=== PATIENT | female | born 1940 | race Caucasian/White ===

== ENCOUNTER 2024-06-09 03:04 | Outpatient (CLI) | payer MEDICARE, SELFPAY ==
[2024-06-09 14:36] LABS: Abs Immature Grans 0.02 10^3/uL (0.0-0.06); Absolute Basophil Count 0.04 10^3/uL (0.0-0.2); Absolute Eosinophil Count 0.06 10^3/uL (0.0-0.7); Absolute Lymphocyte Count 0.69 10^3/uL (1.2-3.4); Absolute Monocyte Count 0.49 10^3/uL (0.1-0.8); Absolute Neutrophil Count 5.21 10^3/uL (1.2-6.7); Basophils % 0.6 %; Eosinophils % 0.9 %; HCT 33.6 % (36.0-46.0); HGB 10.4 g/dL (11.2-15.7); Immature Grans % 0.3 %; Lymphocytes % 10.6 %; MCH 27.3 pg (27.0-33.0); MCV 88 fL (80-95); MPV 8.9 fL (8.0-11.0); Monocytes % 7.5 %; Neutrophils % 80.1 %; Platelet Count 343 10^3/uL (130-400); RBC 3.81 10^6/uL (3.93-5.22); RDW 13.2 % (11.7-14.6); RDW-SD 42.7 fL; WBC 6.51 10^3/uL (4.4-10.8)
[2024-06-09 15:01] LABS: ALT 17 U/L (14-59); AST 16 U/L (15-37); Albumin 3.2 g/dL (3.4-5.0); Alkaline Phosphatase 90 U/L (46-116); Anion Gap 5.5 mmol/L (3-11); BUN 13 mg/dL (7-18); Bilirubin, Total 0.21 mg/dL (0.2-1.0); CO2 36.5 mmol/L (21.0-32.0); CREATININE 0.7 mg/dL (0.55-1.02); Calcium 9.4 mg/dL (8.5-10.1); Chloride 100 mmol/L (98-107); Estimated GFR 85.76 (mL/min/1.73m2); Glucose 96 mg/dL (74-106); Magnesium 1.7 mg/dL (1.8-2.4); Sodium 142 mmol/L (136-145); Total Protein 7.6 g/dL (6.4-8.2)
== END 2024-06-09 03:05 | disposition home or self-care (01) ==
LOC: LBO 03:06
PROVIDERS: PCP Internal Medicine; Visit Provider Internal Medicine Medical Oncology
DX: C34.31 Malignant neoplasm of lower lobe, right bronchus or lung (principal)
CPT/HCPCS: 36415; 80053; 83735; 85025

== ENCOUNTER 2024-07-08 03:51 | Outpatient (CLI) | payer MEDICARE, SELFPAY ==
[2024-07-08 12:27] LABS: Abs Immature Grans 0.03 10^3/uL (0.0-0.06); Absolute Basophil Count 0.04 10^3/uL (0.0-0.2); Absolute Eosinophil Count 0.06 10^3/uL (0.0-0.7); Absolute Lymphocyte Count 0.69 10^3/uL (1.2-3.4); Absolute Monocyte Count 0.54 10^3/uL (0.1-0.8); Absolute Neutrophil Count 7.23 10^3/uL (1.2-6.7); Basophils % 0.5 %; Eosinophils % 0.7 %; HCT 32.9 % (36.0-46.0); HGB 9.9 g/dL (11.2-15.7); Immature Grans % 0.3 %; MCH 26.1 pg (27.0-33.0); MCHC 30.1 % (32.0-36.0); MCV 87 fL (80-95); MPV 8.8 fL (8.0-11.0); Monocytes % 6.3 %; Neutrophils % 84.2 %; Platelet Count 463 10^3/uL (130-400); RBC 3.79 10^6/uL (3.93-5.22); RDW-SD 41.4 fL; WBC 8.59 10^3/uL (4.4-10.8)
[2024-07-08 12:54] LABS: ALT 14 U/L (14-59); AST 13 U/L (15-37); Albumin 2.6 g/dL (3.4-5.0); Alkaline Phosphatase 86 U/L (46-116); Anion Gap 2.1 mmol/L (3-11); BUN 10 mg/dL (7-18); Bilirubin, Total 0.27 mg/dL (0.2-1.0); CO2 37.9 mmol/L (21.0-32.0); CREATININE 0.8 mg/dL (0.55-1.02); Calcium 9.8 mg/dL (8.5-10.1); Chloride 101 mmol/L (98-107); Estimated GFR 73.06 (mL/min/1.73m2); Glucose 125 mg/dL (74-106); Magnesium 1.8 mg/dL (1.8-2.4); Potassium 4.2 mmol/L (3.5-5.1); Sodium 141 mmol/L (136-145); TSH 1.72 uIU/mL (0.36-3.74); Total Protein 7.2 g/dL (6.4-8.2)
== END 2024-07-08 03:52 | disposition home or self-care (01) ==
LOC: LBO 03:51
PROVIDERS: PCP Internal Medicine; Visit Provider Internal Medicine Medical Oncology
DX: C34.31 Malignant neoplasm of lower lobe, right bronchus or lung (principal); Z79.899 Other long term (current) drug therapy; C76.2 Malignant neoplasm of abdomen
CPT/HCPCS: 36415; 80053; 83735; 84439; 84443; 85025

== ENCOUNTER 2024-07-28 01:20 | Outpatient (CLI) | payer MEDICARE, SELFPAY ==
--- OUTSIDE RECORDS SUMMARY | 2024-07-28 01:29 | XMS_ITS | Encounter Summary ---
Author Organization [facility] Address [facility] [place] [address] Care Team Providers Care Ceo And Founder Name Role Phone Maria Guadalupe Mendes MD Primary Care Provider [phone] Reason for Referral * Consultation (Routine) - Closed Specialty Diagnoses / Procedures Referred By Contac t Referred To Contact Hematology and Oncology Diagnoses Primary malignant neoplasm of right upper lobe of lung Alta Zamora PA [facility] [place] [address] Nick Mullen MD [address] [place] [address] DR [place] [address] Referral ID Status Reason Start Date Expiration Date V isits Requested Visits Authorized [id number] Closed Consult, Test & Treat 05/29/2024 05/29/2025 1 1 Encounter Details Date Type Department Care Team (Latest Contact Info) Description 05/29/2024 9:00 AM EST TH Visit (TeleHealth) Radiation Oncology at [address] [phone] Alta Zamora PA [facility] [place] [address] Primary malignant neoplasm of right upper lobe of lung (Primary Dx); Primary malignant neoplasm of right lower lobe of lung; S/P radiotherapy Social History Tobacco Use Types Packs/Day Years Used Date Smoking Tobacco: Former Cigarettes 1 50 0 06/25/1967 - 06/25/2017 Smokeless Tobacco: Never Alcohol Use Standard Drinks/Week Comments Yes 0 (1 standard drink = 0.6 oz pur e alcohol) glass of wine once in a while [facility] Inpatient Questions Answer Date Recorded Does Anyone Try to Keep You From Having Contact with Others or Doing Things Outside Your Home? no 09/11/2023 Feels Threatened by Someone no 08/23 Feels Unsafe at Home or Work/School no 09/11/2023 Physical Signs of Abuse Present no 09/11/2023 Sex and Gender Information Value Date Recorded Sex Assigned at Not on file Gender Identity Not on file Sexual Orientation Not on file documented as of this encounter Progress Notes * Alta Zamora PA - 05/29/2024 9:00 AM EST [facility] Radiation Oncology [place] [phone] TELEHEALTH FOLLOW-UP: Patient: Kiersten Barraza : 1940 PCP: Maria Guadalupe Mendes MD Furniture Reproducer: Kevan Cameron MD ([facility]) Radiation Oncologist: Edwin Bolanos MD (Consult Date: 09/27/23) Chief Complaint: Follow-up for right NSCLC ([place]3: cT1c, cN0, cM0) HPI: Initial Abnormal Imaging: Chest CT on 08/06/23 showed a 2.3 cm RLL nodule; PET/CT on 09/20/23 showed a FDG-avid RUL nodule as well (possibly inflammatory; observing) Date of Diagnosis (Biopsy): EBUS on 09/11/23 (adenocarcinoma) Surgery: not a good surgical candidate d/t PFTs (DLCO 35%, PEV1 26%), functional status, and severeCOPD Treatment Intent: Definitive (Curative) Radiation Therapy: Completion Date Treatment Site Modality Dose per Fraction (Gy) # Fractions Total Dose (Gy) 11/16/23 RLL SBRT 11 5 55 Concurrent Therapy: none Progression: Abnormal Imaging: follow-up Chest CT on 03/10/24 showed RUL nodule (FDG-avid on 09/20/23 PET) grew from 6 mm to 1.2 cm since 09/11/23, c/f malignancy Date of Diagnosis (Biopsy): 04/10/24 (adenocarcinoma) Interval Symptoms Since Last Visit on 04/22/24: General: Today's phone visit is to review recent PET results. Pain: 0/10 Fatigue/Activity Level: Lives alone in a senior apartment on the third floor. 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 Weight/Appetite/Diet: No recent changes in appetite. Denies unintentional weight loss/gain. Respiratory: No acute changes since last appointment. Has been using a wheelchair for distance since before RT. Continues to report ARZATE, feels out of breath quickly, which causes her to limit her physical activity. No SOB at rest. On 4L/min continuous supplemental oxygen. Inhalers/nebulizer managedby PCP. Denies f/c, cough, or hemoptysis. Cardiovascular: Denies chest pain, palpitations, calf pain/swelling, or other peripheral edema. GI: Takes Metamucil daily and Imodium PRN for diarrhea, which help. Denies N/V, constipation, or abdominal pain. Musculoskeletal: Denies decreased strength. Neurological: Denies headaches, dizziness, seizures, peripheral neuropathy. Mood: Denies mood swings or feeling depressed. Tobacco Use: Smoked 1 PPD x 50 years, quit in 2018. Alcohol Use: Rarely. Allergies: Allergies Allergen Reactions Cyclobenzaprine Depression Gabapentin Other (See Comments) depression Percocet [Oxycodone-Acetaminophen] Current Medications: Current Outpatient Medications on File Prior to Visit Medication Sig Dispense Refill dilTIAZem (Tiazac) 180 mg ER 24 hr capsule Take 180 mg by mouth daily. aspirin 81 mg chewable tablet Take 81 mg by mouth daily. Psyllium Seed-Sucrose (0) Powder Take by mouth. CoQ-10 100 mg Capsule PRN atorvastatin (Lipitor) 20 mg Tablet Take 20 mg by mouth nightly. ketoconazole (Nizoral) 2 % Cream APPLY TO AFFECTED AREA ONCE DAILY NEEDED albuteroL (PROVENTIL) 2.5 mg /3 mL (0.083 %) Solution for Nebulization 3 mLs every 5 hours. ipratropium-albuteroL (DUONEB) 0.5 mg-3 mg(2.5 mg base)/3 mL Solution for Nebulization ipratropium 0.5 mg-albuterol 3 mg (2.5 mg base)/3 mL nebulization soln Administer breathing tx x 1 Trelegy Ellipta 100-62.5-25 mcg Disk with Device inhale 1 puff by mouth and INTO THE LUNGS once daily EVERY MORNING albuteroL 90 mcg/actuation HFA Aerosol Inhaler Inhale 2 puffs into the lungs every 4 hours as needed for Wheezing. Use with spacer loperamide (IMODIUM) 2 mg Capsule Take 2 mg by mouth daily as needed for Diarrhea. 1 mg/7.5 ml liquid Indications: diarrhea busPIRone (BUSPAR) 5 mg Tablet Take 5 mg by mouth 3 times daily. lisinopril (PRINIVIL;ZESTRIL) 10 mg Tablet Take 10 mg by mouth daily. OXYGEN-AIR DELIVERY SYSTEMS MISC by Misc.(Non-Drug; Combo Route) route. acetaminophen (TYLENOL) 325 mg Tablet Take 650 mg by mouth every 4 hours as needed for Pain. cholecalciferol, Vitamin D3, 2,000 unit Capsule Take by mouth. lactobacillus rhamnosus, GG, (CULTURELLE) 10 billion cell Capsule Take 1 capsule by mouth daily. No current facility-administered medications on file prior to visit. Performance Status: KPS Score ECOG Grade Definition 90-100 0 Fully active, able to carry on all pre-disease performance without restriction 70-80 1 Restricted in physically strenuous activity but ambulatory and able to carry out work of a light or sedentary nature, e.g., light house work, office work 50-60 2 Ambulatory and capable of all selfcare but unable to carry out any work activities; up and about more than 50% of waking hours X 30-40 3 Capable of only limited selfcare; confined to bed or chair more than 50% of waking hours 10-20 4 Completely disabled; cannot carry on any selfcare; totally confined to bed or chair Physical Examination: (No vitals obtained as this is a telephone appointment.) Constitutional: conversant. Respiratory: non-labored respirations with speaking. Neurologic: alert and oriented x 3. Speech clear and coherent. Psychiatric: mood is euthymic. Insight and judgement are good. Imaging: PET/CT (05/21/24): IMPRESSION 1. FDG avid 1.2 cm spiculated right upper nodule, consistent with pulmonary malignancy. 2. Postradiation changes in the right lower lobe with small residual FDG avid nodular component, consistent with residual malignancy and/or postradiation change. 3. New, multiple FDG avid right pleural metastases. 4. Unchanged FDG avid small right upper paratracheal and right hilar sonja metastases. 5. New small to moderate right pleural effusion with right basilar compressive atelectasis. Assessment & Plan: #Lung cancer: - Chest CT from 03/10/24 showed treated RLL nodule had decreased in size with expected radiation changes present. RUL nodule (FDG-avid on 09/20/23 PET) continues to grow from 6 mm to 1.2 cm since 09/11/23, c/f malignancy. Results reviewed at [facility] Tumor Board on 03/25/24, with recommendation for CT-guided biopsy of growing RUL nodule. - CT-guided biopsy of growing, FDG-avid RUL nodule on 04/10/24 showed adenocarcinoma. - PET on 05/21/24 showed multiple new FDG-avid right pleural metastases, new right pleural effusion, and stable FDG-avid right upper paratracheal and hilar sonja metastases, in addition to the FDG-avid RUL biopsy-proven adenocarcinoma and radiation changes in the RLL. - PET results reviewed with Dr. Bolanos and Dr. Mullen. Per Dr. Mullen, biopsy confirmation of the pleural metastases is not necessary, and based on patient's PD-L1 status, she would be a candidate for single-agent immunotherapy. PET results and recommendations reviewed with patient. Will refer to Medical Oncology. - Patient canceled Brain MRI on 05/21/24. Will reschedule Brain MRI at [facility] to complete staging work-up. - ARZATE continues, no SOB at rest. On 4L/min continuous supplemental oxygen. Inhalers/nebulizer managed by PCP. Denies f/c, cough, or hemoptysis. Patient plans to contact PCP to discuss symptoms and potential need for Pulmonology referral to re-establish care. #Effects of EBRT: - Completed definitive SBRT to RLL (55 Gy in 5 fractions) on 11/16/23. - Reviewed concerning symptoms that should be brought to the attention of a medical provider: - Brand new or worsening pulmonary symptoms (especially hemoptysis); - Symptoms that persist for more than 2 weeks; - Anything you are worried about that may be related to your cancer coming back. #Survivorship: - Body weight/nutrition: recommend a well-balanced diet with adequate hydration. - Exercise: recommend at least 150 minutes of cardiovascular exercise per week, stretching twice per week, and 2 days of resistance/strength training per week as tolerated. - Sleep: recommend 7-8 hours per night. - Sunscreen: encourage SPF 30 or higher, and wearing protective clothing/hats while outside. - Follow with PCP on regular basis for: annual exam/health maintenance, immunizations, and cancer screenings. #Resources provided: none #Referrals placed: Medical Oncology Follow-Up: Imaging ([facility]): next available Brain MRI (ordered 04/22/24) Next visit with Radiation Oncology: SURYA Barraza had the opportunity to ask questions, which were answered to the best of my knowledge. Kiersten Barraza agreed to contact Radiation Oncology in between visits with any questions/concerns or new symptoms in regards to radiation therapy/lung cancer. Alta Zamora PA-C Radiation Oncology documented in this encounter Plan of Treatment Upcoming Encounters Date Type Department Care Team (Late st Contact Info) Description 07/28/2024 12:30 PM EST Office Visit Hematology/Oncology at [address] [phone] Nick Mullen MD [facility] [address] [place] [address] Chana Myrick APRN [address] [place] [address] DR HEMATOLOGY AND ONCOLOGY [place], [place] [id number] 07/28/2024 1:00 PM EST Scheduled View Only Hematology/Oncology at [address] [phone] Aleah Curran RN 07/28/2024 1:00 PM EST Infusion Hematology Oncology at [address] [phone] Scheduled Referrals Name Type Priority Associated Diagnoses Order Schedule Referral to Hematology and Oncology Outpatient Referral Routine Primary malignant neoplasm of right upper lobe of lung Ordered: 05/29/2024 documented as of this encounter Visit Diagnoses Diagnosis Primary malignant neoplasm of right upper lobe of lung- Primary Malignant neoplasm of upper lobe, bronchus or lung Primary malignant neoplasm of right lower lobe of lung Malignant neoplasm of lower lobe, bronchus, or lung S/P radiotherapy Convalescence following radiotherapy documented in this encounter Care Teams Ceo And Founder Relationship Specialty Start Date End Date Maria Guadalupe Mendes MD [address] [place] [phone] PCP - General General Internal Medicine 09/06/23 documented as of this encounter
--- OUTSIDE RECORDS SUMMARY | 2024-07-28 01:29 | XMS_ITS | Encounter Summary ---
Author Organization [facility] Address [facility] [place] [address] Care Team Providers Care Interior Design Consultant Name Role Phone Maria Guadalupe Mendes MD Primary Care Provider Encounter Details Date Type Department Care Team (Latest Contact Info) Description 06/26/2024 Travel Social History Tobacco Use Types Packs/Day Years Used Date Smoking Tobacco: Former Cigarettes 1 50 0 06/25/1967 - 06/25/2017 Smokeless Tobacco: Never Alcohol Use Standard Drinks/Week Comments Yes 0 (1 standard drink = 0.6 oz pur e alcohol) glass of wine once in a while B1300 Health Literacy Answer Date Recor ded How often do you need to hav e someone help you when you read instructions, pamphlets, or other written material from your doctor or pharmacy? Rarely 06/09/2024 [facility] Utilities Answer Date Recorded In the past 12 months has th e electric, gas, oil, or water company threatened to shut off services in your home? No 06/09/2024 Overall Financial Resource Strain (CARDIA) Answe r Date Recorded How hard is it for you to pa y for the very basics like food, housing, medical care, and heating? Patient declined 06/09/2024 Hunger Vital Sign Answer Date Recorded Within the past 12 months, y ou worried that your food would run out before you got the money to buy more. Patient declined Within the past 12 months, t he food you bought just didn't last and you didn't have money to get more. Patient declined PRAPARE - Transportation Answer Date Re corded In the past 12 months, has l ack of transportation kept you from medical appointments or from getting medications? Patient declined 06/09/2024 In the past 12 months, has l ack of transportation kept you from meetings, work, or from getting things needed for daily living? Patient declined 06/09/2024 Housing Stability Vital Sign Answer Quinn e Recorded In the last 12 months, was t here a time when you were not able to pay the mortgage or rent on time? Patient declined 06/09/20 24 In the past 12 months, how m any times have you moved where you were living? 0 06/09/2024 At any time in the past 12 m onths, were you homeless or living in a prison (including now)? Patient declined 06/09/2024 [facility] Inpatient Questions Answer Date Recorded Does Anyone [...] on file documented as of this encounter Plan of Treatment Upcoming Encounters Date Type Department Care Team (Late st Contact Info) Description 07/28/2024 12:30 PM EST Office Visit Hematology/Oncology at [address] [phone] Nick Mullen MD [facility] DR HEMATOLOGY [place] [address] Chana Myrick APRN [address] [place] [address] DR HEMATOLOGY AND ONCOLOGY [place], [place] [phone] 07/28/2024 1:00 PM EST Scheduled View Only Hematology/Oncology at [address] [phone] Aleah Curran RN 07/28/2024 1:00 PM EST Infusion Hematology Oncology at [address] [phone] documented as of this encounter Visit Diagnoses Not on filedocumented in this encounter Care Teams Interior Design Consultant Relationship Specialty Start Date End Date Maria Guadalupe Mendes MD [address] [place] [phone] PCP - General General Internal Medicine 09/06/23 documented as of this encounter
--- OUTSIDE RECORDS SUMMARY | 2024-07-28 01:29 | XMS_ITS | Encounter Summary ---
Author Organization [facility] Address [facility] [place] [address] Care Team Providers Care Director Surface Transportation Name Role Phone Maria Guadalupe Mendes MD Primary Care Provider [phone] Reason for Referral * Diagnostic Test (Routine) - Closed Specialty Diagnoses / Procedures Referred By Contac t Referred To Contact Radiology Diagnoses Primary malignant neoplasm of right upper lobe of lung Procedures NM PET CT Skull Base to Mid-thigh Alta Zamora PA [facility] [place] [address] [facility] [place] [address] Referral ID Status Reason Start Date Expiration Date V isits Requested Visits Authorized [id number] Closed Specialty Service Requested 04/22/2024 10/21/2025 2 2 * Diagnostic Test (Routine) - Pending Review Specialty Diagnoses / Procedures Referred By Contac t Referred To Contact Radiology Diagnoses Primary malignant neoplasm of right upper lobe of lung Procedures MRI Brain wwo Contrast (Generic) Alta Zamora PA [facility] [place] [address] [place] [address] Referral ID Status Reason Start Date Expiration Date Visits Requested Visits Authorized [id number] Pending Review Specialty Service Requested 4 10/21/2025 1 1 Encounter Details Date Type Department Care Team (Latest Contact Info) Description 04/22/2024 10:30 AM EDT TH Visit (TeleHealth) Radiation Oncology at [address] [phone] Alta Zamora PA [facility] [address] [place] [address] Primary malignant neoplasm of right upper lobe [...] glass of wine once in a while [facility] Inpatient Questions Answer Date Recorded Does Anyone [...] Progress Notes * Alta Zamora PA - 04/22/2024 10:30 AM EDT [facility] [place] [address] TELEHEALTH FOLLOW-UP: Patient: Kiersten Barraza : 1940 PCP: Maria Guadalupe Mendes MD Fruit Rancher: Kevan Cameron MD ([facility]) Radiation Oncologist: Edwin Bolanos MD (Consult Date: [...] SBRT 11 5 55 Concurrent Therapy: none Current treatment: Surveillance Interval Symptoms Since Last Visit on 03/25/24: General: 04/10/24 biopsy of growing, FDG-avid RUL nodule showed adenocarcinoma. This phone appointment is to review this result and plan. Pain: 0/10 Fatigue/Activity Level: Lives alone in a senior apartment on the third floor. 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 Weight/Appetite/Diet: No recent changes in appetite. Denies unintentional weight loss/gain. Respiratory: No acute changes since last appointment. Has been using a wheelchair for distance since before RT. Thinks ARZATE has continued to slightly worsen, feels out of breath more quickly, which causes her to limit her physical activity. No SOB at rest. On 4L/min continuous supplemental oxygen. In halers/nebulizer managed by PCP. Denies f/c, cough, or hemoptysis. Cardiovascular: [...] Alcohol Use: Rarely. Allergies: Allergies Allergen Reactions Gabapentin Other (See Comments) depression Percocet [Oxycodone-Acetaminophen] [...] Tablet Take 20 mg by mouth nightly. albuteroL (PROVENTIL) 2.5 mg /3 mL (0.083 [...] Tablet Take 10 mg by mouth daily. acetaminophen (TYLENOL) 325 mg Tablet Take 650 mg by mouth every 4 hours as needed for Pain. cholecalciferol, Vitamin D3, 2,000 unit Capsule Take by mouth. [DISCONTINUED] emollient combination no.111 (REMEDY PHYTOPLEX MOISTURIZER TOP) Apply topically. Phytoplex Remedy Moisturizer: Apply to area of radiation twice a day but no less than 2 hours before a treatment. ketoconazole (Nizoral) 2 % Cream APPLY TO AFFECTED AREA ONCE DAILY NEEDED OXYGEN-AIR DELIVERY SYSTEMS MISC by [facility].(Non-Drug; Combo Route) route. lactobacillus rhamnosus, GG, (CULTURELLE) 10 billion cell [...] euthymic. Insight and judgement are good. Imaging: Chest CT without contrast (03/10/24): IMPRESSION 1. Posttreatment changes in the right lower lobe with interval decrease in size of the treated lesion, as above. 2. Ongoing increase in size of a peripheral nodule along the lateral aspect of the right upper lobe, concerning for an additional focus of malignancy. 3. Unchanged indeterminate small peripheral nodules in the right upper and left midlung regions, attention on follow-up. Pathology Reviewed This Visit: Final Diagnosis A. Lung, Right, CT Guided Core Needle Biopsy: Adenocarcinoma, (see Discussion.) Assessment & Plan: #Lung cancer: - Chest [...] RUL nodule on 04/10/24 showed adenocarcinoma. - Will order updated PET and Brain MRI to determine extent of disease and establish a treatment plan. - ARZATE continues to slightly worsen. No SOB at rest. On 4L/min continuous [...] cancer screenings. #Resources provided: none #Referrals placed: none Follow-Up: (prefers PM appointments) Imaging ([facility]): next available PET and Brain MRI Next visit: with Dr. Bolanos to review imaging results Kiersten Barraza had the opportunity to ask questions, [...] 12:30 PM EST Office Visit Hematology/Oncology at [address] [phone] Nick Mullen MD [facility] [address] [place] [address] Chana Myrick APRN [address] [place] [address] DR HEMATOLOGY AND ONCOLOGY [place], [place] [id number] 07/28/2024 1:00 PM EST Scheduled View Only Hematology/Oncology at [address] [phone] Aleah Curran RN 07/28/2024 1:00 PM EST Infusion Hematology Oncology at [address] [phone] Scheduled Orders Name Type Priority Associated Diagnoses Orde r Schedule MRI Brain wwo Contrast (Generic) Imaging Routine Primary malignant neoplasm of right upper lobe of lung Expected: 04/22/2024 (Approximate), Expires: 10/22/2024 documented as of this encounter Results * NM PET CT Skull Base to Mid-thigh (05/21/2024 2:53 PM EST) Rolith WORKSTATION ID [id number] RAD Anatomical Region Laterality Modality Positron Emissio n Tomography (PET) Impressions 05/26/2024 11:14 AM EST 1. ??FDG avid 1.2 cm spiculated right upper nodule, consistent with pulmonary malignancy. 2. ??Postradiation changes in the right lower lobe with small residual FDG avid nodular component, consistent with residual malignancy and/or postradiation change. 3. ??New, multiple FDG avid right pleural metastases. 4. ??Unchanged FDG avid small right upper paratracheal and right hilar sonja metastases. 5. ??New small to moderate right pleural effusion with right basilar compressive atelectasis. Preliminary report signed by: Rudi Donovan at 05/26/2024 10:56 AM I have personally reviewed the image(s) and the resident's interpretation and agree with the findings, Krish Davila MD at 05/26/2024 11:14 AM Thank you for letting us participate in the care of this patient. ??If you are a health care provider and have any questions regarding this report, please contact the number below. ??For patients who have questions please contact the health child care coordinator that requested your imaging first. ? Electronically signed by: Krish Davila MD, [facility] ([phone]), at 05/26/2024 11:14 AM Narrative 05/26/2024 11:14 AM EST EXAMINATION: NM PET CT STANDARD SKULL BASE TO MID-THIGH CLINICAL HISTORY: Completed SBRT to RLL biopsy-proven adenocarcinoma on 11/16/23. 04/10/24 biopsy of growing FDG-avid RUL nodule showed adenocarcinoma. ??This scan ordered for staging. C34.11, Malignant neoplasm of upper lobe, right bronchus or lung Recent flu vaccination on the left arm on 04/29/2024 TECHNIQUE: Following IV injection of 75-pbpdan-2-deoxyglucose (FDG) a standard uptake of approximately 60 minutes, a noncontrast CT scan followed by a PET scan were acquired from the base of the skull to mid thighs. The noncontrast CT was used for anatomic localization and photon attenuation correction of the PET scan. Blood glucose level: 97 (mg/dL) FDG dose: 12.1 mCi COMPARISON: PET/CT 09/12/2023 CT chest 03/10/2024, 08/06/2023 FINDINGS: HEAD/NECK: Normal activity in all soft tissue regions of the neck and visualized lower head. No adenopathy. CHEST: FDG avid 1.2 cm spiculated peripheral right upper lobe nodule, unchanged in size compared to PET CT 09/12/2023. Significantly decreased size of previously seen right lower lobe mass (image 67), corresponding to biopsy-proven adenocarcinoma and site of prior radiation therapy, now with small residual FDG avid nodular component. New adjacent patchy consolidative/groundglass opacities, and right lower lobe peribronchial thickening. Multiple FDG avid right pleural nodules, new since prior PET scan (for example image 43). Unchanged FDG avid small right upper paratracheal lymph node (image 47). Unchanged mildly FDG avid right hilar lymph node (image 59). New washd-yp-dqmswiyt right pleural effusion with right basilar compressive atelectasis. Stable emphysematous changes. Unchanged small left lower lobe intrapulmonary lymph node (image 79). Unchanged non-FDG avid sub-6 mm peripheral left lower lobe nodule (image 80). Coronary, aortic valve, and aortic calcifications. Enlargement of the main pulmonary artery relative to the aorta, measuring up to 3.5 cm. ABDOMEN/PELVIS: Normal activity in all soft tissue regions. Resolution of previously seen focus of FDG uptake in the right adrenal gland region No adenopathy. SKELETON/EXTREMITIES: Normal activity in all regions of the axial and visualized appendicular skeleton. No suspicious osseous lesion. Procedure Note Krish Davila MD - 05/26/2024 EXAMINATION: NM PET CT STANDARD SKULL BASE TO MID-THIGH CLINICAL HISTORY: Completed SBRT to RLL biopsy-proven adenocarcinoma on11/16/23. 04/10/24 biopsy of growing FDG-avid RUL nodule showed adenocarcinoma.This scan ordered for staging. C34.11, Malignant neoplasm of upper lobe, right bronchus or lung Recent flu vaccination on the left arm on 04/29/2024 TECHNIQUE: Following IV injection of 52-pumosq-5-deoxyglucose (FDG) astandard uptake of approximately 60 minutes, a noncontrast CT scan followed by aPET scan were acquired from the base of the skull to mid thighs. The noncontrast CTwas used for anatomic localization and photon attenuation correction of thePET scan. Blood glucose level: 97 (mg/dL) FDG dose: 12.1 mCi COMPARISON: PET/CT 09/12/2023 CT chest 03/10/2024, 08/06/2023 FINDINGS: HEAD/NECK: Normal activity in all soft tissue regions of the neck and visualizedlower head. No adenopathy. CHEST: FDG avid 1.2 cm spiculated peripheral right upper lobe nodule, unchangedin size compared to PET CT 09/12/2023. Significantly decreased size of previously seen right lower lobe mass(image 67), corresponding to biopsy-proven adenocarcinoma and site of priorradiation therapy, now with small residual FDG avid nodular component. New adjacentpatchy consolidative/groundglass opacities, and right lower lobe peribronchial thickening. Multiple FDG avid right pleural nodules, new since prior PET scan (forexample image 43). Unchanged FDG avid small right upper paratracheal lymph node (image 47). Unchanged mildly FDG avid right hilar lymph node (image 59). New jlckd-kd-qpsnwqjg right pleural effusion with right basilarcompressive atelectasis. Stable emphysematous changes. Unchanged small left lowerlobe intrapulmonary lymph node (image 79). Unchanged non-FDG avid sub-6 mmperipheral left lower lobe nodule (image 80). Coronary, aortic valve, and aortic calcifications. Enlargement of themain pulmonary artery relative to the aorta, measuring up to 3.5 cm. ABDOMEN/PELVIS: Normal activity in all soft tissue regions. Resolution of previously seenfocus of FDG uptake in the right adrenal gland region No adenopathy. SKELETON/EXTREMITIES: Normal activity in all regions of the axial and visualized appendicular skeleton. No suspicious osseous lesion. IMPRESSION 1. FDG avid 1.2 cm spiculated right upper nodule, consistent withpulmonary malignancy. 2. Postradiation changes in the right lower lobe with small residual FDGavid nodular component, consistent with residual malignancy and/orpostradiation change. 3. New, multiple FDG avid right pleural metastases. 4. Unchanged FDG avid small right upper paratracheal and right hilarnodal metastases. 5. New small to moderate right pleural effusion with right basilarcompressive atelectasis. Preliminary report signed by: Rudi Donovan at 05/26/2024 10:56AM I have personally reviewed the image(s) and the resident's interpretationand agree with the findings, Krish Davila MD at 05/26/2024 11:14 AM Thank you for letting us participate in the care of this patient. If youare a health care provider and have any questions regarding this report,please contact the number below. For patients who have questions please contactthe health child care coordinator that requested your imaging first. Electronically signed by: Krish Davila MD, [facility]([phone]), at 05/26/2024 11:14 AM Edwin Bolanos MD IMG PET ORDERABLES documented in this encounter Visit Diagnoses Diagnosis Primary malignant neoplasm of right upper lobe of lung- Primary Malignant neoplasm of upper lobe, bronchus or lung Primary malignant neoplasm of right lower lobe of lung Malignant neoplasm of lower lobe, bronchus, or lung S/P radiotherapy Convalescence following radiotherapy Primary malignant neoplasm of right upper lobe of lung Malignant neoplasm of upper lobe, bronchus or lung documented in this encounter Care Teams Director Surface Transportation Relationship Specialty Start Date End Date Maria Guadalupe Mendes MD [address] [place] [address] PCP - General General Internal Medicine 09/06/23 documented as of this encounter
--- OUTSIDE RECORDS SUMMARY | 2024-07-28 01:29 | XMS_ITS | Encounter Summary ---
Author Organization [facility] Address [facility] [place] [address] Care Team Providers Care Motel Maid Name Role Phone Maria Guadalupe Mendes MD Primary Care Provider [phone] Encounter Details Date Type Department Care Team (Late st Contact Info) Description 06/04/2024 Orders Only Hematology/Oncology at [address] [phone] Nick Mullen MD [facility] DR HEMATOLOGY [place] [address] Primary malignant neoplasm of right lower lobe of lung Social History Tobacco Use Types Packs/Day Years Used Date Smoking Tobacco: Former Cigarettes 1 50 0 06/25/1967 - 06/25/2017 Smokeless Tobacco: Never Alcohol Use Standard Drinks/Week Comments Yes 0 (1 standard drink = 0.6 oz pur e alcohol) glass of wine once in a while DH IPV Inpatient Questions Answer Date Recorded [...] 12:30 PM EST Office Visit Hematology/Oncology at [address] [phone] Nick Mullen MD [facility] DR HEMATOLOGY [place] [address] Chana Myrick APRN [address] [place] [address] DR HEMATOLOGY AND ONCOLOGY [place], [place] [id number] 07/28/2024 1:00 PM EST Scheduled View Only Hematology/Oncology at [address] [phone] Aleah Curran RN 07/28/2024 1:00 PM EST Infusion Hematology Oncology at [address] [phone] Scheduled Orders Name Type Priority Associated Diagnoses Orde r Schedule CBC (with Diff) Lab STAT Primary malignant neoplasm of right lower lobe of lung Once a week for 52 Occurrences starting 06/04/2024 until 06/04/2025 Comprehensive metabolic panel Non-fasting Lab STAT Primary malignant neoplasm of right lower lobe of lung Once a week for 52 Occurrences starting 06/04/2024 until 06/04/2025 Magnesium Lab Routine Primary malignant neoplasm of right lower lobe of lung Once a week for 52 Occurrences starting 06/04/2024 until 06/04/2025 documented as of this encounter Visit Diagnoses Diagnosis Primary malignant neoplasm of right lower lobe of lung Malignant neoplasm of lower lobe, bronchus, or lung documented in this encounter Care Teams Motel Maid Relationship Specialty Start Date End Date Maria Guadalupe Mendes MD [address] [place] [address] PCP - General General Internal Medicine 09/06/23 documented as of this encounter
--- OUTSIDE RECORDS SUMMARY | 2024-07-28 01:29 | XMS_ITS | Encounter Summary ---
Author Organization [facility] Address [facility] [place] [address] Care Team Providers Care Hog Stomach Preparer Name Role Phone Maria Guadalupe Mendes MD Primary Care Provider Reason for Visit * Reason Comments Chemotherapy Cycle 1, Day 1; pemb ro * Treatment/Therapy Plan Authorization (Routine) - Authorized Specialty Diagnoses / Procedures Referred By Contilia t Referred To Contact Diagnoses Primary malignant neoplasm of right lower lobe of lung Secondary malignant tumor of pleura High risk medication use Procedures TC PEMBROLIZUMAB, 1 MG, INJ Nick Mullen MD [facility] DR HEMATOLOGY [place] [address] [facility] Hem Onc Office [address] [place] [phone] Referral ID Status Reason Start Date Expiration Date V isits Requested Visits Authorized [id number] Authorized 06/12/2024 06/12/2025 99 99 Encounter Details Date Type Department Care Team (Late st Contact Info) Description 07/08/2024 1:30 PM EST Infusion Hematology Oncology at [address] [phone] Primary malignant neoplasm of right lower lobe of lung; Secondary malignant tumor of pleura; High risk medication use Social History Tobacco Use Types Packs/Day Years [...] your doctor or pharmacy? Rarely 06/09/[address] [facility] Utilities Answer Date Recorded In the [...] any time in the past 12 m [facility], were you homeless or living in a correction (including now)? Patient declined 06/09/2024 DH IPV [...] as of this encounter Progress Notes * Angelina Chen RN - 07/08/2024 1:30 PM EST INFUSION THERAPY ADMINISTRATION NOTES DIAGNOSIS: Lung cancer CYCLE #: 2, Day 1; Pembro REASON FOR VISIT: Pembro SUBJECTIVE Kiersten Barraza offers no complaints. OBJECTIVE LAB DATA: WDL for today's infusion. Seen in clinic and cleared for treatment. IV ACCESS: PIV placed, Immuno study labs drawn. Pre administration: Chemotherapy orders independently verified for drug name, route, and dosage per patient's height, weight and BSA by Angelina Chen, RN & staff pharmacists. REACTIONS (DESCRIPTION, TIME, INTERVENTION AND EFFECTIVENESS) none ASSESSMENT Kiersten Barraza was awake, alert and tolerated treatment well. Pt. chemo teaching instructions included: During clinic hours (8am-5pm Sunday-Sunday): pt. can call [phone] with questions or concerns. After clinic hours (5pm-8am Sunday-Sunday and weekends) pt can call [phone] and ask for the pharmacist manager/oncologist consulting property manager. Kiersten Barraza verbalized understanding of potential chemotherapy side effects and home care including but not limited to- handwashing to prevent infection, signs and symptoms of low blood counts (fever, fatigue, bleeding), to call with a fever of 100.4 or greater, any significant constipation/diarrhea, importance of nutrition and fluid intake (drinking at least 32-64 ounces of non-caffeinated beverages/day), mouth care. Kiersten Barraza verbalized understanding of how to take prescription medications given for homeuse after chemotherapy. PLAN Return to clinic per routine. documented in this encounter Plan of Treatment Upcoming Encounters Date Type Department Care Team (Late st Contact Info) Description 07/28/2024 12:30 PM EST Office Visit Hematology/Oncology at [address] [phone] Nick Mullen MD [facility] DR HEMATOLOGY [place] [address] Chana Myrick APRN [address] [place] [address] [place] [address] 07/28/2024 1:00 PM EST Scheduled View Only Hematology/Oncology at [address] [phone] Aleah Curran RN 07/28/2024 1:00 PM EST Infusion Hematology Oncology at [address] [phone] documented as of this encounter Visit Diagnoses Diagnosis Primary malignant neoplasm of right lower lobe of lung Malignant neoplasm of lower lobe, bronchus, or lung 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 Is this drug being given as an outpatient? Yes New Bag 07/08/2024 2:37 PM EST 200 mg 216 mL/hr documented in this encounter Care Teams Hog Stomach Preparer Relationship Specialty Start Date End Date Maria Guadalupe Mendes MD [address] [place] [phone] PCP - General General Internal Medicine 09/06/23 documented as of this encounter
--- OUTSIDE RECORDS SUMMARY | 2024-07-28 01:29 | XMS_ITS | Encounter Summary ---
Author Organization [facility] Address [facility] [place] [address] Care Team Providers Care Private Equity Associate Name Role Phone Maria Guadalupe Mendes MD Primary Care Provider [phone] Encounter Details Date Type Department Care Team (Latest Contact Info) Description 05/08/2024 3:00 PM EST Procedure visit Dermatology at [facility] [address] [place] [address] Drake Chi MD [facility] DR CHE[place] [address] Basal cell carcinoma (BCC) of back Social History Tobacco Use Types Packs/Day Years [...] as of this encounter Progress Notes * Savage Brandon - 05/08/2024 3:00 PM EST Images from the original note were not included. DEPARTMENT OF DERMATOLOGY Medical Dermatology Clinic Provider: MD Jennifer Cotovia Preferred contact method for results [x]Phone []myD-H []Letter Detailed phone message OK? yes Are there any other people with whom we may discuss your care? Bony Barraza Past Medical History Date, location, treatment Melanoma no Dysplastic nevi no SCC no BCC Basal Cell Carcinoma, nodular, micronodular Location/Site: left nasal tip, s/p Mohs 03/16/2022 AKs UV Exposure & Protection Other relevant past medical history Eczema Hypertension Emphysema Family History Details Melanoma no NMSC no Other relevant family history Kidney cancer in father Social History Occupation: retired 2 children Pre-Procedure Screening Details Allergy to lidocaine, epinephrine, Dermabond, chlorhexidine, or adhesives Bleeding disorder or blood thinners Implanted devices (Pacemaker, defibrillator, deep brain stimulator, cochlear implant) History of Present Illness: Kiersten Barraza is a 84 y.o. Patient returns to clinic today for ED&C of biopsy proven BCC on the back . Last visit at Dermatology: 01/29/2024 Last visit with this provider: 01/29/2024 Medications: Reviewed in eD-H Allergies: Reviewed in eD-H Skin Examination: Focused skin examination of the BCC of the back was normal with the exception of the findings below. Assessment/Plan #. Biopsy-Proven BCC on the midline back - Reviewed pathology results and recommended treatment with ED&C. Patient agreed to proceed. - Patient denies allergies to lidocaine and epinephrine. - Patient denies having a pacemaker or defibrillator. Procedure: Destruction of lesion by electrodesiccation and curettage (ED&C) Location: As noted above. Indications and expectations, including risks and benefits, discussed. Verbal consent obtained. Skin prepped with alcohol. Local anesthesia administered with 1% xylocaine, 1:100,000 epinephrine. Entire lesion plus a small margin treated by curettage and electrodesiccation. Post-curettage defect size: 1.2 cm. There were no complications; patient tolerated procedure well. Wound dressed. Post-procedure expectations, wound care, and activity restrictions reviewed. Other: N/A RTC: Recall in for FSE for 2024 with Alon []Note routed to corporate legal secretary []Recall placed in scheduling system []Appointment scheduled at checkout Scribe attestation: Braulio Rincon RN has performed the documentation for this encounter in the presence of and acting as a scribe for Drake Chi MD. I performed the above scribed service and agree with the accuracy of the documentation in this encounter. Reviewed and signed by: Drake Chi MD Dermatology [facility] documented in this encounter Plan of Treatment Upcoming Encounters Date Type Department Care Team (Late st Contact Info) Description 07/28/2024 12:30 PM EST Office Visit Hematology/Oncology at [address] [phone] Nick Mullen MD [facility] DR [place] [address] Chana Myrick APRN [address] [place] [address] DR HEMATOLOGY AND ONCOLOGY [place], [place] [id number] 07/28/2024 1:00 PM EST Scheduled View Only Hematology/Oncology at [address] [phone] Aleah Curran RN 07/28/2024 1:00 PM EST Infusion Hematology Oncology at [address] [phone] documented as of this encounter Visit Diagnoses Diagnosis Basal cell carcinoma (BCC) of back documented in this encounter Care Teams Private Equity Associate Relationship Specialty Start Date End Date Maria Guadalupe Mendes MD [address] [place] [phone] PCP - General General Internal Medicine 09/06/23 documented as of this encounter
--- OUTSIDE RECORDS SUMMARY | 2024-07-28 01:29 | XMS_ITS | Encounter Summary ---
Author Organization [facility] Address [facility] [place] [address] Care Team Providers Care Finisher Plate Name Role Phone Maria Guadalupe Mendes MD Primary Care Provider Encounter Details Date Type Department Care Team (Late st Contact Info) Description 07/15/2024 Interpretation Only [facility] [address] [place] [phone] Josh Baca MD [address] [place] [address] Social History Tobacco Use Types Packs/Day Years [...] from your doctor or pharmacy? Rarely 06/09/2024 [facility] Utilities Answer Date Recorded In the past 12 months has e electric, gas, oil, or water company [...] any time in the past 12 m [place], were you homeless or living in a correction (including now)? Patient declined 06/09/2024 IPV Inpatient Questions Answer Date Recorded Does [...] 12:30 PM EST Office Visit Hematology/Oncology at [address] [phone] Nick Mullen MD [facility] [place] [address] Chana Myrick APRN [address] [place] [address] DR HEMATOLOGY [place] [address] 07/28/2024 1:00 PM EST Scheduled View Only Hematology/Oncology at [address] [phone] Aleah Curran RN 07/28/2024 1:00 PM EST Infusion Hematology Oncology at [address] [phone] documented as of this encounter Procedures Procedure Name Priority Date/Time Associated Diagnosis Comments XR CHEST ONE VIEW STAT 07/15/2024 12: 03 PM EST documented in this encounter Results * XR Chest One View (07/15/2024 12:03 PM EST) PT CLASS E RAD ADMITDTTM [id number] RAD PT RAD INFO [id number]^Haniss abbi^Josh RAD EXAM DESC XCXR1^XR Chest 1 View^RIS RAD WORKSTATION ID [id number] RAD Anatomical Region Laterality Modality Chest N/A Radiographic Trini ging 07/15/2024 12:0 3 PM EST Impressions 07/15/2024 1:22 PM EST Near complete resolution of the right-sided pleural effusion. Thank you for letting us participate in the care of this patient. ??If you are a health care provider and have any questions regarding this report, please contact the number below. ??For patients who have questions please contact the health resident care supervisor that requested your imaging first. ? Narrative 07/15/2024 1:22 PM EST EXAMINATION: XR Chest 1 View CLINICAL HISTORY: post thoracentesis TECHNIQUE: Frontal radiograph of the chest COMPARISON: July 15, 2024 FINDINGS: Significant interval decrease in size of the right pulmonary base opacity with minimal residual atelectasis along the medial base, and minimal blunting of the lateral costophrenic angle, consistent with small volume residual pleural fluid. The left lung remains clear. Procedure Note Mihai Guerrero MD - 07/15/2024 EXAMINATION: XR Chest 1 View CLINICAL HISTORY: post thoracentesis TECHNIQUE: Frontal radiograph of the chest COMPARISON: July 15, 2024 FINDINGS: Significant interval decrease in size of the right pulmonary base opacitywith minimal residual atelectasis along the medial base, and minimal bluntingof the lateral costophrenic angle, consistent with small volume residual pleuralfluid. The left lung remains clear. IMPRESSION Near complete resolution of the right-sided pleural effusion. Thank you for letting us participate in the care of this patient. If youare a health care provider and have any questions regarding this report,please contact the number below. For patients who have questions please contactthe health resident care supervisor that requested your imaging first. Josh Baca MD IMG DX ORDERABLES documented in this encounter Visit Diagnoses Not on filedocumented in this encounter Care Teams Finisher Plate Relationship Specialty Start Date End Date Maria Guadalupe Mendes MD [address] [place] [phone] PCP - General General Internal Medicine 09/06/23 documented as of this encounter
--- OUTSIDE RECORDS SUMMARY | 2024-07-28 01:29 | XMS_ITS | Encounter Summary ---
Author Organization [facility] [place] [address] Care Team Providers Care Stocking Inspector Name Role Phone Maria Guadalupe Mendes MD Primary Care Provider [phone] Encounter Details Date Type Department Care Team (Late st Contact Info) Description 06/25/2024 [place] [phone] Josh Baca MD [address] [place] [phone] Essential (primary) hypertension; Acute and chronic respiratory failure with hypoxia; Anxiety disorder, unspecified; Pleural effusion, not elsewhere classified; Chronic obstructive pulmonary disease, unspecified Social History Tobacco Use Types Packs/Day Years [...] from your doctor or pharmacy? Rarely 06/09/2024 [facility] Utilities Answer Date Recorded In the [...] any time in the past 12 m [facility], were you homeless or living in a retirement (including now)? Patient declined 06/09/2024 DH IPV [...] 12:30 PM EST Office Visit Hematology/Oncology at [address] [phone] Nick Mullen MD [facility] DR [place] [address] Chana Myrick APRN [address] [place] [address] DR HEMATOLOGY AND ONCOLOGY [place], [place] [id number] 07/28/2024 1:00 PM EST Scheduled View Only Hematology/Oncology at [address] [phone] Aleah Curran RN 07/28/2024 1:00 PM EST Infusion Hematology Oncology at [address] [phone] documented as of this encounter Procedures Procedure Name Priority Date/Time Associated Diagnosis Comments BODY FLUID CULTURE, AEROBIC Routine 06/26/2024 3:39 PM EST Essential (primary) hypertension Acute and chronic respiratory failure with hypoxia Anxiety disorder, unspecified Pleural effusion, not elsewhere classified Chronic obstructive pulmonary disease, unspecified BLOOD CULTURE Routine 06/25/2024 1:39 PM EST BLOOD CULTURE Routine 06/25/2024 1:24 PM EST documented in this encounter Results * Body Fluid Culture, Aerobic Only (06/26/2024 3:39 PM EST) Body Fluid Culture No growth 06/30/2024 10:00 AM EST [facility] Gram Stain Cytocentrifuge Gram Stain performed 06/30/2024 10:00 AM EST [facility] Gram Stain Neutrophils seen 06/30/19 10:00 AM EST [facility] Gram Stain No microorganisms seen 06/30/2024 10:00 AM EST [facility] Body Fluid RIGHT PLEURAL FLUID / Unknown 06/26/2024 3:39 PM EST 06/26/2024 10:47 PM EST Joseluis Logan DO MICROBIOLOGY - GENERAL ORDERABLES [facility] [place] [address] * Blood culture (06/25/2024 1:39 PM EST) Blood Culture No growth at 120 hours 07/01/2024 10:01 AM EST [facility] Blood VENOUS BLOOD SPECIMEN / Unknown 06/25/2024 1:39 PM EST 06/26/2024 9:22 AM EST Josh Baca MD MICROBIOLOGY - BL OOD ORDERABLES Performing Organization Address City/[facility]/[place] [address] * Blood culture (06/25/2024 1:24 PM EST) Blood Culture No growth at 120 hours 07/01/2024 10:01 AM EST [facility] Blood VENOUS BLOOD SPECIMEN / Unknown 06/25/2024 1:24 PM EST 06/26/2024 9:21 AM EST Josh Baca MD MICROBIOLOGY - BL OOD ORDERABLES Performing Organization Address City/[facility] [place] [address] documented in this encounter Visit Diagnoses Diagnosis Essential (primary) hypertension Unspecified essential hypertension Acute and chronic respiratory failure with hypoxia Acute and chronic respiratory failure Anxiety disorder, unspecified Pleural effusion, not elsewhere classified Chronic obstructive pulmonary disease, unspecified documented in this encounter Care Teams Stocking Inspector Relationship Specialty Start Date End Date Maria Guadalupe Mendes MD [address] [place] [phone] PCP - General General Internal Medicine 09/06/23 documented as of this encounter
--- OUTSIDE RECORDS SUMMARY | 2024-07-28 01:29 | XMS_ITS | Encounter Summary ---
Author Organization [facility] Address [facility] [place] [address] Care Team Providers Care Director Style Name Role Phone Maria Guadalupe Mendes MD Primary Care Provider Encounter Details Date Type Department Care Team (Latest Contact Info) Description 05/08/2024 Travel Social History Tobacco Use Types Packs/Day [...] 12:30 PM EST Office Visit Hematology/Oncology at [address] [phone] Nick Mullen MD [facility] DR HEMATOLOGY [place] [address] Chana Myrick APRN [address] [place] [address] DR HEMATOLOGY AND ONCOLOGY [place], [place] [address] 07/28/2024 1:00 PM EST Scheduled View Only Hematology/Oncology at [address] [phone] Aleah Curran RN 07/28/2024 1:00 PM EST Infusion Hematology Oncology at [address] [phone] documented as of this encounter Visit Diagnoses Not on filedocumented in this encounter Care Teams Director Style Relationship Specialty Start Date End Date Maria Guadalupe Mendes MD [address] [place] [phone] PCP - General General Internal Medicine 09/06/23 documented as of this encounter
--- OUTSIDE RECORDS SUMMARY | 2024-07-28 01:29 | XMS_ITS | Encounter Summary ---
Author Organization [facility] Address [facility] [place] [address] Care Team Providers Care Hardboard Coating Machine Operator Name Role Phone Maria Guadalupe Mendes MD Primary Care Provider Encounter Details Date Type Department Care Team (Latest Contact Info) Description 07/08/2024 Travel Social History Tobacco Use Types Packs/Day [...] from your doctor or pharmacy? Rarely 06/09/2024 [facility] Utilities Answer Date Recorded In the past [...] were you homeless or living in a residential (including now)? Patient declined 06/09/2024 DH IPV [...] 12:30 PM EST Office Visit Hematology/Oncology at [address] [phone] Nick Mullen MD [facility] DR [place] [address] Chana Myrick APRN [address] [place] [address] DR HEMATOLOGY AND ONCOLOGY [place], [place] [phone] 07/28/2024 1:00 PM EST Scheduled View Only Hematology/Oncology at [address] [phone] Aleah Curran RN 07/28/2024 1:00 PM EST Infusion Hematology Oncology at [address] [phone] documented as of this encounter Visit Diagnoses Not on filedocumented in this encounter Care Teams Hardboard Coating Machine Operator Relationship Specialty Start Date End Date Maria Guadalupe Mendes MD [address] [place] [phone] PCP - General General Internal Medicine 09/06/23 documented as of this encounter
--- OUTSIDE RECORDS SUMMARY | 2024-07-28 01:29 | XMS_ITS | Encounter Summary ---
Author Organization [facility] Address [facility] [place] [address] Care Team Providers Care Interpretative Dancer Name Role Phone Maria Guadalupe Mendes MD Primary Care Provider [phone] Encounter Details Date Type Department Care Team (Late st Contact Info) Description 07/08/2024 Orders Only Hematology/Oncology at [address] [phone] Chana Myrick [address] [place] [address] Primary malignant neoplasm of right lower lobe [...] from your doctor or pharmacy? Rarely 06/09/2024 [facility] Utilities Answer Date Recorded In the past [...] any time in the past 12 m [facility], were you homeless or living in a long-term (including now)? Patient declined 06/09/2024 DH IPV [...] 12:30 PM EST Office Visit Hematology/Oncology at [address] [phone] Nick Mullen MD [facility] DR HEMATOLOGY [place] [address] Chana Myrick APRN [address] [place] [address] DR HEMATOLOGY AND ONCOLOGY [place], [place] [address] 07/28/2024 1:00 PM EST Scheduled View Only Hematology/Oncology at [address] [phone] Aleah Curran RN 07/28/2024 1:00 PM EST Infusion Hematology Oncology at [address] [phone] Scheduled Orders Name Type Priority Associated Diagnoses Orde r Schedule Miscellaneous Lab request Lab Routine Primary malignant neoplasm of right lower lobe of lung Every 3 weeks for 17 Occurrences starting 07/09/2024 until 07/08/2025 documented as of this encounter Visit Diagnoses Diagnosis Primary malignant neoplasm of right lower lobe of lung Malignant neoplasm of lower lobe, bronchus, or lung documented in this encounter Care Teams Interpretative Dancer Relationship Specialty Start Date End Date Maria Guadalupe Mendes MD [address] [place] [phone] PCP - General General Internal Medicine 09/06/23 documented as of this encounter
--- OUTSIDE RECORDS SUMMARY | 2024-07-28 01:29 | XMS_ITS | Encounter Summary ---
Author Organization [facility] Address [facility] [place] [address] Care Team Providers Care Sales Contract Administrator Name Role Phone Maria Guadalupe Mendes MD Primary Care Provider Encounter Details Date Type Department Care Team (Latest Contact Info) Description 06/09/2024 Travel Social History Tobacco Use Types Packs/Day [...] from your doctor or pharmacy? Rarely 06/09/2024 [facility] Utilities Answer Date Recorded In the past [...] were you homeless or living in a long term (including now)? Patient declined 06/09/2024 DH IPV [...] 12:30 PM EST Office Visit Hematology/Oncology at [address] [phone] Nick Mullen MD [facility] DR [place] [address] Chana Myrick APRN [address] [place] [address] DR HEMATOLOGY AND ONCOLOGY [place], [place] [id number] 07/28/2024 1:00 PM EST Scheduled View Only Hematology/Oncology at [address] [phone] Aleah Curran RN 07/28/2024 1:00 PM EST Infusion Hematology Oncology at [address] [phone] documented as of this encounter Visit Diagnoses Not on filedocumented in this encounter Care Teams Sales Contract Administrator Relationship Specialty Start Date End Date Maria Guadalupe Mendes MD [address] [place] [phone] PCP - General General Internal Medicine 09/06/23 documented as of this encounter
--- OUTSIDE RECORDS SUMMARY | 2024-07-28 01:29 | XMS_ITS | Encounter Summary ---
Author Organization [facility] Address [facility] [place] [address] Care Team Providers Care Hopper Filler Name Role Phone Maria Guadalupe Mendes MD Primary Care Provider Encounter Details Date Type Department Care Team (Late st Contact Info) Description 06/25/2024 Interpretation Only [facility] [address] [place] [phone] Josh Baca MD [address] [place] [address] Social History Tobacco Use Types Packs/Day Years [...] from your doctor or pharmacy? Rarely 06/09/2024 [facility] Utilities Answer Date Recorded In [...] a prison (including now)? Patient declined 06/09/2024 IPV Inpatient [...] 12:30 PM EST Office Visit Hematology/Oncology at [address] [phone] Nick Mullen MD [facility] DR HEMATOLOGY [place] [address] Chana Myrick APRN [address] [place] [address] DR HEMATOLOGY [place] [address] 07/28/2024 1:00 PM EST Scheduled View Only Hematology/Oncology at [address] [phone] Aleah Curran RN 07/28/2024 1:00 PM EST Infusion Hematology Oncology at [address] [phone] documented as of this encounter Procedures Procedure Name Priority Date/Time Associated Diagnosis Comments XR CHEST ONE VIEW STAT 06/25/2024 1:1 2 PM EST documented in this encounter Results * XR Chest One View (06/25/2024 1:12 PM EST) PT CLASS E RAD ADMITDTTM [id number] RAD PT RAD INFO [id number]^Haniss abbi^Josh RAD EXAM DESC XCXR1^XR Chest 1 View^RIS RAD WORKSTATION ID [id number] RAD Anatomical Region Laterality Modality Chest N/A Radiographic Trini ging 06/25/2024 1:12 PM EST Impressions 06/25/2024 1:37 PM EST 1. ??Similar small right pleural effusion and increase in basilar post opacity which like reflects a combination of radiation change with or without atelectasis or a superimposed infectious/inflammatory process. 2. ??The right upper lobe malignancy is less conspicuous than on the prior. Thank you for letting us participate in the care of this patient. ??If you are a health care provider and have any questions regarding this report, please contact the number below. ??For patients who have questions please contact the health acute care nurse that requested your imaging first. ? Narrative 06/25/2024 1:37 PM EST EXAMINATION: XR Chest 1 View CLINICAL HISTORY: Chest Pain TECHNIQUE: AP view of the chest COMPARISON: Chest radiograph 04/10/2024 and PET scan 05/21/2024 FINDINGS: The known right upper lobe spiculated mass along the periphery is less well-demonstrated than on the comparison study. Persistent small right pleural effusion with increasing basilar opacity. The left lung is relatively clear. No pneumothorax limitation of the head obscuring the apices. Unchanged cardiomediastinal silhouette with note of aortic arch calcification. The right hilum is partially obscured. Left hilum is normal. Subjective diffuse osseous demineralization. Procedure Note Siria Huber MD - 06/25/2024 EXAMINATION: XR Chest 1 View CLINICAL HISTORY: Chest Pain TECHNIQUE: AP view of the chest COMPARISON: Chest radiograph 04/10/2024 and PET scan 05/21/2024 FINDINGS: The known right upper lobe spiculated mass along the periphery is less well-demonstrated than on the comparison study. Persistent small rightpleural effusion with increasing basilar opacity. The left lung is relativelyclear. No pneumothorax limitation of the head obscuring the apices. Unchanged cardiomediastinal silhouette with note of aortic arch calcification. Theright hilum is partially obscured. Left hilum is normal. Subjective diffuseosseous demineralization. IMPRESSION 1. Similar small right pleural effusion and increase in basilar postopacity which like reflects a combination of radiation change with or without atelectasis or a superimposed infectious/inflammatory process. 2. The right upper lobe malignancy is less conspicuous than on theprior. Thank you for letting us participate in the care of this patient. If youare a health care provider and have any questions regarding this report,please contact the number below. For patients who have questions please contactthe health acute care nurse that requested your imaging first. Josh Baca MD IMG DX ORDERABLES documented in this encounter Visit Diagnoses Not on filedocumented in this encounter Care Teams Hopper Filler Relationship Specialty Start Date End Date Maria Guadalupe Mendes MD [address] [place] [phone] PCP - General General Internal Medicine 09/06/23 documented as of this encounter
--- OUTSIDE RECORDS SUMMARY | 2024-07-28 01:29 | XMS_ITS | Encounter Summary ---
Author Organization [facility] Address [facility] [address] Care Team Providers Care Manufacturing Applications Engineer Name Role Phone Maria Guadalupe Mendes MD Primary Care Provider Encounter Details Date Type Department Care Team (Latest Contact Info) Description 05/21/2024 Travel Social History Tobacco Use Types Packs/Day [...] 12:30 PM EST Office Visit Hematology/Oncology at [address] [phone] Nick Mullen MD [facility] DR HEMATOLOGY [place] [address] Chana Myrick APRN [address] [place] [address] DR HEMATOLOGY AND ONCOLOGY [place], [place] [id number] 07/28/2024 1:00 PM EST Scheduled View Only Hematology/Oncology at [address] [phone] Aleah Curran RN 07/28/2024 1:00 PM EST Infusion Hematology Oncology at [address] [phone] documented as of this encounter Visit Diagnoses Not on filedocumented in this encounter Care Teams Manufacturing Applications Engineer Relationship Specialty Start Date End Date Maria Guadalupe Mendes MD [address] [place] [phone] PCP - General General Internal Medicine 09/06/23 documented as of this encounter
--- OUTSIDE RECORDS SUMMARY | 2024-07-28 01:29 | XMS_ITS | Encounter Summary ---
Author Organization [facility] Address [facility] [place] [address] Care Team Providers Care Oven Heater Helper Name Role Phone Maria Guadalupe Mendes MD Primary Care Provider Reason for Visit * Diagnostic Test (Routine) - Closed Specialty Diagnoses / Procedures Referred By Contac t Referred To Contact Radiology Diagnoses Primary malignant neoplasm of right upper lobe of lung Procedures NM PET CT Skull Base to Mid-thigh Alta Zamora PA [facility] DR HEMATOLOGY [place] [address] [place] [address] Referral ID Status Reason Start Date Expiration Date V isits Requested Visits Authorized [id number] Closed Specialty Service Requested 04/22/2024 10/21/2025 2 2 Encounter Details Date Type Department Care Team (Latest Contact Info) Description 05/21/2024 1:15 PM EST - 05/21/2024 11:59 PM EST Hospital Encounter [place] [address] Edwin Bolanos MD [address] [place] [address] [place] [address] Discharge Disposition: Home Social History Tobacco Use Types Packs/Day Years [...] on file documented as of this encounter Medications at Time of Discharge Medication Sig Dispensed Refills Start Date End Date dilTIAZem (Tiazac) 180 mg ER 24 hr capsule Take 180 mg by mouth daily. 10/09/2023 aspirin 81 mg chewable tablet Take 81 mg by mouth daily. Psyllium Seed-Sucrose (0) Powder Take by mouth. CoQ-10 100 mg Capsule PRN 11/24/2021 atorvastatin (Lipitor) 20 mg Tablet Take 20 mg by mouth nightly. 11/02/2021 albuteroL (PROVENTIL) 2.5 mg /3 mL (0.083 %) Solution for Nebulization 3 mLs every 5 hours. ipratropium-albuteroL (DUONEB) 0.5 mg-3 mg(2.5 mg base)/3 mL Solution for Nebulization ipratropium 0.5 mg-albuterol 3 mg (2.5 mg base)/3 mL nebulization soln Administer breathing tx x 1 Trelegy Ellipta 100-62.5-25 mcg Disk with Device inhale 1 puff by mouth and INTO THE LUNGS once daily EVERY MORNING 12/13/2019 albuteroL 90 mcg/actuation HFA Aerosol Inhaler Inhale 2 puffs into the lungs every 4 hours as needed for Wheezing. Use with spacer loperamide (IMODIUM) 2 mg CapsuleIndications:diar jacquelin Take 2 mg by mouth daily as needed for Diarrhea. 1 mg/7.5 ml liquid Indications: diarrhea busPIRone (BUSPAR) 5 mg Tablet Take 7.5 mg by mouth 3 times daily. lisinopril (PRINIVIL;ZESTRIL) 10 mg Tablet Take 10 mg by mouth daily. OXYGEN-AIR DELIVERY SYSTEMS MISC by Misc.(Non-Drug; Combo Route) route. lactobacillus rhamnosus, GG, (CULTURELLE) 10 billion cell Capsule Take 1 capsule by mouth daily. acetaminophen (TYLENOL) 325 mg Tablet Take 650 mg by mouth every 4 hours as needed for Pain. cholecalciferol, Vitamin D3, 2,000 unit Capsule Take by mouth. ketoconazole (Nizoral) 2 % Cream APPLY TO AFFECTED AREA ONCE DAILY NEEDED 11/04/2021 07/08/2024 documented as of this encounter Plan of Treatment Upcoming Encounters Date Type Department Care Team (Late st Contact Info) Description 07/28/2024 12:30 PM EST Office Visit Hematology/Oncology at [address] [phone] Nick Mullen MD [facility] DR HEMATOLOGY [place] [address] Chana Myrick APRN [address] [place] [address] DR HEMATOLOGY AND ONCOLOGY [place], [place] [id number] 07/28/2024 1:00 PM EST Scheduled View Only Hematology/Oncology at [address] [phone] Aleah Curran RN 07/28/2024 1:00 PM EST Infusion Hematology Oncology at [address] [phone] documented as of this encounter Procedures Procedure Name Priority Date/Time Associated Diagnosis Comments NM PET CT SKULL BASE TO MID-THIGH (LCSR) Routine 05/21/2024 2:53 PM EST Primary malignant neoplasm of right upper lobe of lung documented in this encounter Results * NM PET CT Skull Base to Mid-thigh (05/21/2024 2:53 PM EST) WORKSTATION ID [id number] DH RAD Anatomical Region Laterality Modality Positron Emissio [...] who have questions please contact the health healthcare manager that requested your imaging first. ? Electronically signed by: Krish Davila MD, [facility] ([phone]), at 05/26/2024 11:14 AM Narrative 05/26/2024 11:14 [...] on 04/29/2024 TECHNIQUE: Following IV injection of 07-ykxpxe-3-deoxyglucose (FDG) a standard uptake of approximately 60 [...] right hilar lymph node (image 59). New cdeus-xb-xjdivmpf right pleural effusion with right basilar compressive [...] on 04/29/2024 TECHNIQUE: Following IV injection of 87-ehifbj-0-deoxyglucose (FDG) astandard uptake of approximately 60 minutes, [...] right hilar lymph node (image 59). New vmrgw-pu-eautrqhs right pleural effusion with right basilarcompressive atelectasis. [...] patients who have questions please contactthe health healthcare manager that requested your imaging first. Electronically signed by: Krish Davila MD, [facility]([phone]), at 05/26/2024 11:14 AM Edwin Bolanos MD IMG PET ORDERABLES documented in this encounter Visit Diagnoses Not on filedocumented in this encounter Care Teams Oven Heater Helper Relationship Specialty Start Date End Date Maria Guadalupe Mendes MD [address] [place] [address] PCP - General General Internal Medicine 09/06/23 documented as of this encounter
--- OUTSIDE RECORDS SUMMARY | 2024-07-28 01:29 | XMS_ITS | Encounter Summary ---
Author Organization Former[facility] [place] [address] Care Team Providers Care Bombsight Specialist Name Role Phone Maria Guadalupe Mendes MD Primary Care Provider Encounter Details Date Type Department Care Team (Late st Contact Info) Description 06/26/2024 [place] [phone] Joseluis Logan, DO [address] [place] [phone] Chronic obstructive pulmonary disease, unspecified; Pleural effusion, not elsewhere classified; Anxiety disorder, unspecified; Acute and chronic respiratory failure with hypoxia; Essential (primary) hypertension Social History Tobacco Use Types Packs/Day Years [...] any time in the past 12 m [facility], were you homeless or living in a group home (including now)? Patient declined 06/09/2024 DH IPV [...] 12:30 PM EST Office Visit Hematology/Oncology at [address] [phone] Nick Mullen MD [facility] DR HEMATOLOGY [place] [address] Chana Myrick APRN [address] [place] [address] DR HEMATOLOGY AND ONCOLOGY [place], [place] [id number] 07/28/2024 1:00 PM EST Scheduled View Only Hematology/Oncology at [address] [phone] Aleah Curran RN 07/28/2024 1:00 PM EST Infusion Hematology Oncology at [address] [phone] documented as of this encounter Procedures Procedure Name Priority Date/Time Associated Diagnosis Comments PROTEIN LEVEL BODY FLUID Routine 06/26/2024 3:38 PM EST Chronic obstructive pulmonary disease, unspecified Pleural effusion, not elsewhere classified Anxiety disorder, unspecified Acute and chronic respiratory failure with hypoxia Essential (primary) hypertension LACTATE DEHYDROGENASE BODY FLUID Routine 06/26/2024 3:38 PM EST Chronic obstructive pulmonary disease, unspecified Pleural effusion, not elsewhere classified Anxiety disorder, unspecified Acute and chronic respiratory failure with hypoxia Essential (primary) hypertension GLUCOSE LEVEL BODY FLUID Routine 06/26/2024 3:38 PM EST Chronic obstructive pulmonary disease, unspecified Pleural effusion, not elsewhere classified Anxiety disorder, unspecified Acute and chronic respiratory failure with hypoxia Essential (primary) hypertension documented in this encounter Results * Glucose Level Body Fluid (06/26/2024 3:38 PM EST) Glucose, Fluid 135 mg/dL 06/26/2024 11:33 PM EST [facility] Body Fluid Source Pleural Fluid, Right 06/26/2024 11:33 PM EST [facility] Body Fluid RIGHT PLEURAL FLUID / Unknown 06/26/2024 3:38 PM EST 06/26/2024 10:55 PM EST [facility] - 06/26/2024 11:33 PM EST Reference intervals are unavailable for this test in body fluids. Comparison of this result with the concentration in blood, serum, or plasma is recommended. This test has not been cleared by the [place] FDA. Performance characteristics of this test for the analysis of body fluids were determined by [facility] in accordance with CLIA requirements. This laboratory is qualified under CLIA to perform high-complexity testing. Joseluis Lisandra Doreen DO BODY FLUIDS A ND STOOLS ORDERABLES Performing Organization Address [facility]/ZIP Co de Phone Number [facility] [place] [address] * Protein Level Body Fluid (06/26/2024 3:38 PM EST) Protein, Fluid 4.8 g/dL 06/26/2024 11:33 PM EST [facility] Comment:Reference intervals are unavailable for this test in body fluids. Comparison of this result with the concentration in blood serum or plasma is recommended. This test has not been cleared by the [place] FDA. Performance characteristics of this test for the analysis of body fluids were determined by [facility] in accordance with CLIA requirements. This laboratory is qualified under CLIA to perform high-complexity testing. Body Fluid Source Pleural Fluid, Right 06/26/2024 11:33 PM EST [facility] Body Fluid RIGHT PLEURAL FLUID / Unknown 06/26/2024 3:38 PM EST 06/26/2024 10:55 PM EST Joseluis Logan DO BODY FLUIDS A ND STOOLS ORDERABLES Performing Organization Address [facility] Co de Phone Number [facility] [place] [address] * Lactate Dehydrogenase Body Fluid (06/26/2024 3:38 PM EST) Lactate Dehydrogenase, Fluid 124 unit/L 06/26/2024 11:33 PM EST [facility] Comment:Reference intervals are unavailable for this test in body fluids. Comparison of this result with the concentration in blood serum or plasma is recommended. This test has not been cleared by the [place] FDA. Performance characteristics of this test for the analysis of body fluids were determined by [facility] in accordance with CLIA requirements. This laboratory is qualified under CLIA to perform high-complexity testing. Body Fluid Source Pleural Fluid, Right 06/26/2024 11:33 PM EST [facility] Body Fluid RIGHT PLEURAL FLUID / Unknown 06/26/2024 3:38 PM EST 06/26/2024 10:55 PM EST Joseluis Lisandra Doreen DO BODY FLUIDS A ND STOOLS ORDERABLES [facility] [place] [address] documented in this encounter Visit Diagnoses Diagnosis Chronic obstructive pulmonary disease, unspecified Pleural effusion, not elsewhere classified Anxiety disorder, unspecified Acute and chronic respiratory failure with hypoxia Acute and chronic respiratory failure Essential (primary) hypertension Unspecified essential hypertension documented in this encounter Care Teams Bombsight Specialist Relationship Specialty Start Date End Date Maria Guadalupe Mendes MD [address] [place] [address] PCP - General General Internal Medicine 09/06/23 documented as of this encounter
--- OUTSIDE RECORDS SUMMARY | 2024-07-28 01:29 | XMS_ITS | Encounter Summary ---
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 High risk medication use Procedures TC PEMBROLIZUMAB, 1 MG, INJ Nick Mullen MD [facility] HEMATOLOGY [place] [address] [facility] Hem Onc Office [address] [place] [phone] Referral ID Status Reason Start Date Expiration Date V isits Requested Visits Authorized [id number] Authorized 06/12/2024 06/12/2025 99 99 Encounter Details Date Type Department Care Team (Late st Contact Info) Description 07/28/2024 1:00 PM EST Infusion Hematology Oncology at [address] [phone] Social History Tobacco Use Types Packs/Day Years [...] from your doctor or pharmacy? Rarely 06/09/2024 [facility] Utilities Answer Date Recorded In [...] any time in the past 12 m [facility], were you homeless or living in a half-way (including now)? Patient declined 06/09/2024 IPV Inpatient [...] 12:30 PM EST Office Visit Hematology/Oncology at [address] [phone] Nick Mullen MD [facility] DR HEMATOLOGY [place] [address] Chana Myrick APRN [address] [place] [address] DR HEMATOLOGY AND ONCOLOGY [place], [place] [id number] 07/28/2024 1:00 PM EST Scheduled View Only Hematology/Oncology at [address] [phone] Aleah Curran RN documented as of this encounter Visit Diagnoses Not on filedocumented in this encounter Care Teams Restaurant Assistant Manager Relationship Specialty Start Date End Date Maria Guadalupe Mendes MD [address] [place] [phone] PCP - General General Internal Medicine 09/06/23 documented as of this encounter
--- OUTSIDE RECORDS SUMMARY | 2024-07-28 01:29 | XMS_ITS ---
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 HTN (hypertension) 06/05/2018 Former smoker 06/05/2018 Overview (06/05/2018): Quit 2017 after >50 pack-yr history. Overweight (BMI 25.0-29.9) 06/05/2018 Anxiety 06/05/2018 [facility] - PEMBROLIZUMAB* Plan Start Date: 07/07/2024 Plan Provider:Nick Mullen MD Linked Problems Primary malignant neoplasm o f right lower lobe of lungSecondary malignant tumor of pleuraHigh risk medication use Treatment Medications Current Day (Day 1 , Cycle 2 - Planned for 07/28/2024) Next Day (Day 1, Cycle 3 - Planned for 08/18/2024) pembrolizumab (Keytruda) in sodium chloride 0.9% 100 mL infusion pembrolizumab (Keytruda) 200 mg in sodium chloride 0.9% 108 mL infusion pembrolizumab (Keytruda) 200 mg in sodium chloride 0.9% 108 mL infusion Past Plans No past plan information found. Radiation Treatments * No radiation treatments are documented for this patient in [facility]. Treatments may have been administered in another system.
--- OUTSIDE RECORDS SUMMARY | 2024-07-28 01:29 | XMS_ITS | Encounter Summary ---
Author Organization [facility] [place] [address] Care Team Providers Care Coin Teller Name Role Phone Maria Guadalupe Mendes MD Primary Care Provider Reason for Referral * Diagnostic Test (Routine) - Closed Specialty Diagnoses / Procedures Referred By Contac t Referred To Contact Radiology Diagnoses Primary malignant neoplasm of right upper lobe of lung Procedures NM PET CT Skull Base to Mid-thigh Alta Zamora PA [facility] HEMATOLOGY [place] [address] [place] [address] Referral ID Status Reason Start Date Expiration Date V isits Requested Visits Authorized [id number] Closed Specialty Service Requested 04/22/2024 10/21/2025 2 2 Reason for Visit * Diagnostic Test (Routine) - Closed Specialty Diagnoses / Procedures Referred By Contac t Referred To Contact Radiology Diagnoses Primary malignant neoplasm of right upper lobe of lung Procedures NM PET CT Skull Base to Mid-thigh Alta Zamora PA [facility] HEMATOLOGY [place] [address] [facility] [place] [address] Referral ID Status Reason Start Date Expiration Date V isits Requested Visits Authorized [id number] Closed Specialty Service Requested 04/22/2024 10/21/2025 2 2 Encounter Details Date Type Department Care Team (Latest Contact Info) Description 05/21/2024 1:15 PM EST - 05/21/2024 11:59 PM EST Hospital Encounter [place] [address] Edwin Bolanos MD [address] [place] [address] [place] [address] Primary malignant neoplasm of right upper lobe of lung Discharge Disposition: Home Social History Tobacco Use Types Packs/Day Years Used Date Smoking Tobacco: Former Cigarettes 1 50 0 06/25/1967 - 06/25/2017 Smokeless Tobacco: Never Alcohol Use Standard Drinks/Week Comments Yes 0 (1 standard drink = 0.6 oz pur e alcohol) glass of wine once in a while IPV Inpatient Questions Answer Date Recorded Does [...] mouth daily. OXYGEN-AIR DELIVERY SYSTEMS MISC by Mis.(Non-Drug; Combo Route) route. lactobacillus rhamnosus, GG, (CULTURELLE) [...] 12:30 PM EST Office Visit Hematology/Oncology at [address] [phone] Nick Mullen MD [facility] DR HEMATOLOGY [place] [address] Chana Myrick APRN [address] [place] [address] DR HEMATOLOGY AND ONCOLOGY [place], [place] [id number] 07/28/2024 1:00 PM EST Scheduled View Only Hematology/Oncology at [address] [phone] Aleah Curran RN 07/28/2024 1:00 PM EST Infusion Hematology Oncology at [address] [phone] documented as of this encounter Procedures Procedure Name Priority Date/Time Associated Diagnosis Comments NM PET CT SKULL BASE TO MID-THIGH (LCSR) Routine 05/21/2024 2:53 PM EST Primary malignant neoplasm of right upper lobe of lung POC, GLUCOSE Routine 05/21/2024 1:32 PM EST documented in this encounter Results * NM PET CT Skull Base to Mid-thigh (05/21/2024 2:53 PM EST) WORKSTATION ID [id number] RAD Anatomical Region Laterality Modality Positron Emissio [...] who have questions please contact the health geriatric personal care aide that requested your imaging first. ? 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 04/10/24 biopsy of growing FDG-avid RUL nodule showed adenocarcinoma. ??This scan ordered for staging. C34.11, Malignant neoplasm of upper lobe, right bronchus or lung Recent flu vaccination on the left arm on 04/29/2024 TECHNIQUE: Following IV injection of 60-hzxkag-2-deoxyglucose (FDG) a standard uptake of approximately 60 [...] right hilar lymph node (image 59). New jkqcv-jv-voniwfnz right pleural effusion with right basilar compressive [...] on 04/29/2024 TECHNIQUE: Following IV injection of 21-zbskkw-5-deoxyglucose (FDG) astandard uptake of approximately 60 minutes, [...] right hilar lymph node (image 59). New nkyjd-lg-vscoxfic right pleural effusion with right basilarcompressive atelectasis. [...] patients who have questions please contactthe health geriatric personal care aide that requested your imaging first. Edwin Bolanos MD IMG PET ORDERABLES * POC, GLUCOSE (05/21/2024 1:32 PM EST) [facility] Glucometer, POC 97 65 - 199 mg/dL 05/21/2024 1:32 PM EST [facility] Comment:Supplemental ranges: <140 mg/dL before meals <180 mg/dL all other times of the day. Blood CAPILLARY BLOOD / Unknown 05/21/2024 1:32 PM EST 05/21/2024 1:34 PM EST Edwin Bolanos MD POINT OF CARE TEST O RDERABLES [facility] [place] [address] documented in this encounter Visit Diagnoses Diagnosis Primary malignant neoplasm of right upper lobe of lung Malignant neoplasm of upper lobe, bronchus or lung documented in this encounter Administered Medications Inactive Administered Medications - up to 3 most recent administrations Medication Order MAR Action Action Date Dose Rate Site fludeoxyglucose (F-18) FDG injection 0-20 mCi 0-20 mCi, Intravenous, ONCE PRN, 1 dose, Starting on Sun05/21/24 at 1345, Until Sun05/21/24 at 1339, Per Protocol, Radiology Contrast, Routine Given 05/21/2024 1:39 PM EST 10.7 mCi documented in this encounter Care Teams Coin Teller Relationship Specialty Start Date End Date Maria Guadalupe Mendes MD [address] [place] [phone] PCP - General General Internal Medicine 09/06/23 documented as of this encounter
--- OUTSIDE RECORDS SUMMARY | 2024-07-28 01:29 | XMS_ITS | Encounter Summary ---
Author Organization [place] [address] Care Team Providers Care Electrical Maintenance Man Name Role Phone Maria Guadalupe Mendes MD Primary Care Provider Encounter Details Date Type Department Care Team (Late st Contact Info) Description 06/05/2024 Telephone Hematology/Oncology at [address] [phone] Olga Mcmahan Social History Tobacco Use Types Packs/Day Years [...] on file documented as of this encounter Miscellaneous Notes * Telephone Encounter - Olga Mcmahan - 06/05/2024 12:40 PM EST Called Kiersten (who will be a new Patient of Dr. Mullen on 06/09/2024), she will need to get labs prior to her appointment at [facility]. Explained to her when and where to go at [facility] 1 hour prior. She was in agreement to and understood where to go Labs and demo was sent up to [facility] on 06/05/2024 documented in this encounter Plan of Treatment Upcoming Encounters Date Type Department Care Team (Late st Contact Info) Description 07/28/2024 12:30 PM EST Office Visit Hematology/Oncology at [address] [phone] Nick Mullen MD [facility] DR [place] [address] Chana Myrick [address] HEMATOLOGY AND ONCOLOGY [place], [place] [id number] 07/28/2024 1:00 PM EST Scheduled View Only Hematology/Oncology at [address] [phone] Aleah Curran RN 07/28/2024 1:00 PM EST Infusion Hematology Oncology at [address] [phone] documented as of this encounter Visit Diagnoses Not on filedocumented in this encounter Care Teams Electrical Maintenance Man Relationship Specialty Start Date End Date Maria Guadalupe Mendes MD [address] [place] [phone] PCP - General General Internal Medicine 09/06/23 documented as of this encounter
--- OUTSIDE RECORDS SUMMARY | 2024-07-28 01:29 | XMS_ITS | Encounter Summary ---
Author Organization Formerly [facility] Address [facility] [place] [address] Care Team Prov[address] Care Court Assistant Name Role Phone Maria Guadalupe Mendes MD Primary Care Provider Encounter Details Date Type Department Care Team (Late st Contact Info) Description 07/21/2024 Telephone Hematology/Oncology at [address] [phone] Aysha Feliciano, RN Social History Tobacco Use Types Packs/Day Years [...] from your doctor or pharmacy? Rarely 06/09/2024 [facility] Utilities Answer Date Recorded In the past 12 months has [employer], gas, oil, or water [employer] threatened to shut off services in your [...] any time in the past 12 m [facility], were you homeless or living in [...] encounter Miscellaneous Notes * Telephone Encounter - Aysha Feliciano RN - 07/21/2024 3:27 PM EST Called Kiersten to let her know below msg. She wanted her appts an hour later than scheduled because she has a hard time getting out of the house in the morning, ----- Message from Chana Myrick sent at 07/21/2024 3:06 PM EST ----- Regarding: RE: SALUD- patient was admitted, pleural drain You can let her know we will still see her on Sunday - and likely can do a drain ----- Message ----- From: Angelina Chen RN Sent: 07/21/2024 12:00 AM EST To: Nick Mullen MD; Aysha L Feliciano, RN; # Subject: RE: FYI- patient was admitted, pleural drain I didn't get a chance to call her today. Figured you all could discuss and call on Sunday. Thank you ----- Message ----- From: Dodie Perera Sent: 07/18/2024 3:25 PM EST To: [facility] Hem Onc Nurse Subject: FYI- patient was admitted, pleural drain Kiersten called in to let us know that she was in the hospital on Sunday, she had fluid extracted from her lung at [facility]. She wasn't sure if her hospitalist was able to touch base with Dr. Mullen about it but she said he questioned whether Dr. Mullen would want her to have a permanent drain placed to drain fluid. She said this is the second time she's had it drained in the past three weeks. Kiersten is back in clinic on 07/28, but wanted to check in in case the fluid indicates a need to change her schedule. She is aware Dr. Mullen will be back in clinic on Sunday and says this is the best number to reach her: [phone] documented in this encounter Plan of Treatment Upcoming Encounters Date Type Department Care Team (Late st Contact Info) Description 07/28/2024 12:30 PM EST Office Visit Hematology/Oncology at [address] [phone] Nick Mullen MD [facility] DR [place] [address] Chana Myrick [address] HEMATOLOGY AND ONCOLOGY [place], [place] [id number] 07/28/2024 1:00 PM EST Scheduled View Only Hematology/Oncology at [address] [phone] Aleah Curran RN 07/28/2024 1:00 PM EST Infusion Hematology Oncology at [address] [phone] documented as of this encounter Visit Diagnoses Not on filedocumented in this encounter Care Teams Court Assistant Relationship Specialty Start Date End Date Maria Guadalupe Mendes MD [address] [place] [phone] PCP - General General Internal Medicine 09/06/23 documented as of this encounter
--- OUTSIDE RECORDS SUMMARY | 2024-07-28 01:29 | XMS_ITS | Encounter Summary ---
Author Organization [facility] Address [facility] [place] [address] Care Team Providers Care Vp Scientific Affairs Name Role Phone Maria Guadalupe Mendes MD Primary Care Provider Encounter Details Date Type Department Care Team (Late st Contact Info) Description 07/15/2024 Telephone Hematology [place] [phone] Cami Arthur MD [facility] HEMATOLOGY/[place] [address] Social History Tobacco Use Types Packs/Day Years [...] from your doctor or pharmacy? Rarely 06/09/2024 [facility] Utilities Answer Date Recorded In [...] any time in the past 12 m [facility], were you homeless or living in a snf (including now)? 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 Subsequent staging with a PET scan on 05/21/2024 identified new FDG avid right pleural metastases, and new right pleural effusion and FDG avid upper paratracheal and right sided hilar lymph nodes. She was started on single agent immunotherapy with pembrolizumab (Cycle 1, Day 1 on 07/08/24). She followswith Dr. Sebas MD and Chana Myrick APRN in the outpatient setting. Oncology was consulted by the OSH provider as the patient returned with ARZATE and found to have rightsided pleural effusion requiring thoracentesis. This would be second time in three weeks. On 06/26/24she had 800cc drained and again today 07/15/24 had 1200cc drained. Question of Pleurex catheter placement. ASSESSMENT: Patient's recurrent pleural effusions possibly due to her known lung malignancy. She is only Cycle 1, Day 1 of single agent Pembrolizumab on 07/08/24. Her first pleural effusion was prior to treatmentand her second shortly after first treatment. It is still too soon to assess response. Response is usually assessed after 2-4 cycles of treatment. Possible that her pleural effusion would not reoccuras quickly. RECOMMENDATIONS: -agree with discharge to follow-up with Dr. Sebas MD -will reach out to Dr. Mullen in regards to recent ED encounters -can continue to hold off on Pleurex catheter for now, may consider in the next week or two Thank you for involving me in the care of the patient. Please call with any questions or concerns. Cami Arthur MD [facility] Hematology/Oncology Fellow [facility] [place] Pager#[phone] documented in this encounter Plan of Treatment Upcoming Encounters Date Type Department Care Team (Late st Contact Info) Description 07/28/2024 12:30 PM EST Office Visit Hematology/Oncology at [address] [phone] Nick Mullen MD [facility] [place] [address] Chana Myrick APRN [address] [place] [address] HEMATOLOGY [place] [address] 07/28/2024 1:00 PM EST Scheduled View Only Hematology/Oncology at [address] [phone] Aleah Curran RN 07/28/2024 1:00 PM EST Infusion Hematology Oncology at [address] [phone] documented as of this encounter Visit Diagnoses Not on filedocumented in this encounter Care Teams Vp Scientific Affairs Relationship Specialty Start Date End Date Maria Guadalupe Mendes MD [address] [place] [phone] PCP - General General Internal Medicine 09/06/23 documented as of this encounter
--- OUTSIDE RECORDS SUMMARY | 2024-07-28 01:29 | XMS_ITS | Encounter Summary ---
Author Organization [facility] Address [facility] [place] [address] Care Team Providers Care Manager Lvn Name Role Phone Maria Guadalupe Mendes MD Primary Care Provider Encounter Details Date Type Department Care Team (Latest Contact Info) Description 07/08/2024 Unscheduled Encounter Hematology/Oncology at [address] [phone] Aleah Curran, RN Primary malignant neoplasm of right lower lobe [...] from your doctor or pharmacy? Rarely 06/09/2024 [facility] Utilities Answer Date Recorded In the [...] were you homeless or living in a detention (including now)? Patient declined 06/09/2024 DH IPV [...] as of this encounter Progress Notes * Aleah Curran RN - 07/08/2024 3:45 PM EST Clinical Research Nurse Note [place], [place] Date: 07/08/24 Documentation of Informed Consent to Participate in Clinical Trial Permission to approach patient for this study was obtained by Ricci Myrick Study Number:[id number] Description:Immune profiling for cancer Immunotherapy response The study investigates how the profiles of the immune cells before and after treatment with immunotherapeutic medications used for cancer treatment might impact the response to the treatment. Patient was seen in private exam room and was offered the opportunity to participate in the study [id number] The protocol was reviewed with patient including description of study purpose, potential risks, side effects and uncertain benefits, voluntary nature of participation, and requirements of participation including the amount of blood that will be drawn, the potential future use of this sample and howprivate health information will be protected. Financial considerations were discussed per protocol.Specifically, there is no financial compensation provided for participation. Discussed confidentiality of patient's private health information as specified in consent form. Patient was informed that he/she may discontinue study involvement at any time; informed that declining to participate or discontinuing study treatment will not compromise his/her access to treatmentoptions or care at this institution. Patient was instructed to call the clinic triage nurse with any symptom management with his care. She/He was given the written consent form to read and review. Patient states he/she was given adequate time to review all information, and to ask questions and review concerns, all of which were answered to his/her satisfaction. Consent protocol form effective date: 07/24/2023 and expiration date 07/23/2024, was signed and datedby patient and this author. A copy of the signed consent form was given to patient. Original signed IC form was sent to Jose C TOSCANO via scalder and also Emailed to him. consent was obtained prior to any study procedures being conducted Patient was instructed to call clinic or provider with any questions or concerns regarding this research study. Any questions or concerns with treatment and side effects should be directed to clinic triage nurseper standard of care. A lab kit will be drawn on day 1 of each cycle. Patient verbalized understanding of these instructions and this plan. Miscellaneous lab kit draw for study Study Number:[id number] Description:Immune profiling for cancer Immunotherapy response [facility] lab kit draw after obtaining consent and prior to infusion today. Date: 07/08/24 Time: 1514 [ x ] [facility] [place] blood drawn from venipuncture performed by rapid transit operator [ ] medi port by rapid transit operator. [ ] medi port was accessed by [facility] for SOC labs earlier today. [facility] lab kit blood drawn from accessed port and flushed with 20 mls of saline per institutional policy. Specimens sent by this author to : [x ] [facility] 4th floor pathology lab in cooler via scalder documented in this encounter Plan of Treatment Upcoming Encounters Date Type Department Care Team (Late st Contact Info) Description 07/28/2024 12:30 PM EST Office Visit Hematology/Oncology at [address] [phone] Nick Mullen MD [facility] DR HEMATOLOGY [place] [address] Chana Myrick APRN [address] [place] [address] DR HEMATOLOGY AND ONCOLOGY [place], [place] [phone] 07/28/2024 1:00 PM EST Scheduled View Only Hematology/Oncology at [address] [phone] Aleah Curran RN 07/28/2024 1:00 PM EST Infusion Hematology Oncology at [address] [phone] documented as of this encounter Visit Diagnoses Diagnosis Primary malignant neoplasm of right lower lobe of lung Malignant neoplasm of lower lobe, bronchus, or lung documented in this encounter Care Teams Manager Lvn Relationship Specialty Start Date End Date Maria Guadalupe Mendes MD [address] [place] [phone] PCP - General General Internal Medicine 09/06/23 documented as of this encounter
--- OUTSIDE RECORDS SUMMARY | 2024-07-28 01:29 | XMS_ITS | Encounter Summary ---
Author Organization [facility] [place] [address] Care Team Providers Care Paper Gluing Operator Name Role Phone Maria Guadalupe Mendes MD Primary Care Provider [phone] Reason for Visit * Reason Onset Date Comments Follow-up 07/14/2024 S/p infusion Encounter Details Date Type Department Care Team (Late st Contact Info) Description 07/14/2024 Telephone Hematology/Oncology at [address] [phone] Roderick Georges RN Follow-up (S/p infusion ) Social History Tobacco Use Types Packs/Day Years [...] or pharmacy? Rarely 06/09/[address] [facility] Utilities Answer Date Recorded In [...] any time in the past 12 m [facility], were you homeless or living in a mcc (including now)? Patient declined 06/09/2024 DH IPV [...] encounter Miscellaneous Notes * Telephone Encounter - Roderick Georges RN - 07/14/2024 1:20 PM EST Called and spoke with Kiersten Barraza regarding how she is doing since her first infusion of pembrolizumab 07/08/24. She reports she has hard time telling if her breathing is worse or if it is anxiety. She feels like her breathing is progressively getting worse. She remain on 4L at all times, uses pulse ox and says when she is moving its 93% and goes up to 97% at rest. She does endorse feelingmore fatigue since infusion. She feels her depression is getting worse and said her PCP recently increased her buspar. She is using lorazepam nightly and it does help her with sleep. She denies any rash or changes in bowels. She believes having home health come in would help with her anxiety. Called PCP and spoke with nurse to touch base regarding pt's anxiety and depression symptoms. Also mentioned pt was hoping for home health referral. They will reach out to pt this afternoon to discuss. documented in this encounter Plan of Treatment Upcoming Encounters Date Type Department Care Team (Late st Contact Info) Description 07/28/2024 12:30 PM EST Office Visit Hematology/Oncology at [address] [phone] Nick Mullen MD [facility] DR HEMATOLOGY [place] [address] Chana Myrick APRN [address] [place] [address] DR HEMATOLOGY AND ONCOLOGY [place], [place] [phone] 07/28/2024 1:00 PM EST Scheduled View Only Hematology/Oncology at [address] [phone] Aleah Curran RN 07/28/2024 1:00 PM EST Infusion Hematology Oncology at [address] [phone] documented as of this encounter Visit Diagnoses Not on filedocumented in this encounter Care Teams Paper Gluing Operator Relationship Specialty Start Date End Date Maria Guadalupe Mendes MD [address] [place] [phone] PCP - General General Internal Medicine 09/06/23 documented as of this encounter
--- OUTSIDE RECORDS SUMMARY | 2024-07-28 01:29 | XMS_ITS | Encounter Summary ---
Author Organization [facility] [place] [address] Care Team Providers Care Card Decorator Name Role Phone Maria Guadalupe Mendes MD Primary Care Provider Encounter Details Date Type Department Care Team (Late st Contact Info) Description 07/15/2024 [place] [phone] Josh Baca MD [address] [place] [phone] Social History Tobacco Use Types Packs/Day Years [...] from your doctor or pharmacy? Rarely 06/09/2024 [facility] Utilities Answer Date Recorded In the past [...] 12:30 PM EST Office Visit Hematology/Oncology at [address] [phone] Nick Mullen MD [facility] DR [place] [address] Chana Myrick APRN [address] [place] [address] DR HEMATOLOGY [place] [address] 07/28/2024 1:00 PM EST Scheduled View Only Hematology/Oncology at [address] [phone] Aleah Curran RN 07/28/2024 1:00 PM EST Infusion Hematology Oncology at [address] [phone] documented as of this encounter Procedures Procedure Name Priority Date/Time Associated Diagnosis Comments BODY FLUID CULTURE, AEROBIC Routine 07/15/2024 1:27 PM EST documented in this encounter Results * Body Fluid Culture, Aerobic Only (07/15/2024 1:27 PM EST) Body Fluid Culture No growth 07/19/2024 8:37 AM EST [facility] Gram Stain Cytocentrifuge Gram Stain performed 07/19/2024 8:37 AM EST [facility] Gram Stain Neutrophils seen 07/19/19 8:37 AM EST [facility] Gram Stain No microorganisms seen 07/19/2024 8:37 AM EST [facility] Body Fluid RIGHT PLEURAL FLUID / Unknown 07/15/2024 1:27 PM EST 07/15/2024 4:19 PM EST Josh Baca MD MICROBIOLOGY - [facility] ORDERABLES Performing Organization Address City/State/[facility] [[email or web address]] Co de Phone Number [facility] [place] [address] documented in this encounter Visit Diagnoses Not on filedocumented in this encounter Care Teams Card Decorator Relationship Specialty Start Date End Date Maria Guadalupe Mendes MD [address] [place] [phone] PCP - General General Internal Medicine 09/06/23 documented as of this encounter
--- OUTSIDE RECORDS SUMMARY | 2024-07-28 01:29 | XMS_ITS | Clinical Summary ---
Author Organization [facility] Address [facility] [place] [address] Care Team Providers Care [employer] Structure Assembler Name Role Phone Maria Guadalupe Mendes MD Primary Care Provider Allergies Active Allergy Reactions Criticality Noted Date Comments Cyclobenzaprine 05/29/2024 Depression Gabapentin Other (See Comments) 08/15/2018 depression Oxycodone-Acetaminophen 05/09/2018 Medications Medication Sig Dispensed Refills Start Date End Date Status busPIRone (BUSPAR) 5 mg Tablet Take 7.5 mg by mouth 3 times daily. Active lisinopril (PRINIVIL;ZESTRIL) 10 mg Tablet Take 10 mg by mouth daily. Active OXYGEN-AIR DELIVERY SYSTEMS MISC by Misc.(Non-Drug; Combo Route) route. Active lactobacillus rhamnosus, GG, (CULTURELLE) 10 billion cell Capsule Take 1 capsule by mouth daily. Active acetaminophen (TYLENOL) 325 mg Tablet Take 650 mg by mouth every 4 hours as needed for Pain. Active cholecalciferol, Vitamin D3, 2,000 unit Capsule Take by mouth. Active loperamide (IMODIUM) 2 mg CapsuleIndications:d iarrhea Take 2 mg by mouth daily as needed for Diarrhea. 1 mg/7.5 ml liquid Indications: diarrhea Active albuteroL (PROVENTIL) 2.5 mg /3 mL (0.083 %) Solution for Nebulization 3 mLs every 5 hours. Ac tive ipratropium-albutero L (DUONEB) 0.5 mg-3 mg(2.5 mg base)/3 mL Solution for Nebulization ipratropium 0.5 mg-albuterol 3 mg (2.5 mg base)/3 mL nebulization soln Administer breathing tx x 1 Active Trelegy Ellipta 100-62.5-25 mcg Disk with Device inhale 1 puff by mouth and INTO THE LUNGS once daily EVERY MORNING 12/13/2019 Active albuteroL 90 mcg/actuation HFA Aerosol Inhaler Inhale 2 puffs into the lungs every 4 hours as needed for Wheezing. Use with spacer Active atorvastatin (Lipitor) 20 mg Tablet Take 20 mg by mouth nightly. 11/02/2021 Active CoQ-10 100 mg Capsule PRN 11/24/2021 Active dilTIAZem (Tiazac) 180 mg ER 24 hr capsule Take 180 mg by mouth daily. 10/09/2023 Active aspirin 81 mg chewable tablet Take 81 mg by mouth daily. Active Psyllium Seed-Sucrose (0) Powder Take by mouth. Active LORazepam (Ativan) 0.5 mg tablet Take 1 tablet by mouth every 12 hours as needed for Anxiety. 07/01/2024 Active ketoconazole (Nizoral) 2 % CreamIndications:Jimbo h of face Apply topically 2 times daily as needed. 30 g 3 07/08/2024 Active Active Problems Problem Noted Date Diagnosed Date [...] history. Overweight (BMI 25.0-29.9) 06/05/2018 Anxiety 06/05/2018 Encounters Date Type Department Care Team Description 07/28/2024 1:00 PM EST Infusion Hematology Oncology at [address] [phone] 07/21/2024 Telephone Hematology/Oncolo gy at [address] [phone] Aysha Feliciano RN 07/15/2024 [place] [phone] Josh Baca MD 07/15/2024 Telephone Hematology [place] [phone] Cami Arthur MD 07/15/2024 Interpretation Only [address] [phone] Josh Baca MD 07/15/2024 Interpretation Only [address] [phone] Josh Baca MD 07/14/2024 Telephone Hematology/Oncolo gy at [address] [phone] Roderick Georges RN Follow-up (S/p infusion ) 07/09/2024 Telephone Hematology/Oncolo gy at [address] [phone] Jen Castillo, KENO ATTENDANT Other (Initial outreach) 07/08/2024 1:30 PM EST Infusion Hematology Oncology at [address] [phone] Primary malignant neoplasm of right lower lobe of lung; Secondary malignant tumor of pleura; High risk medication use 07/08/2024 1:00 PM EST Office Visit Hematology/Oncolo gy at [address] [phone] Chana Myrick APRN Primary malignant neoplasm of right lower lobe of lung; Secondary malignant tumor of pleura; Rash of face 07/08/2024 Orders Only Hematology/Oncolo gy at [address] [phone] Chana Myrick APRN Primary malignant neoplasm of right lower lobe of lung 07/08/2024 Unscheduled Encounter Hematology/Oncolo gy at [address] [phone] Aleah Curran RN Primary malignant neoplasm of right lower lobe of lung 07/08/2024 Travel 06/26/2024 6:40 PM EST [place] [phone] 06/26/2024 [place] [phone] Joseluis Logan DO Chronic obstructive pulmonary disease, unspecified; Pleural effusion, not elsewhere classified; Anxiety disorder, unspecified; Acute and chronic respiratory failure with hypoxia; Essential (primary) hypertension 06/26/2024 Travel 06/26/2024 Interpretation Only [address] [phone] Joseluis Logan DO 06/25/2024 Telephone Hematology/Oncolo gy Unit Level [address] [place] [phone] Trixie Rodgers MD 06/25/2024 [place] [phone] Josh Baca MD Essential (primary) hypertension; Acute and chronic respiratory failure with hypoxia; Anxiety disorder, unspecified; Pleural effusion, not elsewhere classified; Chronic obstructive pulmonary disease, unspecified 06/25/2024 Interpretation Only [address] [phone] Josh Baca MD 06/25/2024 Interpretation Only [address] [phone] Josh Baca MD 06/09/2024 3:00 PM EST Office Visit Hematology/Oncolo gy at [address] [phone] Nick Mullen MD Primary malignant neoplasm of right lower lobe of lung; Secondary malignant tumor of pleura; High risk medication use 06/09/2024 Travel 06/05/2024 Telephone Hematology/Oncolo gy at [address] [phone] MikaylaOlga ballard Elissa 06/04/2024 Orders Only Hematology/Oncolo gy at [address] [phone] Nick Mullen MD Primary malignant neoplasm of right lower lobe of lung 05/29/2024 9:00 AM EST TH Visit (TeleHealth) Radiation Oncology at [address] [phone] Alta Zamora PA Primary malignant neoplasm of right upper lobe of lung (Primary Dx); Primary malignant neoplasm of right lower lobe of lung; S/P radiotherapy 05/21/2024 1:15 PM EST - 05/21/2024 11:59 PM EST Hospital Encounter [place] [phone] Edwin Bolanos MD Discharge Disposition: Home 05/21/2024 1:15 PM EST - 05/21/2024 11:59 PM EST Hospital Encounter [place] [phone] Edwin Bolanos MD Primary malignant neoplasm of right upper lobe of lung Discharge Disposition: Home 05/21/2024 Travel 05/08/2024 3:00 PM EST Procedure visit Dermatology at [address] [place] [phone] Drake Chi MD Basal cell carcinoma (BCC) of back 05/08/2024 Travel from Last 3 Months Immunizations Name Administration Dates Next Due Influenza (Fluzone HD) Quadr ivalent High Dose, Preservative Free 04/07/2021 Family History Medical History Relation Comments Cancer Brother Glaucoma Brother Cancer Father Glaucoma Mother Lung Cancer Sister Amblyopia Neg Hx Macular Degeneration Neg Hx Strabismus Neg Hx Relation Status Comments Brother Father Mother Sister Social History Tobacco Use Types Packs/Day Years Used Date Smoking Tobacco: Former Cigarettes 1 50 0 06/25/1967 - 06/25/2017 Smokeless Tobacco: Never Tobacco Cessation:Counseling Given: Not Answered Alcohol Use Standard Drinks/Week Comments Yes 0 (1 standard drink = 0.6 oz pur e alcohol) glass of wine once in a while B1300 Health Literacy Answer Date Recor ded How often do you need to hav e someone help you when you read instructions, pamphlets, or other written material from your doctor or pharmacy? Rarely 06/09/2024 [facility] Utilities Answer Date Recorded In the [...] any time in the past 12 m [facility], were you homeless or living in a intermediate (including now)? Patient declined 06/09/2024 IPV Inpatient [...] on file Sexual Orientation Not on file Last Filed Vital Signs Vital Sign Reading Time Taken Comments Blood Pressure 148/68 07/08/2024 1:00 PM EST Pulse 102 07/08/2024 1:00 PM EST Temperature 36.4 ??C (97.5 ??F) 07/08/2024 1:00 PM ES T Respiratory Rate 22 07/08/2024 1:00 PM EST Oxygen Saturation 99% 07/08/2024 1:00 PM EST 4L NC Inhaled Oxygen Concentration - - Weight 67.6 kg (149 lb) 07/08/2024 1:00 PM EST Height 155 cm (5' 1.02) 07/08/2024 1:00 PM EST Body Mass Index 28.13 07/08/2024 1:00 PM EST Plan of Treatment Upcoming Encounters Date Type Department Care Team (Late st Contact Info) Description 07/28/2024 12:30 PM EST Office Visit Hematology/Oncology at [address] [phone] Nick Mullen MD [facility] [address] [place] [address] Chana Myrick APRN [address] [place] [address] DR HEMATOLOGY AND ONCOLOGY [place], [place] [id number] 07/28/2024 1:00 PM EST Scheduled View Only Hematology/Oncology at [address] [phone] Aleah Curran RN 07/28/2024 1:00 PM EST Infusion Hematology Oncology at [address] [phone] Health Maintenance Due Date Last Done Comments Pneumoccocal Vaccine: 50+ (1 of 2 - PCV) 02/07/1960 Tetanus/Diphtheria/Pertussis Vaccines (1 - Tdap) 02/06 Zoster vaccine (1 of 2) 1991 RSV Vaccine (1 - 1-dose 75+ series) 02/07/2016 Covid-19 Vaccine (1 - 2023- season) 2024 Influenza (Flu) vaccine (1 o f 1 - Influenza standard series) 02/24/2024 04/07/2021 Bone Density Scan 07/12/2036 07/12/2021 Medical Devices Implanted Type Area Cattle Rancher Device Identifier Shelf Expiration Date Model / Serial / Lot Iol,[id number],21.5 ([id number]) (Autoreq) - [id number] Implanted:Qty: 1 on 08/15/2018 by Evie Joyce MD at [facility] IMPLANTS Left: Eye NOVARTIS - NOVARTIS 02/22/2023 [id number] .[id number] / [id number] / Iol,Sn60wf,21.0 ([id number]) (Autoreq) - [id number] Implanted:Qty: 1 on 09/04/2018 by Evie Joyce MD at [facility] IMPLANTS Right: Eye NOVARTIS - NOVARTIS 04/24/2023 [id number] .[id number] / [id number] / Procedures Procedure Name Priority Date/Time Associated Diagnosis Comments BODY FLUID CULTURE, AEROBIC Routine 07/15/2024 1:27 PM EST XR CHEST ONE VIEW STAT 07/15/2024 12: 03 PM EST XR CHEST ONE VIEW STAT 07/15/2024 9:5 2 AM EST LAB SCAN 07/08/2024 12:00 AM EST XR CHEST ONE VIEW STAT 06/26/2024 3:4 8 PM EST BODY FLUID CULTURE, AEROBIC Routine 06/26/2024 3:39 PM EST Essential (primary) hypertension Acute and chronic respiratory failure with hypoxia Anxiety disorder, unspecified Pleural effusion, not elsewhere classified Chronic obstructive pulmonary disease, unspecified GLUCOSE LEVEL BODY FLUID Routine 06/26/2024 3:38 PM EST Chronic obstructive pulmonary disease, unspecified Pleural effusion, not elsewhere classified Anxiety disorder, unspecified Acute and chronic respiratory failure with hypoxia Essential (primary) hypertension PROTEIN LEVEL BODY FLUID Routine 06/26/2024 3:38 [...] respiratory failure with hypoxia Essential (primary) hypertension CT CHEST PULMONARY EMBOLISM W CONTRAST STAT 06/25/2024 2:43 PM EST BLOOD CULTURE Routine 06/25/2024 1:39 PM EST BLOOD CULTURE Routine 06/25/2024 1:24 PM EST XR CHEST ONE VIEW STAT 06/25/2024 1:1 2 PM EST LAB SCAN 06/09/2024 12:00 AM EST NM PET CT SKULL BASE TO MID-THIGH ([facility]) Routine 05/21/2024 2:53 PM EST Primary malignant neoplasm of right upper lobe of lung POC, GLUCOSE Routine 05/21/2024 1:32 PM EST DXA CENTRAL SPINE, HIP, AND/OR WHOLE BODY (GENERIC) Routine 07/12/2021 2:46 PM EST from Last 3 Months or Most Recently Relevant to Health Maintenance Results * Body Fluid Culture, Aerobic Only (07/15/2024 1:27 PM EST) Only the most recent of2 resultswithin the time period is included. Body Fluid Culture No growth 07/19/2024 8:37 AM EST [facility] Gram Stain Cytocentrifuge Gram Stain performed 07/19/2024 8:[address] [facility] Gram Stain Neutrophils seen 07/19/19 8:[address] [facility] Gram Stain No microorganisms seen 07/19/2024 8:[address] [facility] Body Fluid RIGHT PLEURAL FLUID / Unknown 07/15/2024 1:27 PM EST 07/15/2024 4:19 PM EST Josh Baca MD MICROBIOLOGY - [facility] ORDERABLES [facility] [place] [address] * XR Chest One View (07/15/2024 12:03 PM EST) Only the most recent of4 resultswithin the time period is included. PT CLASS E RAD ADMITDTTM [id number] RAD PT RAD INFO [id number]^Jayna abbi^Josh RAD EXAM DESC XCXR1^XR Chest 1 View^RIS RAD WORKSTATION ID [id number] RAD Anatomical Region Laterality Modality Chest N/A [...] questions please contact the health acute care occupational therapist that requested your imaging first. ? Electronically signed by: [facility] ([phone]), at 07/15/2024 1:22 PM Narrative 07/15/2024 1:22 PM EST EXAMINATION: XR [...] have questions please contactthe health acute care occupational therapist that requested your imaging first. Electronically signed by: Mihai Guerrero MD[facility]([phone]), at 07/15/2024 1:22 PM Josh Baca MD IMG DX ORDERABLES * Scan Doc: Lab (07/08/2024 12:00 AM EST) Only the most recent of2 resultswithin the time period is included. Narrative 07/08/2024 12:00 AM EST Ordered by an unspecified provider. Scanning Provider MEDIA MGR SCAN EXT O RDR/RSLT * Protein Level Body Fluid (06/26/2024 3:38 PM EST) Protein, Fluid 4.8 g/dL 06/26/2024 11:[address] [facility] Comment:Reference intervals are unavailable for this test in body fluids. Comparison of this result with the concentration in blood serum or plasma is recommended. This test has not been cleared by the [place] FDA. Performance characteristics of this test for the analysis of body fluids were determined by [facility] in accordance with CLIA requirements. This laboratory is qualified under CLIA to perform high-complexity testing. Body Fluid Source Pleural Fluid, Right 06/26/2024 11:[address] [facility] Body Fluid RIGHT PLEURAL FLUID / Unknown 06/26/2024 3:38 PM EST 06/26/2024 10:55 PM EST Joseluis Logan DO BODY FLUIDS A ND STOOLS ORDERABLES Performing Organization Address [facility] Co de Phone Number [facility] [place] [address] * Lactate Dehydrogenase Body Fluid (06/26/2024 3:38 PM EST) Lactate Dehydrogenase, Fluid 124 unit/L 06/26/2024 11:33 PM [facility] Comment:Reference intervals are unavailable for this test in body fluids. Comparison of this result with the concentration in blood serum or plasma is recommended. This test has not been cleared by the [place] FDA. Performance characteristics of this test for the analysis of body fluids were determined by [facility] in accordance with CLIA requirements. This laboratory is qualified under CLIA to perform high-complexity testing. Body Fluid Source Pleural Fluid, Right 06/26/2024 11:33 PM [facility] Body Fluid RIGHT PLEURAL FLUID / Unknown 06/26/2024 3:38 PM EST 06/26/2024 10:55 PM EST Joseluis Logan DO BODY FLUIDS A ND STOOLS ORDERABLES Performing Organization Address [facility] Co de Phone Number [facility] [place] [address] * Glucose Level Body Fluid (06/26/2024 3:38 PM EST) Glucose, Fluid 135 mg/dL 06/26/2024 11:[address] [facility] Body Fluid Source Pleural Fluid, Right 06/26/2024 11:[address] [facility] Body Fluid RIGHT PLEURAL FLUID / Unknown 06/26/2024 3:38 PM EST 06/26/2024 10:[address] [facility] - 06/26/2024 11:33 PM EST Reference intervals are unavailable for this test in body fluids. Comparison of this result with the concentration in blood, serum, or plasma is recommended. This test has not been cleared by the [place] FDA. Performance characteristics of this test for the analysis of body fluids were determined by [facility] in accordance with CLIA requirements. This laboratory is qualified under CLIA to perform high-complexity testing. Joseluis Logan DO BODY FLUIDS A ND STOOLS ORDERABLES [facility] [place] [address] * CT Angiogram Chest for Pulmonary Embolus w Contrast (06/25/2024 2:43 PM EST) PT CLASS E RAD ADMITDTTM [id number] RAD PT [facility] INFO [id number]^Haniss abbi^Josh RAD EXAM DESC CTCHPE^CT Angio Chest PE Protocol^RIS [facility] WORKSTATION ID [id number] RAD Anatomical Region Laterality Modality Chest Computed Tomogra phy 06/25/2024 2:43 PM EST Impressions 06/25/2024 3:02 PM EST 1. No pulmonary embolism. 2. Worsening right sided pleural effusion, likely malignant in the setting of worsening pleural and parenchymal metastatic disease. 3. Compressive atelectasis of the right lower lobe. No definite lobar consolidation, though infection is difficult to completely exclude. Thank you for letting us participate in the care of this patient. ??If you are a health care provider and have any questions regarding this report, please contact the number below. ??For patients who have questions please contact the health acute care occupational therapist that requested your imaging first. ? Electronically signed by: Guillermo Brown MD, [facility] ([phone]), at 06/25/2024 3:02 PM Narrative 06/25/2024 3:02 PM EST EXAMINATION: CT Angio Chest PE Protocol CLINICAL HISTORY: lung ca, effusion, increased diff breath TECHNIQUE: Helical CT angiogram of the chest was performed after the intravenous administration of 80 cc of Omnipaque 350. Thin-section reconstructions as well as coronal and sagittal MIP reformatted images were generated to aid in evaluation. COMPARISON: CT of the chest 03/10/2024 FINDINGS: Pulmonary arteries: No pulmonary arterial filling defects. Other cardiovascular structures: Normal heart size. No aneurysm or stenosis. Lungs and airways: Multifocal subpleural metastatic lesions within the right upper lobe have increased in size from prior imaging. For example, right paraspinal, series 5 image 22 now 18 mm versus [address] of 03/10/2024. Right paratracheal, 9 mm versus 7 mm, right lateral pleura, 17 mm versus 12 mm. More confluent right lower lobe nodular opacity seen on previous imaging are not visible on today's examination as there is extensive atelectasis. Air bronchograms are present. Given overall volume loss, atelectasis is favored over lobar consolidation. Airways are patent. No local mass effect on trachea, lobar or segmental bronchi. Pleura and pericardium: Moderate right-sided pleural effusion has increased from prior. 1.5 cm region of probable enhancing pleural-based metastases within the effusion at the right medial costophrenic angle, series 8 image 83. Mediastinum and hilar structures: Small lymph nodes within the right hilum and mediastinum similar to prior. No bulky lymphadenopathy. Limited views of the upper abdomen: No significant findings. Skeletal structures: Multifocal degenerative change. No acute or aggressive lesion. Procedure Note Guillermo Brown MD - 06/25/2024 EXAMINATION: CT Angio Chest PE Protocol CLINICAL HISTORY: lung ca, effusion, increased diff breath TECHNIQUE: Helical CT angiogram of the chest was performed after theintravenous administration of 80 cc of Omnipaque 350. Thin-section reconstructions aswell as coronal and sagittal MIP reformatted images were generated to aid in evaluation. COMPARISON: CT of the chest 03/10/2024 FINDINGS: Pulmonary arteries: No pulmonary arterial filling defects. Other cardiovascular structures: Normal heart size. No aneurysm orstenosis. Lungs and airways: Multifocal subpleural metastatic lesions within theright upper lobe have increased in size from prior imaging. For example, right paraspinal, series 5 image 22 now 18 mm versus [address] of 03/10/2024.Right paratracheal, 9 mm versus 7 mm, right lateral pleura, 17 mm versus 12mm. More confluent right lower lobe nodular opacity seen on previous imagingare not visible on today's examination as there is extensive atelectasis. Air bronchograms are present. Given overall volume loss, atelectasis isfavored over lobar consolidation. Airways are patent. No local mass effect on trachea, lobar or segmentalbronchi. Pleura and pericardium: Moderate right-sided pleural effusion hasincreased from prior. 1.5 cm region of probable enhancing pleural-based metastases withinthe effusion at the right medial costophrenic angle, series 8 image 83. Mediastinum and hilar structures: Small lymph nodes within the right hilumand mediastinum similar to prior. No bulky lymphadenopathy. Limited views of the upper abdomen: No significant findings. Skeletal structures: Multifocal degenerative change. No acute oraggressive lesion. IMPRESSION 1. No pulmonary embolism. 2. Worsening right sided pleural effusion, likely malignant in the settingof worsening pleural and parenchymal metastatic disease. 3. Compressive atelectasis of the right lower lobe. No definite lobar consolidation, though infection is difficult to completely exclude. Thank you for letting us participate in the care of this patient. If youare a health care provider and have any questions regarding this report,please contact the number below. For patients who have questions please contactthe health acute care occupational therapist that requested your imaging first. Josh Baca MD IMG CT ORDERABLES * Blood culture (06/25/2024 1:39 PM EST) Only the most recent of2 resultswithin the time period is included. Blood Culture No growth at 120 hours 07/01/2024 10:[address] [facility] Blood VENOUS BLOOD SPECIMEN / Unknown 06/25/2024 1:39 PM EST 06/26/2024 9:22 AM EST Josh Baca MD MICROBIOLOGY - BL OOD ORDERABLES [facility] [place] [address] * NM PET CT Skull Base to Mid-thigh (05/21/2024 2:53 PM EST) WORKSTATION ID [id number] RAD Anatomical Region Laterality Modality Positron Emissio [...] questions please contact the health acute care occupational therapist that requested your imaging first. ? Electronically signed by: Krish Davila MD, [facility] ([phone]), at 05/26/2024 11:14 AM Narrative 05/26/2024 11:14 [...] on 04/29/2024 TECHNIQUE: Following IV injection of 49-dygvpr-3-deoxyglucose (FDG) a standard uptake of approximately 60 [...] right hilar lymph node (image 59). New joedm-gh-eubtingu right pleural effusion with right basilar compressive [...] on 04/29/2024 TECHNIQUE: Following IV injection of 80-jlthey-1-deoxyglucose (FDG) astandard uptake of approximately 60 minutes, [...] right hilar lymph node (image 59). New zxfxg-tm-wbijoxjd right pleural effusion with right basilarcompressive atelectasis. [...] have questions please contactthe health acute care occupational therapist that requested your imaging first. Edwin Bolanos MD IMG PET ORDERABLES * POC, GLUCOSE (05/21/2024 1:32 PM EST) Pathologist [facility] Glucometer, POC 97 65 - 199 mg/dL 05/21/2024 1:[address] [facility] Comment:Supplemental ranges: <140 mg/dL before meals <180 mg/dL all other times of the day. Blood CAPILLARY BLOOD / Unknown 05/21/2024 1:32 PM EST 05/21/2024 1:34 PM EST Edwin Bolanos MD POINT OF CARE TEST O RDERABLES [facility] [place] [address] * DXA Central Spine, Hip, and/or Whole Body (Generic) (07/12/2021 2:46 PM EST) Pathologist [facility] PT CLASS O RAD ADMITDTTM RAD PT RAD INFO [id number]^W AGNER^ROBIN^ LUKE RAD EXAM DESC XDXAC^DEXA SCAN AXIAL^RIS RAD Anatomical Region Laterality Modality C-spine, Hip N/A Radiographic Trini ging Impressions 07/12/2021 3:14 PM EST Osteoporosis. FRAX ten-year fracture risk: Major osteoporotic fracture: 17%. Hip fracture: 7%. Thank you for letting us participate in the care of this patient. ??If you are a health care provider and have any questions regarding this report, please contact the number below. ??For patients who have questions please contact the health acute care occupational therapist that requested your imaging first. ? Electronically signed by: Mihai Guerrero MD, [facility] ([phone]), at 07/12/2021 3:14 PM Narrative 07/12/2021 3:14 PM EST EXAMINATION: DEXA SCAN AXIAL CLINICAL HISTORY: Asymptomatic menopausal state, SCREENING FOR OSTEOPOROSIS , MENOPAUSE TECHNIQUE: Scans were acquired at the lumbar spine, left hip. COMPARISON: None. FINDINGS: Lowest T score at a diagnostic region of interest: T score: -2.9, GERALD:Total spine, WHO diagnosis: Osteoporosis Procedure Note Mihai Guerrero MD - 07/12/2021 EXAMINATION: DEXA SCAN AXIAL CLINICAL HISTORY: Asymptomatic menopausal state, SCREENING FOROSTEOPOROSIS , MENOPAUSE TECHNIQUE: Scans were acquired at the lumbar spine, left hip. COMPARISON: None. FINDINGS: Lowest T score at a diagnostic region of interest: T score: -2.9, GERALD:Total spine, WHO diagnosis: Osteoporosis IMPRESSION Osteoporosis. FRAX ten-year fracture risk: Major osteoporotic fracture: 17%. Hip fracture: 7%. Thank you for letting us participate in the care of this patient. If youare a health care provider and have any questions regarding this report,please contact the number below. For patients who have questions please contactthe health acute care occupational therapist that requested your imaging first. Electronically signed by: Mihai Guerrero MD, [facility]([phone]), at 07/12/2021 3:14 PM Robin Santos APRN IMG DEXA ORDERABLES from Last 3 Months or Most Recently Relevant to Health Maintenance Advance Directives Documents on File Type Date Recorded Patient Media/Instructional Designer Binh middleton Advance Directives and Timothy bassett Will 08/16/2018 8:23 AM 08/30/16 * Attempt Cardiopulmonary Resuscitation - Inpatient (Latest Code Status on File) Date Activated Date Inactivated Comments 04/10/2024 10:44 AM 04/11/2024 4:36 AM Question Answer Comments Code Status decision made by: Patient Content of discussion: full code Healthcare Agents on File Name Relationship Healthcare Agent [facility] Communication [facility] Health Care Agent Care Teams Precision Aircraft Structure Assembler Relationship Specialty Start Date End Date Maria Guadalupe Mendes MD [address] [place] [address] PCP - General General Internal Medicine 09/06/23
--- OUTSIDE RECORDS SUMMARY | 2024-07-28 01:29 | XMS_ITS | Encounter Summary ---
Author Organization [facility] Address [facility] [place] [address] Care Team Providers Care Train Operator Name Role Phone Maria Guadalupe Mendes MD Primary Care Provider Encounter Details Date Type Department Care Team (Late st Contact Info) Description 06/26/2024 Interpretation Only [facility] [address] [place] [address] Joseluis Logan, DO [address] [place] [address] Social History Tobacco Use Types Packs/Day Years [...] from your doctor or pharmacy? Rarely 06/09/2024 [facility] Utilities Answer Date Recorded In [...] a residential (including now)? Patient declined 06/09/2024 IPV Inpatient [...] 12:30 PM EST Office Visit Hematology/Oncology at [address] [phone] Nick Mullen MD [facility] DR HEMATOLOGY [place] [address] Chana Myrick APRN [address] [place] [address] DR [place] [address] 07/28/2024 1:00 PM EST Scheduled View Only Hematology/Oncology at [address] [phone] Aleah Curran RN 07/28/2024 1:00 PM EST Infusion Hematology Oncology at [address] [phone] documented as of this encounter Procedures Procedure Name Priority Date/Time Associated Diagnosis Comments XR CHEST ONE VIEW STAT 06/26/2024 3:4 8 PM EST documented in this encounter Results * XR Chest One View (06/26/2024 3:48 PM EST) PT CLASS I RAD ADMITDTTM [id number] RAD PT RAD INFO [id number]^Armen son^Christopher^S RAD EXAM DESC XCXR1^XR Chest 1 View^RIS RAD WORKSTATION ID [id number] RAD Anatomical Region Laterality Modality Chest N/A Radiographic Trini ging 06/26/2024 3:48 PM EST Impressions 06/26/2024 3:54 PM EST Interval near complete resolution of right-sided pulmonary base opacity, compatible with a small residual pleural effusion. No pneumothorax is seen. The left lung remains clear. Thank you for letting us participate in the care of this patient. ??If you are a health care provider and have any questions regarding this report, please contact the number below. ??For patients who have questions please contact the health medicare insurance specialist that requested your imaging first. ? Narrative 06/26/2024 3:54 PM EST EXAMINATION: XR Chest 1 View CLINICAL HISTORY: post right thoracentesis TECHNIQUE: Frontal radiograph of the chest COMPARISON: June 25, 2024 FINDINGS: See impression. Procedure Note Mihai Guerrero MD - 06/26/2024 EXAMINATION: XR Chest 1 View CLINICAL HISTORY: post right thoracentesis TECHNIQUE: Frontal radiograph of the chest COMPARISON: June 25, 2024 FINDINGS: See impression. IMPRESSION Interval near complete resolution of right-sided pulmonary base opacity, compatible with a small residual pleural effusion. No pneumothorax isseen. The left lung remains clear. Thank you for letting us participate in the care of this patient. If youare a health care provider and have any questions regarding this report,please contact the number below. For patients who have questions please contactthe health medicare insurance specialist that requested your imaging first. Joseluis Logan DO IMG DX ORDERA BLES documented in this encounter Visit Diagnoses Not on filedocumented in this encounter Care Teams Train Operator Relationship Specialty Start Date End Date Maria Guadalupe Mendes MD [address] [place] [phone] PCP - General General Internal Medicine 09/06/23 documented as of this encounter
--- OUTSIDE RECORDS SUMMARY | 2024-07-28 01:29 | XMS_ITS | Encounter Summary ---
Author Organization [facility] Address [facility] [place] [address] Care Team Providers Care Crown Attacher Name Role Phone Maria Guadalupe Mendes MD Primary Care Provider Encounter Details Date Type Department Care Team (Late st Contact Info) Description 06/25/2024 Telephone Hematology/Oncology Unit Level 1 [place] [phone] Trixie Rodgers MD [facility] DR HEMATOLOGY/[place] [address] Social History Tobacco Use Types Packs/Day Years [...] from your doctor or pharmacy? Rarely 06/09/2024 [facility] Utilities Answer Date Recorded In the past 12 months has e [place], gas, oil, or water company threatened to [...] any time in the past 12 m [facility], were you homeless or living [...] encounter Miscellaneous Notes * Telephone Encounter - Trixie Rodgers MD - 06/25/2024 4:17 PM EST Reason for call: Recommend on management of acute on chronic Dyspnea Caller: Boo Barraza is a 84 y.o. with diagnosis of adenocarcinoma of the lungs, severe COPD, on 4 Loxygen at home, wheelchair dependent, who has shortness of breath, which has progressively worsenedover the last 1 week. Patient currently according hospital, where CT chest done showed some minimalincrease in the previously noted pleural effusion. ED provider at [facility] is wishing patient be transferred to our center for further evaluation and management. Assessment/Recommendations: Patient with severe COPD disease on oxygen dependent at 4 L basal. Adenocarcinoma of the lungs about to start immunotherapy. Presenting with worsening dyspnea and pleural effusion which has minimallyincreased CT chest. Patient with significant lung disease seem to have very low pulmonary reserve of which even minimal effusion can dip into acute on chronic dyspnea. We recommend symptomatic management at this time which include, IR chest drainage, with pleural fluid analysis to rule out infection, also assess patient for COPD exacerbation see if systemic steroidwould be indicated. Rule out infection rule out mycoplasma , legionella pneumonia and other atypicals Unfortunately we are unable to accept patient to our service, as hospital is capacity FULL. Recommended consulting palliative team to assist in his symptom management, as well as pulmonology team All questions/concerns were addressed. Caller verbalized understanding and will call for any more questions. This note will be routed to primary oncology team. Trixie Rodgers MD Hematology/Oncology Fellow PGY4 Pager # [phone] 06/25/24, 4:17 PM Hematology/Oncology Clinic [facility] [place] [address] documented in this encounter Plan of Treatment Upcoming Encounters Date Type Department Care Team (Late st Contact Info) Description 07/28/2024 12:30 PM EST Office Visit Hematology/Oncology at [address] [phone] Nick Mullen MD [facility] DR [place]AT[place] [address] Chana Myrick APRN [address] [place] [address] DR HEMATOLOGY AND ONCOLOGY [place], [place] [id number] 07/28/2024 1:00 PM EST Scheduled View Only Hematology/Oncology at [address] [phone] Aleah Curran RN 07/28/2024 1:00 PM EST Infusion Hematology Oncology at [address] [phone] documented as of this encounter Visit Diagnoses Not on filedocumented in this encounter Care Teams Crown Attacher Relationship Specialty Start Date End Date Maria Guadalupe Mendes MD [address] [place] [address] PCP - General General Internal Medicine 09/06/23 documented as of this encounter
--- OUTSIDE RECORDS SUMMARY | 2024-07-28 01:29 | XMS_ITS | Encounter Summary ---
Author Organization [facility] Address [facility] [place] [address] Care Team Providers Care Power Systems Engineer Name Role Phone Maria Guadalupe Mendes MD Primary Care Provider [phone] Encounter Details Date Type Department Care Team (Late st Contact Info) Description 07/15/2024 Interpretation Only [facility] [address] [place] [phone] Josh Baca MD [address] [place] [address] Social History Tobacco Use Types Packs/Day Years [...] from your doctor or pharmacy? Rarely 06/09/2024 [facility] Utilities Answer Date Recorded In the past [...] were you homeless or living in a fdc (including now)? Patient declined 06/09/2024 IPV Inpatient [...] 12:30 PM EST Office Visit Hematology/Oncology at [address] [phone] Nick Mullen MD [facility] DR [place] [address] Chana Myrick APRN [address] [place] [address] [place] [address] 07/28/2024 1:00 PM EST Scheduled View Only Hematology/Oncology at [address] [phone] Aleah Curran RN 07/28/2024 1:00 PM EST Infusion Hematology Oncology at [address] [phone] documented as of this encounter Procedures Procedure Name Priority Date/Time Associated Diagnosis Comments XR CHEST ONE VIEW STAT 07/15/2024 9:5 2 AM EST documented in this encounter Results * XR Chest One View (07/15/2024 9:52 AM EST) PT CLASS E RAD ADMITDTTM [id number] RAD PT RAD INFO [id number]^Haniss abbi^Josh RAD EXAM DESC XCXR1^XR Chest 1 View^RIS RAD WORKSTATION ID [id number] RAD Anatomical Region Laterality Modality Chest N/A Radiographic Trini ging 07/15/2024 9:52 AM EST Impressions 07/15/2024 10:10 AM EST Increased moderate to large right-sided pleural effusion. Thank you for letting us participate in the care of this patient. ??If you are a health care provider and have any questions regarding this report, please contact the number below. ??For patients who have questions please contact the health caretaker grounds that requested your imaging first. ? Narrative 07/15/2024 10:10 AM EST EXAMINATION: XR Chest 1 View CLINICAL HISTORY: known lung ca, recurring efusions R g.t. L TECHNIQUE: AP chest. COMPARISON: 06/26/2024. FINDINGS: Increased moderate to large right-sided pleural effusion which extends approximately through the dependent half of the right hemithorax. Adjacent compression atelectasis. Otherwise lungs are clear. Cardiac mediastinal silhouette is grossly unchanged. Atherosclerotic disease at the aortic arch. Procedure Note Loren Oakes MD - 07/15/2024 EXAMINATION: XR Chest 1 View CLINICAL HISTORY: known lung ca, recurring efusions R g.t. L TECHNIQUE: AP chest. COMPARISON: 06/26/2024. FINDINGS: Increased moderate to large right-sided pleural effusion which extends approximately through the dependent half of the right hemithorax. Adjacent compression atelectasis. Otherwise lungs are clear. Cardiacmediastinal silhouette is grossly unchanged. Atherosclerotic disease at the aorticarch. IMPRESSION Increased moderate to large right-sided pleural effusion. Thank you for letting us participate in the care of this patient. If youare a health care provider and have any questions regarding this report,please contact the number below. For patients who have questions please contactthe health caretaker grounds that requested your imaging first. Josh Baca MD IMG DX ORDERABLES documented in this encounter Visit Diagnoses Not on filedocumented in this encounter Care Teams Power Systems Engineer Relationship Specialty Start Date End Date Maria Guadalupe Mendes MD [address] [place] [phone] PCP - General General Internal Medicine 09/06/23 documented as of this encounter
--- OUTSIDE RECORDS SUMMARY | 2024-07-28 01:29 | XMS_ITS | Encounter Summary ---
Author Organization [facility] [place] [address] Care Team Providers Care Manager Of Supply Chain Name Role Phone Maria Guadalupe Mendes MD Primary Care Provider [phone] Reason for Visit * Reason Onset Date Comments Prior Authorization 04/25/2024 Molecular ca ncer testing authorization - Approval for CPT 18604 Encounter Details Date Type Department Care Team (Late st Contact Info) Description 04/25/2024 Telephone [place] [phone] Tatum Woodard Prior Authorization (Molecular cancer testing authorization - Approval for CPT 95190 ) Social History Tobacco Use Types Packs/Day [...] encounter Miscellaneous Notes * Telephone Encounter - Tatum Woodard - 04/25/2024 2:30 PM EDTSummary: Molecular cancer testing authorization - Returned [employer]'s call Molecular cancer testing authorization - Returned [employer]'s call: [facility] [place] [facility]54 asking me to give them a call at [phone] regarding case [id number] I did. Per call back to [facility] [place], I was told that the case was approved and also the details of the authorization. Auth: [id number]. Valid: 04/10/24 to 06/29/24. We confirmed the fax number to ensure we receive a hardcopy of the approval. Ref: [email or web address] * Telephone Encounter - Tatum Woodard - 04/25/2024 12:08 PM EDTSummary: Molecular cancer testing authorization - Approval for CPT 47637 NO PATIENT ACTION NEEDED_VOICEMAIL OR AUTHORIZATION_INFORMATIONAL ONLY Molecular cancer testing authorization: Approval of CPT 52751 E-mail from Shaila in [employer] ([id number]) requesting coverage & prior authorization review Insurance Verified: PRIMARY TRADITIONAL MEDICARE A&B [id number] AND SECONDARY NON-MEDICARE PRODUCT WELL SENSE [id number]. Insurance Effective To/From Dates: 01/23/06 AND 05/09/18, RESPECTIVELY. Third Republican Vendor: [employer] Authorization number: [id number] Validity Dates: 04/10/24 TO 07/09/24. CGAT list date: 04/22/24 Tissue Obtained On: 04/10/24 Ordered On: 04/16/24 Lab: [facility] CPT/Description: 76653/CANCERSEQ ICD-10/Description: C34.11/PRIMARY RIGHT NON-SMALL CELL LUNG CANCER Ordering Provider: NOBLE SANDY MD/NPI Accession: [facility]-[id number] Call Reference Number: N/A - SEE WEBSITE CONFIRMATION SCANNED IN PATIENT'S MEDIA FOLDER. Spoke With: N/A - USED WEB Financially Cleared: YES [employer]SC Insurance Contact Information PSC Insurance Name: WELL SENSE Insurance Insurance Additional Clinical Required Y/N?: NO Notes - Approved via answering questions. No notes were uploaded. E-mail to Shaila with info. documented in this encounter Plan of Treatment Upcoming Encounters Date Type Department Care Team (Late st Contact Info) Description 07/28/2024 12:30 PM EST Office Visit Hematology/Oncology at [address] [phone] Nick Mullen MD [facility] DR [place] [address] Chana Myrick [address] HEMATOLOGY AND ONCOLOGY [place], [place] [phone] 07/28/2024 1:00 PM EST Scheduled View Only Hematology/Oncology at [address] [phone] Aleah Curran RN 07/28/2024 1:00 PM EST Infusion Hematology Oncology at [address] [phone] documented as of this encounter Visit Diagnoses Not on filedocumented in this encounter Care Teams Manager Of Supply Chain Relationship Specialty Start Date End Date Maria Guadalupe Mendes MD [address] [place] [phone] PCP - General General Internal Medicine 09/06/23 documented as of this encounter
--- OUTSIDE RECORDS SUMMARY | 2024-07-28 01:29 | XMS_ITS | Encounter Summary ---
Author Organization [facility] Address [facility] [place] [address] Care Team Providers Care Geospatial Engineer Name Role Phone Maria Guadalupe Mendes MD Primary Care Provider Encounter Details Date Type Department Care Team (Late st Contact Info) Description 06/25/2024 Interpretation Only [facility] [address] [place] [phone] Josh Baca MD [address] [place] [address] Social History Tobacco Use Types Packs/Day Years [...] from your doctor or pharmacy? Rarely 06/09/2024 [facility] Utilities Answer Date Recorded In the past [...] a detention (including now)? Patient declined 06/09/2024 IPV Inpatient [...] 12:30 PM EST Office Visit Hematology/Oncology at [address] [phone] Nick Mullen MD [facility] DR HEMATOLOGY [place] [address] Chana Myrick APRN [address] [place] [address] [place] [address] 07/28/2024 1:00 PM EST Scheduled View Only Hematology/Oncology at [address] [phone] Aleah Curran RN 07/28/2024 1:00 PM EST Infusion Hematology Oncology at [address] [phone] documented as of this encounter Procedures Procedure Name Priority Date/Time Associated Diagnosis Comments CT CHEST PULMONARY EMBOLISM W CONTRAST STAT 06/25/2024 2:43 PM EST documented in this encounter Results * CT Angiogram Chest for Pulmonary Embolus w Contrast (06/25/2024 2:43 PM EST) PT CLASS E RAD ADMITDTTM [id number] RAD PT [facility] INFO [id number]^Haniss abbi^Josh RAD EXAM DESC CTCHPE^CT Angio Chest PE Protocol^RIS RAD WORKSTATION ID [id number] [facility] Anatomical Region Laterality Modality Chest Computed Tomogra [...] who have questions please contact the health respiratory care program director that requested your imaging first. ? Electronically signed by: Guillermo Brown MD, [facility] ([phone]), at 06/25/2024 3:02 PM Narrative 06/25/2024 3:02 [...] patients who have questions please contactthe health respiratory care program director that requested your imaging first. Electronically signed by: Guillermo Brown MD, [facility]([phone]), at 06/25/2024 3:02 PM Josh Baca MD IMG CT ORDERABLES documented in this encounter Visit Diagnoses Not on filedocumented in this encounter Care Teams Geospatial Engineer Relationship Specialty Start Date End Date Maria Guadalupe Mendes MD [address] [place] [phone] PCP - General General Internal Medicine 3/14/24 documented as of this encounter
--- OUTSIDE RECORDS SUMMARY | 2024-07-28 01:29 | XMS_ITS | Encounter Summary ---
Author Organization [facility] Address [facility] [place] [address] Care Team Providers Care Head Loader Name Role Phone Maria Guadalupe Mendes MD Primary Care Provider Encounter Details Date Type Department Care Team (Late st Contact Info) Description 07/08/2024 1:00 PM EST Office Visit Hematology/Oncology at [address] [phone] [address]ana Myrick [address] HEMATOLOGY [place] [address] Primary malignant neoplasm of right lower lobe of lung; Secondary malignant tumor of pleura; Rash of face Social History Tobacco Use Types Packs/Day Years [...] or pharmacy? Rarely 06/09/2024 [facility] Utilities Answer Date Recorded In the past [...] any time in the past 12 m [facility], were you homeless or living in a skilled nursing (including now)? Patient declined 06/09/2024 DH IPV [...] on file documented as of this encounter Last Filed Vital Signs Vital Sign Reading [...] Mass Index 28.13 07/08/2024 1:00 PM EST documented in this encounter Progress Notes * Chana Myrick, TAPE DECK INSTALLER - 07/08/2024 1:00 PM EST Images from the original note were not included. Hematology & Medical Oncology [address] [phone] Kiersten Barraza is being seen for the evaluation of lung cancer. Assessment & Plan: Kiersten Barraza is a 84 y.o. 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 Given her severe COPD and her performance status (ECOG 2) as well her stated preference to not receive chemotherapy recommended single agent immunotherapy with pembrolizumab. (Most recent biopsy had a TPS score of 50% though her original biopsy was lower at 20%-nonetheless would suggest that she may respond well to checkpoint inhibitors.) We decided to hold off on the MRI staging of her brain given clinical context and lack of symptoms. Plan: Schedule and potential adverse effects of pembrolizumab reviewed at length with patient and her son today. Printed educational materials provided as well. - Labs and toxicities assessed and acceptable for ongoing treatment. - Begin therapy with single agent pembrolizumab today, 1.14.25 - RTC in 3 weeks for consideration of C2. - Note that her stated preference is for [facility] to be done [facility] - May benefit from early engagement of palliative care. Chana Myrick, TAPE DECK INSTALLER 07/08/2024 Medical Oncology & Hematology [facility] CC: Alta Mendes MD Answers submitted by the patient for this visit: (Submitted on 07/08/2024) Distress: 8 (Submitted on 07/08/2024) Distress - Practical Problems: Treatment Decisions, Taking care of myself Distress - Emotional Problems: Worry or anxiety, Fear Distress - Physical Problems: Sleep, Loss or change in phyical abilities HPI/Interval History/Subjective: Last seen 06/09/2024 She is accompanied by her son to today's visit. She was at [facility] 06/25/24-06/27/24, they removed about 1L of fluid per her report (we do nothave these records) No current diarrhea, does note that he gets it from time to time related to diet choices. Breathing is at baseline, she is on 4L home O2. Does have a chronic cough. No recent fevers or other signs of illness. She does feel some tenderness in her chest from time to time. This has been her baseline for a while. No other pains. She tells me her appetite is good, weight however is a bit lower, she thinks this is because she was eating less during her admission about 1 week ago. No current nausea or vomiting. Does have a bit of redness/dry skin to her nose and around her mouth. She tells me this is a recurrent fungal rash that she uses ketoconazole cream for Uses a WC for distances. Social History/Support Network: Home situation: Lives alone in a apartment in [place]. . Her of lung cancer 10 years ago in [place]. She shares many colorful stories about his life. Her son lives nearby Employment: Tobacco use: Quit in 2018. 10-hkou-kwdr smoking history Alcohol use: Drug use: Financial Distress: Social Determinants of Health Financial Resource Strain: Patient Declined (06/09/2024) Overall Financial Resource Strain (CARDIA) Difficulty of Paying Living Expenses: Patient declined Food Insecurity: Patient Declined (06/09/2024) Hunger Vital Sign Worried About Running Out of Food in the Last Year: Patient declined Ran Out of Food in the Last Year: Patient declined Transportation Needs: Patient Declined (06/09/2024) PRAPARE - Transportation Lack of Transportation (Medical): Patient declined Lack of Transportation (Non-Medical): Patient declined Physical Activity: Not on file Housing Stability: Patient Declined (06/09/2024) Housing Stability Vital Sign Unable to Pay for Housing in the Last Year: Patient declined Number of Times Moved in the Last Year: 0 Homeless in the Last Year: Patient declined Intimate Partner Violence: Not At Risk (09/11/2023) IPV Inpatient Questions Prevent Contact with Others: no Feels Threatened by Someone: no Feels Unsafe at Home: no Physical Signs of Abuse Present: no Utilities: Not At Risk (06/09/2024) [facility] Utilities Threatened with loss of utilities: No Health Literacy: Adequate Health Literacy (06/09/2024) B1300 Health Literacy Frequency of need for help with medical instructions: Rarely Family History: Noncontributory Oncology Overview: 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 female patient with a past medical history significant for GOLD IV COPD emphysema subtype with severe hyperinflation and air trapping on 4 L nasal cannula at all times, prior 37-doag-cxhr smoking history having quit in 2018, hypertension was originally diagnosed with a stage Ia 3 right lower lobe adenocarcinoma (TPS 20%; KRAS pQ61L mutation) in August2023 treated with SBRT in October 2023 (55 Gómez in 5 fractions) though on subsequent imaging was noted to have a enlarging right upper lobe nodule which was biopsied on 04/10/2024 and showed adenocarcinoma (TPS 50%; KRAS pQ61L mutation). Subsequent staging with a PET scan on 05/21/2024 identified new FDG avid right pleural metastases, and new right pleural effusion and FDG avid upper paratracheal andright sided hilar lymph nodes. Initial Abnormal Imaging: Chest CT on 08/06/23 [...] (Gy) 11/16/23 RLL SBRT 11 5 55 Staging/PreTx Eval: 05.21.24 PET scan 1. FDG avid 1.2 cm spiculated right [...] pleural effusion with right basilar compressive atelectasis. Pathology: 04/10/24 A. Lung, Right, CT Guided Core Needle Biopsy: Adenocarcinoma, (see Discussion.) Discussion The tumor shows acinar growth and a biphasic appearence with some tumor cells showing more plump, oncocytic cytoplasm. These cells weakly co-express P40 and TTF1. A focal adenosquamous component can not be excluded. PDL1 and NGS have been ordered. Addendum Tumor Proportion Score (TPS): % Expression: 50 Interpretation Table: PD-L1 assay (22C3 pharmDX) for Keytruda Tumor Proportion Score (TPS): <1% PD-L1 Negative >=1% PD-L1 Expression Immunohistochemical assay was performed on paraffin-embedded tissue sections fixed in 10% neutral buffered formalin for 6-72 hours using the polymer system technique with appropriate controls. The assay was performed according to the communications tower technician's instructions using Anti-PD-L1 (22C3, pharmDX) antibody. Additional Studies Task ID IHC/Special Stains Result A1-2 TTF1 Positive A1-3 p63 Focal weak positive A1-7 Synaptophysin Negative Molecular Data: 04/10/24 Treatment Course: 1..25 C1 Pembrolizumab 07/08/2024 2:37 PM ONCBCN ONCOLOGY (AMB) Day, Cycle Day 1, Cycle 1 pembrolizumab 25 mg/mL (Keytruda) IV 200 mg I reviewed the problem list, allergies, medications, past medical history, social history and family history within the EPIC encounter. Pertinent details are noted above. Pertinent positives and negative from the Review of Systems are as summarized above in the HPI. Physical Exam: Wt Readings from Last 3 Encounters: 07/08/24 67.6 kg (149 lb) 06/09/24 69 kg (152 lb 1.9 oz) 11/09/23 71.6 kg (157 lb 12.8 oz) Temp Readings from Last 3 Encounters: 07/08/24 36.4 ??C (97.5 ??F) (Temporal) 06/09/24 36.3 ??C (97.3 ??F) (Temporal) 04/10/24 36.6 ??C (97.8 ??F) (Temporal) BP Readings from Last 3 Encounters: 07/08/24 148/68 06/09/24 150/61 04/10/24 136/42 Pulse Readings from Last 3 Encounters: 07/08/24 (!) 102 06/09/24 91 04/10/24 72 Body surface area is 1.71 meters squared. Wt Readings from Last 3 Encounters: 07/08/24 67.6 kg (149 lb) 06/09/24 69 kg (152 lb 1.9 oz) 11/09/23 71.6 kg (157 lb 12.8 oz) KPS Score ECOG Grade Definition 90-100 0 Fully active, able to carry on all pre-disease performance without restriction 70-80 1 Restricted in physically strenuous activity but ambulatory and able to carry out work of a light or sedentary nature, e.g., light house work, office work X 50-60 2 Ambulatory and capable of all selfcare but unable to carry out any work activities; up and about more than 50% of waking hours 30-40 3 Capable of only limited selfcare; confined to bed or chair more than 50% of waking hours 10-20 4 Completely disabled; cannot carry on any selfcare; totally confined to bed or chair Physical Exam Constitutional: General: Not in acute distress. Appearance: Normal appearance. Normal weight. Not ill-appearing, toxic-appearing or diaphoretic. HENT: Head: Atraumatic. Eyes: General: No conjunctival icterus. Right eye: No discharge. Left eye: No discharge. Conjunctiva/sclera: Conjunctivae normal. Pulmonary: Effort: Pulmonary effort is normal. Neurological: General: No focal deficit present. Mental Status: Alert and oriented to person, place, and time. Mental status is at baseline. Psychiatric: Mood and Affect: Mood normal. Behavior: Behavior normal. Thought Content: Thought content normal. Judgment: Judgment normal. Review of Laboratory Data: 07.08.24 WBC 8.59, H?H 9.9/32.9, plt 463,000, ANC 7230, Na 141, K 4.2, Cl 101, CO2 37.9, BUN 10, Creat 0.8, glucose 125, Ca 9.8, Mag 1.8, t bili 0.27, AST 13, ALT 14, alk phos 86, t protein 7.2, albumin 2.6, TSH 1.72, free T4 1.00 Review of Imaging Data: As above, no new data Review of Pathology Data: As above, no new data documented in this encounter Plan of Treatment Upcoming Encounters Date Type Department Care Team (Late st Contact Info) Description 07/28/2024 12:30 PM EST Office Visit Hematology/Oncology at [address] [phone] Nick Mullen MD [facility] DR [place] [address] Chana Myrick APRN [address] [place] [address] DR HEMATOLOGY AND ONCOLOGY [place], [place] [id number] 07/28/2024 1:00 PM EST Scheduled View Only Hematology/Oncology at [address] [phone] Aleah Curran RN 07/28/2024 1:00 PM EST Infusion Hematology Oncology at [address] [phone] documented as of this encounter Visit Diagnoses Diagnosis Primary malignant neoplasm of right lower lobe of lung Malignant neoplasm of lower lobe, bronchus, or lung 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
--- OUTSIDE RECORDS SUMMARY | 2024-07-28 01:29 | XMS_ITS | Encounter Summary ---
Author Organization [facility] Address [facility] [place] [address] Care Team Providers Care Meter Shop Supervisor Name Role Phone Maria Guadalupe Mendes MD Primary Care Provider Reason for Visit * Consultation (Routine) - Closed Specialty Diagnoses / Procedures Referred By Contac t Referred To Contact Hematology and Oncology Diagnoses Primary malignant neoplasm of right upper lobe of lung Alta Zamora PA [facility] DR HEMATOLOGY [place] [address] Nick Mullen MD [address] [place] [address] DR HEMATOLOGY [place] [address] Referral ID Status Reason Start Date Expiration Date V isits Requested Visits Authorized [id number] Closed Consult, Test & Treat 05/29/2024 05/29/2025 1 1 Encounter Details Date Type Department Care Team (Late st Contact Info) Description 06/09/2024 3:00 PM EST Office Visit Hematology/Oncology at [address] [phone] Nick Mullen MD [facility] DR HEMATOLOGY [place] [address] Primary malignant neoplasm of right lower lobe [...] from your doctor or pharmacy? Rarely 06/09/2024 [facility] Utilities Answer Date Recorded In [...] any time in the past 12 m [facility], were you homeless or living in a [facility] (including now)? Patient declined 06/09/2024 IPV Inpatient [...] Sign Reading Time Taken Comments Blood Pressure 150/61 06/09/2024 2:52 PM EST Pulse 91 06/09/2024 2:52 PM EST Temperature 36.3 ??C (97.3 ??F) 06/09/2024 2:52 PM ES T Respiratory Rate 24 06/09/2024 2:52 PM EST Oxygen Saturation 95% 06/09/2024 2:52 PM EST 3L NC Inhaled Oxygen Concentration - - Weight 69 kg (152 lb 1.9 oz) 06/09/2024 2:52 PM EST Height 155 cm (5' 1.02) 06/09/2024 2:52 PM EST Body Mass Index 28.72 06/09/2024 2:52 PM EST documented in this encounter Progress Notes * Nick Mullen MD - 06/09/2024 3:00 PM EST Images from the original note were not included. Hematology [place] [address] Kiersten Barraza is being seen for the evaluation of lung cancer. Assessment & Plan: Kiersten Barraza is a 84 y.o. 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 I counseled the patient and her son about the diagnosis, pathology results, imaging findings, tumorstaging and the implications of this information on the prognosis and the available treatment options. I explained this is an incurable malignancy where systemic treatment is the mainstay. I discussed the need to consider treatment within the context of potential risks and side effects of treatment aswell as individual goals and preferences regarding quality of life. In terms of prognosis, while overall survival may vary significantly for an individual patient withStage IV lung cancer and it is hard to predict at the outset in any given individual, the typical survival with current treatment options is in the range of 1-3 years, though less commonly some patients may live for well beyond that time frame. Given her severe COPD and her performance status (ECOG 2) as well her stated preference to not receive chemotherapy recommended single agent immunotherapy with pembrolizumab. (Most recent biopsy had a TPS score of 50% though her original biopsy was lower at 20%-nonetheless would suggest that she may respond well to checkpoint inhibitors.) Plan: - Can hold off on the MRI for staging her brain given the clinical context and lack of sx - Will schedule her for immunotherapy though she is going to discuss further with her family and notes she may opt not to pursue systemic therapy - Note that her stated preference is for scans to be done at [facility] [place] - May benefit from early engagement of palliative care. Nick Mullen MD, MS 06/09/2024 Medical Oncology & Hematology [facility] CC: Alta Mendes MD HPI/Interval History/Subjective: Kiersten Barraza is a 84 y.o. 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 She is accompanied by her son to today's visit. She is in a wheelchair. She notes that she requiresthis for any kind of distance as she gets quite dyspneic with even modest exertion. Her breathing seems to have worsened since the radiation though not more acutely in the past 1 to 2 months. She is not having any pain. She has no unintentional weight loss. No headaches. No hemoptysis. No fevers or recent infections. No h/o of immune disorders Uses a WC for distances. Social History/Support Network: Home situation: Lives alone in a apartment in [place]. . Her of lung cancer 10 years ago in [place]. She shares many colorful stories about his life. Her son lives nearby Employment: Tobacco use: Quit in 2018. 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 female patient with a past medical history significant for GOLD IV COPD emphysema subtype with severe hyperinflation and air trapping on 4 L nasal cannula at all times, prior 17-reum-buyk smoking history having quit in 2018, hypertension [...] The assay was performed according to the woodwork salvage inspector's instructions using Anti-PD-L1 (22C3, pharmDX) antibody. Additional Studies Task ID IHC/Special Stains Result A1-2 TTF1 Positive A1-3 p63 Focal weak positive A1-7 Synaptophysin Negative Molecular Data: 04/10/24 Treatment Course: No data to display I reviewed the problem list, allergies, medications, past medical history, social history and family history within the EPIC encounter. Pertinent details are noted above. Pertinent positives and negative from the Review of Systems are as summarized above in the HPI. Physical Exam: Wt Readings from Last 3 Encounters: 11/09/23 71.6 kg (157 lb 12.8 oz) 10/18/23 71.2 kg (157 lb) 09/11/23 70.5 kg (155 lb 8 oz) Temp Readings from Last 3 Encounters: 04/10/24 36.6 ??C (97.8 ??F) (Temporal) 11/16/23 37 ??C (98.6 ??F) (Temporal) 11/14/23 37 ??C (98.6 ??F) (Temporal) BP Readings from Last 3 Encounters: 04/10/24 136/42 11/16/23 132/61 11/14/23 127/54 Pulse Readings from Last 3 Encounters: 04/10/24 72 11/16/23 96 11/14/23 (!) 101 There is no height or weight on file to calculate BSA. Wt Readings from Last 3 Encounters: 11/09/23 71.6 kg (157 lb 12.8 oz) 10/18/23 71.2 kg (157 lb) 09/11/23 70.5 kg (155 lb 8 oz) KPS Score ECOG Grade Definition 90-100 [...] selfcare; totally confined to bed or chair Constitutional: Oriented to person, place, and time. In a wheelchair. NAD Physical Exam Constitutional: General: Not in acute [...] Content: Thought content normal. Judgment: Judgment normal. No results found for this or any previous visit (from the past 72 hour(s)). Review of Imaging Data: I personally reviewed the reports and images in the studies as detailed in the oncology overview above. Review of Pathology Data: I personally reviewed the reports of the pathology as detailed in the oncology overview above. * yAsha Feliciano RN - 06/09/2024 3:00 PM EST . New Patient Medical Oncology Note SOCIAL ASSESSMENT: See [facility] social assessment information entered. 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 [X ] yes [ ] no Local Pharmacy: [place], [place] FUNCTIONAL SCREENING: Balance difficulty: [ X ]no [ ]yes At risk for fall: [ X ] no [ ] yes If yes, actions implemented to prevent fall. Patient/family instructed to avoid independent ambulation. Use wheelchair and ask for assistance of staff while in the clinic. ADL [ ] no limits [ ] needs dressing assistance [ ] needs meal assistance Assistive device:[ ]none [ ]cane [ ]walker [X ]wheelchair [ X]other: wheelchair outside of her apartment because she can't walk long distances-breathing issue PAIN ASSESSMENT: [ 0 ] out of 10 LEARNING STYLE: Learning Needs Assessment up to date (yearly) [ X ] TEACHING: not sure if she is getting chemo yet. __ [facility] ???Chemotherapy and You?? and folder given __ Specific chemotherapy literature provided and reviewed with patient VASCULAR ACCESS ASSESSMENT: getting chemo? [ ]yes [ ]no Need port? [ ] yes [ ] no documented in this encounter Plan of Treatment Upcoming Encounters Date Type Department Care Team (Late st Contact Info) Description 07/28/2024 12:30 PM EST Office Visit Hematology/Oncology at [address] [phone] Nick Mullen MD [facility] DR HEMATOLOGY [place] [address] Chana Myrick APRN [address] [place] [address] DR HEMATOLOGY AND ONCOLOGY [place], [place] [phone] 07/28/2024 1:00 PM EST Scheduled View Only Hematology/Oncology at [address] [phone] Aleah Curran RN 07/28/2024 1:00 PM EST Infusion Hematology Oncology at [address] [phone] Scheduled Orders Name Type Priority Associated Diagnoses Orde r Schedule CBC (with Diff) Lab Routine Primary malignant neoplasm of right lower lobe of lung Secondary malignant tumor of pleura Once a week for 52 Occurrences starting 06/12/2024 until 06/12/2025 Comprehensive metabolic panel Non-fasting Lab Routine Primary malignant neoplasm of right lower lobe of lung Secondary malignant tumor of pleura Once a week for 52 Occurrences starting 06/12/2024 until 06/12/2025 Magnesium Lab Routine Primary malignant neoplasm of right lower lobe of lung Secondary malignant tumor of pleura Once a week for 52 Occurrences starting 06/12/2024 until 06/12/2025 TSH Lab Routine Primary malignant neoplasm of right lower lobe of lung Secondary malignant tumor of pleura High risk medication use Every 3 weeks for 20 Occurrences starting 06/12/2024 until 06/12/2025 T4, free Lab Routine Primary malignant neoplasm of right lower lobe of lung Secondary malignant tumor of pleura High risk medication use Every 3 weeks for 20 Occurrences starting 06/12/2024 until 06/12/2025 documented as of this encounter Visit Diagnoses Diagnosis Primary malignant neoplasm of right lower lobe of lung Malignant neoplasm of lower lobe, bronchus, or lung 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
--- OUTSIDE RECORDS SUMMARY | 2024-07-28 01:29 | XMS_ITS | Encounter Summary ---
Author Organization [facility] [place] [address] Care Team Providers Care Nurse Advocate Name Role Phone Maria Guadalupe Mendes MD Primary Care Provider [phone] Encounter Details Date Type Department Care Team (Late st Contact Info) Description 06/26/2024 6:40 PM EST [place] [address] Social History Tobacco Use Types Packs/Day Years [...] from your doctor or pharmacy? Rarely 06/09/2024 [facility] Utilities Answer Date Recorded In the past 12 months has e [facility], gas, oil, or water [employer] threatened to shut off services in your [...] time in the past 12 m [facility], were you homeless or living in a [...] 12:30 PM EST Office Visit Hematology/Oncology at [address] [phone] Nick Mullen MD [facility] DR [place] [address] Chana Myrick APRN [address] [place] [address] DR HEMATOLOGY AND ONCOLOGY [place], [place] [id number] 07/28/2024 1:00 PM EST Scheduled View Only Hematology/Oncology at [address] [phone] Aleah Curran RN 07/28/2024 1:00 PM EST Infusion Hematology Oncology at [address] [phone] documented as of this encounter Visit Diagnoses Not on filedocumented in this encounter Care Teams Nurse Advocate Relationship Specialty Start Date End Date Maria Guadalupe Mendes MD [address] [place] [address] PCP - General General Internal Medicine 09/06/23 documented as of this encounter
--- OUTSIDE RECORDS SUMMARY | 2024-07-28 01:29 | XMS_ITS | Encounter Summary ---
Author Organization [facility] [place] [address] Care Team Providers Care Supply Chain Associate Name Role Phone Maria Guadalupe Mendes MD Primary Care Provider Reason for Visit * Reason Onset Date Comments Other 07/09/2024 Initial outreach Encounter Details Date Type Department Care Team (Late st Contact Info) Description 07/09/2024 Telephone Hematology/Oncology at [address] [phone] Jen Castillo, PARTS CASTING MACHINE OPERATOR OFFICE OF CARE MANAGEMENT Other (Initial outreach) Social History Tobacco Use Types Packs/Day Years [...] doctor or pharmacy? Rarely 06/09/2024 [facility] Utilities Answer Date Recorded In the past [...] time in the past 12 m [facility], were you homeless or living [...] encounter Miscellaneous Notes * Telephone Encounter - Jen Castillo, DONA - 07/09/2024 9:04 AM EST Reason for Referral: Brief assessment of social and emotional needs. TC with Kiersten today after herfirst infusion yesterday to introduce myself and role of delinquency prevention social worker to assess/address barriers to getting to and through treatments; address support needs and connect with community services and resources as needed. SDOH Screening: declined to answer Cancer Distress Screenin07/08/24 scored 8 Family/Social Supports: Kiersten identified her 2 sons and daughter as her primary support. Her sons live near her and her daughter is in [facility]. She has 7 grandchildren. She feels well supported by her family. Living Situation/Daily Activities/Transportation: Kiersten lives alone in her own apartment. She manages as best she can. She does have services through [employer] - a PATROL INSPECTOR 3 times a week/ few hours each visit to help with house chores, shopping and showering. She also has a employment evaluator/case manager who oversees her services. She reports being on this program for several years. Her sons will be transporting her to her appointments. Work/Finances/Insurance: Kiersten has Medicare and [employer] for insurance. She didnot indicate any concerns re finances or insurance. Advance Directives: Kiersten has completed her advance directive and a copy is in her chart. She indicated she just completed a DNR and has a copy on her fridge and in her purse. Utilization of Community Resources: [employer] services. Adjustment to Illness/Mental Health Concerns: Kiersten indicated she manages as best she can. She feels well supported by her extended family. Offered support. Identified Needs: Kiersten did not identify any specific needs at this time. Referrals: None at this time. Social Work Interventions: Brief assessment Supportive Counseling Advance care planning Community Resource Plan: Informed Kiersten of PARTS CASTING MACHINE OPERATOR availability and contact information. Will follow to assess/address psychosocial needs. DONA Ceron, DENTAL EQUIPMENT INSTALLER AND SERVICER, OSW-C CCM-Support Specialist [facility] documented in this encounter Plan of Treatment Upcoming Encounters Date Type Department Care Team (Late st Contact Info) Description 07/28/2024 12:30 PM EST Office Visit Hematology/Oncology at [address] [phone] Nick Mullen MD [facility] DR HEMATOLOGY AND ONCOLOGY [place], [place] [phone] Chana Myrick APRN [address] [place] [address] DR HEMATOLOGY [place] [address] 07/28/2024 1:00 PM EST Scheduled View Only Hematology/Oncology at [address] [phone] Aleah Curran RN 07/28/2024 1:00 PM EST Infusion Hematology Oncology at [address] [phone] documented as of this encounter Visit Diagnoses Not on filedocumented in this encounter Care Teams Supply Chain Associate Relationship Specialty Start Date End Date Maria Guadalupe Mendes MD [address] [place] [address] PCP - General General Internal Medicine 09/06/23 documented as of this encounter
--- OUTSIDE RECORDS SUMMARY | 2024-07-28 01:30 | XMS_ITS | Encounter Summary ---
Author Organization [facility] Address [facility] [place] [address] Care Team Providers Care Irs Agent Name Role Phone Maria Guadalupe Mendes MD Primary Care Provider [phone] Reason for Visit * Consultation (Routine) - Closed Specialty Diagnoses / Procedures Referred By Contac t Referred To Contact Radiation Oncology Diagnoses Primary malignant neoplasm of right lower lobe of lung Procedures Simulation for Radiation Therapy Planning Edwin Bolanos MD [address] [place] [address] [place] [address] [facility] [place] [address] Referral ID Status Reason Start Date Expiration Date V isits Requested Visits Authorized [id number] Closed Consult, Test & Treat 10/31/2023 01/31/2024 6 6 Encounter Details Date Type Department Care Team (Late st Contact Info) Description 11/09/2023 2:00 PM EDT Procedure visit Radiation Oncology at [address] [phone] Edwin Bolanos MD [address] [place] [address] [place] [address] Primary malignant neoplasm of right [...] Sign Reading Time Taken Comments Blood Pressure 124/51 11/09/2023 1:48 PM EDT Pulse 98 11/09/2023 1:48 PM EDT Temperature 36.9 ??C (98.4 ??F) 11/09/2023 1 :48 PM EDT Respiratory Rate 18 11/09/2023 1:48 PM EDT Oxygen Saturation 94% 11/09/2023 1:4 8 PM EDT on 3L of oxygen Inhaled Oxygen Concentration - - Weight 71.6 kg (157 lb 12.8 oz) 11/09/2023 1:48 PM EDT Height - - Body Mass Index 28.86 09/11/2023 1:09 PM EDT documented in this encounter Progress Notes * Edwin Bolanos MD - 11/09/2023 2:00 PM EDT Images from the original note were not included. [facility] Medicine Radiation Oncology Radiation Oncology SBRT On-treatment Visit Note Patient ID Patient name: Kiersten Barraza Date of : 1940 Referring: Dr Cameron PCP: Maria Guadalupe Mendes MD Chief complaint: Kiersten is a 83 y.o. 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 She is receiving definitive SBRT to this lesion. Treatment Details Intent: Definitive (Curative) Modality: SBRT Initial Treatment Site RLL Prescribed Dose 55 Gy in 5 fractions Current Dose: 22 Gy in 2 fractions Order Packer Or Packager Kraft from Current Plan (minimum 55 Gy isodose volume shown): Interval Clinical Course General: Slightly more tired. Resp: No new cough or SOB. Pain: Pain score today is 3/10 in her bilateral ribs. Performance Status KPS Score ECOG Grade Definition 90-100 0 [...] about more than 50% of waking hours XX 30-40 3 Capable of only limited selfcare; confined to bed or chair more than 50% of waking hours 10-20 4 Completely disabled; cannot carry on any selfcare; totally confined to bed or chair Medications Medications 11/09/23 1356 Medication Sig Taking? dilTIAZem (Tiazac) 180 mg ER 24 hr capsule Take 180 mg by mouth daily. Yes aspirin 81 mg chewable tablet Take 81 mg by mouth daily. Yes Psyllium Seed-Sucrose (0) Powder Take by mouth. Yes CoQ-10 100 mg Capsule PRN Yes atorvastatin (Lipitor) 20 mg Tablet Take 20 mg by mouth nightly. Yes ketoconazole (Nizoral) 2 % Cream APPLY TO AFFECTED AREA ONCE DAILY NEEDED Yes albuteroL (PROVENTIL) 2.5 mg /3 mL (0.083 %) Solution for Nebulization 3 mLs every 5 hours. Yes ipratropium-albuteroL (DUONEB) 0.5 mg-3 mg(2.5 mg base)/3 mL Solution for Nebulization ipratropium 0.5 mg-albuterol 3 mg (2.5 mg base)/3 mL nebulization soln Administer breathing tx x 1 Yes Trelegy Ellipta 100-62.5-25 mcg Disk with Device inhale 1 puff by mouth and INTO THE LUNGS once daily EVERY MORNING Yes albuteroL 90 mcg/actuation HFA Aerosol Inhaler Inhale 2 puffs into the lungs every 4 hours as needed for Wheezing. Use with spacer Yes loperamide (IMODIUM) 2 mg Capsule Take 2 mg by mouth daily as needed for Diarrhea. 1 mg/7.5 ml liquid Indications: diarrhea Yes amLODIPine (NORVASC) 5 mg Tablet Take 5 mg by mouth daily. Yes busPIRone (BUSPAR) 5 mg Tablet Take 5 mg by mouth 3 times daily. Yes lisinopril (PRINIVIL;ZESTRIL) 10 mg Tablet Take 10 mg by mouth daily. Yes OXYGEN-AIR DELIVERY SYSTEMS MISC by [facility]Non-Drug; Combo Route) route. Yes acetaminophen (TYLENOL) 325 mg Tablet Take 650 mg by mouth every 4 hours as needed for Pain. Yes cholecalciferol, Vitamin D3, 2,000 unit Capsule Take by mouth. Yes lactobacillus rhamnosus, GG, (CULTURELLE) 10 billion cell Capsule Take 1 capsule by mouth daily. Exam Vitals: BP 124/51 (Patient Position: Sitting) Pulse 98 Temp 36.9 ??C (98.4 ??F) (Temporal) Resp 18 Wt 71.6 kg (157 lb 12.8 oz) SpO2 94% Comment: on 3L of oxygen BMI 28.86 kg/m?? General: Appears well, in no distress Imaging/Labs Interval setup imaging has been checked and approved. See [employer] for details. Impression/Plan Tolerance to radiotherapy: Tolerating as anticipated. Continue as planned. Followup: RTC for on-treatment assessment next week. Post Treatment Note I directly observed and supervised today's treatment from the radiation therapy console, which consisted of pretreatment imaging for setup, cone-beam CT for verification and intrafraction monitoring using the VisionRT surface guided treatment system. Kiersten tolerated treatment with no concerns and will return for her third fraction on Sunday11/12/23. No orders of the defined types were placed in this encounter. [facility] [place] (NCI) [facility] [employer] Commission on Cancer (ACS [place]) Accredited Cancer Program [employer] (ACR) Accredited Radiation Oncology Program documented in this encounter Plan of Treatment Upcoming Encounters Date Type Department Care Team (Late st Contact Info) Description 07/28/2024 12:30 PM EST Office Visit Hematology/Oncology at [address] [phone] Nick Mullen MD [facility] [place] [address] Chana Myrick APRN [address] [place] [address] DR HEMATOLOGY AND ONCOLOGY [place], [place] [phone] 07/28/2024 1:00 PM EST Scheduled View Only Hematology/Oncology at [address] [phone] Aleah Curran RN 07/28/2024 1:00 PM EST Infusion Hematology Oncology at [address] [phone] documented as of this encounter Visit Diagnoses Diagnosis Primary malignant neoplasm of right lower lobe of lung Malignant neoplasm of lower lobe, bronchus, or lung documented in this encounter Care Teams Irs Agent Relationship Specialty Start Date End Date Maria Guadalupe Mendes MD [address] [place] [address] PCP - General General Internal Medicine 09/06/23 documented as of this encounter
--- OUTSIDE RECORDS SUMMARY | 2024-07-28 01:30 | XMS_ITS | Encounter Summary ---
Author Organization [facility] Address [facility] [place] [address] Care Team Providers Care Washroom Attendant Name Role Phone Maria Guadalupe Mendes MD Primary Care Provider Encounter Details Date Type Department Care Team (Latest Contact Info) Description 10/18/2023 Travel Social History Tobacco Use Types Packs/Day [...] 12:30 PM EST Office Visit Hematology/Oncology at [address] [phone] Nick Mullen MD [facility] DR HEMATOLOGY [place] [address] Chana Myrick APRN [address] [place] [address] DR HEMATOLOGY AND ONCOLOGY [place], [place] [address] 07/28/2024 1:00 PM EST Scheduled View Only Hematology/Oncology at [address] [phone] Aleah Curran RN 07/28/2024 1:00 PM EST Infusion Hematology Oncology at [address] [phone] documented as of this encounter Visit Diagnoses Not on filedocumented in this encounter Care Teams Washroom Attendant Relationship Specialty Start Date End Date Maria Guadalupe Mendes MD [address] [place] [phone] PCP - General General Internal Medicine 09/06/23 documented as of this encounter
--- OUTSIDE RECORDS SUMMARY | 2024-07-28 01:30 | XMS_ITS | Encounter Summary ---
Author [facility] [place] [address] Care Team Providers Care Car Scrubber Name Role Phone Maria Guadalupe Mendes MD Primary Care Provider Reason for Referral * Diagnostic Test (Routine) - Pending Review Specialty Diagnoses / Procedures Referred By Alea morales Referred To Contact Radiology Diagnoses Primary malignant neoplasm of right lower lobe of lung Procedures CT Chest wo Contrast (Generic) Edwin Bolanos MD [address] [place] [address] [place] [address] Referral ID Status Reason Start Date Expiration Date Visits Requested Visits Authorized [id number] Pending Review Specialty Service Requested 12/14/2023 06/14/2025 1 1 Encounter Details Date Type Department Care Team (Late st Contact Info) Description 12/14/2023 2:30 PM EDT TH Visit (TeleHealth) Radiation Oncology at [address] [phone] Edwin Bolanos MD [address] [place] [address] [place] [address] Primary malignant neoplasm of right [...] as of this encounter Progress Notes * Edwin Bolanos MD - 12/14/2023 2:30 PM EDT Images from the original note were not included. [facility] Medicine Radiation Oncology Radiation Oncology SBRT [...] Prescribed Dose 55 Gy in 5 fractions Completion Date 11/16/23 Bilingual Instructor Kraft from Current Plan (minimum 55 Gy isodose volume shown): Interval Clinical Course General: Overall she is somewhat fatigued - this started about 2 weeks after treatment. She has had some nose-bleeds of late. Resp: She feels more ARZATE than usual. Home oxygen is at 4L/min, at baseline she was at 3 - 3.5L/min Pain: None. Performance Status KPS Score ECOG Grade Definition [...] confined to bed or chair Medications Medications 11/16/23 1256 Medication Sig Taking? emollient combination no.111 (REMEDY PHYTOPLEX MOISTURIZER TOP) Apply topically. Phytoplex Remedy Moisturizer: Apply to area of radiation twice a day but no less than 2 hours before a treatment. dilTIAZem (Tiazac) 180 mg ER 24 hr [...] mouth daily. OXYGEN-AIR DELIVERY SYSTEMS MISC by [employer] [facility].(Non-Drug; Combo Route) route. lactobacillus rhamnosus, GG, (CULTURELLE) 10 billion cell Capsule Take 1 capsule by mouth daily. acetaminophen (TYLENOL) 325 mg Tablet Take 650 mg by mouth every 4 hours as needed for Pain. cholecalciferol, Vitamin D3, 2,000 unit Capsule Take by mouth. Exam deferred (phone visit) Imaging/Labs No interval imaging for review Impression/Plan Tolerance to radiotherapy: Tolerated as anticipated. Followup: RTC / TOV in 3 months or sooner as needed. CT chest prior. documented in this encounter Plan of Treatment Upcoming Encounters Date Type Department Care Team (Late st Contact Info) Description 07/28/2024 12:30 PM EST Office Visit Hematology/Oncology at [address] [phone] Nick Mullen MD [facility] DR [place] [address] Chana Myrick LEAF STICKER [address] [place] [address] DR HEMATOLOGY AND ONCOLOGY [place], [place] [address] 07/28/2024 1:00 PM EST Scheduled View Only Hematology/Oncology at [address] [phone] Aleah Curran RN 07/28/2024 1:00 PM EST Infusion Hematology Oncology at [address] [phone] Scheduled Orders Name Type Priority Associated Diagnoses Orde r Schedule CT Chest wo Contrast (Generic) Imaging Routine Primary malignant neoplasm of right lower lobe of lung Expected: 03/15/2024, Expires: 09/14/2024 documented as of this encounter Visit Diagnoses Diagnosis Primary malignant neoplasm of right lower lobe of lung Malignant neoplasm of lower lobe, bronchus, or lung documented in this encounter Care Teams Car Scrubber Relationship Specialty Start Date End Date Maria Guadalupe Mendes MD [address] [place] [phone] PCP - General General Internal Medicine 09/06/23 documented as of this encounter
--- OUTSIDE RECORDS SUMMARY | 2024-07-28 01:30 | XMS_ITS | Encounter Summary ---
Author Organization [facility] Address [facility] [place] [address] Care Team Providers Care Ornamental Ironworking Supervisor Name Role Phone Maria Guadalupe Mendes MD Primary Care Provider Encounter Details Date Type Department Care Team (Latest Contact Info) Description 10/02/2023 Multidisciplinary Ca re Committee [place] [phone] Noemi Lorenzo, HOUSE PIPING INSPECTOR [facility] [place] [address] Social History Tobacco Use Types Packs/Day Years Used Date Smoking Tobacco: Former Cigarettes 1 50 0 06/25/1967 - 06/25/2017 Smokeless Tobacco: Never Alcohol Use Standard Drinks/Week Comments Yes 0 (1 standard drink = 0.6 oz pur e alcohol) glass of wine once in a while [facility] Inpatient Questions Answer Date Recorded Does [...] as of this encounter Progress Notes * Noemi Lorenzo, JEY - 10/02/2023 2:23 PM EDT Thoracic - Tumor Board Note Date Presented: 10/02/2023 Presenting Physician: Noemi Lorenzo APRN Diagnosis/Tumor Site: Right lower lobe NSCLC, RUL nodule Is this Metastatic Disease: Yes Synopsis of History/HPI: Ms. Barraza is an 83 yr old woman with a history of GOLD IV COPD. She has Heidi 9 mm nodule, RLL 2.2 pleural based nodule, and right hilar adenopathy. She is s/p a robotic bronchoscopy and EBUS TBNA with + NSCLC to the RLL nodule and negative EBUS. PET scan 09/20/2023 demonstrates moderate FDG uptake to the RUL nodule as well as the RLL bx proven NSCLC nodule. Imaging: CT chest, PET CT scan. Pathology/Histology: RLL nodule: NSCLC, adenocarcinoma Stage: [id number] Clinical Data (Exams, Labs, etc.): See medical records Molecular Pathology Results: See medical records Clinical Trial Availability: not discussed Options Discussed: The right upper lobe nodule, which has not been biopsied is unchanged on imagingfrom the PET scan 09/20/[address] chest from 08/06/2023. It does have a similar appearance as the RLL nodule and there is additional tree in bud nodules in the inferior right upper lobe. In discussion, the RUL nodule could be considered for SBRT treatment now or it could be followed up with surveillance and if needed then treated if it appears more suspicious on surveillance imaging. Recommendations: See discussion DISCLAIMER: The patient was discussed and the tumor board made recommendations but it is ultimatelyup to the treatment provider(s) and the patient to determine the patient???s care. documented in this encounter Plan of Treatment Upcoming Encounters Date Type Department Care Team (Late st Contact Info) Description 07/28/2024 12:30 PM EST Office Visit Hematology/Oncology at [address] [phone] Nick Mullen MD [facility] DR HEMATOLOGY [place] [address] Chana Myrick APRN [address] [place] [address] DR HEMATOLOGY AND ONCOLOGY [place], [place] [phone] 07/28/2024 1:00 PM EST Scheduled View Only Hematology/Oncology at [address] [phone] Aleah Curran RN 07/28/2024 1:00 PM EST Infusion Hematology Oncology at [address] [phone] documented as of this encounter Visit Diagnoses Not on filedocumented in this encounter Care Teams Ornamental Ironworking Supervisor Relationship Specialty Start Date End Date Maria Guadalupe Mendes MD [address] [place] [phone] PCP - General General Internal Medicine 09/06/23 documented as of this encounter
--- OUTSIDE RECORDS SUMMARY | 2024-07-28 01:30 | XMS_ITS | Encounter Summary ---
Author Organization [facility] [place] [address] Care Team Providers Care Energy Infrastructure Engineer Name Role Phone Maria Guadalupe Mendes MD Primary Care Provider Reason for Visit * Reason Onset Date Comments Prior Authorization 10/10/2023 Molecular ca ncer testing CPT 83914 is a covered benefit. Encounter Details Date Type Department Care Team (Late st Contact Info) Description 10/10/2023 Telephone [place] [phone] Ophelia Madera Prior Authorization (Molecular cancer testing CPT 70147 is a covered benefit. ) Social History Tobacco Use Types Packs/Day [...] encounter Miscellaneous Notes * Telephone Encounter - Ophelia Madera - 10/10/2023 12:21 PM EDTSummary: AUTH NOT REQUIRED NO PATIENT ACTION NEEED_VOICEMAIL OR AUTHORIZATION_INFORMATIONAL ONLY Molecular cancer testing: CPT 85211 is a covered benefit: E-mail from Shaila in [employer] ([employer] 09/18/2023) requesting coveragereview for CPT /1455 being done on the patient???s right lower lobe lung cancer tissue obtained on 09/11/2023, Ordering provider is Mikel Noel MD. Upon review, the patient's traditional Medicare A&B policy [id number] and secondary [employer] MM policy [id number] are active. Per Medicare's website, CPT 69608 is a covered benefit with no authorization needed. Will update Shaila to let her know of approved coverage. documented in this encounter Plan of Treatment Upcoming Encounters Date Type Department Care Team (Late st Contact Info) Description 07/28/2024 12:30 PM EST Office Visit Hematology/Oncology at [address] [phone] Nick Mullen MD [facility] DR HEMATOLOGY [place] [address] Chana Myrick [address] HEMATOLOGY AND ONCOLOGY [place], [place] [phone] 07/28/2024 1:00 PM EST Scheduled View Only Hematology/Oncology at [address] [phone] Aleah Curran RN 07/28/2024 1:00 PM EST Infusion Hematology Oncology at [address] [phone] documented as of this encounter Visit Diagnoses Not on filedocumented in this encounter Care Teams Energy Infrastructure Engineer Relationship Specialty Start Date End Date Maria Guadalupe Mendes MD [address] [place] [phone] PCP - General General Internal Medicine 09/06/23 documented as of this encounter
--- OUTSIDE RECORDS SUMMARY | 2024-07-28 01:30 | XMS_ITS | Encounter Summary ---
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 Kevan Cameron MD [facility] [place] [address] St Rad Onc Office [address] [place] [phone] Referral ID Status Reason Start Date Expiration Date V isits Requested Visits Authorized [id number] Closed Consult, Test & Treat 09/17/2023 09/16/2024 1 1 Encounter Details Date Type Department Care Team (Late st Contact Info) Description 09/27/2023 2:00 PM EDT TH Visit (TeleHealth) Radiation Oncology at [address] [phone] Edwin Bolanos MD [address] [place] [address] [place] [address] Stage 4 very severe COPD by GOLD classification; Primary malignant neoplasm of right lower lobe [...] on file documented as of this encounter Patient Instructions * Patient Instructions* Edwin Bolanos MD - 09/27/2023 2:00 PM EDT Images from the original note were not included. Dear Ms. Barraza, Dr. Cameron asked for me to see you to discuss how radiation therapy can be used to treat your lung cancer and this note is to recap our discussion regarding use of radiation treatments. As your radiation oncologist, I work closely with your other healthcare providers and most importantly, with you to make sure that the treatments we discuss and offer keep your personal preferences and goals in mind. We discussed the following next steps as part of your cancer evaluation and/or treatment: Radiation treatments for Stage 1 lung cancer: The standard treatment for stage I lung cancers is for surgical removal of one half of the lung. In some cases patients cannot undergo this surgery, either due to their own preferences or because the surgeon does not think it would be safe for the patient. In this situation, the standard treatment is for short course, high-dose radiation treatment to the lung known as SBRT which stands for stereotactic body radiation therapy. This is sometimes referred to as pinpoint radiation where we deliver very high doses of radiation to small areas over just a few radiation treatments, typically 3, 4 or 5. The total number will be figured out once we have completed radiation planning. Other treatment options include: Standard radiation involving 30 radiation daily treatments over the course of 6 weeks, or possibly chemotherapy. Mapping scan to plan your radiation treatments: Your radiation therapy will involve using high energy radiation which kills cancer but also normal healthy tissues. In order to make sure the radiation goes to the cancerous tissues and to also avoid radiating the normal tissues, we design radiationbeams beams into special shapes which come from various different directions. Because no two peopleand no two cancers are completely identical, the radiation plan we create for you will be unique toyou and your body. In order to figure out how many beams to use, how much radiation to give, which angles they should come from, and how they should be shaped, we have asked you to undergo a mapping scan here in our department known as a CT simulation, or CT sim, for short. This is essentially a CAT-scan similar to scans which you may have received before, but slightly different in a few ways: First, it allows us to place you in the exact same position which you should expect to be placed during each of your radiation treatment sessions. Second, it lets us better understand where the radiation targets are, and how they move while you breathe and where they sit relative to the normal tissues such as your heart or spinal cord.. Following this scan, we then perform additional calculations and measurements to create the absolute best plan possible for you. Depending on the complexity of the plan, these processes can take from just few hours to several days, and for that we ask for your patience. If you have any questions about the planning process or your custom radiation plan, I would be more than happy to review the plan with you during your first week of treatment. I anticipate you will receive 5 treatments total, every other day Sunday-Sunday for 1.5 weeks. Your start date andtime will be provided once the simulation scan is completed. During your radiation treatments, you can expect to see me once per week so that I can examine you to make sure you are tolerating radiation treatments and so that we can monitor your response to treatment. If you need to see me any otherday, one of my colleagues or I would be happy to see you - just ask one of the radiation therapistsor radiation nurses for assistance. Side effects of treatment: We briefly discussed short term (temporary) side effects of treatment aswell as possible termite technician (late, permanent) side effects of radiation treatment. If they occur, short term side effects may include fatigue, cough, or shortness of breath. dedicated intermodal truck driver side effects mayinclude permanent damage to the lung that results in permanent cough or shortness of breath. Please do not hesitate to call me at [phone] with any other questions or concerns you have. IfI am not here, one of our radiation oncology nurses can assist you or help you get in touch with me. A Radiation Oncology doctor is also boilermaker assembly and erection after our normal hours and on weekends for urgent questions or concerns related to radiation treatments that can not wait until normal business hours. To reach the on-call doctor after-hours, just call and have the basket operator page the Radiation Oncologist boilermaker assembly and erection. And, as always, if you experience any life-threatening emergencies which any include the following,you need to seek emergency care immediately by calling 911: 1. Sudden and unexpected breathing difficulty without any exertion 2. Sudden onset of chest pain 3. Sudden onset of severe pain or uncontrolled pain 4. Sudden onset of severe weakness and/or unable to walk 5. Sudden new onset of a seizure 6. Fall resulting in injury 7. Uncontrollable bleeding Sincerely, Edwin Bolanos MD, MS Radiation Oncology documented in this encounter Progress Notes * Edwin Bolanos MD - 09/27/2023 2:00 PM EDT Images from the original note were not included. Radiation Oncology Phone Consult Note Edwin Bolanos MD, MS [facility] [phone] PATIENT IDENTIFICATION: PATIENT NAME: Kiersten Barraza DATE OF : 1940 REFERRING PROVIDER: Dr Cameron PRIMARY CARE PROVIDER: Maria Guadalupe Mendes MD REASON FOR CONSULTATION: Cancer Staging Primary malignant neoplasm of right lower lobe of lung Staging form: Lung, AJCC 8th Edition - Clinical: Stage IA3 (cT1c, cN0, cM0) - Signed by Edwin Bolanos MD on 09/26/2023 DATE OF SERVICE: 09/27/2023 HISTORY OF PRESENT ILLNESS: Kiersten is a former smoker diagnosed with a NSCLC in the setting of CXR obtained for dyspnea. A 2.3 cm nodule in the RLL was first detected on CT 08/06/23. Biopsy via EBUS on 09/11/23 showed an adenocarcinoma carinoma without evidence of regional sonja disease. Since that time staging PET/CT 09/20/23, showed a possible 2nd RUL nodule. There was no dar regional or distant metastatic disease. Dr Cameron of pulmonary medicine surgery noted that PFTs (DLCO 35%, PEV1 26%), functional status, and severe COPD precluded safe resection and so referred her to me for for consideration of definitive SBRT. REVIEW OF SYSTEMS: On further questioning, she reports limited function and is not sure how much longer she can continue living independently. She is tires very quickly and has constant SOB. No pain though. . 09/27/2023 2:00 PM REVIEW OF SYSTEMS Constitutional Weakness Fatigue, lack of energy Drowsiness Ear / nose / throat / mouth Hearing difficulty Eyes None of the above Respiratory Cough Thick mucous or spit (Sputum or Phlegm) Shortness of breath Cardiovascular Swelling of legs Gastrointestinal Diarrhea Feeling bloated Stool incontinence Skin, hair Dry skin Loss of hair Musculoskeletal Reduced range of motion Unable to walk/difficulty walking Neurological Numbness, tingling Hematologic / Lymphatic None of the above Genitourinary Vaginal dryness A comprehensive 14 point review of systems was conducted with this patient and is otherwise negative except as documented above. PAST MEDICAL AND SURGICAL HISTORY: Past Medical History: Diagnosis Date Allergic state Anxiety Arthritis Cataract COPD (chronic obstructive pulmonary disease) COPD & Emphysema High blood pressure controlled with meds HTN (hypertension) 06/05/2018 Hypertension Mental health problem anxiety Oxygen dependent has been on O2 for about 3 1/2 years. Uses it most of the time Primary malignant neoplasm of right lower lobe of lung 09/26/2023 Syncope if turns fast may get light headed very occassionally-fainted 55 years ago @ childbirth Past Surgical History: Procedure Laterality Date CATARACT EXTRACTION, EXTRACAPSULAR, W/ LENS INSERTION Left 08/15/2018 CATARACT EXTRACTION, EXTRACAPSULAR, W/ LENS INSERTION Right 09/04/2018 CE/IOL PRO [facility] EBUS GUIDED SAMPL 3/> NODE STATION/STRUX N/A 09/11/2023 BRONCH, W ENDOBRONCHIAL ULTRASOUND (EBUS) GUIDED SAMPLING, 3+ NODES (WRVU 4.96) performed by Mikel Noel MD at [facility] DX[facility]TX INTERVENTION PERPH LES N/A 09/11/2023 BRONCH, W EBUS DURING INTERVENTION FOR PERIPH LESION (WRVU 1.4) performed by Mikel Noel MD at [facility] MAIN OR PRO BRONCHOSCOPY RIGID FLEX W COMPUTER ASSIST IMG NAVIGATION N/A 09/11/2023 BRONCHOSCOPY,RIGID OR FLEX,WITH IMAGE GUIDANCE ( ROBOT / ION ) (WRVU 2) performed by Mikel Noel MD at [facility] MAIN OR PRO BRONCHOSCOPY, BIOPSY N/A 09/11/2023 BRONCHOSCOPY, WITH BIOPSY (WRVU 3.11) performed by Mikel Noel MD at [facility] MAIN OR PRO BRONCHOSCOPY, DIAGNOSTIC W BRUSH N/A 09/11/2023 BRONCH,RIGID OR FLEX. DX. WBRUSHING OR PROTECTED BRUSHINGS (WRVU 2.63) performed by Mikel Noel MD at [facility] MAIN OR PRO BRONCHOSCOPY, DIAGNOSTIC W LAVAGE N/A 09/11/2023 BRONCHOSCOPY, RIGID OR FLEXIBLE, WITH BRONCHIAL ALVEOLAR LAVAGE (WRVU 2.63) performed by Mikel Noel MD at [facility] MAIN OR PRO BRONCHOSCOPY, TRANSBRON ASPIR BX N/A 09/11/2023 BRONCHOSCOPY W/TRANSBRONCHIAL NEEDLE ASPIRATION BX,FLEXIBLE (WRVU 3.75) performed by Mikel Noel MD at [facility] MAIN OR PRO BRONCHOSCOPY, TRANSBRONCH BIOPSY N/A 09/11/2023 BRONCHOSCOPY (FLEXIBLE OR RIGID) W\TRANSBRONC BX (WRVU 3.55) performed by Mikel Noel MD at [facility] MAIN OR CONTRAINDICATIONS TO RADIATION THERAPY: None Prior Radiation to this Site: No Active Connective Tissue Disease (Lupus or Scleroderma) No MEDICATIONS: Medications 09/27/23 1340 Medication Sig Taking? CoQ-10 100 mg Capsule PRN Yes atorvastatin (Lipitor) 20 mg Tablet Take 40 mg by mouth nightly. Yes ketoconazole (Nizoral) 2 % Cream APPLY TO AFFECTED AREA ONCE DAILY NEEDED Yes ipratropium-albuteroL (DUONEB) 0.5 mg-3 mg(2.5 mg [...] daily. Yes OXYGEN-AIR DELIVERY SYSTEMS MISC by [facility].(Non-Drug; Combo Route) route. Yes acetaminophen (TYLENOL) 325 mg Tablet Take 650 mg by mouth every 4 hours as needed for Pain. Yes cholecalciferol, Vitamin D3, 2,000 unit Capsule Take by mouth. Yes mupirocin (Bactroban) 2 % Ointment Apply topically daily. Patient not taking: Reported on 04/20/2022 furosemide (Lasix) 20 mg Tablet PRN albuteroL (PROVENTIL) 2.5 mg /3 mL (0.083 %) Solution for Nebulization 3 mLs every 5 hours. hydrOXYzine (Atarax) 10 mg/5 mL Solution hydroxyzine HCl 10 mg/5 mL oral solution Take 2.5 ml by mouth daily as needed for anxiety lactobacillus rhamnosus, GG, (CULTURELLE) 10 billion cell Capsule Take 1 capsule by mouth daily. 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 2nd site of malignancy in RUL vs inflamm Borderline 11mm right hilar LN Pta Images: RUL nodule RLL nodule PATHOLOGY REVIEW: Source: EBUS Provider / Location: Dr Catherine Henry Date: 09/11/23 Histology / Grade Adenocarcinoma Other TPS 20% Negative at: 4R 4L 11L 7 ASSESSMENT / PLAN: Kiersten is a 83-year-old former smoker with a stage I NSCLC (biopsy proven adenocarcinoma) of the right lower lobe. She has a 2nd site of disease in the RUL which is FDG avid and apparently growing. Regarding the RLL nodule, I discussed that standard therapy would involve lobectomy with mediastinal lymph node dissection and that in situations where the surgeon does not feel the patient is medically fit for surgery, or patients prefer a non-invasive definitive approach, she understands that SBRT can be delivered as an alternative. I reviewed the logistics, toxicities and complications that may arise as a result of definitive thoracic SBRT and she understands the risks of radiation associated fatigue, cough, shortness of breathand in the medium / termite technician the risk of radiation associated pneumonitis and/or fibrosis. Given the location of the tumor against the chest wall, I anticipate a 5 fraction SBRT course will be prescribed to a total dose of 55 Gy. This may be revised during the time of planning if a more convenientcourse can be safely delivered. I recommended that she take some time to think about whether she wishes to proceed with treatment, as she remains ambivalent about pursuing treatment at all. We discussed the natural history of untreated St I NSCLC, and that within 1 year this cancer could progress to requiring additional therapiesfor definitive management, and that within 3-5 years it could become incurable. With this in mind, she and Don plan to call me back in the next 1-2 weeks with a decision on whether she wants to pursue treatment. Regarding the RUL nodule, it has the appearance of an inflammatory changes especially given the rapid onset and growth since July. I will review with the rest of the CTOP to confirm whether a biopsy or simply further observation is warranted. All of Kiersten's questions were answered to her satisfaction, and we have provided her with our contact information should any further questions or concerns arise. Phone Visit Attestation: I provided care to Ms. Barraza, who verbally consented to this phone visit and understands that thisvisit may be billed, similar to a clinic office visit. Time Attestation: I certify spending at least 60 minutes in providing care to this patient today, 09/27/23 as reflected by the following activities: - review of her medical record in the chart, including interpretation of imaging, laboratory and pathologic studies referenced above - discussion of the above with the patient as part of shared medical decision making - documenting the outcome of today's visit as above SUMMARY OF PLAN / RECOMMENDATION: Intent of therapy: Curative Clinical Trial Availability: No Await pt decision EDWIN BOLANOS MD, MS * Ginna Yee RN - 09/27/2023 2:00 PM EDT RADIATION ONCOLOGY NURSING INITIAL NURSING ASSESSMENT Chief complaint: lung CA NPW ADVANCE DIRECTIVES: did not discuss today PRESENTING SYSTEMS and PATHOLOGY: Uses 3.5-4L of O2 continuously REVIEW OF SYSTEMS: see questionnaire Medical history: Past Medical History: Diagnosis Date Allergic state Anxiety Arthritis Cataract COPD (chronic obstructive pulmonary disease) COPD & Emphysema High blood pressure controlled with meds HTN (hypertension) 06/05/2018 Hypertension Mental health problem anxiety Oxygen dependent has been on O2 for about 3 1/2 years. Uses it most of the time Primary malignant neoplasm of right lower lobe of lung 09/26/2023 Syncope if turns fast may get light headed very occassionally-fainted 55 years ago @ childbirth Surgical history: Past Surgical History: Procedure Laterality Date CATARACT EXTRACTION, EXTRACAPSULAR, W/ LENS INSERTION Left 08/15/2018 CATARACT EXTRACTION, EXTRACAPSULAR, W/ LENS INSERTION Right 09/04/2018 CE/IOL PRO [facility] EBUS GUIDED SAMPL 3/> NODE STATION/STRUX N/A 09/11/2023 BRONCH, W ENDOBRONCHIAL ULTRASOUND (EBUS) GUIDED SAMPLING, 3+ NODES (WRVU 4.96) performed by Mikel Noel MD at [facility] MAIN OR PRO [facility] EBUS DX/TX INTERVENTION PERPH LES N/A 09/11/2023 BRONCH, W EBUS DURING INTERVENTION FOR PERIPH LESION (WRVU 1.4) performed by Mikel Noel MD at [facility] MAIN OR PRO BRONCHOSCOPY RIGID FLEX W COMPUTER ASSIST IMG NAVIGATION N/A 09/11/2023 BRONCHOSCOPY,RIGID OR FLEX,WITH IMAGE GUIDANCE ( ROBOT / ION ) (WRVU 2) performed by Mikel Noel MD at [facility] MAIN OR PRO BRONCHOSCOPY, BIOPSY N/A 09/11/2023 BRONCHOSCOPY, WITH BIOPSY (WRVU 3.11) performed by Mikel Noel MD at [facility] MAIN OR PRO BRONCHOSCOPY, DIAGNOSTIC W BRUSH N/A 09/11/2023 BRONCH,RIGID OR FLEX. DX. WBRUSHING OR PROTECTED BRUSHINGS (WRVU 2.63) performed by Mikel Noel MD at [facility] MAIN OR PRO BRONCHOSCOPY, DIAGNOSTIC W LAVAGE N/A 09/11/2023 BRONCHOSCOPY, RIGID OR FLEXIBLE, WITH BRONCHIAL ALVEOLAR LAVAGE (WRVU 2.63) performed by Mikel Noel MD at [facility] MAIN OR PRO BRONCHOSCOPY, TRANSBRON ASPIR BX N/A 09/11/2023 BRONCHOSCOPY W/TRANSBRONCHIAL NEEDLE ASPIRATION BX,FLEXIBLE (WRVU 3.75) performed by Mikel Noel MD at [facility] MAIN OR PRO BRONCHOSCOPY, TRANSBRONCH BIOPSY N/A 09/11/2023 BRONCHOSCOPY (FLEXIBLE OR RIGID) W\TRANSBRONC BX (WRVU 3.55) performed by Mikel Noel MD at [facility] MAIN OR Social History: Driving from [facility] Lives with - Alone in senior housing 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 Quit smoking 2017. No drugs Family History of cancer: Family History Problem Relation Age of Onset Glaucoma Mother Cancer Father Lung Cancer Sister Glaucoma Brother Cancer Brother Macular Degeneration Neg Hx Amblyopia Neg Hx Strabismus Neg Hx Prior Radiotherapy: No Site: Date: Facility: Prior Chemotherapy: No Drug: Oncologist- LastTreatment: Prior hormone treatment/medications: No Drug: LastTreatment: RADIATION SPECIFIC REVIEW: NO: YES: Claustrophobia or requires sedation for MRIs X Allergy to CT or MRI contrast agent or iodine or shellfish X Diabetic and on metformin X Metal in body, implanted device, worked with metal, body piercings,braces Titanium in left ankle hearing device X Dentures Partial upper and lower Pacemaker X Difficulty breathing while lying flat Yes H/O Sclera derma X Currently X Active lupus X Kidney problems/creatinine X Balance difficulty: No At risk for fall: No If yes, actions implemented to prevent fall: Patient/family instructed to avoid independent ambulation. Use wheelchair and ask for assistance of staff while in the clinic. ADL [ ] no limits [ ] needs dressing assistance [ ] needs meal assistance Not currently requiring help with ADLs but thinks she will be needing help soon. Assistive device:[ ]none [ ]cane [ X ]walker [ ]wheelchair [ ]other: explain PAIN ASSESSMENT: [ 0 ] out of 10 Location: Description: [ ] Dull [ ] Sharp [ ] Burning [ ] Throbbing [ ] Radiating [ ] Continuous [ ]Intermittent Aggravating Factors: [ ] Movement [ ] Position [ ]Immobility [ ]Other Alleviating Factors: [ ]Medication [ ] Positioning [ ] Other Current Pain Management Plan: [ ]Satisfied [ ] Not satisfied SOCIAL ASSESSMENT: See [facility] social assessment information entered. Support Systems: [place] transportation plan: [ ]private vehicle [ ] RCT needs Social Work referral [X ] Unknown at this time needs Social Work referral Barriers to treatment: Potentially rides Referrals/Interventions: Will see MARKETING STRATEGY MANAGER per routine during SIM appointment. TEACHING: Learning Assessment Does the primary learner have any barriers to learning?: No Barriers How does the primary learner prefer to learn new concepts?: Reading, Pictures/Video Education material provided: Will be provided during SIM appointment per routine documented in this encounter Plan of Treatment Upcoming Encounters Date Type Department Care Team (Late st Contact Info) Description 07/28/2024 12:30 PM EST Office Visit Hematology/Oncology at [address] [phone] Nick Mullen MD [facility] DR HEMATOLOGY [place] [address] Chana Myrick APRN [address] [place] [address] HEMATOLOGY AND ONCOLOGY [place], [place] [address] 07/28/2024 1:00 PM EST Scheduled View Only Hematology/Oncology at [address] [phone] Aleah Curran RN 07/28/2024 1:00 PM EST Infusion Hematology Oncology at [address] [phone] Scheduled Referrals Name Type Priority Associated Diagnoses Orde r Schedule Referral to Radiation Oncology Outpatient Referral Urgent Primary lung adenocarcinoma, 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
--- OUTSIDE RECORDS SUMMARY | 2024-07-28 01:30 | XMS_ITS | Encounter Summary ---
Author Organization [facility] Address [facility] [address] Care Team Providers Care Host/Hostess Restaurant Name Role Phone Maria Guadalupe Mendes MD Primary Care Provider Encounter Details Date Type Department Care Team (Latest Contact Info) Description 03/18/2024 2:30 PM EDT TH Visit (TeleHealth) Radiation Oncology at [address] [phone] Alta Zamora PA [facility] [place] [address] Primary malignant neoplasm of right lower lobe of lung (Primary Dx); S/P radiotherapy Social History Tobacco Use Types [...] Progress Notes * Alta Zamora PA - 03/18/2024 2:30 PM EDT [facility] [place] [address] TELEHEALTH FOLLOW-UP: Patient: Kiersten Barraza : 1940 PCP: Maria Guadalupe Mendes MD Manager Control: Kevan Cameron MD ([facility]) Radiation Oncologist: Edwin Bolanos MD (Consult Date: [...] Surveillance Interval Symptoms Since Last Visit on 12/14/23: General: Previously reported nosebleeds have resolved. Pain: 0/10 Fatigue/Activity Level: Lives alone in a senior apartment on the third floor. 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 Weight/Appetite/Diet: No recent changes in appetite. Denies unintentional weight loss/gain. Respiratory: Has been using a wheelchair for distance since before RT. Thinks ARZATE has continued to worsen, feels out of breath more quickly, which causes her to limit her physical activity. No SOB atrest. On 3.5-4L/min continuous supplemental oxygen. Inhalers/nebulizer managed by PCP. [...] 50 years, quit in 2018. Alcohol Use: Wine occasionally. Allergies: Allergies Allergen Reactions Gabapentin Other (See Comments) depression Percocet [Oxycodone-Acetaminophen] Current Medications: Current Outpatient Medications on File Prior to Visit Medication Sig Dispense Refill dilTIAZem (Tiazac) 180 mg ER 24 hr capsule Take 180 mg by mouth daily. Psyllium Seed-Sucrose (0) Powder Take by mouth. CoQ-10 100 mg Capsule PRN atorvastatin (Lipitor) 20 mg Tablet Take 20 mg by mouth nightly. ketoconazole (Nizoral) 2 % Cream APPLY TO AFFECTED AREA ONCE DAILY NEEDED ipratropium-albuteroL (DUONEB) 0.5 mg-3 mg(2.5 mg base)/3 [...] mouth daily. OXYGEN-AIR DELIVERY SYSTEMS MISC by [facility].(Non-Drug; Combo Route) route. lactobacillus rhamnosus, GG, (CULTURELLE) 10 billion cell Capsule Take 1 capsule by mouth daily. acetaminophen (TYLENOL) 325 mg Tablet Take 650 mg by mouth every 4 hours as needed for Pain. cholecalciferol, Vitamin D3, 2,000 unit Capsule Take by mouth. emollient combination no.111 (REMEDY PHYTOPLEX MOISTURIZER TOP) Apply topically. Phytoplex Remedy Moisturizer: Apply to area of radiation twice a day but no less than 2 hours before a treatment. aspirin 81 mg chewable tablet Take 81 mg by mouth daily. albuteroL (PROVENTIL) 2.5 mg /3 mL (0.083 %) Solution for Nebulization 3 mLs every 5 hours. No current facility-administered medications on file prior [...] is euthymic. Insight and judgement are good. Imaging Reviewed This Visit: Chest CT without contrast (03/10/24): IMPRESSION 1. [...] and left midlung regions, attention on follow-up. Assessment & Plan: #Lung cancer: - Reviewed Chest CT results from 03/10/24, which showed treated RLL nodule has decreased in size with expected radiation changes present. RUL nodule (FDG-avid on 09/20/23 PET) continues to grow from 6 mm to 1.2 cm since 09/11/23, c/f malignancy. Other indeterminate, small peripheral nodules in RUL andleft mid- lung appear stable, will continue to monitor. No new LAD. - Reports ARZATE has continued to worsen, feels out of breath more quickly, which causes her to limit her physical activity. No SOB at rest. On 3.5-4L/min continuous supplemental oxygen. Inhalers/nebulizer managed by PCP. Denies f/c, cough, or hemoptysis. Patient plans to contact PCP to discuss symptoms and potential need for Pulmonology referral. - CT results reviewed with Dr. Bolanos, will discuss case at next week's CTOP Tumor Board to determine next steps. #Effects of EBRT: - Completed definitive SBRT [...] #Resources provided: none #Referrals placed: none Follow-Up: Next visit (phone): 03/25/24 @ 10:30AM (patient aware) Kiersten Carrilloman had the opportunity to ask questions, which [...] 12:30 PM EST Office Visit Hematology/Oncology at [address] [phone] Nick Mullen MD [facility] HEMATOLOGY [place] [address] Chana Myrick APRN [address] [place] [address] HEMATOLOGY AND ONCOLOGY [place], [place] [address] 07/28/2024 1:00 PM EST Scheduled View Only Hematology/Oncology at [address] [phone] Aleah Curran RN 07/28/2024 1:00 PM EST Infusion Hematology Oncology at [address] [phone] documented as of this encounter Visit Diagnoses Diagnosis Primary malignant neoplasm of right lower lobe of lung- Primary Malignant neoplasm of lower lobe, bronchus, or lung S/P radiotherapy Convalescence following radiotherapy documented in this encounter Care Teams Host/Hostess Restaurant Relationship Specialty Start Date End Date Maria Guadalupe Mendes MD [address] [place] [phone] PCP - General General Internal Medicine 09/06/23 documented as of this encounter
--- OUTSIDE RECORDS SUMMARY | 2024-07-28 01:30 | XMS_ITS | Encounter Summary ---
[place] [address] Care Team Providers Care Hearse Driver Name Role Phone Maria Guadalupe Mendes MD Primary Care Provider Reason for Referral * Diagnostic Test (Routine) - Pending Review Specialty Diagnoses / Procedures Referred By Alea morales Referred To Contact Radiology Diagnoses Primary malignant neoplasm of right lower lobe of lung Procedures CT Chest wo Contrast (Generic) Edwin Bolanos MD [address] [place] [address] [place] [address] Referral ID Status Reason Start Date Expiration Date Visits Requested Visits Authorized [id number] Pending Review Specialty Service Requested 11/16/2023 05/18/2025 1 1 Reason for Visit * Consultation (Routine) - Closed Specialty Diagnoses / Procedures Referred By Alea morales Referred To Contact Radiation Oncology Diagnoses Primary malignant neoplasm of right lower lobe of lung Procedures Simulation for Radiation Therapy Planning Edwin Bolanos MD [address] [place] [address] [place] [address] [facility] [place] [address] Referral ID Status Reason Start Date Expiration Date V isits Requested Visits Authorized [id number] Closed Consult, Test & Treat 10/31/2023 01/31/2024 6 6 Encounter Details Date Type Department Care Team (Late st Contact Info) Description 11/16/2023 1:30 PM EDT Procedure visit Radiation Oncology at [address] [place] [phone] Edwin Bolanos MD [address] [place] [address] DR RADIATION ONCOLOGY [place], [place] [id number] Primary malignant neoplasm of right lower lobe [...] Sign Reading Time Taken Comments Blood Pressure 132/61 11/16/2023 12:56 PM EDT Pulse 96 11/16/2023 12:56 PM EDT Temperature 37 ??C (98.6 ??F) 11/16/2023 12:56 PM EDT Respiratory Rate 16 11/16/2023 12:56 PM EDT Oxygen Saturation 97% 11/16/2023 12:56 PM EDT Inhaled Oxygen Concentration - - Weight - - Height - - Body Mass Index - - documented in this encounter Progress Notes * Edwin Bolanos MD - 11/16/2023 1:30 PM EDT Images from the original note were not included. [facility] Medicine Radiation Oncology Radiation Oncology SBRT On-treatment [...] 55 Gy in 5 fractions Current Dose: 55 Gy in 5 fractions (seen after to today's SBRT) Medical Records Director Kraft from Current Plan (minimum 55 Gy isodose volume shown): Interval Clinical Course General: Overall feels well and in her USOH. Resp: No new cough or SOB. Pain: None. Performance Status KPS Score ECOG [...] less than 2 hours before a treatment. Yes dilTIAZem (Tiazac) 180 mg ER 24 hr [...] 1 mg/7.5 ml liquid Indications: diarrhea Yes busPIRone (BUSPAR) 5 mg Tablet Take 5 mg by mouth 3 times daily. Yes lisinopril (PRINIVIL;ZESTRIL) 10 mg Tablet Take 10 mg by mouth daily. Yes OXYGEN-AIR DELIVERY SYSTEMS MISC by [facility].(Non-Drug; Combo Route) route. Yes lactobacillus rhamnosus, GG, (CULTURELLE) 10 billion cell Capsule Take 1 capsule by mouth daily. Yes acetaminophen (TYLENOL) 325 mg Tablet Take 650 mg by mouth every 4 hours as needed for Pain. Yes cholecalciferol, Vitamin D3, 2,000 unit Capsule Take by mouth. Yes Exam Vitals: BP 132/61 (Patient Position: Sitting) Pulse 96 Temp 37 ??C (98.6 ??F) (Temporal) Resp 16 SpO2 97% General: Appears well, in no distress. Skin of R chest/back w/o erythema. Imaging/Labs Interval setup imaging has been checked and approved. See Aria for details. Impression/Plan Tolerance to radiotherapy: Tolerating as anticipated. Completes today. Followup: RTC / TOV in 4-6 weeks or sooner as needed for routine clinical check. Post Treatment Note I directly observed and supervised today's treatment from the radiation therapy console, which consisted of pretreatment imaging for setup, cone-beam CT for verification and intrafraction monitoring using the VisionRT surface guided treatment system. Kiersten tolerated treatment with no concerns and will return for her 5th fraction No orders of the defined types were placed in this encounter. National [facility] [place] ([facility]CI) [facility] [employer] Commission on Cancer (ACS [place]yla) Accredited Cancer Program [employer] (ACR) Accredited Radiation Oncology Program documented in this encounter Plan of Treatment Upcoming Encounters Date Type Department Care Team (Late st Contact Info) Description 07/28/2024 12:30 PM EST Office Visit Hematology/Oncology at [address] [phone] Nick Mullen MD [facility] [place] [address] Chana Myrick APRN [address] [place] [address] DR HEMATOLOGY AND ONCOLOGY [place], [place] [id number] 07/28/2024 1:00 PM EST Scheduled View Only Hematology/Oncology at [address] [phone] Aleah Curran RN 07/28/2024 1:00 PM EST Infusion Hematology Oncology at [address] [phone] Scheduled Orders Name Type Priority Associated Diagnoses Orde r Schedule CT Chest wo Contrast (Generic) Imaging Routine Primary malignant neoplasm of right lower lobe of lung Expected: 03/15/2024, Expires: 09/14/2024 documented as of this encounter Visit Diagnoses Diagnosis Primary malignant neoplasm of right lower lobe of lung Malignant neoplasm of lower lobe, bronchus, or lung documented in this encounter Care Teams Hearse Driver Relationship Specialty Start Date End Date Maria Guadalupe Mendes MD [address] [place] [phone] PCP - General General Internal Medicine 09/06/23 documented as of this encounter
--- OUTSIDE RECORDS SUMMARY | 2024-07-28 01:30 | XMS_ITS | Encounter Summary ---
Author Organization [facility] Address [facility] [place] [address] Care Team Providers Care Director Toxicology Name Role Phone Maria Guadalupe Mendes MD Primary Care Provider Encounter Details Date Type Department Care Team (Late st Contact Info) Description 01/29/2024 4:00 PM EDT Office Visit Dermatology at [facility] [address] [place] [address] Drake Chi MD [facility] DR [facility] [place] [address] Neoplasm of unspecified behavior of bone, soft tissue, and skin; Multiple melanocytic nevi; Seborrheic keratoses; Lentigines; Milia; History of basal cell carcinoma Social History Tobacco Use Types Packs/Day Years [...] as of this encounter Progress Notes * Lorie Mccarthy RN - 01/29/2024 4:00 PM EDT Images from the original note were not included. DEPARTMENT OF DERMATOLOGY Medical Dermatology Clinic Provider: Drake Chi MD Patient's preferred name Kiersten Preferred contact method for results [x]Phone []myD-H [...] of Present Illness: Kiersten Barraza is a 83 y.o. Patient returns to clinic today for a full skin exam and she reports that se is seeing white spots. - Left gnosticist, present for awhile, asymptomatic Last visit at Dermatology: 03/27/2022 Last visit with this provider: Visit date not found Medications: Reviewed in eD-H Allergies: Reviewed in eD-H Skin Examination: Full skin examination: Patient asked to undress to their comfort level. Verbalized that the provider???s preference is that the patient remove all clothing and that the provider will not examine areas patient elects to keep covered. Patient elects to keep underwear on and have the following examined: scalp, hair, face, ears, neck, chest, axillae, abdomen, back, and upper and lower extremities. Genitalia and buttocks were not examined. Assessment/Plan #. DDx. 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 - Recommended a skin biopsy to confirm/clarify the nature of the skin lesion. After discussion of potential risks (scarring, bleeding, infection) and recurrence, patient agreed to proceed. - Patient denies known allergies to lidocaine and epinephrine. Procedure: Skin shave biopsy Location: Midline back Time of procedure: 3:57 PM Discussed indications for procedure and expectations including risks and benefits. Verbal consent obtained. Time out performed. Skin prepped with alcohol. Local anesthesia with 1% xylocaine, 1/100,000 epinephrine. A sample of the lesion was removed by shave technique to the level of the dermis and s ubmitted to Pathology. Hemostasis obtained (AlCl). There were no complications; patient tolerated the procedure well. Wound dressed. Post-procedure expectations, wound care and activity restrictions reviewed. - Follow-up based on pathology results. #. Melanocytic Nevi - Scattered brown macules and papules on the trunk and extremities with reassuring pigment pattern on dermoscopy. - Discussed benign appearing nevi based on today's exam. - Recommended follow-up with dermatology if any changes in any pigmented lesions are noted or any concerns regarding new lesions arise. #. Seborrheic Keratoses - Stuck on, waxy papules on the head, trunk and extremities. - Discussed benign nature of lesions and provided reassurance. No treatment necessary at this time. #. Lentigines - Scattered light-brown, evenly pigmented, well-demarcated macules on sun-exposed areas of the trunk and extremities. - No worrisome pigmented lesions. Discussed benign nature of lesions and provided reassurance. Willcontinue to monitor. #. Milia - 0.1 cm firm, round, white subcutaneous papules on the bilateral lower eyelids. - Discussed benign nature of lesions and provided reassurance. No treatment necessary. #. History of BCC - Well-healed scar on the left nasal tip per skin history. - No evidence of recurrence; will continue to monitor. Figure 1 Photo(s) taken and charted with patient's verbal consent. RTC: Pending pathology; 1 year for FSE []Note routed to clinical secretary [x]Recall placed in scheduling system []Appointment scheduled at checkout Scribe attestation: Lorie Mccarthy RN and Felice Gardner have performed the documentation for this encounter in the presence of and acting as a scribe for Drake Chi MD. I performed the above scribed service and agree with the accuracy of the documentation in this encounter. Reviewed and signed by: Drake Chi MD Dermatology [facility] * Drake Chi MD - 01/29/2024 4:00 PM EDT Biopsy results consistent with BCC. A skin cancer that requires further treatment. Given size and location I recommend treatment with ED&C. Seen and reviewed by: Drake Chi MD [facility] Epidemiology Investigator Department of Dermatology documented in this encounter Plan of Treatment Upcoming Encounters Date Type Department Care Team (Late st Contact Info) Description 07/28/2024 12:30 PM EST Office Visit Hematology/Oncology at [address] [phone] Nick Mullen MD [facility] DR [place] [address] Chana Myrick [address] [place] [address] 07/28/2024 1:00 PM EST Scheduled View Only Hematology/Oncology at [address] [phone] Aleah Curran RN 07/28/2024 1:00 PM EST Infusion Hematology Oncology at [address] [phone] documented as of this encounter Procedures Procedure Name Priority Date/Time Associated Diagnosis Comments SURGICAL PATHOLOGY, DERMATOLOGY Routine 01/29/2024 3:55 PM EDT Neoplasm of unspecified behavior of bone, soft tissue, and skin documented in this encounter Results * (ABNORMAL) Surgical Pathology, Dermatology (01/29/2024 3:55 PM EDT) Case Report Surgical Pathology Report ? Case: [id number] ? Authorizing Provider: ??Drake Chi MD ? Collected: ? 01/29/2024 1555 ? Ordering Location: ? Dermatology at [facility] Received: ?01/29/2024 1820 ? Pathologist: ? Alexandra Chapa MD ? Specimen: ?Back, Midline ? 01/31/2024 2:47 PM EDT [facility] Final Diagnosis A. Back, Midline, Shave biopsy: Basal cell carcinoma, superficial and nodular types, focally pigmented, present at the specimen edges 01/31/2024 2:47 PM EDT [facility] Clinical Information A. DDx. 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 Back, Midline. Labeled/Fixati ve: Back, midline, formalin. Quantity/Size: Single, 1.1 x 0.7 cm. Tissue Description: Moses-negron skin shave with a 0.9 x 0.7 cm moses-brown area of discoloration. Sections/Proce ssing: Inked, serially sectioned and entirely submitted in 2 cassettes as follows: A1: Tips A2: Body 01/31/2024 2:47 PM EDT [facility] Result Note THIS RESULT REQUIRES PHYSICIAN/JANESSA FOLLOW UP(A) 01/31/2024 2:47 PM EDT [facility] Skin SKIN STRUCTURE OF BACK / Unknown Non Blood Collection / Unknown 01/29/2024 3:55 PM EDT 01/29/2024 6:20 PM EDT Drake Chi MD PATHOLOGY/CYTOLOGY O RDERABLES [facility] [place] [address] documented in this encounter Visit Diagnoses Diagnosis Neoplasm of unspecified behavior of bone, soft tissue, and skin Multiple melanocytic nevi Seborrheic keratoses Lentigines Other dyschromia Milia Sebaceous cyst History of basal cell carcinoma Personal history of other malignant neoplasm of skin documented in this encounter Care Teams Director Toxicology Relationship Specialty Start Date End Date Maria Guadalupe Mendes MD [address] [place] [phone] PCP - General General Internal Medicine 09/06/23 documented as of this encounter
--- OUTSIDE RECORDS SUMMARY | 2024-07-28 01:30 | XMS_ITS | Encounter Summary ---
Author Organization [facility] Address [facility] [place] [address] Care Team Providers Care Bell Attendant Name Role Phone Maria Guadalupe Mendes MD Primary Care Provider Encounter Details Date Type Department Care Team (Latest Contact Info) Description 11/16/2023 Travel Social History Tobacco Use Types Packs/Day [...] 12:30 PM EST Office Visit Hematology/Oncology at [address] [phone] Nick Mullen MD [facility] DR HEMATOLOGY [place] [address] Chana Myrick APRN [address] [place] [address] DR HEMATOLOGY AND ONCOLOGY [place], [place] [address] 07/28/2024 1:00 PM EST Scheduled View Only Hematology/Oncology at [address] [phone] Aleah Curran RN 07/28/2024 1:00 PM EST Infusion Hematology Oncology at [address] [phone] documented as of this encounter Visit Diagnoses Not on filedocumented in this encounter Care Teams Bell Attendant Relationship Specialty Start Date End Date Maria Guadalupe Mendes MD [address] [place] [phone] PCP - General General Internal Medicine 09/06/23 documented as of this encounter
--- OUTSIDE RECORDS SUMMARY | 2024-07-28 01:30 | XMS_ITS | Encounter Summary ---
Author Organization [facility] [place] [address] Care Team Providers Care Parole Officer Name Role Phone Maria Guadalupe Mendes MD Primary Care Provider Encounter Details Date Type Department Care Team (Late st Contact Info) Description 10/18/2023 3:30 PM EDT Office Visit Radiation Oncology at [address] [phone] Edwin Bolanos MD [address] [place] [address] [place] [address] Primary malignant neoplasm of right lower lobe of lung; Stage 4 very severe COPD by GOLD classification Social History Tobacco Use Types Packs/Day Years [...] Sign Reading Time Taken Comments Blood Pressure 143/61 10/18/2023 3:28 PM EDT Pulse 89 10/18/2023 3:28 PM EDT Temperature 37.1 ??C (98.8 ??F) 10/18/2023 3:28 PM ED T Respiratory Rate 18 10/18/2023 3:28 PM EDT Oxygen Saturation 98% 10/18/2023 3:28 PM EDT Inhaled Oxygen Concentration - - Weight 71.2 kg (157 lb) 10/18/2023 3:28 PM EDT Height - - Body Mass Index 28.72 09/11/2023 1:09 PM EDT documented in this encounter Progress Notes * Edwin Bolanos MD - 10/18/2023 3:30 PM EDT Images from the original note were not included. Radiation Oncology Followup Note Edwin Bolanos MD, [place] [facility] PATIENT NAME: Kiersten Barraza DATE OF : 1940 PRIMARY CARE PROVIDER: Maria Guadalupe Mendes MD DATE OF SERVICE: 10/18/2023 PATIENT SUMMARY: Kiersten Barraza is a 83 y.o. previously called for consultation for diagnosis of Stage I NSCLC. INTERVAL SUBJECTIVE HISTORY: Since last seen, Kiersten reports no overall changes to her health status. She has stable, severe ongoing SOB needing 4LNC ATC. INTERVAL OBJECTIVE HISTORY: No interval images to review. PHYSICAL EXAM: BP 143/61 (Patient Position: Sitting) Pulse 89 Temp 37.1 ??C (98.8 ??F) (Temporal) Resp 18 Wt 71.2 kg (157 lb) SpO2 98% BMI 28.72 kg/m?? General - she appears well-developed and well-nourished. No distress. Here w son, Bony. Lungs - course BS bilaterally, minimal air movement ASSESSMENT / PLAN: Kiersten is a 83 y.o. 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 She has an opacityin the RUL which I suggest we continue to observe. She is in agreement with this plan. Today we reviewed the rationale, logistics, early toxicities and late complications associated withcurative-intent radiotherapy to the lung. Toxicities discussed include fatigue, cough, dyspnea. termination clerk complications such as chest wall pain / rib fracture were also reviewed. Informed consent was obtained prior to planned simulation next week. Anticipate radiotherapy to begin within 2 weeks, for a total of 5 planned fractions. TIME ATTESTATION: I certify spending at least 40 minutes in providing care to this patient today, 10/18/23 as reflected by the following activities: - discussion of the above with the patient as part of shared medical decision making - documenting the outcome of today's visit as above EDWIN BOLANOS MD, MS documented in this encounter Plan of Treatment Upcoming Encounters Date Type Department Care Team (Late st Contact Info) Description 07/28/2024 12:30 PM EST Office Visit Hematology/Oncology at [address] [phone] Nick Mullen MD [facility] DR HEMATOLOGY [place] [address] Chana Myrick, [address] HEMATOLOGY AND ONCOLOGY [place], [place] [id number] 07/28/2024 1:00 PM EST Scheduled View Only Hematology/Oncology at [address] [phone] Aleah Curran RN 07/28/2024 1:00 PM EST Infusion Hematology Oncology at [address] [phone] documented as of this encounter Visit Diagnoses Diagnosis Primary malignant neoplasm of right lower lobe of lung Malignant neoplasm of lower lobe, bronchus, or lung Stage 4 very severe COPD by GOLD classification documented in this encounter Care Teams Parole Officer Relationship Specialty Start Date End Date Maria Guadalupe Mendes MD [address] [place] [phone] PCP - General General Internal Medicine 09/06/23 documented as of this encounter
--- OUTSIDE RECORDS SUMMARY | 2024-07-28 01:30 | XMS_ITS | Encounter Summary ---
Author Organization [facility] Address [facility] [place] [address] Care Team Providers Care Associate Manager Affiliate Marketing Name Role Phone Maria Guadalupe Mendes MD Primary Care Provider Encounter Details Date Type Department Care Team (Latest Contact Info) Description 04/10/2024 12:20 PM EDT - 04/10/2024 2:09 PM EDT Hospital Encounter XRay at [address] [address] Edwin Bolanos MD [address] [place] [address] [place] [address] Discharge Disposition: Home Social History Tobacco Use Types Packs/Day Years Used Date Smoking Tobacco: Former Cigarettes 1 50 0 06/25/1967 - 06/25/2017 Smokeless Tobacco: Never Alcohol Use Standard Drinks/Week Comments Yes 0 (1 standard drink = 0.6 oz pur e alcohol) glass of wine once in a while [facility] Inpatient Questions Answer Date Recorded Does Anyone [...] mouth daily. OXYGEN-AIR DELIVERY SYSTEMS MISC by [facility].(Non-Drug; Combo Route) route. lactobacillus rhamnosus, GG, (CULTURELLE) [...] less than 2 hours before a treatment. 04/22/2024 ketoconazole (Nizoral) 2 % Cream APPLY TO AFFECTED AREA ONCE DAILY NEEDED 11/04/2021 07/08/2024 documented as of this encounter Plan of Treatment Upcoming Encounters Date Type Department Care Team (Late st Contact Info) Description 07/28/2024 12:30 PM EST Office Visit Hematology/Oncology at [address] [phone] Nick Mullen MD [facility] DR HEMATOLOGY [place] [address] Chana Myrick APRN [address] [place] [address] HEMATOLOGY AND ONCOLOGY [place], [place] [id number] 07/28/2024 1:00 PM EST Scheduled View Only Hematology/Oncology at [address] [phone] Aleah Curran RN 07/28/2024 1:00 PM EST Infusion Hematology Oncology at [address] [phone] documented as of this encounter Procedures Procedure Name Priority Date/Time Associated Diagnosis Comments XR CHEST ONE VIEW STAT 04/10/2024 12: 28 PM EDT documented in this encounter Results * XR Chest One View (04/10/2024 12:28 PM EDT) [employer] WORKSTATION ID [id number] RAD Anatomical Region Laterality Modality Chest N/A Digital Radiogra phy Impressions 04/10/2024 12:54 PM EDT 1. ??No pneumothorax. 2. ??Small right pleural effusion. This effusion is similar in size to prior CT but new compared to prior radiograph. 3. ??Redemonstration of right upper lobe and right lower lobe opacities concerning for malignancy. Thank you for letting us participate in the care of this patient. ??If you are a health care provider and have any questions regarding this report, please contact the number below. ??For patients who have questions please contact the health patient care provider that requested your imaging first. ? Electronically signed by: Jonathan Vargas MD, [facility] ([phone]), at 04/10/2024 12:54 PM Narrative 04/10/2024 12:54 PM EDT EXAMINATION: XR CHEST ONE VIEW CLINICAL HISTORY: Post right lung biopsy TECHNIQUE: 1 view of the chest , single image COMPARISON: Chest radiograph 09/11/2023. 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 Unchanged 12 mm right upper lobe subpleural opacity concordant with prior CT findings. Similar appearance of right lower lobe patchy opacities measuring 3.2 and 1.9 cm respectively, concordant with recent CT findings. Streaky opacities in the right lung base likely a component of compressive atelectasis. No pneumothorax. There is a small right-sided pleural effusion, which is similar in size to prior CT allowing for redistribution and layering. No left-sided effusion. Unchanged cardiomegaly. Hilar are normal in size. Limited assessment of osseous structures demonstrates no acute abnormality. Procedure Note Jonathan Vargas MD - 04/10/2024 EXAMINATION: XR CHEST ONE VIEW CLINICAL HISTORY: Post right lung biopsy TECHNIQUE: 1 view of the chest , single image COMPARISON: Chest radiograph 09/11/2023. 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 Unchanged 12 mm right upper lobe subpleural opacityconcordant with prior CT findings. Similar appearance of right lower lobe patchyopacities measuring 3.2 and 1.9 cm respectively, concordant with recent CTfindings. Streaky opacities in the right lung base likely a component ofcompressive atelectasis. No pneumothorax. There is a small right-sided pleuraleffusion, which is similar in size to prior CT allowing for redistribution andlayering. No left-sided effusion. Unchanged cardiomegaly. Hilar are normal insize. Limited assessment of osseous structures demonstrates no acuteabnormality. IMPRESSION 1. No pneumothorax. 2. Small right pleural effusion. This effusion is similar in size toprior CT but new compared to prior radiograph. 3. Redemonstration of right upper lobe and right lower lobe opacities concerning for malignancy. Thank you for letting us participate in the care of this patient. If youare a health care provider and have any questions regarding this report,please contact the number below. For patients who have questions please contactthe health patient care provider that requested your imaging first. Electronically signed by: Jonathan Vargas MD, [facility]([phone]), at 04/10/2024 12:54 PM Edwin Bolanos MD IMG DX ORDERABLES documented in this encounter Visit Diagnoses Not on filedocumented in this encounter Care Teams Associate Manager Affiliate Marketing Relationship Specialty Start Date End Date Maria Guadalupe Mendes MD [address] [place] [phone] PCP - General General Internal Medicine 09/06/23 documented as of this encounter
--- OUTSIDE RECORDS SUMMARY | 2024-07-28 01:30 | XMS_ITS | Encounter Summary ---
Author Organization [facility] [place] [address] Care Team Providers Care Instructor Ground Services Name Role Phone Maria Guadalupe Mendes MD Primary Care Provider [phone] Encounter Details Date Type Department Care Team (Late st Contact Info) Description 11/16/2023 Notes Only Radiation Oncology at [address] [phone] Edwin Bolanos MD [address] [place] [address] [place] [address] Social History Tobacco Use Types Packs/Day Years [...] Notes * Edwin Bolanos MD - 11/16/2023 2:08 PM EDT Images from the original note were not included. [facility] Medicine Radiation Oncology Radiation Therapy Completion Note Patient ID Patient name: Kiersten Barraza [...] Prescribed Dose 55 Gy in 5 fractions Start Date End Date Elapsed Days 11/07/23 11/16/23 9d Roofing Layer Kraft from Current Plan (minimum 55 Gy isodose volume shown): Clinical Course Treatment tolerance: With regard to side effects noted during radiotherapy, the patient tolerated treatment extremely well with no significant acute (Grade 3 or above) toxicity or unplanned breaks. Treatment response: The patient's response to treatment was undetermined, given the short course of treatment. Future assessment will be determined via serial CT chest. Follow up plan: Follow-up visit with Radiation Oncology in [facility] will be scheduled in 4- 6 weeks for routinepost-procedural symptom check; she has received instructions to call this office or seek the help of the local emergency room if any further problems should arise prior to followup. EDWIN BOLANOS MD 11/16/2023 National [employer] (NCI) Comprehensive Cancer [facility] [employer] Commission on Cancer (ACS Sheyla) Accredited Cancer Program [employer] (ACR) Accredited Radiation Oncology Program documented in this encounter Plan of Treatment Upcoming Encounters Date Type Department Care Team (Late st Contact Info) Description 07/28/2024 12:30 PM EST Office Visit Hematology/Oncology at [address] [phone] Nick Mullen MD [facility] DR [place] [address] Chana Myrick APRN [address] [place] [address] DR HEMATOLOGY [place] [address] 07/28/2024 1:00 PM EST Scheduled View Only Hematology/Oncology at [address] [phone] Aleah Curran RN 07/28/2024 1:00 PM EST Infusion Hematology Oncology at [address] [phone] documented as of this encounter Visit Diagnoses Not on filedocumented in this encounter Care Teams Instructor Ground Services Relationship Specialty Start Date End Date Maria Guadalupe Mendes MD [address] [place] [phone] PCP - General General Internal Medicine 09/06/23 documented as of this encounter
--- OUTSIDE RECORDS SUMMARY | 2024-07-28 01:30 | XMS_ITS | Encounter Summary ---
Author Organization [facility] Address [facility] [place] [address] Care Team Providers Care Retail Service Representative Name Role Phone Maria Guadalupe Mendes MD Primary Care Provider Encounter Details Date Type Department Care Team (Latest Contact Info) Description 04/10/2024 9:45 AM EDT Laboratory Appointment Lab [address] [place] [phone] Primary malignant neoplasm of right lower lobe of lung; Preop testing Social History Tobacco Use Types Packs/Day Years [...] 12:30 PM EST Office Visit Hematology/Oncology at [address] [phone] Nick Mullen MD [facility] DR [place] [address] Chana Myrick APRN [address] [place] [address] DR HEMATOLOGY AND ONCOLOGY [place], [place] [id number] 07/28/2024 1:00 PM EST Scheduled View Only Hematology/Oncology at [address] [phone] Aleah Curran RN 07/28/2024 1:00 PM EST Infusion Hematology Oncology at [address] [phone] documented as of this encounter Procedures Procedure Name Priority Date/Time Associated Diagnosis Comments PLATELET COUNT PERFORMABLE STAT 04/10/2024 9:35 AM EDT Primary malignant neoplasm of right lower lobe of lung Preop testing PLATELET COUNT STAT 04/10/2024 9:35 AM EDT Primary malignant neoplasm of right lower lobe of lung Preop testing documented in this encounter Results * (ABNORMAL) Platelet count (04/10/2024 9:35 AM EDT) Platelet 388(H) 145 - 357 x10(3)/mcL 04/10/2024 9:56 AM EDT [facility] Blood VENOUS BLOOD SPECIMEN / Unknown Venipuncture / Unknown 04/10/2024 9:35 AM EDT 04/10/2024 9:36 AM EDT Edwin Bolanos MD HEMATOLOGY ORDERABLE S [facility] [place] [address] documented in this encounter Visit Diagnoses Diagnosis Primary malignant neoplasm of right lower lobe of lung Malignant neoplasm of lower lobe, bronchus, or lung Preop testing Preoperative examination, unspecified documented in this encounter Care Teams Retail Service Representative Relationship Specialty Start Date End Date Maria Guadalupe Mendes MD [address] [place] [phone] PCP - General General Internal Medicine 09/06/23 documented as of this encounter
--- OUTSIDE RECORDS SUMMARY | 2024-07-28 01:30 | XMS_ITS | Encounter Summary ---
Author Organization [facility] [place] [address] Care Team Providers Care Resident Care Spec Name Role Phone Maria Guadalupe Mendes MD Primary Care Provider Reason for Visit * Reason Comments Simulation * Consultation (Routine) - Closed Specialty Diagnoses / Procedures Referred By Alea morales Referred To Contact Radiation Oncology Diagnoses Primary malignant neoplasm of right lower lobe of lung Procedures Simulation for Radiation Therapy Planning Edwin Bolanos MD [address] [place] [address] [place] [address] [facility] [place] [address] Referral ID Status Reason Start Date Expiration Date V isits Requested Visits Authorized [id number] Closed Consult, Test & Treat 10/31/2023 01/31/2024 6 6 Encounter Details Date Type Department Care Team (Latest Contact Info) Description 10/29/2023 2:00 PM EDT Ancillary Appointment [place] [phone] Edwin Bolanos MD [address] [place] [address] [place] [address] Primary malignant neoplasm of right [...] Sign Reading Time Taken Comments Blood Pressure 164/62 10/29/2023 1:40 PM EDT Pulse 94 10/29/2023 1:40 PM EDT Temperature 36.2 ??C (97.1 ??F) 10/29/2023 1:40 PM ED T Respiratory Rate 15 10/29/2023 1:40 PM EDT Oxygen Saturation 97% 10/29/2023 1:40 PM EDT 3L of O2 Inhaled Oxygen Concentration - - Weight - - Height - - Body Mass Index - - documented in this encounter Patient Instructions * Patient Instructions* Naomi Monahan RN - 10/29/2023 2:00 PM EDT General instructions for Radiation therapy Radiation Oncology Team Radiation Oncologist -The doctor who will direct all aspects of your radiation treatments Nurse Practitioner - They assist your doctor in treating your side effects and with follow up appointments. Registered Nurse - They assist you in learning about your radiation treatments and things you can do to help manage the side effects. Wheel Cutter - They take the doctors radiation prescription and customize it into doses (or days of treatments) specific for you. Physicist - They make sure all the machines are operating correctly and double check calculations for your treatment. Radiation Technologists - They operate the machines which deliver your radiation. You see them daily and they schedule your treatments. Simulation CT/ Planning Session- Your first step after deciding to start radiation treatments is done on a special CT scanner in radiation oncology. The images obtained are used to plan your treatments. This may be scheduled in a separate visit. This usually takes between 30 minutes to one hour. During this visit we may norma your skin with a tiny ???tattoos?? , take pictures or make special molds or masks to help us place you inthe exact treatment position every day. After this session it takes up to two weeks for your plan to be developed and checked by your doctor, the dosimetrists and the physicist. Patient Education: You are scheduled for radiation treatment using SBRT (steriotactic body radiation therapy). Please arrive 30 minutes prior to your scheduled treatment time and check in with the Concrete Wall Grinder Operator You will have your vital signs checked, your allergies and medications will be reviewed and your doctor will see you briefly before the treatment to make sure you are well and it is safe to deliver the treatment. Possible side effects of radiation include the following: cough chest wall pain (unlikely) skin changes (redness, itching) fatigue (during treatment and after treatment for 1-2 months). Walking 20-30 minutes daily can helprelieve treatment Wash the treatment area with a mild soap (no fragrance) and pat dry daily. Apply skin care products as instructed by the nurse and/or doctor Skin Care - Your nurse/physician will provide you with the necessary creams and supplies as you need them during your treatments. Please make sure to keep the treatment area clean and dry. Be sure to notice if your clothing rubs or digs into the treatment area and try to wear clothes which are less abrasive, like cotton or loose fitting. Do not use harsh soaps, ointments, deodorants or tapes in the treatment area unless directed by your nurse or doctor. Keep the treatment area out of the sun during treatments. General precautions- DO NOT USE heating pads, hot water bottles, hot poultices, heat lamps, heat in any form, or ice packs to the area of your body being treated. It is common to start feeling fatigue after a few weeks of being treated. You can help minimize this by getting regular exercise or walking and getting plenty of rest. In general a well balanced diet is recommended. The manager pe and nurse will inform you of any special diet requirements. Avoid shaving the treatment area with a razor. If you must shave use an electric razor. Your Radiation Oncologist: Edwin Bolanos MD Our Contact numbers Section of Radiation Oncology Our normal business hours are: Sunday - Sunday: 8:00 AM to 5:00 PM [facility]: [facility]: If you have questions about your radiation appointments please ask to speak to one of our secretarystaff. If you have questions for a nurse/doctor about radiation treatments, radiation side effects or you are not feeling well it is best to call early in the day. This allows a nurse to return your call by5 PM the same day. If you call after 4 PM, a nurse will return your call by 5 PM the following day unless it is emergent. If you experience any of the following you need to seek emergency care immediately by calling 911 1. Sudden and unexpected breathing difficulty without any exertion 2. Sudden onset of chest pain 3. Sudden onset of severe pain or uncontrolled pain 4. Sudden onset of severe weakness and/or unable to ambulate 5. Sudden new onset of a seizure 6. Fall resulting in injury A Radiation Oncology doctor is nurse liaison after our normal hours and on weekends. To call for urgent medical issues from radiation treatments that can not wait until normal businesshours: Call for either location and have the drying frame operator page the Radiation Oncologist nurse liaison. documented in this encounter Plan of Treatment Upcoming Encounters Date Type Department Care Team (Late st Contact Info) Description 07/28/2024 12:30 PM EST Office Visit Hematology/Oncology at [address] [phone] Nick Mullen MD [facility] DR [place] [address] Chana Myrick APRN [address] [place] [address] DR HEMATOLOGY AND ONCOLOGY [place], [place] [phone] 07/28/2024 1:00 PM EST Scheduled View Only Hematology/Oncology at [address] [phone] Aleah Curran RN 07/28/2024 1:00 PM EST Infusion Hematology Oncology at [address] [phone] documented as of this encounter Visit Diagnoses Diagnosis Primary malignant neoplasm of right lower lobe of lung Malignant neoplasm of lower lobe, bronchus, or lung documented in this encounter Care Teams Resident Care Spec Relationship Specialty Start Date End Date Maria Guadalupe Mendes MD [address] [place] [phone] PCP - General General Internal Medicine 09/06/23 documented as of this encounter
--- OUTSIDE RECORDS SUMMARY | 2024-07-28 01:30 | XMS_ITS | Encounter Summary ---
Author Organization [facility] [place] [address] Care Team Providers Care Etiquette Teacher Name Role Phone Maria Guadalupe Mendes MD Primary Care Provider Encounter Details Date Type Department Care Team (Late st Contact Info) Description 10/09/2023 Telephone Radiation Oncology at [address] [phone] Linnea Merino Social History Tobacco Use Types Packs/Day Years [...] encounter Miscellaneous Notes * Telephone Encounter - Linnea Merino - 10/09/2023 2:21 PM EDT I called and confirmed Kiersten's appointment with Dr. Bolanos on 10/18/23 @ 3:30pm documented in this encounter Plan of Treatment Upcoming Encounters Date Type Department Care Team (Late st Contact Info) Description 07/28/2024 12:30 PM EST Office Visit Hematology/Oncology at [address] [phone] Nick Mullen MD [facility] DR HEMATOLOGY [place] [address] Chana Myrick, REVIEW COORDINATOR [address] [place] [address] DR HEMATOLOGY AND ONCOLOGY [place], [place] [phone] 07/28/2024 1:00 PM EST Scheduled View Only Hematology/Oncology at [address] [phone] Aleah Curran RN 07/28/2024 1:00 PM EST Infusion Hematology Oncology at [address] [phone] documented as of this encounter Visit Diagnoses Not on filedocumented in this encounter Care Teams Etiquette Teacher Relationship Specialty Start Date End Date Maria Guadalupe Mendes MD [address] [place] [phone] PCP - General General Internal Medicine 09/06/23 documented as of this encounter
--- OUTSIDE RECORDS SUMMARY | 2024-07-28 01:30 | XMS_ITS | Encounter Summary ---
Author Organization [facility] Address [facility] [place] [address] Care Team Providers Care Head Of Cytogenetics Name Role Phone Maria Guadalupe Mendes MD Primary Care Provider Encounter Details Date Type Department Care Team (Latest Contact Info) Description 01/29/2024 Travel Social History Tobacco Use Types Packs/Day [...] 12:30 PM EST Office Visit Hematology/Oncology at [address] [phone] Nick Mullen MD [facility] DR HEMATOLOGY [place] [address] Chana Myrick APRN [address] [place] [address] DR HEMATOLOGY AND ONCOLOGY [place], [place] [address] 07/28/2024 1:00 PM EST Scheduled View Only Hematology/Oncology at [address] [phone] Aleah Curran RN 07/28/2024 1:00 PM EST Infusion Hematology Oncology at [address] [phone] documented as of this encounter Visit Diagnoses Not on filedocumented in this encounter Care Teams Head Of Cytogenetics Relationship Specialty Start Date End Date Maria Guadalupe Mendes MD [address] [place] [phone] PCP - General General Internal Medicine 09/06/23 documented as of this encounter
--- OUTSIDE RECORDS SUMMARY | 2024-07-28 01:30 | XMS_ITS | Encounter Summary ---
Author Organization [facility] [place] [address] Care Team Providers Care Stereo Equipment Salesperson Name Role Phone Maria Guadalupe Mendes MD Primary Care Provider [phone] Encounter Details Date Type Department Care Team (Late st Contact Info) Description 11/07/2023 3:00 PM EDT Procedure visit Radiation Oncology at [address] [phone] Edwin Bolanos MD [address] [place] [address] [place] [address] Primary malignant neoplasm of right [...] Sign Reading Time Taken Comments Blood Pressure 152/72 11/07/2023 3:04 PM EDT Pulse 94 11/07/2023 3:04 PM EDT Temperature 37 ??C (98.6 ??F) 11/07/2023 3:04 PM EDT Respiratory Rate 20 11/07/2023 3:04 PM EDT Oxygen Saturation 95% 11/07/2023 3:04 PM EDT Inhaled Oxygen Concentration - - Weight - - Height - - Body Mass Index - - documented in this encounter Progress Notes * Edwin Bolanos MD - 11/07/2023 3:00 PM EDT Images from the original note were not included. [facility] [place] Medicine Radiation Oncology Radiation Oncology SBRT On-treatment [...] 55 Gy in 5 fractions Current Dose: 11 Gy in 1 fraction Catering Director [employer] from Current Plan (minimum 55 Gy isodose volume shown): Interval Clinical Course General: No changes since last seen. Started today. Resp: No new cough or SOB. Pain: Pain score today is 0/10. Performance Status KPS Score ECOG Grade Definition [...] confined to bed or chair Medications Medications 11/07/23 1504 Medication Sig Taking? dilTIAZem (Tiazac) 180 mg [...] daily. Yes OXYGEN-AIR DELIVERY SYSTEMS MISC by [facility].(Non-Drug; Combo Route) route. Yes lactobacillus rhamnosus, GG, (CULTURELLE) 10 billion cell Capsule Take 1 capsule by mouth daily. Yes acetaminophen (TYLENOL) 325 mg Tablet Take 650 mg by mouth every 4 hours as needed for Pain. Yes cholecalciferol, Vitamin D3, 2,000 unit Capsule Take by mouth. Yes Exam Vitals: BP 152/72 (Patient Position: Sitting) Pulse 94 Temp 37 ??C (98.6 ??F) (Temporal) Resp 20 SpO2 95% General: Appears well, in no distress Imaging/Labs [...] no concerns and will return for her second fraction on Sunday11/09/23. No orders of the defined types were placed in this encounter. [employer] (NCI) [facility] [employer] Commission on Cancer (ACS [place]) Accredited Cancer Program [employer] (A[employer]) Accredited Radiation Oncology Program documented in this encounter Plan of Treatment Upcoming Encounters Date Type Department Care Team (Late st Contact Info) Description 07/28/2024 12:30 PM EST Office Visit Hematology/Oncology at [address] [phone] Nick Mullen MD [facility] [address] [place] [address] Chana Myrick [address] HEMATOLOGY AND ONCOLOGY [place], [place] [phone] 07/28/2024 1:00 PM EST Scheduled View Only Hematology/Oncology at [address] [phone] Aleah Curran RN 07/28/2024 1:00 PM EST Infusion Hematology Oncology at [address] [phone] documented as of this encounter Visit Diagnoses Diagnosis Primary malignant neoplasm of right lower lobe of lung Malignant neoplasm of lower lobe, bronchus, or lung documented in this encounter Care Teams Stereo Equipment Salesperson Relationship Specialty Start Date End Date Maria Guadalupe Mendes MD [address] [place] [phone] PCP - General General Internal Medicine 09/06/23 documented as of this encounter
--- OUTSIDE RECORDS SUMMARY | 2024-07-28 01:30 | XMS_ITS | Encounter Summary ---
Author Organization [facility] Address [facility] [place] [address] Care Team Providers Care Manager Of Administration Name Role Phone Maria Guadalupe Mendes MD Primary Care Provider Encounter Details Date Type Department Care Team (Latest Contact Info) Description 04/10/2024 2:10 PM EDT - 04/10/2024 11:59 PM EDT Hospital Encounter XRay at [address] [place] [phone] Meir Vasquez MD [facility] [place] [address] Discharge Disposition: Home Social History Tobacco Use Types Packs/Day Years Used Date Smoking Tobacco: Former Cigarettes 1 50 0 06/25/1967 - 06/25/2017 Smokeless Tobacco: Never Alcohol Use Standard Drinks/Week Comments Yes 0 (1 standard drink = 0.6 oz pur e alcohol) glass of wine once in a while [facility] Inpatient Questions Answer Date Recorded Does Anyone [...] mouth daily. OXYGEN-AIR DELIVERY SYSTEMS MISC by [facility].(Non-Drug; Combo Route) route. lactobacillus rhamnosus, GG, (CULTURELLE) [...] PM EST Office Visit Hematology/Oncology at [address] [phone] Nick Mullen MD [facility] DR HEMATOLOGY [place] [address] Chana Myrick APRN [address] [place] [address] HEMATOLOGY AND ONCOLOGY [place], [place] [phone] 07/28/2024 1:00 PM EST Scheduled View Only Hematology/Oncology at [address] [phone] Aleah Curran RN 07/28/2024 1:00 PM EST Infusion Hematology Oncology at [address] [phone] documented as of this encounter Procedures Procedure Name Priority Date/Time Associated Diagnosis Comments XR CHEST ONE VIEW Routine 04/10/2024 2:1 4 PM EDT documented in this encounter Results * XR Chest One View (04/10/2024 2:14 PM EDT) [employer] WORKSTATION ID [id number] RAD Anatomical Region Laterality Modality Chest N/A Digital Radiogra phy Impressions 04/10/2024 5:11 PM EDT No pneumothorax. Thank you for letting us participate in the care of this patient. ??If you are a health care provider and have any questions regarding this report, please contact the number below. ??For patients who have questions please contact the health director of primary care that requested your imaging first. ? Narrative 04/10/2024 5:11 PM EDT EXAMINATION: XR CHEST ONE VIEW CLINICAL HISTORY: 2 hr post biopy cxr TECHNIQUE: 1 view of the chest COMPARISON: CT guided right lung biopsy and chest x-ray, earlier today FINDINGS: No pneumothorax is identified. A small right pleural effusion is unchanged. The right upper lobe lung nodule and right midlung are stable. Minimal left lung base scarring is unchanged. The cardiac silhouette is slightly enlarged. Procedure Note Blu Yuen MD - 04/10/2024 EXAMINATION: XR CHEST ONE VIEW CLINICAL HISTORY: 2 hr post biopy cxr TECHNIQUE: 1 view of the chest COMPARISON: CT guided right lung biopsy and chest x-ray, earlier today FINDINGS: No pneumothorax is identified. A small right pleural effusion is unchanged. The right upper lobe lung nodule and right midlung are stable. Minimalleft lung base scarring is unchanged. The cardiac silhouette is slightly enlarged. IMPRESSION No pneumothorax. Thank you for letting us participate in the care of this patient. If youare a health care provider and have any questions regarding this report,please contact the number below. For patients who have questions please contactthe health director of primary care that requested your imaging first. Electronically signed by: [facility]EN [facility]([phone]), at 04/10/2024 5:11 PM Meir Vasquez MD IMG DX ORDERABLES documented in this encounter Visit Diagnoses Not on filedocumented in this encounter Care Teams Manager Of Administration Relationship Specialty Start Date End Date Maria Guadalupe Mendes MD [address] [place] [phone] PCP - General General Internal Medicine 09/06/23 documented as of this encounter
--- OUTSIDE RECORDS SUMMARY | 2024-07-28 01:30 | XMS_ITS | Encounter Summary ---
Author Organization [facility] Address [facility] [place] [address] Care Team Providers Care Senior Qa Analyst Name Role Phone Maria Guadalupe Mendes MD Primary Care Provider Encounter Details Date Type Department Care Team (Latest Contact Info) Description 11/07/2023 Travel Social History Tobacco Use Types Packs/Day [...] 12:30 PM EST Office Visit Hematology/Oncology at [address] [phone] Nick Mullen MD [facility] DR HEMATOLOGY [place] [address] Chana Myrick APRN [address] [place] [address] DR HEMATOLOGY AND ONCOLOGY [place], [place] [address] 07/28/2024 1:00 PM EST Scheduled View Only Hematology/Oncology at [address] [phone] Aleah Curran RN 07/28/2024 1:00 PM EST Infusion Hematology Oncology at [address] [phone] documented as of this encounter Visit Diagnoses Not on filedocumented in this encounter Care Teams Senior Qa Analyst Relationship Specialty Start Date End Date Maria Guadalupe Mendes MD [address] [place] [phone] PCP - General General Internal Medicine 09/06/23 documented as of this encounter
--- OUTSIDE RECORDS SUMMARY | 2024-07-28 01:30 | XMS_ITS | Encounter Summary ---
Author Organization [facility] Address [facility] [place] [address] Care Team Providers Care Intelligence Research Specialist Name Role Phone Maria Guadalupe Mendes MD Primary Care Provider Reason for Referral * Diagnostic Test (Routine) - Closed Specialty Diagnoses / Procedures Referred By Contac t Referred To Contact Radiology Diagnoses Primary malignant neoplasm of right upper lobe of lung Procedures CT Guided Biopsy Lung Alta Zamora PA [facility] DR HEMAT[place]Y [place] [address] [facility] [place] [address] Referral ID Status Reason Start Date Expiration Date V isits Requested Visits Authorized [id number] Closed Specialty Service Requested 03/25/2024 09/23/2025 1 1 Reason for Visit * Diagnostic Test (Routine) - Closed Specialty Diagnoses / Procedures Referred By Contac t Referred To Contact Radiology Diagnoses Primary malignant neoplasm of right upper lobe of lung Procedures CT Guided Biopsy Lung Alta Zamora PA [facility] DR HEMATOLOGY [place] [address] [facility] [place] [address] Referral ID Status Reason Start Date Expiration Date V isits Requested Visits Authorized [id number] Closed Specialty Service Requested 03/25/2024 09/23/2025 1 1 Encounter Details Date Type Department Care Team (Latest Contact Info) Description 04/10/2024 9:45 AM EDT - 04/10/2024 12:19 PM EDT Hospital [place] [address] Edwin Bolanos MD [address] [place] [address] [place] [address] Primary malignant neoplasm of right lower lobe of lung; Preop testing; Primary malignant neoplasm of right upper lobe of lung Discharge Disposition: Home Social History Tobacco Use Types Packs/Day Years Used Date Smoking Tobacco: Former Cigarettes 1 50 0 06/25/1967 - 06/25/2017 Smokeless Tobacco: Never Alcohol Use Standard Drinks/Week Comments Yes 0 (1 standard drink = 0.6 oz pur e alcohol) glass of wine once in a while [facility] Inpatient Questions Answer Date Recorded Does [...] Sign Reading Time Taken Comments Blood Pressure 142/51 04/10/2024 12:10 PM EDT Pulse 72 04/10/2024 12:10 PM EDT Temperature 36.9 ??C (98.4 ??F) 04/10/2024 10:23 AM E DT Respiratory Rate 17 04/10/2024 12:10 PM EDT Oxygen Saturation 99% 04/10/2024 12:10 PM EDT Inhaled Oxygen Concentration - - Weight - - Height - - Body Mass Index - - documented in this encounter Discharge Instructions * Discharge Instructions* Mookie Chavira RN - 04/10/2024 11:54 AM EDT [facility] Vascular and Interventional Radiology Lung Biopsy Discharge Instructions Coughing up a little blood is common during the next 24 hours. If large blood clots come up, or if the bleeding gets worse, you should contact us or your doctor immediately. The most common complication is collapse of the lung. The symptoms of lung collapse are increasing pain on breathing, often extending into the shoulder on the side of the biopsy, and increasing difficulty breathing. If these symptoms occur after you leave the hospital, have someone drive you to the nearest Emergency Department as it must be treated promptly or call 911. Activity And Diet: Go home and rest quietly for the remainder of the day. You may resume your normal activities tomorrow. Resume your usual diet after the procedure. Do not drive, sign any important/legal documents, or make any important decisions for 24 hours following sedation medications. When to call your healthcare provider: If you see any redness, swelling or drainage at the biopsy site. If you develop chills. If you have a fever greater than or equal to 101 degrees Fahrenheit. If you develop pain around the biopsy site. Bandage: Check the dressing/bandaid throughout the day for an increase in drainage. Keep the biopsy site dryfor 24 hours. Replace the bandaid as needed. You may shower 24 hours after the biopsy. Medication: DO NOT take aspirin-containing products, ibuprofen, or blood-thinning medication for the next 24 hours unless your clinician says you may do so. Generally you may use acetaminophen as needed for discomfort unless you have liver disease and are instructed not to take acetaminophen. Biopsy Results The results of your biopsy should be available within 5 business days and will be reported to you by your primary special needs caregiver or the clinician who ordered the biopsy. Please do not call us for results as we will not have them. If you have not been contacted by your clinician within 5 business days you should call that officefor further information. When to call the Interventional Radiology Department: Please call with any questions or concerns. If it is during regular office hours, please call [phone]. If it is after regular office hours, or on weekends or holidays, please call [phone] and ask to speak to the Cathode Washer sponsorship manager for Interventional Radiology. You have received medication during your procedure to help lessen anxiety and keep you comfortable.These medications affect judgement and reaction time. We recommend that you do not drive, operate equipment, sign any important documents, or smoke unattended for 24 hours following your procedure. Because of the sedation, be careful on stairs, as you may be unsteady on your feet. You may resume your regular diet as tolerated. IV site -- slight redness, or tenderness is normal, you can use a warm compress. If tenderness and redness increases or foul drainage occurs, please contact your M. D. Revised 08/30/20 documented in this encounter Medications at Time of Discharge [...] mouth daily. OXYGEN-AIR DELIVERY SYSTEMS MISC by [employer] [...] 11/04/2021 07/08/2024 documented as of this encounter Progress Notes * Gio Kelly RN - 04/10/2024 12:19 PM EDT Follow up call completed for CT Right Lung Biopsy on 04/10/24. Patient states that they have no concerns or questions at this time and was encouraged to call IR Department should any question or concerns arise. or concerns. * Smooth Verdin RN - 04/10/2024 12:01 PM EDT [facility] NURSING DATABASE Name: Kiersten Barraza Date of : 1940 AGE: 84 y.o. [address]: [address] [place] [phone] (home) Mobile: No relevant phone numbers on file. Referring Provider: Alta Zamora REASON FOR VISIT: Order Questions Answers Where will study be performed? [facility] Radiology [120] To be scheduled Next available after expected date Laterality Right Is the patient on anticoagulant / antiplatelet therapy ? Aspirin Is this biopsy due to suspicion for disease progression Yes Does the patient have any pertinent outside imaging? 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 Onto table prone. All monitors, O2, safety strap in place. Meds per protocol. Laboratory Results: documented in this encounter H&P Notes * Vero Enriquez PA - 04/10/2024 10:44 AM EDT INTERVENTIONAL RADIOLOGY FOCUSED H&P: Procedure: RIGHT lung biopsy The patient's history and physical exam have been reviewed and completed. There has been no interval change from that of the pre-operative history and physical exam done within the last 30 days. Physical Exam: Cardiovascular: Regular, Normal Pulmonary: Breath sounds clear to auscultation The planned procedure (and sedation plan if appropriate) , its benefits and risks, and alternativeswere discussed with the patient. The patient and healthcare power of defense attorney consented to the procedure. PRE-SEDATION ASSESSMENT: Sedation Plan: moderate (conscious sedation) ASA: 3: Patient with severe systemic disease Mallampati: III: only the base of the uvula can be seen Confirm NPO status: Yes History of anesthetic complications: No Current medications reviewed: Yes Allergies reviewed: Yes Source Note - Meir Vasquez MD - 03/25/2024 2:30 PM EDT Images from the original note were not included. IR PRE-PROCEDURE NOTE Name: Kiersten Barraza Date of : 1940 Age: 84 y.o. Referring Physician (if different): EMPERATRIZ Gonzalez Indication: Lung nodule Planned Procedure: CT guided right lung biopsy. Chief Complaint/Diagnosis: Per EMPERATRIZ Gonzalez, 84 y.o. female with a PMHx of COPD on 4L/min continuous supplemental oxygen who recently completedSBRT on 11/16/23 to a biopsy-proven RLL adenocarcinoma. Staging PET from 09/20/23 had also showed an FDG-avid RUL nodule, thought to be inflammatory, so was being observed. However, this RUL nodule hasnow grown, c/f malignancy. 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 OXYGEN-AIR DELIVERY SYSTEMS MISC by [facility].(Non-Drug; Combo Route) route. lactobacillus rhamnosus, GG, (CULTURELLE) 10 billion cell Capsule Take 1 capsule by mouth daily. acetaminophen (TYLENOL) 325 mg Tablet Take 650 mg by mouth every 4 hours as needed for Pain. cholecalciferol, Vitamin D3, 2,000 unit Capsule Take by mouth. No current facility-administered medications on file prior to visit. Labs: Will need platelet count Imaging: in [facility]. Physical Exam: pending ASA: pending Mallampati Class: pending Assessment / Plan: 84-year-old status post radiation treatment of right lower lobe lung cancer withfollow-up imaging showing an enlarging PET avid right upper lobe lesion. Planning CT-guided biopsy. Prophylactic antibiotic: No. Planned access site: Prone, TBD Needs plt count documented in this encounter Plan of Treatment Upcoming Encounters Date Type Department Care Team (Late st Contact Info) Description 07/28/2024 12:30 PM EST Office Visit Hematology/Oncology at [address] [phone] Nick Mullen MD [facility] DR [place]ATOLOGY [place] [address] Chana Myrick APRN [address] [place] [address] DR HEMATOLOGY [place] [address] 07/28/2024 1:00 PM EST Scheduled View Only Hematology/Oncology at [address] [phone] Aleah Curran RN 07/28/2024 1:00 PM EST Infusion Hematology Oncology at [address] [phone] documented as of this encounter Procedures Procedure Name Priority Date/Time Associated Diagnosis Comments XR CHEST ONE VIEW Routine 04/10/2024 2:1 4 PM EDT XR CHEST ONE VIEW STAT 04/10/2024 12: [address] GUIDED BIOPSY LUNG Routine 04/10/2024 12:10 PM EDT Primary malignant neoplasm of right upper lobe of lung CANCERSEQ (RNA) Routine 04/10/2024 11 :29 AM EDT Primary malignant neoplasm of right upper lobe of lung CANCERSEQ Routine 04/10/2024 11:29 AM EDT Primary malignant neoplasm of right upper lobe of lung SURGICAL PATHOLOGY Routine 04/10/2024 11 :29 AM EDT Primary malignant neoplasm of right upper lobe of lung documented in this encounter Results * XR Chest One View (04/10/2024 2:14 PM EDT) WORKSTATION ID [id number] RAD Anatomical Region Laterality Modality Chest N/A Digital Radiogra phy Impressions 04/10/2024 5:11 PM EDT No pneumothorax. Thank you for letting us participate in the care of this patient. ??If you are a health care provider and have any questions regarding this report, please contact the number below. ??For patients who have questions please contact the health personal care aide that requested your imaging [...] patients who have questions please contactthe health personal care aide that requested your imaging first. Meir Vasquez MD IMG DX ORDERABLES * XR Chest One View (04/10/2024 12:28 PM EDT) WORKSTATION ID [id number] RAD Anatomical Region Laterality Modality Chest N/A [...] who have questions please contact the health personal care aide that requested your imaging first. ? Electronically signed by: Jonathan Vargas MD, [facility] ([phone]), at 04/10/2024 12:54 PM Narrative 04/10/2024 12:54 [...] patients who have questions please contactthe health personal care aide that requested your imaging first. Electronically signed by: Jonathan Vargas MD, [facility]([phone]), at 04/10/2024 12:54 PM Edwin Bolanos MD IMG DX ORDERABLES * CT Guided Biopsy Lung (04/10/2024 12:10 PM EDT) Anatomical Region Laterality Modality Lung Computed Tomogra phy Narrative 04/10/2024 1:37 PM EDT Images from the original result were not included. IR PROCEDURE NOTE Procedure: Right Lung Biopsy Indication for Procedure: Per EMPERATRIZ Gonzalez, 84 y.o. 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 Staging PET from 09/20/23 had also showed an FDG-avid RUL nodule, thought to be inflammatory, so was being observed. However, this RUL nodule has now grown, c/f malignancy Procedure events and findings: After obtaining informed consent, patient was positioned prone on the CT table ??Initial non-contrast CT showed a peripheral right upper lobe nodule as on prior CT. ??A site for bx was chosen and identified on the skin with the assistance of the CT laser lights. ??Due to the painful nature of the procedure, patient received split doses of intravenous fentanyl and versed from the IR nurse while pulse, pressure, and oxygen saturation were continuously monitored. The skin was marked and prepped, maximum sterile barrier technique was used throughout. ??Local anesthesia provided with 1% lidocaine, a 19ga coaxial needle was directed to the lung lesion with CT guidance. Three 20ga 2cm core biopsies were obtained. ??Post biopsy CT scan performed showing local intraparenchymal hemorrhage adjacent to the biopsy site and no evidence of pneumothorax. ??Coaxial needle was removed with placement of a Biosentry plug. ??Access site dressed. Medications: Fentanyl 100 mcg IV, Versed 2 mg IV, 1% Lidocaine <10ccs subcutaneous. Fluoro: 1512 mGraycm Est Blood Loss: <5cc. Complications: ??No immediate Impression: Right upper lobe lung nodule as on prior CT 03/10/2024. CT Guided biopsy with three 20-gauge cores obtained. Post-biopsy CT showed focal hemorrhage adjacent to the biopsy site and no pneumothorax. Chest x-ray now and again in 2 hours. Resident/Fellow: Marvin Vicente DO Attending: Meir Vasquez MD. ??I, Dr. Vasquez was present throughout this procedure. ??I was present during the intraservice time as documented by the IR Nurse. ?? Edwin Bolanos MD [facility] CT ORDERABLES * CancerSeq (RNA) (04/10/2024 11:29 AM EDT) NGS Report Status Resulted 05/01/2024 10:41 AM EST [facility] Tissue RIGHT LUNG STRUCTURE / Unknown 04/10/2024 11:29 AM EDT 04/16/2024 10:13 AM EDT Edwin Bolanos MD MOLECULAR ORDERABLES [facility] [place] [address] * (ABNORMAL) [facility] (04/10/2024 11:29 AM EDT) NGS Report Status Abnormal(A ) 05/01/2024 10:41 AM EST [facility] Tissue RIGHT LUNG STRUCTURE / Unknown 04/10/2024 11:29 AM EDT 04/16/2024 10:13 AM EDT Edwin Bolanos MD MOLECULAR ORDERABLES [facility] [place] [address] * (ABNORMAL) Surgical Pathology (04/10/2024 11:29 AM EDT) Case Report Surgical Pathology Report ? Case: [id number] ? Authorizing Provider: ??Edwin Bolanos MD ? Collected: ? 04/10/2024 1129 ? Ordering Location: ? CT Scan at [facility] ?Received: ?04/10/2024 1232 ? Pathologist: ? Tracey Paiz, DO ? Specimen: ?Lung, Right, CT Guided Right Lung Biopsy ? 04/16/2024 4:02 PM [facility] Final Diagnosis A. Lung, Right, CT Guided Core Needle Biopsy: Adenocarcinoma, (see Discussion.) 04/16/2024 4:02 PM [facility] Discussion The tumor shows acinar growth and a biphasic appearence with some tumor cells showing more plump, oncocytic cytoplasm. These cells weakly co-express P40 and TTF1. A focal adenosquamous component can not be excluded. PDL1 and NGS have been ordered. 04/16/2024 4:02 PM [facility] Addendum Tumor Proportion Score (TPS): % Expression: 50 Interpretation Table: PD-L1 assay (22C3 pharmDX) for Keytruda Tumor Proportion Score (TPS): <1% PD-L1 Negative >=1% PD-L1 Expression Immunohistochemical assay was performed on paraffin-embedded tissue sections fixed in 10% neutral buffered formalin for 6-72 hours using the polymer system technique with appropriate controls. The assay was performed according to the physician vice president's instructions using Anti-PD-L1 (22C3, pharmDX) antibody. 04/16/2024 4:02 PM [facility] Addendum electronically signed by Debora Ernst MD on 04/16/2024 at 4:02 PM Additional Studies Task ID IHC/Special Stains Result A1-2 TTF1 Positive A1-3 p63 Focal weak positive A1-7 Synaptophysin Negative 04/16/2024 4:02 PM [facility] Disclaimer(s) Formalin-fixed, paraffin-embedded tissue sections are studied using the polymer technique with appropriate positive and negative controls. These IHC studies provide the pathologist with adjunctive diagnostic information. Antibody specificity has been verified by testing antibodies on a series of in-house tissues with known immunohistochemical performance characteristics. The clinical interpretation of any antibody positive staining or its absence is evaluated within the context of clinical presentation, morphology, histopathological criteria and other diagnostic tests. 04/16/2024 4:02 PM [facility] Clinical Information A. Lung, Right, CT Guided Right Lung Biopsy *Other - as specified in Clinical Information Right Lung Mass + PET ? Path 04/16/2024 4:[address] [facility] Gross Description A. Lung, Right, CT Guided Right Lung Biopsy. A - Labeled/Fixative: CT-guided right lung biopsy, formalin. Quantity/Size: Four, ranging from 0.4 x 0.1 cm to 1.8 x 0.1 cm Tissue Description: Estrada needle core biopsies. Sections/Processing: Entirely submitted in 1 cassette labeled A1. 04/16/2024 4:[address] [facility] Result Note THIS RESULT REQUIRES PHYSICIAN/JANESSA FOLLOW UP(A) 04/16/2024 4:[address] [facility] Tissue RIGHT LUNG STRUCTURE / Unknown 04/10/2024 11:29 AM EDT 04/10/2024 12:32 PM EDT Comment:Right Lung Mass + PE T ? Path Edwin Bolanos MD PATHOLOGY/CYTOLOGY O RDERABLES [facility] [place] [address] documented in this encounter Visit Diagnoses Diagnosis Primary malignant neoplasm of right lower lobe of lung Malignant neoplasm of lower lobe, bronchus, or lung Preop testing Preoperative examination, unspecified Primary malignant neoplasm of right upper lobe of lung Malignant neoplasm of upper lobe, bronchus or lung documented in this encounter Administered Medications Inactive Administered Medications - up to 3 most recent administrations Medication Order MAR Action Action Date Dose Rate Site fentaNYL (pf) (50 mcg/mL) multi-dose injection 25-50 mcg 25-50 mcg, Intravenous, EVERY 3 MIN PRN, Starting on Emilia 04/10/24 at 1012, Until 04/11/24 at 0436, Pain, per unit protocol, For use in Interventional Radiology (IR) only for procedural sedation with direct provider supervision and verbal order. - Start dose: 50 mcg (reduce dose to 25 mcg if history of sedation sensitivity). - Titration dose: 25-50 mcg IV, (based on patient response) every 3 minutes PRN to maintain procedural pain less than 2 per Pain Scale. Maximum dose: 50 mcg/dose, 250 mcg/hour, Angio/IR (Intra-Procedure), Routine Given 04/10/2024 12:06 PM EDT 25 mcg Given 04/10/2024 11:58 AM EDT 25 mcg Given 04/10/2024 11:45 AM EDT 50 mcg lidocaine (Xylocaine) 1% (10 mg/mL) injection 10 mg 10 mg, Subcutaneous, ONCE, 1 dose, On Emilia 04/10/24 at 1030, For use in Interventional Radiology (IR) only for procedure with direct provider supervision and verbal order., Angio/IR (Intra-Procedure), Routine Given 04/10/2024 12:00 PM EDT 10 mg midazolam (pf) (Versed) (1 mg/mL) multi-dose injection 0.5-1 mg 0.5-1 mg, Intravenous, EVERY 3 MIN PRN, Starting on Emilia 04/10/24 at 1012, Until Sun04/11/24 at 0436, Sedation, For use in Interventional Radiology (IR) only for procedural sedation with direct provider supervision and verbal order. - Start dose: 1 mg (Reduce dose to 0.5 mg if history of sedation sensitivity). - Titration dose: 0.5 mg - 1 mg (based on patient response) every 3 minutes PRN to obtain RASS score of -3. Maximum dose: 1 mg/dose, 5 mg/hour., Angio/IR (Intra-Procedure), Routine Given 04/10/2024 12:06 PM EDT 0.5 mg Given 04/10/2024 11:58 AM EDT 0.5 mg Given 04/10/2024 11:46 AM EDT 1 mg sodium chloride 0.9 % (flush) (BD PosiFlush Normal Saline 0.9) flush 5 mL 5 mL, Intravenous, 2 TIMES DAILY, First dose on Emilia 04/10/24 at 1030, Until Discontinued, Angio/IR (Day of Procedure), Routine Given 04/10/2024 10:30 AM EDT 5 mLs sodium chloride 0.9% infusion 1,000 mL, at 100 mL/hr, Intravenous, CONTINUOUS, Starting on Emilia 04/10/24 at 1030, Until Sun04/11/24 at 0436, Angio/IR (Day of Procedure) New Bag 04/10/2024 10:30 AM EDT 1,000 mLs 100 mL/hr documented in this encounter Care Teams Intelligence Research Specialist Relationship Specialty Start Date End Date Maria Guadalupe Mendes MD [address] [place] [phone] PCP - General General Internal Medicine 09/06/23 documented as of this encounter
--- OUTSIDE RECORDS SUMMARY | 2024-07-28 01:30 | XMS_ITS | Encounter Summary ---
[place] [address] Care Team Providers Care Ribbon Hanking Machine Operator Name Role Phone Maria Guadalupe Mendes MD Primary Care Provider [phone] Encounter Details Date Type Department Care Team (Late st Contact Info) Description 01/16/2024 Telephone Hematology [place] [phone] Sayda Garcia Social History Tobacco Use Types Packs/Day Years Used Date Smoking Tobacco: Former Cigarettes 1 50 0 06/25/1967 - 06/25/2017 Smokeless Tobacco: Never Alcohol Use Standard Drinks/Week Comments Yes 0 (1 standard drink = 0.6 oz pur e alcohol) glass of wine once in a while [facility] Inpatient Questions Answer Date Recorded Does Anyone [...] encounter Miscellaneous Notes * Telephone Encounter - Sayda Garcia - 01/16/2024 3:56 PM EDT Procedure Prior Authorization Procedure/Cpt: 0[address]75 Ct Chest Rationale: C34.31 Health Plan: [employer] Authorizing Vendor: [employer] Order/ Authorization #: [id number] Effective Date: 01/16/24-03/16/24 Status: Approved Rendering Facility: [facility] documented in this encounter Plan of Treatment Upcoming Encounters Date Type Department Care Team (Late st Contact Info) Description 07/28/2024 12:30 PM EST Office Visit Hematology/Oncology at [address] [phone] Nick Mullen MD [facility] DR HEMATOLOGY [place] [address] Chana Myrick VERIFICATION CLERK [address] [place] [address] DR HEMATOLOGY AND ONCOLOGY [place], [place] [id number] 07/28/2024 1:00 PM EST Scheduled View Only Hematology/Oncology at [address] [phone] Aleah Curran RN 07/28/2024 1:00 PM EST Infusion Hematology Oncology at [address] [phone] documented as of this encounter Visit Diagnoses Not on filedocumented in this encounter Care Teams Ribbon Hanking Machine Operator Relationship Specialty Start Date End Date Maria Guadalupe Mendes MD [address] [place] [address] PCP - General General Internal Medicine 09/06/23 documented as of this encounter
--- OUTSIDE RECORDS SUMMARY | 2024-07-28 01:30 | XMS_ITS | Encounter Summary ---
Author Organization [facility] Address [facility] [place] [address] Care Team Providers Care Architectural Associate Name Role Phone Maria Guadalupe Mendes MD Primary Care Provider Encounter Details Date Type Department Care Team (Late st Contact Info) Description 03/25/2024 Orders [place] [phone] [facility] DR [place] [address] Primary malignant neoplasm of right lower lobe of lung Social History Tobacco Use Types Packs/Day Years Used Date Smoking Tobacco: Former Cigarettes 1 50 0 06/25/1967 - 06/25/2017 Smokeless Tobacco: Never Alcohol Use Standard Drinks/Week Comments Yes 0 (1 standard drink = 0.6 oz pur e alcohol) glass of wine once in a while [facility] Inpatient Questions Answer Date Recorded [...] as of this encounter Progress Notes * Meir Vasquez MD - 03/25/2024 2:30 PM [...] mouth daily. OXYGEN-AIR DELIVERY SYSTEMS MISC by [facility].(Non-Drug; Combo Route) route. lactobacillus rhamnosus, GG, (CULTURELLE) [...] 12:30 PM EST Office Visit Hematology/Oncology at [address] [phone] [facility] DR HEMATOLOGY [place] [address] Chana Myrick APRN [address] [place] [address] DR HEMATOLOGY AND ONCOLOGY [place], [place] [id number] 07/28/2024 1:00 PM EST Scheduled View Only Hematology/Oncology at [address] [phone] Aleah Curran RN 07/28/2024 1:00 PM EST Infusion Hematology Oncology at [address] [phone] documented as of this encounter Visit Diagnoses Diagnosis Primary malignant neoplasm of right lower lobe of lung Malignant neoplasm of lower lobe, bronchus, or lung documented in this encounter Care Teams Architectural Associate Relationship Specialty Start Date End Date Maria Guadalupe Mendes MD [address] [place] [phone] PCP - General General Internal Medicine 09/06/23 documented as of this encounter
--- OUTSIDE RECORDS SUMMARY | 2024-07-28 01:30 | XMS_ITS | Encounter Summary ---
Author Organization [facility] Address [facility] [place] [address] Care Team Providers Care Senior Net Software Developer Name Role Phone Maria Guadalupe Mendes MD Primary Care Provider Encounter Details Date Type Department Care Team (Late st Contact Info) Description 03/26/2024 Telephone Radiation Oncology at [address] [phone] Kathia Torres Social History Tobacco Use Types Packs/Day Years [...] encounter Miscellaneous Notes * Telephone Encounter - Kathia Torres - 03/26/2024 9:01 AM EDT I called and spoke with Kiersten several times about her upcoming appt. We kept getting disconnected I am mailing out a appt letter with directions on the letter documented in this encounter Plan of Treatment Upcoming Encounters Date Type Department Care Team (Late st Contact Info) Description 07/28/2024 12:30 PM EST Office Visit Hematology/Oncology at [address] [phone] Nick Mullen MD [facility] DR [place] [address] Chana Myrick [address] HEMATOLOGY AND ONCOLOGY [place], [place] [id number] 07/28/2024 1:00 PM EST Scheduled View Only Hematology/Oncology at [address] [phone] Aleah Curran RN 07/28/2024 1:00 PM EST Infusion Hematology Oncology at [address] [phone] documented as of this encounter Visit Diagnoses Not on filedocumented in this encounter Care Teams Senior Net Software Developer Relationship Specialty Start Date End Date Maria Guadalupe Mendes MD [address] [place] [phone] PCP - General General Internal Medicine 09/06/23 documented as of this encounter
--- OUTSIDE RECORDS SUMMARY | 2024-07-28 01:30 | XMS_ITS | Encounter Summary ---
Author Organization [facility] Address [facility] [place] [address] Care Team Providers Care Legal Instructor Name Role Phone Maria Guadalupe Mendes MD Primary Care Provider [phone] Encounter Details Date Type Department Care Team (Latest Contact Info) Description 11/14/2023 Travel Social History Tobacco Use Types Packs/Day [...] PM EST Office Visit Hematology/Oncology at [address] [phone] Nick Mullen MD [facility] DR HEMATOLOGY [place] [address] Chana Myrick APRN [address] [place] [address] DR HEMATOLOGY AND ONCOLOGY [place], [place] [address] 07/28/2024 1:00 PM EST Scheduled View Only Hematology/Oncology at [address] [phone] Aleah Curran RN 07/28/2024 1:00 PM EST Infusion Hematology Oncology at [address] [phone] documented as of this encounter Visit Diagnoses Not on filedocumented in this encounter Care Teams Legal Instructor Relationship Specialty Start Date End Date Maria Guadalupe Mendes MD [address] [place] [phone] PCP - General General Internal Medicine 09/06/23 documented as of this encounter
--- OUTSIDE RECORDS SUMMARY | 2024-07-28 01:30 | XMS_ITS | Encounter Summary ---
Author [facility] [place] [address] Care Team Providers Care Snowboarding Instructor Name Role Phone Maria Guadalupe Mendes MD Primary Care Provider Encounter Details Date Type Department Care Team (Late st Contact Info) Description 04/16/2024 Telephone Radiation Oncology at [address] [phone] Kathia Torres Social History Tobacco [...] * Telephone Encounter - Kathia Torres - 04/16/2024 9:13 AM EDT Kiersten is aware of her tov with Alta Zamora on 04/22 at 10:30am documented in this encounter Plan of Treatment Upcoming Encounters Date Type Department Care Team (Late st Contact Info) Description 07/28/2024 12:30 PM EST Office Visit Hematology/Oncology at [address] [phone] [facility] DR [place] [address] Chana Myrick APRN [address] [place] [address] DR HEMATOLOGY AND ONCOLOGY [place], [place] [id number] 07/28/2024 1:00 PM EST Scheduled View Only Hematology/Oncology at [address] [phone] Aleah Curran RN 07/28/2024 1:00 PM EST Infusion Hematology Oncology at [address] [phone] documented as of this encounter Visit Diagnoses Not on filedocumented in this encounter Care Teams Snowboarding Instructor Relationship Specialty Start Date End Date Maria Guadalupe Mendes MD [address] [place] [phone] PCP - General General Internal Medicine 09/06/23 documented as of this encounter
--- OUTSIDE RECORDS SUMMARY | 2024-07-28 01:30 | XMS_ITS | Encounter Summary ---
Author Organization [facility] Address [facility] [place] [address] Care Team Providers Care Fire Behavior Analyst Name Role Phone Maria Guadalupe Mendes MD Primary Care Provider Reason for Referral * Diagnostic Test (Routine) - Closed Specialty Diagnoses / Procedures Referred By Contac t Referred To Contact Radiology Diagnoses Primary malignant neoplasm of right upper lobe of lung Procedures CT Guided Biopsy Lung Alta Zamora PA [facility] HEMATOLOGY [place] [address] [facility] [place] [address] Referral ID Status Reason Start Date Expiration Date V isits Requested Visits Authorized [id number] Closed Specialty Service Requested 03/25/2024 09/23/2025 1 1 Encounter Details Date Type Department Care Team (Latest Contact Info) Description 03/25/2024 10:30 AM EDT TH Visit (TeleHealth) Radiation Oncology at [address] [phone] Alta Zamora PA [facility] HEMATOLOGY [place] [address] Primary malignant neoplasm of right lower lobe of lung (Primary Dx); S/P radiotherapy; Primary malignant neoplasm of right upper lobe of lung Social History Tobacco Use Types Packs/Day Years Used Date Smoking Tobacco: Former Cigarettes 1 50 0 06/25/1967 - 06/25/2017 Smokeless Tobacco: Never Alcohol Use Standard Drinks/Week Comments Yes 0 (1 standard drink = 0.6 oz pur e alcohol) glass of wine once in a while [facility] Inpatient Questions Answer Date Recorded Does Anyone [...] Progress Notes * Alta Zamora PA - 03/25/2024 10:30 AM EDT [facility] [place] [address] TELEHEALTH FOLLOW-UP: Patient: Kiersten Barraza : 1940 PCP: Maria Guadalupe Mnedes MD Plasterer Maintenance: Kevan Cameron MD ([facility]) Radiation Oncologist: Edwin Bolanos MD (Consult Date: [...] Surveillance Interval Symptoms Since Last Visit on 03/18/24: General: 03/10/[address] presented at today's CTOP Tumor Board. This phone appointment is to review those recommendations. Pain: 0/10 Fatigue/Activity Level: Lives alone in a senior apartment on the third floor. 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 Weight/Appetite/Diet: No recent changes in appetite. Denies unintentional weight loss/gain. Respiratory: No acute changes since last appointment 1 week ago. Has been using a wheelchair for distance [...] follow-up. Assessment & Plan: #Lung cancer: - Chest CT from 03/10/24 showed treated RLL nodule has decreased in size with expected radiation changes present. RUL nodule (FDG-avid on 09/20/23 PET) continues to grow from 6 mm to 1.2 cm since 09/11/23, c/f malignancy. Other indeterminate, small peripheral nodules in RUL and left mid-lung appear stable, will continue to monitor. No new LAD. - Reports ARZATE has continued to worsen (but no acute changes since appointment last week), feels outof breath more quickly, which causes her to limit her physical activity. No SOB at rest. On 3.5-4L/min continuous supplemental oxygen. Inhalers/nebulizer managed by PCP. Denies f/c, cough, or hemoptysis. Patient plans to contact PCP to discuss symptoms and potential need for Pulmonology referral tore-establish care. - CT results reviewed at today's CTOP Tumor Board with recommendation to proceed with CT-guided biopsy of growing RUL nodule. Patient is agreeable. #Effects of EBRT: - Completed definitive SBRT [...] provided: none #Referrals placed: none Follow-Up: Next visit: TBD pending RUL biopsy results Kiersten Barraza had the opportunity to [...] 12:30 PM EST Office Visit Hematology/Oncology at [address] [phone] Nick Mullen MD [facility] DR HEMATOLOGY [place] [address] Chana Myrick BUSINESS SYSTEM MANAGER [address] [place] [address] DR HEMATOLOGY AND ONCOLOGY [place], [place] [phone] 07/28/2024 1:00 PM EST Scheduled View Only Hematology/Oncology at [address] [phone] Aleah Curran, ELIZABETH 07/28/2024 1:00 PM EST Infusion Hematology Oncology at [address] [phone] documented as of this encounter Results * CT Guided Biopsy Lung (04/10/2024 12:10 [...] the IR Nurse. ?? Edwin Bolanos MD IMG CT ORDERABLES documented in this [...] lung documented in this encounter Care Teams Fire Behavior Analyst Relationship Specialty Start Date End Date Maria Guadalupe Mendes MD [address] [place] [phone] PCP - General General Internal Medicine 09/06/23 documented as of this encounter
--- OUTSIDE RECORDS SUMMARY | 2024-07-28 01:30 | XMS_ITS | Encounter Summary ---
Author Organization [facility] Address [facility] [place] [address] Care Team Providers Care Pss Delivery Professional Name Role Phone Maria Guadalupe Mendes MD Primary Care Provider Encounter Details Date Type Department Care Team (Latest Contact Info) Description 10/04/2023 6:34 AM EDT - 10/04/2023 11:59 PM EDT Hospital [place] [phone] Discharge Disposition: Home Social History Tobacco Use [...] Sig Dispensed Refills Start Date End Date CoQ-10 100 mg Capsule PRN 11/24/2021 atorvastatin [...] D3, 2,000 unit Capsule Take by mouth. mupirocin (Bactroban) 2 % Ointment Apply topically daily. 22 g 04/05/2022 10/29/2023 ketoconazole (Nizoral) 2 % Cream APPLY TO AFFECTED AREA ONCE DAILY NEEDED 11/04/2021 07/08/2024 furosemide (Lasix) 20 mg Tablet PRN 10/29/2023 hydrOXYzine (Atarax) 10 mg/5 mL Solution hydroxyzine HCl 10 mg/5 mL oral solution Take 2.5 ml by mouth daily as needed for anxiety 10/29/2023 amLODIPine (NORVASC) 5 mg Tablet Take 5 mg by mouth daily. 11/12/2023 documented as of this encounter Plan of Treatment Upcoming Encounters Date Type Department Care Team (Late st Contact Info) Description 07/28/2024 12:30 PM EST Office Visit Hematology/Oncology at [address] [phone] Nick Mullen MD [facility] DR [place] [address] Chana Myrick APRN [address] [place] [address] DR HEMATOLOGY AND ONCOLOGY [place], [place] [id number] 07/28/2024 1:00 PM EST Scheduled View Only Hematology/Oncology at [address] [phone] Aleah Curran RN 07/28/2024 1:00 PM EST Infusion Hematology Oncology at [address] [phone] documented as of this encounter Visit Diagnoses Not on filedocumented in this encounter Care Teams Pss Delivery Professional Relationship Specialty Start Date End Date Maria Guadalupe Mendes MD [address] [place] [phone] PCP - General General Internal Medicine 09/06/23 documented as of this encounter
--- OUTSIDE RECORDS SUMMARY | 2024-07-28 01:30 | XMS_ITS | Encounter Summary ---
Author Organization [facility] [place] [address] Care Team Providers Care Flight Hostess Name Role Phone Maria Guadalupe Mendes MD Primary Care Provider Encounter Details Date Type Department Care Team (Late Contact Info) Description 03/10/2024 Interpretation Only [address] [phone] Edwin Bolanos MD [address] [place] [address] [place] [address] Social History Tobacco Use Types [...] Encounters Date Type Department Care Team (Late Contact Info) Description 07/28/2024 12:30 PM EST Office Visit Hematology/Oncology at [address] [phone] Nick Mullen MD [facility] DR HEMATOLOGY [place] [address] Chana Myrick APRN [address] [place] [address] DR [place]EM[place]Y [place] [address] 07/28/2024 1:00 PM EST Scheduled View Only Hematology/Oncology at [address] [phone] Aleah Curran RN 07/28/2024 1:00 PM EST Infusion Hematology Oncology at [address] [phone] documented as of this encounter Procedures Procedure Name Priority Date/Time Associated Diagnosis Comments CT CHEST WO CONTRAST (GENERIC) Routine 03/10/2024 1:20 PM EDT documented in this encounter Results * CT Chest wo Contrast (Generic) (03/10/2024 1:20 PM EDT) PT CLASS O RAD ADMITDTTM [id number] RAD PT RAD INFO [id number]^[place] a^[place] RAD EXAM DESC CTCHST^CT Chest w/o Contrast^[facility] WORKSTATION ID [id number] RAD Anatomical Region Laterality Modality Chest Computed Tomogra phy 03/10/2024 1:07 PM EDT Impressions 03/10/2024 2:17 PM EDT 1. ??Posttreatment changes in the right lower lobe with interval decrease in size of the treated lesion, as above. 2. ??Ongoing increase in size of a peripheral nodule along the lateral aspect of the right upper lobe, concerning for an additional focus of malignancy. 3. ??Unchanged indeterminate small peripheral nodules in the right upper and left midlung regions, attention on follow-up. Thank you for letting us participate in the care of this patient. ??If you are a health care provider and have any questions regarding this report, please contact the number below. ??For patients who have questions please contact the health transitional care manager that requested your imaging first. ? Electronically signed by: Mihai Guerrero MD, [facility] ([phone]), at 03/10/2024 2:17 PM Narrative 03/10/2024 2:17 PM EDT EXAMINATION: CT Chest w/o Contrast CLINICAL HISTORY: s/p SBRT ro RLL for stage i NSCLC, completed 11/16/23 please eval for interval response TECHNIQUE: Helical CT of the chest without intravenous contrast administration. Thin-section reconstructions as well as coronal and sagittal reformatted images were generated. COMPARISON: October 29, 2023, September 11, 2023 FINDINGS: Pulmonary parenchyma: Centrilobular apical predominant centrilobular emphysema is again seen. Interval decrease in size of now approximately 1.5 cm mass in the periphery of the right lower lobe, compared to 2 cm previously. Surrounding patchy areas of airspace consolidation, and interval development of a small right-sided pleural effusion consistent with posttreatment change. Ongoing increase in size of a now 1.2 cm opacity in the right upper lobe, up from 6 mm previously, concerning for an additional developing focus of pulmonary malignancy (series 3 image 19). Unchanged small peripheral nodular opacities in the right upper lobe anteriorly and medially, and in the left midlung region. Airways: No central endobronchial abnormality. Pleura: Small right-sided pleural effusion. Lymph nodes: No lymphadenopathy. Heart and vasculature: Normal size of the heart. A trace pericardial effusion, unchanged. Normal caliber of the thoracic aorta. Other mediastinal structures: No significant findings. Upper abdomen: No significant findings. Skeletal structures: No significant findings. Procedure Note Mihai Guerrero MD - 03/10/2024 EXAMINATION: CT Chest w/o Contrast CLINICAL HISTORY: s/p SBRT ro RLL for stage i NSCLC, completed 11/16/23please eval for interval response TECHNIQUE: Helical CT of the chest without intravenous contrastadministration. Thin-section reconstructions as well as coronal and sagittal reformattedimages were generated. COMPARISON: October 29, 2023, September 11, 2023 FINDINGS: Pulmonary parenchyma: Centrilobular apical predominant centrilobular emphysema is again seen. Interval decrease in size of now approximately 1.5 cm mass in theperiphery of the right lower lobe, compared to 2 cm previously. Surrounding patchyareas of airspace consolidation, and interval development of a small right-sidedpleural effusion consistent with posttreatment change. Ongoing increase in size of a now 1.2 cm opacity in the right upper lobe,up from 6 mm previously, concerning for an additional developing focus ofpulmonary malignancy (series 3 image 19). Unchanged small peripheral nodular opacities in the right upper lobeanteriorly and medially, and in the left midlung region. Airways: No central endobronchial abnormality. Pleura: Small right-sided pleural effusion. Lymph nodes: No lymphadenopathy. Heart and vasculature: Normal size of the heart. A trace pericardialeffusion, unchanged. Normal caliber of the thoracic aorta. Other mediastinal structures: No significant findings. Upper abdomen: No significant findings. Skeletal structures: No significant findings. IMPRESSION 1. Posttreatment changes in the right lower lobe with interval decreasein size of the treated lesion, as above. 2. Ongoing increase in size of a peripheral nodule along the lateralaspect of the right upper lobe, concerning for an additional focus of malignancy. 3. Unchanged indeterminate small peripheral nodules in the right upperand left midlung regions, attention on follow-up. Thank you for letting us participate in the care of this patient. If youare a health care provider and have any questions regarding this report,please contact the number below. For patients who have questions please contactthe health transitional care manager that requested your imaging first. Electronically signed by: Mihai Guerrero MD, [facility]([phone]), at 03/10/2024 2:17 PM Edwin Bolanos MD IMG CT ORDERABLES documented in this encounter Visit Diagnoses Not on filedocumented in this encounter Care Teams Flight Hostess Relationship Specialty Start Date End Date Maria Guadalupe Mendes MD [address] [place] [phone] PCP - General General Internal Medicine 09/06/23 documented as of this encounter
--- OUTSIDE RECORDS SUMMARY | 2024-07-28 01:30 | XMS_ITS | Encounter Summary ---
Author Organization [facility] Address [facility] [place] [address] Care Team Providers Care Airframe And Power Plant Mechanic Name Role Phone Maria Guadalupe Mendes MD Primary Care Provider Reason for Visit * Consultation (Routine) - Closed Specialty Diagnoses / Procedures Referred By Contac t Referred To Contact Radiation Oncology Diagnoses Primary malignant neoplasm of right lower lobe of lung Procedures Simulation for Radiation Therapy Planning Edwin Bolanos MD [address] [place] [address] [place] [address] [facility] [place] [address] Referral ID Status Reason Start Date Expiration Date V isits Requested Visits Authorized [id number] Closed Consult, Test & Treat 10/31/2023 01/31/2024 6 6 Encounter Details Date Type Department Care Team (Latest Contact Info) Description 11/14/2023 2:00 PM EDT Procedure visit Radiation Oncology at [address] [phone] Balbir Morton MD [facility] [place] [address] Primary malignant neoplasm of right [...] Sign Reading Time Taken Comments Blood Pressure 127/54 11/14/2023 2:11 PM EDT Pulse 101 11/14/2023 2:11 PM EDT Temperature 37 ??C (98.6 ??F) 11/14/2023 2:11 PM EDT Respiratory Rate 16 11/14/2023 2:11 PM EDT Oxygen Saturation 97% 11/14/2023 2:11 PM EDT Inhaled Oxygen Concentration - - Weight - - Height - - Body Mass Index - - documented in this encounter Progress Notes * Balbir Morton MD - 11/14/2023 2:00 PM EDT Images from the original note were not included. [facility] Medicine Radiation Oncology Radiation Oncology SBRT [...] 5 fractions Current Dose: 11 Gy in 3 fractions (seen prior to today's SBRT) Paintings Restorer Kraft from Current Plan (minimum 55 Gy isodose volume shown): Interval Clinical Course General: Increased tiredness. Resp: No new cough or SOB. Pain: [...] confined to bed or chair Medications Medications 11/15/23 1334 Medication Sig Taking? emollient combination no.111 (REMEDY [...] mouth daily. OXYGEN-AIR DELIVERY SYSTEMS MISC by [facility].(Non-Drug; Combo Route) route. lactobacillus rhamnosus, GG, (CULTURELLE) 10 billion cell Capsule Take 1 capsule by mouth daily. acetaminophen (TYLENOL) 325 mg Tablet Take 650 mg by mouth every 4 hours as needed for Pain. cholecalciferol, Vitamin D3, 2,000 unit Capsule Take by mouth. Exam Vitals: BP 127/54 (Patient Position: Sitting) Pulse (!) 101 Temp 37 ??C (98.6 ??F) (Temporal) Resp 16 SpO2 97% General: Appears well, in no distress. Skin of R chest/back w/o erythema. Imaging/Labs Interval setup imaging has been checked and approved. See Aria for details. Impression/Plan Tolerance to radiotherapy: Tolerating as anticipated. Continue as planned. Followup: RTC for on-treatment assessment W., 11/14/23. Post Treatment Note I directly observed and supervised today's treatment from the radiation therapy console, which consisted of pretreatment imaging for setup, cone-beam CT for verification and intrafraction monitoring using the VisionRT surface guided treatment system. Kiersten tolerated treatment with no concerns and will return for her 5th fraction No orders of the defined types were placed in this encounter. National [facility] [place] (NCI) [facility] [employer] Commission on Cancer (ACS Sheyla) Accredited Cancer Program [employer] (ACR) Accredited Radiation Oncology Program documented in this encounter Plan of Treatment Upcoming Encounters Date Type Department Care Team (Late st Contact Info) Description 07/28/2024 12:30 PM EST Office Visit Hematology/Oncology at [address] [phone] Nick Mullen MD [facility] [place] [address] Chana Myrick APRN [address] [place] [address] DR HEMATOLOGY AND ONCOLOGY [place], [place] [id number] 07/28/2024 1:00 PM EST Scheduled View Only Hematology/Oncology at [address] [phone] Aleah Curran RN 07/28/2024 1:00 PM EST Infusion Hematology Oncology at [address] [phone] documented as of this encounter Visit Diagnoses Diagnosis Primary malignant neoplasm of right lower lobe of lung Malignant neoplasm of lower lobe, bronchus, or lung documented in this encounter Care Teams Airframe And Power Plant Mechanic Relationship Specialty Start Date End Date Maria Guadalupe Mendes MD [address] [place] [phone] PCP - General General Internal Medicine 09/06/23 documented as of this encounter
--- OUTSIDE RECORDS SUMMARY | 2024-07-28 01:30 | XMS_ITS | Encounter Summary ---
Author Organization [facility] Address [facility] [place] [address] Care Team Providers Care Tug Boat Captain Name Role Phone Maria Guadalupe Mendes MD Primary Care Provider Encounter Details Date Type Department Care Team (Latest Contact Info) Description 04/10/2024 Travel Social History Tobacco Use Types Packs/Day [...] PM EST Office Visit Hematology/Oncology at [address] [phone] Nick Mullen MD [facility] DR HEMATOLOGY [place] [address] Chana Myrick APRN [address] [place] [address] DR HEMATOLOGY AND ONCOLOGY [place], [place] [address] 07/28/2024 1:00 PM EST Scheduled View Only Hematology/Oncology at [address] [phone] Aleah Curran RN 07/28/2024 1:00 PM EST Infusion Hematology Oncology at [address] [phone] documented as of this encounter Visit Diagnoses Not on filedocumented in this encounter Care Teams Tug Boat Captain Relationship Specialty Start Date End Date Maria Guadalupe Mendes MD [address] [place] [phone] PCP - General General Internal Medicine 09/06/23 documented as of this encounter
--- OUTSIDE RECORDS SUMMARY | 2024-07-28 01:30 | XMS_ITS | Encounter Summary ---
Author Organization [facility] [place] [address] Care Team Providers Care Diagnostics Sales Developer Name Role Phone Maria Guadalupe Mendes MD Primary Care Provider Encounter Details Date Type Department Care Team (Late st Contact Info) Description 10/02/2023 Telephone Radiation Oncology at [address] [phone] Pina Randolph, RN Social History Tobacco Use Types Packs/Day [...] encounter Miscellaneous Notes * Telephone Encounter - Pina Randolph RN - 10/02/2023 5:01 PM EDT Telephone call returned to patient. She confirmed that she does indeed wish to move forward with xrt. She is aware that she will need CT sim and that Dr. Bolanos is away this week. I let her know that I will update Dr. Bolanos regarding her decision and that she will be contact for next step. She is in agreement with this plan. * Telephone Encounter - Pina Randolph RN - 10/02/2023 5:01 PM EDT ----- Message from Pina Randolph RN sent at 10/01/2023 5:45 PM EDT ----- ----- Message ----- From: Dodie Christian Sent: 10/01/2023 10:03 AM EDT To: Linnea Merino; [facility] Rad Onc Nurse DomingoRonit Kiersten has decided she wants to pursue treatment. Did Dr. Bolanos leave any notes behind about getting her scheduled out? Kiersten is away the rest of the day but said she can discuss scheduling starting tomorrow. I gave her a heads up that NK is out this week documented in this encounter Plan of Treatment Upcoming Encounters Date Type Department Care Team (Late st Contact Info) Description 07/28/2024 12:30 PM EST Office Visit Hematology/Oncology at [address] [phone] Nick Mullen MD [facility] DR [place] [address] Chana Myrick APRN [address] [place] [address] DR HEMATOLOGY AND ONCOLOGY [place], [place] [address] 07/28/2024 1:00 PM EST Scheduled View Only Hematology/Oncology at [address] [phone] Aleah Curran RN 07/28/2024 1:00 PM EST Infusion Hematology Oncology at [address] [phone] documented as of this encounter Visit Diagnoses Not on filedocumented in this encounter Care Teams Diagnostics Sales Developer Relationship Specialty Start Date End Date Maria Guadalupe Mendes MD [address] [place] [phone] PCP - General General Internal Medicine 09/06/23 documented as of this encounter
--- OUTSIDE RECORDS SUMMARY | 2024-07-28 01:30 | XMS_ITS | Encounter Summary ---
Author Organization [facility] Address [facility] [place] [address] Care Team Providers Care Cylinder Press Feeder Name Role Phone Maria Guadalupe Mendes MD Primary Care Provider Encounter Details Date Type Department Care Team (Late st Contact Info) Description 04/07/2024 Telephone Dermatology at [facility] [address] [place] [address] Drake Chi MD [facility] DR [place] [address] Social History Tobacco Use Types Packs/Day Years [...] encounter Miscellaneous Notes * Telephone Encounter - Angy Madera LPN - 04/07/2024 10:18 AM EDT Spoke with patient and she is going in for a lung biopsy for lung cancer and would like to be called in 2 weeks to discuss the ED&C appointment and wants to know how long this can wait Advised I will let [place] know to call in 2 weeks and will review how long it can wait with Dr Chi * Telephone Encounter - Carmen Yates - 04/07/2024 9:11 AM EDT I reached out to pt to schedule her ED&C visit with Dr. Chi. Pt does not recall what this visit would be for & requested a call to re-discuss the bx results. Thank you, DANNY documented in this encounter Plan of Treatment Upcoming Encounters Date Type Department Care Team (Late st Contact Info) Description 07/28/2024 12:30 PM EST Office Visit Hematology/Oncology at [address] [phone] Nick Mullen MD [facility] DR [place] [address] Chana Myrick HATCHERY HELPER [address] [place] [address] DR HEMATOLOGY AND ONCOLOGY [place], [place] [id number] 07/28/2024 1:00 PM EST Scheduled View Only Hematology/Oncology at [address] [phone] Aleah Curran RN 07/28/2024 1:00 PM EST Infusion Hematology Oncology at [address] [phone] documented as of this encounter Visit Diagnoses Not on filedocumented in this encounter Care Teams Cylinder Press Feeder Relationship Specialty Start Date End Date Maria Guadalupe Mendes MD [address] [place] [phone] PCP - General General Internal Medicine 09/06/23 documented as of this encounter
--- OUTSIDE RECORDS SUMMARY | 2024-07-28 01:30 | XMS_ITS | Encounter Summary ---
Author Organization [facility] [place] [address] Care Team Providers Care Cooker Operator Name Role Phone Maria Guadalupe Mendes MD Primary Care Provider Reason for Referral * Consultation (Routine) - Closed Specialty Diagnoses / Procedures Referred By Contac t Referred To Contact Radiation Oncology Diagnoses Primary malignant neoplasm of right lower lobe of lung Procedures Simulation for Radiation Therapy Planning Edwin Bolanos MD [address] [place] [address] [place] [address] [facility] [address] Referral ID Status Reason Start Date Expiration Date V isits Requested Visits Authorized [id number] Closed Consult, Test & Treat 10/31/2023 01/31/2024 6 6 Encounter Details Date Type Department Care Team (Late st Contact Info) Description 10/08/2023 Orders Only Radiation Oncology at [address] [phone] Edwin Bolanos MD [address] [place] [address] [place] [address] Primary malignant neoplasm of right [...] 12:30 PM EST Office Visit Hematology/Oncology at [address] [phone] Nick Mullen MD [facility] [place] [address] Chana Myrick [address] HEMATOLOGY AND ONCOLOGY [place], [place] [id number] 07/28/2024 1:00 PM EST Scheduled View Only Hematology/Oncology at [address] [phone] Aleah Curran RN 07/28/2024 1:00 PM EST Infusion Hematology Oncology at [address] [phone] Scheduled Orders Name Type Priority Associated Diagnoses Orde r Schedule Simulation for Radiation Therapy Planning Radiation Oncology Routine Primary malignant neoplasm of right lower lobe of lung Expected: 10/08/2023, Expires: 04/08/2024 documented as of this encounter Visit Diagnoses Diagnosis Primary malignant neoplasm of right lower lobe of lung Malignant neoplasm of lower lobe, bronchus, or lung documented in this encounter Care Teams Cooker Operator Relationship Specialty Start Date End Date Maria Guadalupe Mendes MD [address] [place] [phone] PCP - General General Internal Medicine 09/06/23 documented as of this encounter
--- OUTSIDE RECORDS SUMMARY | 2024-07-28 01:30 | XMS_ITS | Encounter Summary ---
Author Organization [facility] Address [facility] [place] [address] Care Team Providers Care Pharmacy Care Coordinator Name Role Phone Maria Guadalupe Meneds MD Primary Care Provider [phone] Encounter Details Date Type Department Care Team (Latest Contact Info) Description 09/20/2023 Travel Social History Tobacco Use Types Packs/Day Years Used Date Smoking Tobacco: Former Cigarettes 1 50 0 06/25/1967 - 06/25/2017 e-Cigarettes Smokeless Tobacco: Never Alcohol Use Standard Drinks/Week Comments Not Currently 0 (1 standard drink = 0.6 oz pur e alcohol) DH IPV Inpatient Questions Answer Date Recorded [...] PM EST Office Visit Hematology/Oncology at [address] [phone] Nick Mullen MD [facility] DR HEMATOLOGY [place] [address] Chana Myrick APRN [address] [place] [address] DR HEMATOLOGY AND ONCOLOGY [place], [place] [id number] 07/28/2024 1:00 PM EST Scheduled View Only Hematology/Oncology at [address] [phone] Aleah Curran RN 07/28/2024 1:00 PM EST Infusion Hematology Oncology at [address] [phone] documented as of this encounter Visit Diagnoses Not on filedocumented in this encounter Care Teams Pharmacy Care Coordinator Relationship Specialty Start Date End Date Maria Guadalupe Mendes MD [address] [place] [phone] PCP - General General Internal Medicine 09/06/23 documented as of this encounter
--- OUTSIDE RECORDS SUMMARY | 2024-07-28 01:30 | XMS_ITS | Encounter Summary ---
Author Organization [facility] Address [facility] [place] [address] Care Team Providers Care Oak Tanner Name Role Phone Maria Guadalupe Mendes MD Primary Care Provider Encounter Details Date Type Department Care Team (Latest Contact Info) Description 10/29/2023 Travel Social History Tobacco Use Types Packs/Day [...] 12:30 PM EST Office Visit Hematology/Oncology at [address] [phone] Nick Mullen MD [facility] DR HEMATOLOGY [place] [address] Chana Myrick APRN [address] [place] [address] DR HEMATOLOGY AND ONCOLOGY [place], [place] [address] 07/28/2024 1:00 PM EST Scheduled View Only Hematology/Oncology at [address] [phone] Aleah Curran RN 07/28/2024 1:00 PM EST Infusion Hematology Oncology at [address] [phone] documented as of this encounter Visit Diagnoses Not on filedocumented in this encounter Care Teams Oak Tanner Relationship Specialty Start Date End Date Maria Guadalupe Mendes MD [address] [place] [phone] PCP - General General Internal Medicine 09/06/23 documented as of this encounter
--- OUTSIDE RECORDS SUMMARY | 2024-07-28 01:30 | XMS_ITS | Encounter Summary ---
Author Organization [facility] Address [facility] [place] [address] Care Team Providers Care Custodial Laborer Name Role Phone Maria Guadalupe Mendes MD Primary Care Provider [phone] Encounter Details Date Type Department Care Team (Latest Contact Info) Description 03/25/2024 Multidisciplinary Ca re Committee Radiation Oncology at [address] [phone] Alta Zamora PA [facility] HEMATOLOGY [place] [address] Primary malignant neoplasm of right upper lobe [...] Notes * Alta Zamora PA - 03/25/2024 9:50 AM EDT Thoracic - Tumor Board Note Date Presented: 03/25/2024 Presenting Physician: Alta Zamora PA-C Diagnosis/Tumor Site: RUL Is this Metastatic Disease: unknown Synopsis of History/HPI: 84 y.o. 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 Staging PET from 09/20/23 had also showed an FDG-avid RUL nodule, thought to be inflammatory, so was being observed. However, this RUL nodule has now grown, c/f malignancy. Imaging: Chest CT 03/10/24, PET 09/20/23, Chest CT 09/11/23 Recommendations: CT-guided biopsy of growing RUL nodule if patient is able to tolerate. DISCLAIMER: The patient was discussed and the tumor board made recommendations but it is ultimatelyup to the treatment provider(s) and the patient to determine the patient???s care. documented in this encounter Plan of Treatment Upcoming Encounters Date Type Department Care Team (Late st Contact Info) Description 07/28/2024 12:30 PM EST Office Visit Hematology/Oncology at [address] [phone] Nick Mullen MD [facility] DR HEMATOLOGY [place] [address] Chana Myrick APRN [address] [place] [address] DR HEMATOLOGY AND ONCOLOGY [place], [place] [id number] 07/28/2024 1:00 PM EST Scheduled View Only Hematology/Oncology at [address] [phone] Aleah Curran RN 07/28/2024 1:00 PM EST Infusion Hematology Oncology at [address] [phone] documented as of this encounter Visit Diagnoses Diagnosis Primary malignant neoplasm of right upper lobe of lung- Primary Malignant neoplasm of upper lobe, bronchus or lung Primary malignant neoplasm of right lower lobe of lung Malignant neoplasm of lower lobe, bronchus, or lung documented in this encounter Care Teams Custodial Laborer Relationship Specialty Start Date End Date Maria Guadalupe Mendes MD [address] [place] [phone] PCP - General General Internal Medicine 09/06/23 documented as of this encounter
--- OUTSIDE RECORDS SUMMARY | 2024-07-28 01:30 | XMS_ITS | Encounter Summary ---
Author Organization [facility] [place] [address] Care Team Providers Care Rn Call Center Name Role Phone Maria Guadalupe Mendes MD Primary Care Provider Reason for Visit * Reason Comments Procedure * Consultation (Routine) - Closed Specialty Diagnoses / Procedures Referred By Alea morales Referred To Contact Radiation Oncology Diagnoses Primary malignant neoplasm of right lower lobe of lung Procedures Simulation for Radiation Therapy Planning Edwin Bolanos MD [address] [place] [address] [place] [address] [facility] [place] [address] Referral ID Status Reason Start Date Expiration Date V isits Requested Visits Authorized [id number] Closed Consult, Test & Treat 10/31/2023 01/31/2024 6 6 Encounter Details Date Type Department Care Team (Latest Contact Info) Description 11/12/2023 2:45 PM EDT Procedure visit Radiation Oncology at [address] [phone] Lexi Almodovar MD [facility] [place] [address] Primary malignant neoplasm of right [...] Sign Reading Time Taken Comments Blood Pressure 135/61 11/12/2023 2:52 PM EDT Pulse 79 11/12/2023 2:52 PM EDT Temperature 37.1 ??C (98.7 ??F) 11/12/2023 2 :52 PM EDT Respiratory Rate 20 11/12/2023 2:52 PM EDT Oxygen Saturation 97% 11/12/2023 2:5 2 PM EDT 3liters oxygen Inhaled Oxygen Concentration - - Weight - - Height - - Body Mass Index - - documented in this encounter Progress Notes * Lexi Almodovar MD - 11/12/2023 2:45 PM EDT Images from the original note were not included. [facility] Medicine Radiation Oncology Radiation Oncology SBRT On-treatment [...] Current Dose: 22 Gy in 2 fractions (seen prior to today's SBRT) Automobile Glass Technician Kraft from Current Plan (minimum 55 Gy [...] confined to bed or chair Medications Medications 11/12/23 1500 Medication Sig Taking? dilTIAZem (Tiazac) 180 mg [...] daily. Yes OXYGEN-AIR DELIVERY SYSTEMS MISC by Misc.(Non-Drug; Combo Route) route. Yes lactobacillus rhamnosus, GG, (CULTURELLE) 10 billion cell Capsule Take 1 capsule by mouth daily. Yes acetaminophen (TYLENOL) 325 mg Tablet Take 650 mg by mouth every 4 hours as needed for Pain. Yes cholecalciferol, Vitamin D3, 2,000 unit Capsule Take by mouth. Yes Exam Vitals: BP 135/61 (Patient Position: Sitting) Pulse 79 Temp 37.1 ??C (98.7 ??F) (Temporal) Resp 20 SpO2 97% Comment: 3liters oxygen General: Appears well, in no distress. Skin [...] no concerns and will return for her 4th fraction 11/14/23. No orders of the defined types were placed in this encounter. National Cancer [place] (NCI) Comprehensive Cancer [facility] [employer] Commission on Cancer (ACS Sheyla) Accredited Cancer Program [employer] (ACR) Accredited Radiation Oncology Program documented in this encounter Plan of Treatment Upcoming Encounters Date Type Department Care Team (Late st Contact Info) Description 07/28/2024 12:30 PM EST Office Visit Hematology/Oncology at [address] [phone] Nick Mullen MD [facility] DR [place] [address] Chana Myrick APRN [address] [place] [address] DR HEMATOLOGY AND [place]COLOGY [place], [place] [address] 07/28/2024 1:00 PM EST Scheduled View Only Hematology/Oncology at [address] [phone] Aleah Curran RN 07/28/2024 1:00 PM EST Infusion Hematology Oncology at [address] [phone] documented as of this encounter Visit Diagnoses Diagnosis Primary malignant neoplasm of right lower lobe of lung Malignant neoplasm of lower lobe, bronchus, or lung documented in this encounter Care Teams Rn Call Center Relationship Specialty Start Date End Date Maria Guadalupe Mendes MD [address] [place] [phone] PCP - General General Internal Medicine 09/06/23 documented as of this encounter
--- OUTSIDE RECORDS SUMMARY | 2024-07-28 01:30 | XMS_ITS | Encounter Summary ---
Author Organization [facility] Address [facility] [place] [address] Care Team Providers Care Law Firm Administrator Name Role Phone Maria Guadalupe Mendes MD Primary Care Provider [phone] Encounter Details Date Type Department Care Team (Latest Contact Info) Description 11/12/2023 Travel Social History Tobacco Use Types Packs/Day [...] 12:30 PM EST Office Visit Hematology/Oncology at [address] [phone] Nick Mullen MD [facility] DR HEMATOLOGY [place] [address] Chana Myrick APRN [address] [place] [address] DR HEMATOLOGY AND ONCOLOGY [place], [place] [id number] 07/28/2024 1:00 PM EST Scheduled View Only Hematology/Oncology at [address] [phone] Aleah Curran RN 07/28/2024 1:00 PM EST Infusion Hematology Oncology at [address] [phone] documented as of this encounter Visit Diagnoses Not on filedocumented in this encounter Care Teams Law Firm Administrator Relationship Specialty Start Date End Date Maria Guadalupe Mendes MD [address] [place] [phone] PCP - General General Internal Medicine 09/06/23 documented as of this encounter
--- OUTSIDE RECORDS SUMMARY | 2024-07-28 01:30 | XMS_ITS | Encounter Summary ---
Author Organization [facility] Address [facility] [place] [address] Care Team Providers Care Welfare Officer Name Role Phone Maria Guadalupe Mendes MD Primary Care Provider Encounter Details Date Type Department Care Team (Latest Contact Info) Description 11/09/2023 Travel Social History Tobacco Use Types Packs/Day [...] PM EST Office Visit Hematology/Oncology at [address] [phone] Nick Mullen MD [facility] DR HEMATOLOGY [place] [address] Chana Myrick APRN [address] [place] [address] DR HEMATOLOGY AND ONCOLOGY [place], [place] [id number] 07/28/2024 1:00 PM EST Scheduled View Only Hematology/Oncology at [address] [phone] Aleah Curran RN 07/28/2024 1:00 PM EST Infusion Hematology Oncology at [address] [phone] documented as of this encounter Visit Diagnoses Not on filedocumented in this encounter Care Teams Welfare Officer Relationship Specialty Start Date End Date Maria Guadalupe Mendes MD [address] [place] [phone] PCP - General General Internal Medicine 09/06/23 documented as of this encounter
--- OUTSIDE RECORDS SUMMARY | 2024-07-28 01:31 | XMS_ITS | Encounter Summary ---
Author Organization [facility] [place] [address] Care Team Providers Care Resp Ther Name Role Phone Tatum Clayton APRN Primary Care Provider [phone] Encounter Details Date Type Department Care Team (Late st Contact Info) Description 08/28/2023 Telephone [place] [phone] Carmen Fam RN Social History Tobacco Use Types Packs/Day Years Used Date Smoking Tobacco: Former Cigarettes 1 50 0 06/25/1967 - 06/25/2017 e-Cigarettes Smokeless Tobacco: Never Alcohol Use Standard Drinks/Week Comments Yes 0 (1 standard drink = 0.6 oz pur e alcohol) Rare use Sex and Gender Information Value Date Recorded Sex Assigned at Not on file Gender Identity Not on file Sexual Orientation Not on file documented as of this encounter Miscellaneous Notes * Telephone Encounter - Carmen Fam RN - 08/28/2023 3:58 PM EST Copied from [facility] #[id number]. Topic: Specialty Dept CRMs - Orders >> Aug 28, 2023 9:52 AM Jessie Rubio wrote: Orders Request Specialist: Nisha Relationship (if other than patient-full name): Kiersten Barraza Type of Request: [x] Input orders Type/Name of Order: Other: Bronchoscopy Patient Requesting to Have Orders Sent to Facility Outside of [facility]: No Patient states she is back to her normal and when scheduling she cannot do mornings. documented in this encounter Plan of Treatment Upcoming Encounters Date Type Department Care Team (Late st Contact Info) Description 07/28/2024 12:30 PM EST Office Visit Hematology/Oncology at [address] [phone] Nick Mullen MD [facility] DR HEMATOLOGY [place] [address] Chana Myrick APRN [address] [place] [address] DR HEMATOLOGY AND ONCOLOGY [place], [place] [id number] 07/28/2024 1:00 PM EST Scheduled View Only Hematology/Oncology at [address] [phone] Aleah Curran RN 07/28/2024 1:00 PM EST Infusion Hematology Oncology at [address] [phone] documented as of this encounter Visit Diagnoses Not on filedocumented in this encounter Care Teams Resp Ther Relationship Specialty Start Date End Date Tatum Clayton APRN [address] [place] [address] PCP - General Internal Medicine 09/20/18 09/05/23 documented as of this encounter
--- OUTSIDE RECORDS SUMMARY | 2024-07-28 01:31 | XMS_ITS | Encounter Summary ---
Author Organization [facility] [place] [address] Care Team Providers Care Organ Builder Name Role Phone Tatum Clayton APRN Primary Care Provider Reason for Visit * Reason Onset Date Comments Oxygen Dependence 04/25/2022 Encounter Details Date Type Department Care Team (Late st Contact Info) Description 04/25/2022 [place] [phone] Rylee Patel RN Oxygen Dependence Social History Tobacco Use Types Packs/Day Years [...] encounter Miscellaneous Notes * Telephone Encounter - Rylee Patel RN - 04/25/2022 3:02 PM EDT Faxed completed Oxygen Prescription/Letter of Medical Necessity form, signed by Dr. Medina, to Jude. Attached to this was the following items: Home Oxygen Evaluation dated 04/21/2022, Patient Demographics, Oxygen Orders, Office Visit Notes dated 04/21/2022 Fax submission confirmation time stamped for 04/25/2022 @ 6780. 01 pages with cover sheet. Copy of Oxygen Prescription/Letter of Medical Necessity form sent to scanning for inclusion to patient records. documented in this encounter Plan of Treatment Upcoming Encounters Date Type Department Care Team (Late st Contact Info) Description 07/28/2024 12:30 PM EST Office Visit Hematology/Oncology at [address] [phone] Nick Mullen MD [facility] DR HEMATOLOGY [place] [address] Chana Myrick APRN [address] [place] [address] DR HEMATOLOGY AND ONCOLOGY [place], [place] [id number] 07/28/2024 1:00 PM EST Scheduled View Only Hematology/Oncology at [address] [phone] Aleah Curran RN 07/28/2024 1:00 PM EST Infusion Hematology Oncology at [address] [phone] documented as of this encounter Visit Diagnoses Not on filedocumented in this encounter Care Teams Organ Builder Relationship Specialty Start Date End Date Tatmu Clayton APRN [address] [place] [address] PCP - General Internal Medicine 09/20/18 09/05/23 documented as of this encounter
--- OUTSIDE RECORDS SUMMARY | 2024-07-28 01:31 | XMS_ITS | Encounter Summary ---
Author Organization [facility] Address [facility] [place] [address] Care Team Providers Care Power Chisel Operator Name Role Phone Maria Guadalupe Mendes MD Primary Care Provider Reason for Referral * Diagnostic Test (Routine) - Closed Specialty Diagnoses / Procedures Referred By Contac t Referred To Contact Radiology Diagnoses Primary malignant neoplasm of right lower lobe of lung Procedures NM PET CT Skull Base to Mid-thigh Nick Mullen MD [facility] DR HEMATOLOGY [place] [address] [place] [address] Referral ID Status Reason Start Date Expiration Date V isits Requested Visits Authorized [id number] Closed Specialty Service Requested 09/17/2023 03/19/2025 1 1 Encounter Details Date Type Department Care Team (Late st Contact Info) Description 09/17/2023 Orders Only Hematology/Oncology at [address] [phone] [facility] DR HEMATOLOGY [place] [address] Primary malignant neoplasm of right [...] PM EST Office Visit Hematology/Oncology at [address] [phone] [facility] DR HEMATOLOGY [place] [address] Chana Myrick [address] HEMATOLOGY AND ONCOLOGY [place], [place] [id number] 07/28/2024 1:00 PM EST Scheduled View Only Hematology/Oncology at [address] [phone] Aleah Curran RN 07/28/2024 1:00 PM EST Infusion Hematology Oncology at [address] [phone] documented as of this encounter Results * NM PET CT Skull Base to Mid-thigh (09/20/2023 2:33 PM EDT) Anatomical Region Laterality Modality Positron Emissio n Tomography (PET) Impressions 09/27/2023 9:03 AM EDT 1. ??The biopsy-proven, non-small cell lung carcinoma of the right lower lobe shows moderate to marked FDG uptake with SUV max of 14.8 and measures 2.5 cm maximally. 2. ??Irregular, part solid peripheral lesion in the right upper lobe shows mild to moderate FDG uptake and has increased in size since July 2023, worrisome for an additional site of malignancy. 3. ??Borderline right hilar lymph node, measuring 11 mm in short axis and with mild FDG uptake with SUV max of 3.9. No other FDG avid thoracic adenopathy. 4. ??Tiny focus of uptake within the right adrenal gland without CT correlate is nonspecific and could represent a tiny adenoma, metastatic disease less likely. Thank you for letting us participate in the care of this patient. ??If you are a health care provider and have any questions regarding this report, please contact the number below. ??For patients who have questions please contact the health healthcare marketer that requested your imaging first. ? Electronically signed by: Mavis Aj MD, [facility] ??([phone]), at 09/27/2023 9:03 AM Narrative 09/27/2023 9:03 AM EDT EXAMINATION: NM PET CT STANDARD SKULL BASE TO MID-THIGH CLINICAL HISTORY: Non-small cell lung cancer, staging 83 yo with new dx of NSCLC of the RLL. ??Initial staging scan C34.31, Malignant neoplasm of lower lobe, right bronchus or lung TECHNIQUE: Following IV injection of 90-sgdskd-7-deoxyglucose (FDG) a standard uptake of approximately 60 minutes, a noncontrast CT scan followed by a PET scan were acquired from the base of the skull to mid thighs. The noncontrast CT was used for anatomic localization and photon attenuation correction of the PET scan. Blood glucose level: 101 (mg/dL) FDG dose: 10.5 mCi Blood pool: 2.2 Liver mean: 2.3 COMPARISON: CT chest 08/06/2023 and 09/11/2023 FINDINGS: HEAD/NECK: Peripherally calcified lesion in the left middle cranial fossa is likely a small meningioma, measuring 11 mm and abutting the left petrous temporal bone, with minimal FDG uptake. Otherwise normal activity in all soft tissue regions of the neck and visualized lower head. CHEST: There is mild-moderate FDG uptake associated with the irregular part solid peripheral right upper lobe lesion, measuring 1.4 x 1.1 cm, image 59, with SUV max 4.3. There is marked FDG uptake associated with the irregular right lower lobe pulmonary mass, measuring 2.5 x 2.1 cm, image 85, with SUV max of 14.8. Clustered nodules in the inferior aspect of the right lower lobe, images 81 through 85 show no significant FDG uptake. Of note, only a diminutive right middle lobe is present. Emphysematous changes are better characterized on prior diagnostic chest CT. There are additional bilateral nodules which appear to wax and wane and have been described as inflammatory. No other FDG avid nodules are present. There are mildly prominent prevascular, paratracheal and right hilar lymph nodes. The right hilar lymph node, image 78, measures 11 mm short axis with SUV max of 3.9, minimally avid. No other FDG avid lymph nodes. There is a small, non-FDG avid pericardial effusion. There are coronary artery and aortic vascular calcifications. ABDOMEN/PELVIS: There is a focus of slightly increased FDG uptake within the right adrenal gland with no obvious lesion on CT, see image 119. Otherwise, no additional abnormal uptake within the abdomen or pelvis. SKELETON/EXTREMITIES: Normal activity in all regions of the axial and visualized appendicular skeleton. Exaggerated thoracic kyphosis is present. No acute osseous abnormalities are found. Procedure Note Mavis Aj MD - 09/27/2023 EXAMINATION: NM PET CT STANDARD SKULL BASE TO MID-THIGH CLINICAL HISTORY: Non-small cell lung cancer, staging 83 yo with new dx of NSCLC of the RLL. Initial staging scan C34.31, Malignant neoplasm of lower lobe, right bronchus or lung TECHNIQUE: Following IV injection of 98-ieipxg-0-deoxyglucose (FDG) astandard uptake of approximately 60 minutes, a noncontrast CT scan followed by aPET scan were acquired from the base of the skull to mid thighs. The noncontrast CTwas used for anatomic localization and photon attenuation correction of thePET scan. Blood glucose level: 101 (mg/dL) FDG dose: 10.5 mCi Blood pool: 2.2 Liver mean: 2.3 COMPARISON: CT chest 08/06/2023 and 09/11/2023 FINDINGS: HEAD/NECK: Peripherally calcified lesion in the left middle cranial fossa is likely asmall meningioma, measuring 11 mm and abutting the left petrous temporal bone,with minimal FDG uptake. Otherwise normal activity in all soft tissue regions of the neck andvisualized lower head. CHEST: There is mild-moderate FDG uptake associated with the irregular partsolid peripheral right upper lobe lesion, measuring 1.4 x 1.1 cm, image 59, withSUV max 4.3. There is marked FDG uptake associated with the irregular right lowerlobe pulmonary mass, measuring 2.5 x 2.1 cm, image 85, with SUV max of 14.8. Clustered nodules in the inferior aspect of the right lower lobe, lozgfe15 through 85 show no significant FDG uptake. Of note, only a diminutive right middle lobe is present. Emphysematous changes are better characterized on prior diagnostic chestCT. There are additional bilateral nodules which appear to wax and wane andhave been described as inflammatory. No other FDG avid nodules are present. There are mildly prominent prevascular, paratracheal and right hilarlymph nodes. The right hilar lymph node, image 78, measures 11 mm short axiswith SUV max of 3.9, minimally avid. No other FDG avid lymph nodes. There is a small, non-FDG avid pericardial effusion. There are coronaryartery and aortic vascular calcifications. ABDOMEN/PELVIS: There is a focus of slightly increased FDG uptake within the right adrenalgland with no obvious lesion on CT, see image 119. Otherwise, no additionalabnormal uptake within the abdomen or pelvis. SKELETON/EXTREMITIES: Normal activity in all regions of the axial and visualized appendicular skeleton. Exaggerated thoracic kyphosis is present. No acute osseous abnormalities are found. IMPRESSION 1. The biopsy-proven, non-small cell lung carcinoma of the right lowerlobe shows moderate to marked FDG uptake with SUV max of 14.8 and measures 2.5cm maximally. 2. Irregular, part solid peripheral lesion in the right upper lobe showsmild to moderate FDG uptake and has increased in size since July 2023,worrisome for an additional site of malignancy. 3. Borderline right hilar lymph node, measuring 11 mm in short axis andwith mild FDG uptake with SUV max of 3.9. No other FDG avid thoracicadenopathy. 4. Tiny focus of uptake within the right adrenal gland without CTcorrelate is nonspecific and could represent a tiny adenoma, metastatic disease lesslikely. Thank you for letting us participate in the care of this patient. If youare a health care provider and have any questions regarding this report,please contact the number below. For patients who have questions please contactthe health healthcare marketer that requested your imaging first. Nick Mullen MD [facility] PET ORDERABLES documented in this encounter Visit Diagnoses Diagnosis Primary malignant neoplasm of right lower lobe of lung Malignant neoplasm of lower lobe, bronchus, or lung Primary malignant neoplasm of right lower lobe of lung Malignant neoplasm of lower lobe, bronchus, or lung documented in this encounter Care Teams Power Chisel Operator Relationship Specialty Start Date End Date Maria Guadalupe Mendes MD [address] [place] [address] PCP - General General Internal Medicine 09/06/23 documented as of this encounter
--- OUTSIDE RECORDS SUMMARY | 2024-07-28 01:31 | XMS_ITS | Encounter Summary ---
Author Organization [facility] Address [facility] [place] [address] Care Team Providers Care Production Material Coordinator Name Role Phone MatildeTatum Jozef KHANNA Primary Care Provider Encounter Details Date Type Department Care Team (Late st Contact Info) Description 04/04/2022 2:00 PM EDT Office Visit Dermatology at [facility] [address] [place] [phone] Rolan Segura MD [facility] DR [place] [address] Encounter for removal of sutures Social History Tobacco Use Types Packs/Day Years [...] as of this encounter Progress Notes * Rolan Segura MD - 04/04/2022 2:00 PM EDT Images from the original note were not included. Patient: Kiersten Barraza Date of . 1940 Today's Date: 04/04/2022 Kiersten Barraza is a 82 y.o. female here for suture removal. Exam: healing graft, partial superficial loss on the central portion, no evidence of infection Photograph: Plan: 1. Sutures removed today. Discussed continued application of Mupirocin to the site to prevent superficial bacterial colonization. 2. Follow up with referring provider or ux visual designer for skin exams. 3. Follow up with Dr. Segura: 2 weeks Note initiated by CALLI Rust CMA has performed the documentation for this encounter in the presence of and acting as a scribe for Dr. Segura I performed the above scribed service and agree with the accuracy of the documentation in this encounter. Reviewed and signed by: Rolan Segura Dermatology [facility] documented in this encounter Miscellaneous Notes * Addendum Note - Rolan Segura MD - 04/04/2022 2:00 PM EDTAddended by: ROLAN SEGURA on: 04/05/2022 12:41 PM Modules accepted: Orders documented in this encounter Plan of Treatment Upcoming Encounters Date Type Department Care Team (Late st Contact Info) Description 07/28/2024 12:30 PM EST Office Visit Hematology/Oncology at [address] [phone] Nick Mullen MD [facility] DR [place] [address] Chana Myrick APRN [address] [place] [address] DR HEMATOLOGY [place] [address] 07/28/2024 1:00 PM EST Scheduled View Only Hematology/Oncology at [address] [phone] Aleah Curran RN 07/28/2024 1:00 PM EST Infusion Hematology Oncology at [address] [phone] documented as of this encounter Visit Diagnoses Diagnosis Encounter for removal of sutures documented in this encounter Care Teams Production Material Coordinator Relationship Specialty Start Date End Date Tatum Clayton APRN [address] [place] [address] PCP - General Internal Medicine 09/20/18 09/05/23 documented as of this encounter
--- OUTSIDE RECORDS SUMMARY | 2024-07-28 01:31 | XMS_ITS | Encounter Summary ---
Author Organization [facility] Address [facility] [place] [address] Care Team Providers Care Silk Screen Operator Name Role Phone Maria Guadalupe Mendes MD Primary Care Provider Reason for Referral * Diagnostic Test (Routine) - Closed Specialty Diagnoses / Procedures Referred By Contac t Referred To Contact Radiology Diagnoses Primary malignant neoplasm of right lower lobe of lung Procedures NM PET CT Skull Base to Mid-thigh Nick Mullen MD [facility] DR HEMATOLOGY [place] [address] [place] [address] Referral ID Status Reason Start Date Expiration Date V isits Requested Visits Authorized [id number] Closed Specialty Service Requested 09/17/2023 03/19/2025 1 1 Reason for Visit * Diagnostic Test (Routine) - Closed Specialty Diagnoses / Procedures Referred By Contac t Referred To Contact Radiology Diagnoses Primary malignant neoplasm of right lower lobe of lung Procedures NM PET CT Skull Base to Mid-thigh Nick Mullen MD [facility] DR HEMATOLOGY [place] [address] [place] [address] Referral ID Status Reason Start Date Expiration Date V isits Requested Visits Authorized [id number] Closed Specialty Service Requested 09/17/2023 03/19/2025 1 1 Encounter Details Date Type Department Care Team (Late st Contact Info) Description 09/20/2023 12:39 PM EDT - 09/20/2023 11:59 PM EDT Hospital Encounter [place] [phone] Nick Mullen MD [facility] DR HEMATOLOGY [place] [address] Primary malignant neoplasm of right lower lobe of lung Discharge Disposition: Home Social [...] mouth daily. OXYGEN-AIR DELIVERY SYSTEMS MISC by [facility]Non-Drug; Combo Route) route. lactobacillus rhamnosus, GG, (CULTURELLE) [...] PM EST Office Visit Hematology/Oncology at [address] [phone] Nick Mullen MD [facility] DR HEMATOLOGY [place] [address] Chana Myrick APRN [address] [place] [address] DR [place] [address] 07/28/2024 1:00 PM EST Scheduled View Only Hematology/Oncology at [address] [phone] Aleah Currna RN 07/28/2024 1:00 PM EST Infusion Hematology Oncology at [address] [place] [phone] documented as of this encounter Procedures Procedure Name Priority Date/Time Associated Diagnosis Comments NM PET CT SKULL BASE TO MID-THIGH ([facility]) Routine 09/20/2023 2:33 PM EDT Primary malignant neoplasm of right lower lobe of lung documented in this encounter [...] who have questions please contact the health health care consultant that requested your imaging first. ? Electronically signed by: Mavis Aj MD, [facility] ??([phone]), at 09/27/2023 9:03 AM Narrative 09/27/2023 9:03 AM EDT EXAMINATION: NM PET CT STANDARD SKULL BASE TO MID-THIGH CLINICAL HISTORY: Non-small cell lung cancer, staging 83 yo with new dx of NSCLC of the RLL. ??Initial staging scan C34.31, Malignant neoplasm of lower lobe, right bronchus or lung TECHNIQUE: Following IV injection of 58-bgilkp-6-deoxyglucose (FDG) a standard uptake of approximately 60 [...] or lung TECHNIQUE: Following IV injection of 31-lrvdxg-0-deoxyglucose (FDG) astandard uptake of approximately 60 minutes, [...] inferior aspect of the right lower lobe, [id number] through 85 show no significant FDG uptake. [...] patients who have questions please contactthe health health care consultant that requested your imaging first. Electronically signed by: Mavis Aj MD, [facility]([phone]), at 09/27/2023 9:03 AM Nick Mullen MD [facility] PET ORDERABLES documented in this encounter Visit Diagnoses Diagnosis Primary malignant neoplasm of right lower lobe of lung Malignant neoplasm of lower lobe, bronchus, or lung documented in this encounter Administered Medications Inactive Administered Medications - up to 3 most recent administrations Medication Order MAR Action Action Date Dose Rate Site fludeoxyglucose (F-18) FDG injection 0-20 mCi 0-20 mCi, Intravenous, ONCE PRN, 1 dose, Starting on Emilia 09/20/23 at 1311, Until Emilia 09/20/23 at 1311, Per Protocol, Radiology Contrast, Routine Given 09/20/2023 1:11 PM EDT 10.5 mCi Right Arm documented in this encounter Care Teams Silk Screen Operator Relationship Specialty Start Date End Date Maria Guadalupe Mendes MD [address] [place] [phone] PCP - General General Internal Medicine 09/06/23 documented as of this encounter
--- OUTSIDE RECORDS SUMMARY | 2024-07-28 01:31 | XMS_ITS | Encounter Summary ---
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 [place] [address] [facility] Hem Onc [address] [place] [address] Referral ID Status Reason Start Date Expiration Date V isits Requested Visits Authorized [id number] Closed Consult, Test & Treat 09/17/2023 09/16/2024 1 1 Encounter Details Date Type Department Care Team (Late st Contact Info) Description 09/17/2023 [place] [address] Kevan Cameron MD [facility] DR [place] [address] Social History Tobacco Use Types Packs/Day Years Used Date Smoking Tobacco: Former Cigarettes 1 50 0 06/25/1967 - 06/25/2017 e-Cigarettes Smokeless Tobacco: Never Alcohol Use Standard Drinks/Week Comments Not Currently 0 (1 standard drink = 0.6 oz pur e alcohol) [facility] Inpatient Questions Answer Date Recorded Does [...] encounter Miscellaneous Notes * Telephone Encounter - Kevan Cameron MD - 09/17/2023 10:38 AM EDT Spoke with Kiersten eugenio: results of bronchoscopy, EBUS TBNA, and biopsy of RLL mass. She tolerated procedure well and, in genera, has been feeling essentially backto baseline since her AECOPD from influenza. I shared that biopsy of the RLL lesions has confirmed the diagnosis of adenocarcinoma. All lymph node and endobronchial biopsy specimens were negative. We discussed that this suggests possibility of local disease, though additional testing may yet be necessary. Kiersten shared she was somewhat expecting this news and was happy to hear that it did not seem that she had stage IV disease at this time.She is interested in meeting with Medical Oncology team to hear about options and recognizes with her age there may be some therapies she would not be interested in based on how it may impact her healthy. Referrals placed for medical oncology and radiation oncology. Kevan Cameron MD [facility] Staff Physician, Pulmonary and Critical Care Medicine documented in this encounter Plan of Treatment Upcoming Encounters Date Type Department Care Team (Late st Contact Info) Description 07/28/2024 12:30 PM EST Office Visit Hematology/Oncology at [address] [phone] Nick Mullen MD 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
--- OUTSIDE RECORDS SUMMARY | 2024-07-28 01:31 | XMS_ITS | Encounter Summary ---
Author Organization [facility] Address [facility] [place] [address] Care Team Providers Care Spring Inspector Name Role Phone MatildeTatum Jozef KHANNA Primary Care Provider Encounter Details Date Type Department Care Team (Late st Contact Info) Description 04/18/2022 2:45 PM EDT Office Visit Dermatology at [facility] [address] [place] [address] Mars Segura MD [facility] DR [address] [address] Encounter for post surgical wound check Social History Tobacco Use Types Packs/Day Years [...] as of this encounter Progress Notes * Mars Segura MD - 04/18/2022 2:45 PM EDT Images from the original note were not included. Patient: Kiersten Barraza Date of . 1940 Today's Date: 04/18/2022 Kiersten Barraza is a 82 y.o. female here for wound check. Exam: healed graft, no evidence of infection. Slight indentation at site of graft. No evidence of recurrence. Photograph: Assessment: linear portion well healed and nonperceptible, graft portion with minimal indentation, will expect this to improve with time, erythema also will improve with time. Plan: 1. May discontinue wound care at this point. 2. Discussed option for dermabrasion at 6-9 months post op if unhappy with texture of final surgical outcome. 2. Follow up with referring provider or hearing aid repairer for skin exams. 3. Follow up with Dr. Segura: as needed Note initiated by CALLI Rust CMA has performed the documentation for this encounter in the presence of and acting as a scribe for Dr. Segura I performed the above scribed service and agree with the accuracy of the documentation in this encounter. Reviewed and signed by: Mars Segura Dermatology [facility] documented in this encounter Plan of Treatment Upcoming Encounters Date Type Department Care Team (Late st Contact Info) Description 07/28/2024 12:30 PM EST Office Visit Hematology/Oncology at [address] [phone] Nick Mullen MD [facility] DR [place] [address] Chana Myrick APRN [address] [place] [address] DR HEMATOLOGY AND ONCOLOGY [place], [place] [address] 07/28/2024 1:00 PM EST Scheduled View Only Hematology/Oncology at [address] [phone] Aleah Curran RN 07/28/2024 1:00 PM EST Infusion Hematology Oncology at [address] [phone] documented as of this encounter Visit Diagnoses Diagnosis Encounter for post surgical wound check documented in this encounter Care Teams Spring Inspector Relationship Specialty Start Date End Date Tatum Clayton APRN [address] [place] [address] PCP - General Internal Medicine 09/20/18 09/05/23 documented as of this encounter
--- OUTSIDE RECORDS SUMMARY | 2024-07-28 01:31 | XMS_ITS | Encounter Summary ---
Author Organization [facility] Address [facility] [place] [address] Care Team Providers Care Nurse Aide Evaluator Name Role Phone MatildeTatum Jozef KHANNA Primary Care Provider Encounter Details Date Type Department Care Team (Latest Contact Info) Description 04/21/2022 Travel Social History Tobacco Use Types Packs/Day [...] PM EST Office Visit Hematology/Oncology at [address] [phone] Nick Mullen MD [facility] DR [place] [address] Chana Myrick APRN [address] [place] [address] DR HEMATOLOGY AND ONCOLOGY [place], [place] [id number] 07/28/2024 1:00 PM EST Scheduled View Only Hematology/Oncology at [address] [phone] Aleah Curran, RN 07/28/2024 1:00 PM EST Infusion Hematology Oncology at [address] [phone] documented as of this encounter Visit Diagnoses Not on filedocumented in this encounter Care Teams Nurse Aide Evaluator Relationship Specialty Start Date End Date Tatum Clayton APRN [address] [place] [address] PCP - General Internal Medicine 09/20/18 09/05/23 documented as of this encounter
--- OUTSIDE RECORDS SUMMARY | 2024-07-28 01:31 | XMS_ITS | Encounter Summary ---
Author Organization [facility] Address [facility] [place] [address] Care Team Providers Care Engineering Aid Name Role Phone MatildeTatum Jozef KHANNA Primary Care Provider Encounter Details Date Type Department Care Team (Late st Contact Info) Description 08/28/2023 Telephone [place] [phone] Kevan Cameron MD [facility] [place] [address] Social History Tobacco Use Types Packs/Day Years [...] Telephone Encounter - Kevan Cameron MD - 08/28/2023 12:02 PM EST I reached out to Kiersten. She is feeling better than a week prior after further recovery from AECOPDdue to influenza. She has some cough with sputum production, though volume has reduced. She is backto doing her normal activities whereas she was having trouble showering right after influenza. Has about 6d left of prednisone taper. Discussed that there is risk trouble coming off ventilator after general anesthesia in setting of advanced COPD and that these risks are a bit higher after a recent exacerbation. These risks do decrease some further from a recent infection. We weighed these risks against waiting an extended period to get more diagnostic information with concern for lung cancer. Kiersten would like to proceed with bronchoscopy and biopsy to learn this information and potential treatment options. As she is improving, looking to schedule in the next 1-3 weeks is likely appropriate. I previously reviewed her situation and imaging with Dr. Noel who felt bronchoscopy with EBUS TBNA as well as navigational biopsy of the more peripheral dominant nodule/mass would be the preferred approach. I will connect with IP team re: scheduling. Kevan Cameron MD [facility] Staff Physician, Pulmonary and Critical Care Medicine documented in this encounter Plan of Treatment Upcoming Encounters Date Type Department Care Team (Late st Contact Info) Description 07/28/2024 12:30 PM EST Office Visit Hematology/Oncology at [address] [phone] Nick Mullen MD [facility] [place] [address] Chana Myrick [address] HEMATOLOGY AND ONCOLOGY [place], [place] [id number] 07/28/2024 1:00 PM EST Scheduled View Only Hematology/Oncology at [address] [phone] Aleah Curran RN 07/28/2024 1:00 PM EST Infusion Hematology Oncology at [address] [phone] documented as of this encounter Visit Diagnoses Not on filedocumented in this encounter Care Teams Engineering Aid Relationship Specialty Start Date End Date Tatum Clayton APRN [address] [place] [address] PCP - General Internal Medicine 09/20/18 09/05/23 documented as of this encounter
--- OUTSIDE RECORDS SUMMARY | 2024-07-28 01:31 | XMS_ITS | Encounter Summary ---
Author Organization [facility] [place] [address] Care Team Providers Care Assembly And Packing Supervisor Name Role Phone Matilde Tatum Jozef KHANNA Primary Care Provider Encounter Details Date Type Department Care Team (Late Contact Info) Description 08/06/2023 Interpretation Only [address] [phone] Haydee Ball MD [address] [place] [phone] Social History Tobacco Use Types Packs/Day Years [...] 12:30 PM EST Office Visit Hematology/Oncology at [address] [phone] Nick Mullen MD [facility] DR [place] [address] Chana Myrick APRN [address] [place] [address] DR HEMATOLOGY AND ONCOLOGY [place], [place] [id number] 07/28/2024 1:00 PM EST Scheduled View Only Hematology/Oncology at [address] [phone] Aleah Curran RN 07/28/2024 1:00 PM EST Infusion Hematology Oncology at [address] [phone] documented as of this encounter Procedures Procedure Name Priority Date/Time Associated Diagnosis Comments CT CHEST W CONTRAST STAT 08/06/2023 3 :38 PM EST documented in this encounter Results * CT Chest w Contrast (08/06/2023 3:38 PM EST) PT CLASS E RAD ADMITDTTM [id number] RAD PT RAD INFO [id number]^Caraghe r^Haydee RAD EXAM DESC CTCHW^CT Chest w/ Contrast^RIS RAD Anatomical Region Laterality Modality Chest Computed Tomogra phy 08/06/2023 3:38 PM EST Impressions 08/06/2023 4:25 PM EST Right lower lobe mass concerning for primary pulmonary malignancy. Mild prominence of the right hilar lymph node without evidence of equivocal metastatic disease. Thank you for letting us participate in the care of this patient. ??If you are a health care provider and have any questions regarding this report, please contact the number below. ??For patients who have questions please contact the health health careers instructor that requested your imaging first. ? Electronically signed by: Mihai Guerrero MD, [facility] ([phone]), at 08/06/2023 4:25 PM Narrative 08/06/2023 4:25 PM EST EXAMINATION: CT Chest w/ Contrast CLINICAL HISTORY: abnormal mass right mid lung on cxr,patient with long smoking hx TECHNIQUE: Helical CT of the chest after the intravenous administration of 100cc of Omnipaque 350. Thin-section reconstructions as well as coronal and sagittal reformatted images were generated. COMPARISON: Chest radiograph performed on the same day FINDINGS: Pulmonary parenchyma: Extensive apical predominant centrilobular emphysema. A 2.2 cm centrally hypoenhancing pleural-based mass in the right lower lobe, which corresponds to the lesion seen on the prior chest radiograph. An additional, approximately 9 mm peripheral pulmonary nodule in the right upper lobe (series 4 image 20). Airways: No central endobronchial abnormality. Pleura: No effusion. Lymph nodes: Prominent right hilar lymph node, 9 mm in short axis. Heart and vasculature: Normal size of the heart. No significant pericardial effusion. Scattered coronary calcifications. Normal caliber of the atheromatous thoracic aorta. Other mediastinal structures: No significant findings. Upper abdomen: No significant findings. Skeletal structures: Subjectively decreased bone mineralization. No significant findings. Procedure Note Mihai Guerrero MD - 08/06/2023 EXAMINATION: CT Chest w/ Contrast CLINICAL HISTORY: abnormal mass right mid lung on cxr,patient with longsmoking hx TECHNIQUE: Helical CT of the chest after the intravenous administration [id number] of Omnipaque 350. Thin-section reconstructions as well as coronal andsagittal reformatted images were generated. COMPARISON: Chest radiograph performed on the same day FINDINGS: Pulmonary parenchyma: Extensive apical predominant centrilobularemphysema. A 2.2 cm centrally hypoenhancing pleural-based mass in the right lower lobe,which corresponds to the lesion seen on the prior chest radiograph. Anadditional, approximately 9 mm peripheral pulmonary nodule in the right upper lobe(series 4 image 20). Airways: No central endobronchial abnormality. Pleura: No effusion. Lymph nodes: Prominent right hilar lymph node, 9 mm in short axis. Heart and vasculature: Normal size of the heart. No significantpericardial effusion. Scattered coronary calcifications. Normal caliber of theatheromatous thoracic aorta. Other mediastinal structures: No significant findings. Upper abdomen: No significant findings. Skeletal structures: Subjectively decreased bone mineralization. Nosignificant findings. IMPRESSION Right lower lobe mass concerning for primary pulmonary malignancy. Mild prominence of the right hilar lymph node without evidence of equivocal metastatic disease. Thank you for letting us participate in the care of this patient. If youare a health care provider and have any questions regarding this report,please contact the number below. For patients who have questions please contactthe health health careers instructor that requested your imaging first. Electronically signed by: Mihai Guerrero MD, [facility]([phone]), at 08/06/2023 4:25 PM Haydee Ball MD IMG CT ORDERABLES documented in this encounter Visit Diagnoses Not on filedocumented in this encounter Care Teams Assembly And Packing Supervisor Relationship Specialty Start Date End Date Tatum Clayton APRN [address] [place] [address] PCP - General Internal Medicine 09/20/18 09/05/23 documented as of this encounter
--- OUTSIDE RECORDS SUMMARY | 2024-07-28 01:31 | XMS_ITS | Encounter Summary ---
Author Organization [facility] Address [facility] [place] [address] Care Team Providers Care Certified Industrial Hygienist Name Role Phone Tatum Clayton APRN Primary Care Provider [phone] Reason for Referral * Diagnostic Test (Routine) - Closed Specialty Diagnoses / Procedures Referred By Contilia t Referred To Contact Radiology Diagnoses Multiple lung nodules Hilar lymphadenopathy Procedures CT Chest wo Contrast (Generic) Noemi Lorenzo APRN [facility] [place] [address] [facility] [place] [address] Referral ID Status Reason Start Date Expiration Date V isits Requested Visits Authorized [id number] Closed Specialty Service Requested 08/28/2023 02/27/2025 1 1 Encounter Details Date Type Department Care Team (Late st Contact Info) Description 08/28/2023 Orders [place] [address] Noemi Lorenzo APRN [facility] [place] [address] Multiple lung nodules; Hilar lymphadenopathy Social History Tobacco Use Types Packs/Day Years [...] 12:30 PM EST Office Visit Hematology/Oncology at [address] [phone] Nick Mullen MD [facility] DR HEMATOLOGY [place] [address] Chana Myrick APRN [address] [place] [address] DR HEMATOLOGY AND ONCOLOGY [place], [place] [id number] 07/28/2024 1:00 PM EST Scheduled View Only Hematology/Oncology at [address] [phone] Aleah Curran RN 07/28/2024 1:00 PM EST Infusion Hematology Oncology at [address] [phone] documented as of this encounter Results * CT Chest wo Contrast (Generic) (09/11/2023 12:01 PM EDT) Anatomical Region Laterality Modality Chest Computed Tomogra phy Impressions 09/11/2023 2:16 PM EDT 1. ??Stable spiculated right lower lobe mass concerning for malignancy. 2. ??Stable irregular opacity at the periphery of the right upper lobe. 3. ??New clusters of nodules at the lateral lingula and right upper lobe with partial resolution of right middle lobe groundglass opacities likely reflects waxing and waning infectious or inflammatory process. 4. ??5 mm bilateral pulmonary nodules stable in size and number. Thank you for letting us participate in the care of this patient. ??If you are a health care provider and have any questions regarding this report, please contact the number below. ??For patients who have questions please contact the health primary health care nurse that requested your imaging first. ? Narrative 09/11/2023 2:16 PM EDT EXAMINATION: CT CHEST WO CONTRAST (GENERIC) CLINICAL HISTORY: Lung nodule, > 8mm Ion bronchoscopy protocol R91.8, Other nonspecific abnormal finding of lung field - R59.0, Localized enlarged lymph nodes TECHNIQUE: Helical CT of the chest without intravenous contrast administration. Thin-section reconstructions as well as coronal and sagittal reformatted images were generated. COMPARISON: Every 2023 FINDINGS: Pulmonary parenchyma: Biapical scarring. Stable irregular opacity at the periphery of the right upper lobe. Stable subcentimeter left upper lobe nodules and ill-defined groundglass opacity. New cluster of subcentimeter nodules at the lateral lingula and right upper lobe accompanies stable 5 mm right upper lobe nodule with partial resolution of ill-defined right middle lobe groundglass opacities. Stable 2.3 cm spiculated peripheral right lower lobe mass with pleural tethers. Stable peripheral medial 5 mm right and left lateral lower lobe nodules. Airways: Bronchial wall thickening Pleura: No effusion. Lymph nodes: Stable borderline mediastinal lymphadenopathy Heart and vasculature: Normal heart size without significant pericardial effusion. Other mediastinal structures: No significant findings. Upper abdomen: No significant findings. Skeletal structures: No significant findings. Procedure Note Nereyda Palmer MD - 09/11/2023 EXAMINATION: CT CHEST WO CONTRAST (GENERIC) CLINICAL HISTORY: Lung nodule, > 8mm Ion bronchoscopy protocol R91.8, Other nonspecific abnormal finding of lung field - R59.0,Localized enlarged lymph nodes TECHNIQUE: Helical CT of the chest without intravenous contrastadministration. Thin-section reconstructions as well as coronal and sagittal reformattedimages were generated. COMPARISON: Every 2023 FINDINGS: Pulmonary parenchyma: Biapical scarring. Stable irregular opacity at the periphery of the right upper lobe. Stable subcentimeter left upper lobe nodules and ill-defined groundglass opacity. New cluster of subcentimeter nodules at the lateral lingula and rightupper lobe accompanies stable 5 mm right upper lobe nodule with partial resolutionof ill-defined right middle lobe groundglass opacities. Stable 2.3 cm spiculated peripheral right lower lobe mass with pleuraltethers. Stable peripheral medial 5 mm right and left lateral lower lobe nodules. Airways: Bronchial wall thickening Pleura: No effusion. Lymph nodes: Stable borderline mediastinal lymphadenopathy Heart and vasculature: Normal heart size without significant pericardial effusion. Other mediastinal structures: No significant findings. Upper abdomen: No significant findings. Skeletal structures: No significant findings. IMPRESSION 1. Stable spiculated right lower lobe mass concerning for malignancy. 2. Stable irregular opacity at the periphery of the right upper lobe. 3. New clusters of nodules at the lateral lingula and right upper lobewith partial resolution of right middle lobe groundglass opacities likelyreflects waxing and waning infectious or inflammatory process. 4. 5 mm bilateral pulmonary nodules stable in size and number. Thank you for letting us participate in the care of this patient. If youare a health care provider and have any questions regarding this report,please contact the number below. For patients who have questions please contactthe health primary health care nurse that requested your imaging first. Noemi C Maura KHANNA IMG CT ORDERABLES documented in this encounter Visit Diagnoses Diagnosis Multiple lung nodules Other nonspecific abnormal finding of lung field Hilar lymphadenopathy Enlargement of lymph nodes Multiple lung nodules Other nonspecific abnormal finding of lung field Hilar lymphadenopathy Enlargement of lymph nodes documented in this encounter Care Teams Certified Industrial Hygienist Relationship Specialty Start Date End Date Tatum Clayton APRN [address] [place] [address] PCP - General Internal Medicine 09/20/18 09/05/23 documented as of this encounter
--- OUTSIDE RECORDS SUMMARY | 2024-07-28 01:31 | XMS_ITS | Encounter Summary ---
Author Organization Formerly [facility] [place] [address] Care Team Providers Care Fiber Optic Assembler Name Role Phone Maria Guadalupe Mendes MD Primary Care Provider [phone] Reason for Visit * Auth/Cert (Routine) Specialty Diagnoses / Procedures Referred By Contac t Referred To Contact Diagnoses Pulmonary nodules Pulmonary nodule(s)/Robotic Bronch with EBUS/ga/Bert Procedures PRO BRONCHOSCOPY RIGID FLEX W COMPUTER ASSIST IMG NAVIGATION PRO [facility] EBUS GUIDED SAMPL 3/> NODE STATION/STRUX BRONCHOSCOPY,RIGID OR FLEX,WITH IMAGE GUIDANCE ( ROBOT / ION ) (WRVU 2) BRONCH, W ENDOBRONCHIAL ULTRASOUND (EBUS) GUIDED SAMPLING, 3+ NODES (WRVU 4.96) Mikel Noel MD [facility] [address] [facility] Referral ID Status Reason Start Date Expiration Date Visits Re quested Visits Authorized [id number] 1 1 Encounter Details Date Type Department Care Team (Late st Contact Info) Description 09/11/2023 1:51 PM EDT - 09/11/2023 4:01 PM EDT Surgery [place] [id number] Mikel Noel MD [facility] PULMONARY MEDICINE [place], [place] [id number] BRONCHOSCOPY,RIGID OR FLEX,WITH IMAGE GUIDANCE ( ROBOT / ION ) (WRVU 2) Social History Tobacco Use Types Packs/Day Years Used Date Smoking Tobacco: Former Cigarettes 1 50 0 06/25/1967 - 06/25/2017 e-Cigarettes Smokeless Tobacco: Never Tobacco Cessation:Counseling Given: Not Answered Alcohol Use Standard Drinks/Week Comments Not Currently [...] Sign Reading Time Taken Comments Blood Pressure 162/110 09/11/2023 3:30 PM EDT Pulse 103 09/11/2023 3:00 PM EDT Temperature 36.1 ??C (97 ??F) 09/11/2023 2:49 PM EDT Respiratory Rate 34 09/11/2023 3:00 PM EDT Oxygen Saturation 97% 09/11/2023 3:30 PM EDT Inhaled Oxygen Concentration - - Weight 70.5 kg (155 lb 8 oz) 09/11/2023 1:09 PM EDT Height 157.5 cm (5' 2) 09/11/2023 1:09 PM EDT Body Mass Index 28.44 09/11/2023 1:09 PM EDT documented in this encounter Discharge Instructions * Patient Instructions* Mikel Noel MD - 09/11/2023 2:35 PM EDT Post-bronchoscopy patient instruction: Your bronchoscopy was completed successfully today (09/11/2023) by Dr. Mikel Noel. We will be in contact with you to discuss your results as they return over the coming 3-5 business days. You may experience low grade fevers over the next 48 hours. You may cough up a small amount of blood. This is normal. You may have a sore throat, chest discomfort, hoarse voice, or have a tickle in your throat or a dry cough for a day or two. This is normal and usually gets better quickly. Using cough drops or gargling with warm salt water may help. Call our office immediately or present to the nearest emergency room if you develop shortness of breath, pain in your chest, coughing up large amounts of blood (about 1-2 tablespoons), or fever/chills last longer than 48 hours. If you have any questions, please call our office at . There is someone database administration associate to speak with 15/01. Mikel Noel MD, 09/11/2023, 2:35 PM Interventional Pulmonology Section of Pulmonary & Critical Care documented in this encounter Medications at Time [...] daily. 11/12/2023 documented as of this encounter H&P Notes * Mikel Noel MD - 09/11/2023 1:01 PM EDT Interventional Pulmonology Pre-Procedure History & Physical SECTION OF PULMONARY/CRITICAL CARE MEDICIE Procedure: Robotic-assisted bronchoscopy, transbronchial lung biopsies, endobronchial ultrasound (EBUS) Reason for procedure: Lung nodule(s) and Lymphadenopathy See last note from Dr. Cameron. PHYSICAL EXAM: No data found. Mental Status: Alert and oriented x3 Airway examination: Feasible Pulmonary: Clear to ausculation bilaterally CV: RRR, no murmurs or gallops ASA Grade: ASA IV (Patient has incapacitating disease that is a constant threat to life) Assessment & Plan: Risks, benefits and alternatives of the procedure were explained and all questions were answered Consent to be signed Proceed with procedure as stated Mikel Noel MD, 09/11/2023, 1:02 PM Interventional Pulmonology Section of Pulmonary & Critical Care Pager: [phone] Source Note - Kevan Cameron MD - 08/14/2023 3:00 PM EST Images from the original note were not included. [facility] Section of Pulmonary and Critical Care Medicine Outpatient Consultation Follow-up Date of Encounter: 08/14/2023 This was a boda-gc-wnuv office visit. PCP: Tatum Clayton APRN Pulmonary Problem List COPD - GOLD IV (prev patient of Dr. Medina) Predominant emphysema phenotype - severe hyperinflation and air trapping with exertional dyspnea asprimary symptom. Quit smoking 2018; 50 PY Brief Summary Kiersten Barraza is a 83 y.o. with GOLD IV COPD with emphysema characterized largely by exertional dyspnea and hypoxemia. She previously followed with Dr. Medina. This is my first time seeing her. Last seen by Dr. Medina 04/13/2022. Doing well at that time. Some dyspnea on exertion but little inthe way of cough or sputum production. Has not required prednisone or antibiotics for exacerbations. She was using Trelegy daily, DuoNebs 3 times daily, albuterol twice daily as needed with symptomatic benefit. Using oxygen most of the day as needed and at night. Oxygen saturation was 88% on room air during the visit. Dr. Medina felt she was okay noting very severe disease. No plan changes recommended at that time. In the past wondered if she might benefit from lung volume reduction should her symptoms deteriorate. Since last visit: Today: This is my first meeting with Kiersten. She was accompanied by her son Ray. She notes that she has had some increasing dyspnea exertion gradually over the years. She was feeling poorly for about a weekbefore presenting to [facility] on 08/06. She was diagnosed with influenza and has been feeling quite poorly since that time with a marked increase in her dyspnea. She notes getting out of breath even with showering. She recently started sleeping in a recliner due to worsened dyspnea when lying flat. She was prescribed prednisone 40 mg for 5 days. She did find it helpful however symptoms worsened once she finished therapy. She has been taking Trelegy and DuoNebs 3 times daily. She has been coughing up phlegm however her sputum production has reduced over the last couple days. She has been using 3 L/min of supplemental oxygen for the last 6 months at rest. This is increased from prior though this increase occurred prior to her recent influenza infection. We reviewed the CT scan that she had while at [facility] which does show a new concerning finding of a right-sided spiculated lung nodule. We discussed the possibility this could represent malignancy. Her from lung cancer so she is quite concerned about the possibility andwhat that might mean for her going forward. We discussed that the most important for steps is to get her feeling better and then to also make a plan for further diagnostics to ascertain whether this is due to malignancy or possibly infection or alternative etiology. Pulmonary Medications: Trelegy Ellipta daily DuoNeb 3x daily 3LPM supplemental oxygen Review of Systems: Respiratory review of systems noted above. Patient denies headaches, vision changes, recent fevers or chills, unexplained weight changes, abdominal pain, nausea, vomiting, diarrhea. Remainder of 11-point ROS negative unless otherwise stated in HPI. I reviewed the patient's documented past medical, surgical, family, and social history and made changes in the eletronic record where necessary. Current Medications: Current Outpatient Medications: CoQ-10 100 mg Capsule, PRN, Disp: , Rfl: atorvastatin (Lipitor) 20 mg Tablet, Take 40 mg by mouth nightly., Disp: , Rfl: ketoconazole (Nizoral) 2 % Cream, APPLY TO AFFECTED AREA ONCE DAILY NEEDED, Disp: , Rfl: albuteroL (PROVENTIL) 2.5 mg /3 mL (0.083 %) Solution for Nebulization, 3 mLs every 5 hours., Disp:, Rfl: ipratropium-albuteroL (DUONEB) 0.5 mg-3 mg(2.5 mg base)/3 mL Solution for Nebulization, ipratropium0.5 mg-albuterol 3 mg (2.5 mg base)/3 mL nebulization soln Administer breathing tx x 1, Disp: , Rfl: Trelegy Ellipta 100-62.5-25 mcg Disk with Device, inhale 1 puff by mouth and INTO THE LUNGS once daily EVERY MORNING, Disp: , Rfl: loperamide (IMODIUM) 2 mg Capsule, Take 2 mg by mouth daily as needed for Diarrhea. 1 mg/7.5 ml liquid Indications: diarrhea, Disp: , Rfl: amLODIPine (NORVASC) 5 mg Tablet, Take 5 mg by mouth daily., Disp: , Rfl: busPIRone (BUSPAR) 5 mg Tablet, Take 5 mg by mouth 3 times daily., Disp: , Rfl: lisinopril (PRINIVIL;ZESTRIL) 10 mg Tablet, Take 10 mg by mouth daily., Disp: , Rfl: multivitamin Capsule, Take 1 capsule by mouth daily., Disp: , Rfl: OXYGEN-AIR DELIVERY SYSTEMS MISC[place] [facility] [place]Non-Drug; Combo Route) route., Disp: , Rfl: acetaminophen (TYLENOL) 325 mg Tablet, Take 650 mg by mouth every 4 hours as needed for Pain., Disp: , Rfl: mupirocin (Bactroban) 2 % Ointment, Apply topically daily. (Patient not taking: Reported on 04/20/2022), Disp: 22 g, Rfl: 0 cyanocobalamin, Vitamin B-12, (Vitamin B-12) 100 mcg Tablet, Take 100 mcg by mouth daily., Disp: , Rfl: azithromycin (Zithromax) 250 mg Tablet, as needed., Disp: , Rfl: furosemide (Lasix) 20 mg Tablet, PRN, Disp: , Rfl: potassium chloride ER (K-Dur/Klor-Con) 10 mEq Tablet Sustained Release, PRN, Disp: , Rfl: predniSONE (Deltasone) 10 mg Tablet, as needed., Disp: , Rfl: hydrOXYzine (Atarax) 10 mg/5 mL Solution, hydroxyzine HCl 10 mg/5 mL oral solution Take 2.5 ml by mouth daily as needed for anxiety, Disp: , Rfl: albuteroL 90 mcg/actuation HFA Aerosol Inhaler, Inhale 2 puffs into the lungs every 4 hours as needed for Wheezing. Use with spacer, Disp: , Rfl: fluticasone propion-salmeteroL (ADVAIR) 500-50 mcg/dose Disk with Device, Inhale 1 puff into the lungs every 12 hours., Disp: , Rfl: lactobacillus rhamnosus, GG, (CULTURELLE) 10 billion cell Capsule, Take 1 capsule by mouth daily., Disp: , Rfl: cholecalciferol, Vitamin D3, 2,000 unit Capsule, Take by mouth., Disp: , Rfl: Allergies: Allergies Allergen Reactions Gabapentin Other (See Comments) depression Percocet [Oxycodone-Acetaminophen] Physical Examination: BP 141/62 Pulse (!) 105 Temp 36.2 ??C (97.2 ??F) (Temporal) Resp 20 Ht 157.5 cm (5' 2) Wt 72.6 kg (160 lb) Comment: Patient doesn't wish to weigh. SpO2 97% BMI 29.26 kg/m?? HEENT: No pharyngeal erythema or exudates, no thrush, no scleral icterus Cardiovascular: Regular tachycardia, normal S1 and S2, no murmurs or extra heart sounds, 2+ radial pulses B/L Respiratory: tachypnea with some increased work of breathing and conversational dyspnea, diffusely decreased air movement, no wheezing Abdomen: Soft, non-tender, non-distended Extremities: No lower extremity edema Neurologic: Alert, oriented, and communicative. No facial asymmetry or dysarthria. Symmetric gaze. In wheelchair. Pertinent Diagnostics - I personally reviewed the following with my comments included below: Labs: WBC 6.58, Hgb 10.9, PLT 357, Abs Eos 600 -HCO3 30 -Influenza A positive; Influenza B neg, SARS-CoV-2, RSV Chest Imaging: CT Chest w 08/06/23 ([facility]) - Apical predominant centrilobular emphysema, 9mm peripheral RUL nodule, 2.2cm pleural-based mass RLL, R hilar adenopathy Pulmonary Function Tests: Date FVC FVC % FEV1 FEV1 % FEV1/VC TLC TLC % DLCO DLCO% Comments 12/18/18 LRH 1.34> 1.72 54>70 0.48 > 0.59 26<32 34 6.65 153 6.6 35 RV 290% FRC 230% My interpretation of most recent PFTs: Very severe obstruction with hyperinflation and air trapping, sievere diffusion impariment. Diagnoses Acute exacerbation of COPD COPD GOLD IV Supplemental oxygen dependent R-sided lung mass R hilar lymphadenopathy Former smoker Impression: Symptoms consistent with ongoing acute exacerbation of COPD since influenza A infection. Initially had some improvement with Prednisone 40mg with worsening after stopping suggesting may benefit from longer course with taper. With severity of underlying COPD and emphysema, discussed she may have quite prolonged recovery and may not return to pre-illness baseline. Despite severe disease, she typically does not exacerbate frequently. Re: R sided lung nodules and hilar adenopathy, this is highly suspicion of a lung neoplasm given her smoking history and appearance. I reviewed her imaging with Dr.Feller-Kopman with IP and we agreed the best next step would be Bronchoscopy with EBUS TBNA and possible robot-assisted biopsy of nodule/mass as mediastinal staging will be important to guide prognosis and treatment. I do not think she would tolerate general anesthesia at this moment due to ongoingsymptoms of AECOPD, though hopefully with a longer course of steroids this will seem more appropriate int he next 1-2 weeks. Recommendations: -Start Prednisone 40mgx 5d, 30mgx5, [id number], 10mg x 5d -Start Doxycycline -Will plan to touch base in 2 weeks re: symptoms and assess appropriate timing for scheduling bronchoscopy and biopsy with IP if amenable -Follow up in clinic pending above. Call sooner should new questions or concerning symptoms arise. Kevan Cameron MD [facility] Station Mechanic Apprenticeiv technician Pulmonary [place] [address] [email or web address] documented in this encounter Miscellaneous Notes * Op Note - Mikel Noel MD - 09/11/2023 1:37 PM EDT Images from the original note were not included. Interventional Pulmonology Robotic Bronchoscopy with EBUS-TBNA Operative Note SECTION OF PULMONARY & CRITICAL CARE MEDICINE PROCEDURE: Bronchoscopy with EBUS-Guided Transbronchial Needle Aspiration, TBNA additional stations, robotic and radial EBUS guided TBNA, TBBx, BAL RLL; endobronchial biopsies/brush left mainstem Date / Time: 09/11/2023 / 2:32 PM Location: OR Procedure Attending: Dr. Noel was present for the entire procedure. Others Present: nursing, anesthesia, tech Indication(s) / Pre-Procedure Diagnosis: Mediastinal & hilar adenopathy and Lung nodule PRE-PROCEDURE EVALUATION: Pre-procedure checks were completed. This includes relevant documentation (H&P, nursing assessment, pre-anesthesia/sedation assessment); labeled diagnostic and radiology studies matched to patient & properly displayed; availability of blood products, implants, devices and special equipment (matched to the patient); as well as site marking with patient involvement. Consent: Indications, risks, benefits and alternatives were explained during the informed consent process as stated on the informed consent form. Consent obtained from: patient Procedure Status: elective SEDATION, ANALGESIA, AND MONITORING: Medications: Refer to record of source. ASA Class: 3 Monitoring: Cardiac telemetry, pulse oximtery, blood pressure monitoring, capnography Time Out: A time out was performed prior to starting the procedure. Time out includes correct patient identity, agreement on procedure to be performed as stated on the informed consent, correct site and side (laterality). PROCEDURE IN DETAIL: The P190 bronchoscope was inserted into the ETT. The trachea, bilateral mainstem bronchi, and the bilateral segmental bronchi were all visualized and no obvious endobronchial lesions were noted on the right, however, there was an endobronchial lesion in the distal LMSt. The bronchoscope was removed. The BasharJobs robotic system was used for pre-procedure planning, including 3D rendering with image post-processing on an independent workstation. The [employer]ar[employer] robotic system was then used for intra-procedure navigation to the RLL nodule. Under radial EBUS and fluoro control TBNA, TBBx and BAL were obtained.Of note, the combination of TNBA and TBBx was utilized as per standard of care to increase diagnostic yield and obtain adequate tissue for mutation analysis (William et al, JOBIP 2020; 28:174; Ost et al, Am J Respir Crit Care Med 2016;193:6; Debora et al, Eur Respir J 1995;8:963). The robotic bronchoscope was removed and the P190 was re- inserted. EBBx and brushing were obtained in the distal LMSt. The bronchoscope was removed and the EBUS scope inserted. EBUS confirmed the presence of an enlargednode at 11L as well as sub-cm nodes at station, an enlarged node at station 7 and a sub-cm node at 4R. Multiple passes with EBUS TBNA were performed at each sonja station. Note, all mediastinal, hilar, lobar and segmental stations were evaluated during the procedure and those not listed were not bio psied due to lymph node diameter < 5mm or node not visualized. Following this, hemostasis was confirmed, the procedure was terminated and the bronchoscope was withdrawn. Distal LMSt endobronchial lesion Estimated Blood Loss: Minimal COMPLICATIONS: No immediate complications noted POST-PROCEDURE DIAGNOSIS: same, with left mainstem endobronchial lesion SPECIMENS REMOVED: Yes RECOMMENDATIONS: Await pathology results Mikel Noel MD Chief, Section of Pulmonary and Critical Care Medicine Formerly [facility] [address] Dept [address] [place] [address] Phone Pulm Generic: [phone] [email or web address] Pager #[phone] documented in this encounter Plan of Treatment Upcoming Encounters Date Type Department Care Team (Late st Contact Info) Description 07/28/2024 12:30 PM EST Office Visit Hematology/Oncology at [address] [phone] Nick Mullen MD [facility] [place] [address] Chana Myrick APRN [address] [place] [address] DR HEMATOLOGY AND ONCOLOGY [place], [place] [phone] 07/28/2024 1:00 PM EST Scheduled View Only Hematology/Oncology at [address] [phone] Aleah Curran RN 07/28/2024 1:00 PM EST Infusion Hematology Oncology at [address] [phone] documented as of this encounter Procedures Procedure Name Priority Date/Time Associated Diagnosis Comments XR CHEST ONE VIEW STAT 09/11/2023 3:0 2 PM EDT XR FLUORO NO RAD <1HR - OR USE Routine 09/11/2023 2:30 PM EDT NON-MANAGER BENEFIT FINAL REPORT Routine 09/11/2023 2:14 PM EDT NON-MANAGER BENEFIT FINAL REPORT Routine 09/11/2023 2:14 PM EDT NON-MANAGER BENEFIT FINAL REPORT Routine 09/11/2023 2:14 PM EDT NON-MANAGER BENEFIT FINAL REPORT Routine 09/11/2023 2:14 PM EDT CYTOPATHOLOGY NON-GYNECOLOGICAL Routine 09/11/2023 2:14 PM EDT CYTOPATHOLOGY NON-GYNECOLOGICAL Routine 09/11/2023 2:14 PM EDT CYTOPATHOLOGY NON-GYNECOLOGICAL Routine 09/11/2023 2:14 PM EDT CYTOPATHOLOGY NON-GYNECOLOGICAL Routine 09/11/2023 2:14 PM EDT NON-MANAGER BENEFIT FINAL REPORT Routine 09/11/2023 2:09 PM EDT CYTOPATHOLOGY NON-GYNECOLOGICAL Routine 09/11/2023 2:09 PM EDT NON-MANAGER BENEFIT FINAL REPORT Routine 09/11/2023 1:58 PM EDT CYTOPATHOLOGY NON-GYNECOLOGICAL Routine 09/11/2023 1:58 PM EDT SPECIMEN TO PATHOLOGY Routine 09/11/2023 1:54 PM EDT NON-MANAGER BENEFIT FINAL REPORT Routine 09/11/2023 1:48 PM EDT CYTOPATHOLOGY NON-GYNECOLOGICAL Routine 09/11/2023 1:48 PM EDT SOLID TUMOR NGS PANEL Routine 09/11/2023 1:45 PM EDT SURGICAL PATHOLOGY REPORT Routine 09/11/2023 1:45 PM EDT SPECIMEN TO PATHOLOGY Routine 09/11/2023 1:45 PM EDT Bronchoscopy, Biopsy ([id number]) Yes 09/11/2023 1:22 PM EDT Pulmonary nodules Bronchoscopy, Diagnostic [place] ([id number]) Yes 09/11/2023 1:22 PM EDT Pulmonary nodules Bronchoscopy, Diagnostic W [place] ([id number]) Yes 09/11/2023 1:22 PM EDT Pulmonary nodules Bronchoscopy, Transbronch Biopsy ([id number]) Yes 09/11/2023 1:22 PM EDT Pulmonary nodules Bronchoscopy, Transbron Aspir Bx ([id number]) Yes 09/11/2023 1:22 PM EDT Pulmonary nodules [facility] Ebus Dx/Tx Intervention Perph Les ([id number]) Yes 09/11/2023 1:22 PM EDT Pulmonary nodules [facility] Ebus Guided Sampl 3/> Node Station/Strux ([id number]) Yes 09/11/2023 1:22 PM EDT Pulmonary nodules Bronchoscopy Rigid Flex W Computer Assist Img Navigation ([id number]) Yes 09/11/2023 1:22 PM EDT Pulmonary nodules documented in this encounter Results * XR Chest One View (09/11/2023 3:02 PM EDT) Anatomical Region Laterality Modality Chest N/A Digital Radiogra phy Impressions 09/11/2023 3:09 PM EDT No pneumothorax. I have personally reviewed the image(s) and the resident's interpretation and agree with the findings, Nereyda Palmer MD at 09/11/2023 3:09 PM Thank you for letting us participate in the care of this patient. ??If you are a health care provider and have any questions regarding this report, please contact the number below. ??For patients who have questions please contact the health home care liaison that requested your imaging first. ? Electronically signed by: Nereyda Palmer MD, [facility] ([phone]), at 09/11/2023 3:09 PM Narrative 09/11/2023 3:09 PM EDT EXAMINATION: XR CHEST ONE VIEW CLINICAL HISTORY: s/p TBBx right evaluate for ptx TECHNIQUE: 1 view of the chest COMPARISON: CT chest 09/11/2023 Chest radiograph 08/06/2023 FINDINGS: Right lower lobe mass better demonstrated on prior CT chest. No pneumothorax or pleural effusion. Unchanged mild cardiomegaly. No displaced rib fractures. Procedure Note Nereyda Palmer MD - 09/11/2023 EXAMINATION: XR CHEST ONE VIEW CLINICAL HISTORY: s/p TBBx right evaluate for ptx TECHNIQUE: 1 view of the chest COMPARISON: CT chest 09/11/2023 Chest radiograph 08/06/2023 FINDINGS: Right lower lobe mass better demonstrated on prior CT chest. Nopneumothorax or pleural effusion. Unchanged mild cardiomegaly. No displaced ribfractures. IMPRESSION No pneumothorax. I have personally reviewed the image(s) and the resident's interpretationand agree with the findings, Nereyda Palmer MD at 09/11/2023 3:09 PM Thank you for letting us participate in the care of this patient. If youare a health care provider and have any questions regarding this report,please contact the number below. For patients who have questions please contactthe health home care liaison that requested your imaging first. Electronically signed by: Nereyda Palmer MD, [facility]([phone]), at 09/11/2023 3:09 PM Mikel Noel MD IMG DX ORDERABL ES * XR Fluoro No Rad <1Hr - OR Use (09/11/2023 2:30 PM EDT) Narrative Dicom, Auditing User - 09/11/2023 2:30 PM EDT This exam is auto-finalizing. No interpretation was done. Mikel Noel MD G FLUORO PRISCILA HOPPER * Non-Book Salesman Final Report (09/11/2023 2:14 PM EDT) Diagnosis Discussion [id number] ? Location: SDP; SD43; A The signing pathologist has (i) examined the relevant preparation(s) for the specimen(s) and (ii) rendered or confirmed the diagnosis(es). . ? Non-Book Salesman Final DIAGNOSIS Negative for Malignancy Electronically signed by: ?Holden SEYMOUR, Clayton Haskins Verified: ??09/12/2023 13:19 ??Cytopathologis t Performed at: ??-[facility] [place] Dept. [place]ology, [place] [address] Strip Presser: Isidro Diaz MD, AP, ??CLIA Certificate: [id number] DISCUSSION Lymph node: station 4R (EBUS-guided FNA) - Lymphoid tissue and scattered lymphocytes present; compatible with lymph node sampling. Negative for metastatic carcinoma. (Cell block was examined.) CLINICAL INFORMATION Specimen Source : Lymph node: station 4R (EBUS-guided FNA) Pertinent Clinical Data and Significant Therapy: Right lower lobe nodule Clinical Impression : ? non-small cell lung cancer Pertinent Radiologic Findings ??: (not provided) Gross Description: Received ??in Formalin approximately 50 mL total volume of ?? cloudy, bloody fluid, with clots. Total Preparation: Cell Block 1. 09/12/2023 1:19 PM EDT [facility] LYMPH NODE SPECIMEN / Unknown 09/11/2023 2:14 PM EDT 09/11/2023 2:14 PM EDT Mikel Noel MD PATHOLOGY/CYTOL OGY ORDERABLES [facility] [address] [place] [address] * Non-Book Salesman Final Report (09/11/2023 2:14 PM EDT) Diagnosis Discussion [id number] ? Location: SDP; SD43; A The signing pathologist has (i) examined the relevant preparation(s) for the specimen(s) and (ii) rendered or confirmed the diagnosis(es). . ? Non-Book Salesman Final DIAGNOSIS Negative for Malignancy Electronically signed by: ?Holden SEYMOUR, Clayton Haskins Verified: ??09/12/2023 13:14 ??Cytopathologis t Performed at: ??-[facility] Dept. of [place]ology, [place] [address] Strip Presser: Isidro Diaz MD, AP, ??CLIA Certificate: [id number] DISCUSSION Lymph node: station 11L (EBUS-guided FNA) - Lymphocytes present; compatible with focal lymph node sampling. Negative for metastatic carcinoma. (Cell block was examined.) CLINICAL INFORMATION Specimen Source : Lymph node: station 11L (EBUS-guided FNA) Pertinent Clinical Data and Significant Therapy: Right lower lobe nodule Clinical Impression : ? non-small cell lung cancer Pertinent Radiologic Findings ??: (not provided) Gross Description: Received ??in Formalin approximately 49 mL total volume of ?? cloudy, bloody fluid, with clots. Total Preparation: Cell Block 1. 09/12/2023 1:14 PM EDT [facility] LYMPH NODE SPECIMEN / Unknown 09/11/2023 2:14 PM EDT 09/11/2023 2:14 PM EDT Mikel Noel MD PATHOLOGY/CYTOL OGY ORDERABLES [facility] [place] [address] [facility] [place] [address] * Non-Book Salesman Final Report (09/11/2023 2:14 PM EDT) Diagnosis Discussion [id number] ? Location: SDP; SD43; A The signing pathologist has (i) examined the relevant preparation(s) for the specimen(s) and (ii) rendered or confirmed the diagnosis(es). . ? Non-Book Salesman Final DIAGNOSIS Negative for Malignancy Electronically signed by: ?Holden SEYMOUR, Clayton Haskins Verified: ??09/12/2023 10:55 ??Cytopathologis t Performed at: ??-[facility] Dept. of Pathology, [place] [address] Strip Presser: Isidro Diaz MD, FCAP, ??CLIA Certificate: [id number] DISCUSSION Lymph node: station 7 (EBUS-guided FNA) - Lymphoid tissue present; compatible with lymph node sampling. Negative for metastatic carcinoma. (Cell block was examined.) CLINICAL INFORMATION Specimen Source : Lymph node: station 7 (EBUS-guided FNA) Pertinent Clinical Data and Significant Therapy: Right lower lobe nodule Clinical Impression : ? non-small cell lung cancer Pertinent Radiologic Findings ??: (not provided) Gross Description: Received ??in Formalin approximately 50 mL total volume of ?? cloudy, bloody fluid, with dark flecks. Total Preparation: Cell Block 1. 09/12/2023 10:55 AM EDT [facility] LYMPH NODE SPECIMEN / Unknown 09/11/2023 2:14 PM EDT 09/11/2023 2:14 PM EDT Mikel Noel MD PATHOLOGY/CYTOL OGY ORDERABLES [facility] [address] [place] [address] * Non-Book Salesman Final Report (09/11/2023 2:14 PM EDT) Diagnosis Discussion [id number] ? Location: SD; SD43; A The signing pathologist has (i) examined the relevant preparation(s) for the specimen(s) and (ii) rendered or confirmed the diagnosis(es). . ? Non-Book Salesman Final DIAGNOSIS Negative for Malignancy Electronically signed by: ?Holden SEYMOUR, Clayton Haskins Verified: ??09/12/2023 10:54 ??Cytopathologis t Performed at: ??-[facility] Dept. of Pathology, [place] [address] Strip Presser: Isidro Diaz MD, FCAP, ??CLIA Certificate: [id number] DISCUSSION Lymph node: station 4L (EBUS-guided FNA) - Lymphoid tissue present; compatible with lymph node sampling. Negative for metastatic carcinoma. (Cell block was examined.) CLINICAL INFORMATION Specimen Source : Lymph node: station 4L (EBUS-guided FNA) Pertinent Clinical Data and Significant Therapy: Right lower lobe nodule Clinical Impression : ? non-small cell lung cancer Pertinent Radiologic Findings ??: (not provided) Gross Description: Received ??in Formalin approximately 50 mL total volume of ?? cloudy, red fluid, with clots. Total Preparation: Cell Block 1. 09/12/2023 10:54 AM EDT [facility] LYMPH NODE SPECIMEN / Unknown 09/11/2023 2:14 PM EDT 09/11/2023 2:14 PM EDT Mikel Noel MD PATHOLOGY/CYTOL OGY ORDERABLES [facility] [place] [id number] [facility] [place] [address] * Cytopathology Non-Gynecological (09/11/2023 2:14 PM EDT) AP Specimen 09/11/2023 2:14 PM EDT 09/11/2023 2:14 PM EDT Narrative [facility] - 09/11/2023 2:14 PM EDT Specimen requisition ordered. ??Separate Pathology report to follow Mikel Noel MD PATHOLOGY/CYTOL OGY ORDERABLES Performing Organization Address [facility]/ZIP Co de Phone Number [facility] [place] [address] * Cytopathology Non-Gynecological (09/11/2023 2:14 PM EDT) AP Specimen 09/11/2023 2:14 PM EDT 09/11/2023 2:14 PM EDT Narrative [facility] - 09/11/2023 2:14 PM EDT Specimen requisition ordered. ??Separate Pathology report to follow Mikel Noel MD PATHOLOGY/CYTOL OGY ORDERABLES Performing Organization Address [facility] Co de Phone Number [facility] [place] [address] * Cytopathology Non-Gynecological (09/11/2023 2:14 PM EDT) AP Specimen 09/11/2023 2:14 PM EDT 09/11/2023 2:14 PM EDT Narrative [facility] - 09/11/2023 2:14 PM EDT Specimen requisition ordered. ??Separate Pathology report to follow Mikel Noel MD PATHOLOGY/CYTOL OGY ORDERABLES Performing Organization Address [facility] Co de Phone Number [facility] [place] [address] * Cytopathology Non-Gynecological (09/11/2023 2:14 PM EDT) AP Specimen 09/11/2023 2:14 PM EDT 09/11/2023 2:14 PM EDT Narrative [facility] - 09/11/2023 2:14 PM EDT Specimen requisition ordered. ??Separate Pathology report to follow Mikel Noel MD PATHOLOGY/CYTOL OGY ORDERABLES [facility] [place] [address] * Non-Book Salesman Final Report (09/11/2023 2:09 PM EDT) Diagnosis Discussion [id number] ? Location: [facility]; [facility]; A The signing pathologist has (i) examined the relevant preparation(s) for the specimen(s) and (ii) rendered or confirmed the diagnosis(es). . ? Non-Book Salesman Final DIAGNOSIS Negative for Malignancy Electronically signed by: ?Ra SEYMOUR PhD, Tru Haskins Verified: ??09/12/2023 14:03 ??Pathologist Performed at: ??-[facility] Dept. of Pathology, [place] [address] Strip Presser: Isidro Diaz MD, AP, ??IA Certificate: [id number] DISCUSSION Lung, left main stem (bronchial brush): Ciliated bronchial cells, macrophages, mucin, occasional lymphocytes, and neutrophils are present. Cell block was examined. CLINICAL INFORMATION Specimen Source : Lung, left main stem (bronchial brush) Pertinent Clinical Data and Significant Therapy: Right lower lobe nodule Clinical Impression : ? non-small cell lung cancer Pertinent Radiologic Findings ??: (not provided) Gross Description: Received ??in CytoLyt approximately 30.5 mL total volume of ?? clear, with light flecks. Total Preparation: Liquid-Based Prep 1; Cell Block 1. 09/12/2023 2:03 PM EDT [facility] BRONCHIAL BRUSHINGS SPECIMEN / Unknown 09/11/2023 2:09 PM EDT 09/11/2023 2:09 PM EDT Mikel Noel MD PATHOLOGY/CYTOL OGY ORDERABLES Performing Organization Address [facility] Co de Phone Number [facility] [place] [address] [facility] [place] [address] * Cytopathology Non-Gynecological (09/11/2023 2:09 PM EDT) AP Specimen 09/11/2023 2:09 PM EDT 09/11/2023 2:09 PM EDT Narrative [facility] - 09/11/2023 2:09 PM EDT Specimen requisition ordered. ??Separate Pathology report to follow Mikel Noel MD PATHOLOGY/CYTOL OGY ORDERABLES Performing Organization Address [facility] Co de Phone Number [facility] [place] [address] * Non-Book Salesman Final Report (09/11/2023 1:58 PM EDT) Diagnosis Discussion [id number] ? Location: [facility]; [facility]; The signing pathologist has (i) examined the relevant preparation(s) for the specimen(s) and (ii) rendered or confirmed the diagnosis(es). . ? Non-Book Salesman Final DIAGNOSIS Atypical Electronically signed by: ?Ra SEYMOUR PhD, Tru Haskins Verified: ??09/12/2023 13:38 ??Pathologist Performed at: ??-[facility] Dept. of Pathology, [place] [address] Strip Presser: Isidro Diaz MD, AP, ??CLIA Certificate: [id number] DISCUSSION Lung, right lower lobe (bronchial alveolar lavage): The specimen contains scattered bronchial cells, leukocytes and rare larger, atypical epithelioid cells (present on the cell block), favor reactive pneumocytes. ? Cell block was examined. CLINICAL INFORMATION Specimen Source : Lung, right lower lobe (bronchial alveolar lavage) Pertinent Clinical Data and Significant Therapy: Right lower lobe nodule Clinical Impression : ? non-small cell lung cancer Pertinent Radiologic Findings ??: (not provided) Gross Description: Received ??fresh, approximately 5 mL total volume of ?? cloudy, bloody fluid, with light flecks. Total Preparation: Liquid-Based Prep 1; Cell Block 1. 09/12/2023 1:38 PM EDT [facility] BRONCHIAL STRUCTURE / Unknown 09/11/2023 1:58 PM EDT 09/11/2023 1:58 PM EDT Mikel Noel MD PATHOLOGY/CYTOL OGY ORDERABLES Performing Organization Address City/[facility] Co de Phone Number [facility] [place] [phone] [place] [address] [place] [address] * Cytopathology Non-Gynecological (09/11/2023 1:58 PM EDT) AP Specimen 09/11/2023 1:58 PM EDT 09/11/2023 1:58 PM EDT Narrative [facility] - 09/11/2023 1:58 PM EDT Specimen requisition ordered. ??Separate Pathology report to follow Mikel Noel MD PATHOLOGY/CYTOL OGY ORDERABLES [facility] [place] [address] * Specimen to Pathology (09/11/2023 1:54 PM EDT) AP Specimen 09/11/2023 1:54 PM EDT 09/11/2023 1:54 PM EDT Narrative [facility] - 09/11/2023 1:54 PM EDT Specimen requisition ordered. ??Separate Pathology report to follow Mikel oNel MD PATHOLOGY/CYTOL OGY ORDERABLES [facility] [place] [address] * (ABNORMAL) Non-Book Salesman Final Report (09/11/2023 1:48 PM EDT) Diagnosis Discussion [id number] ? Location: [facility]; SD43; A The signing pathologist has (i) examined the relevant preparation(s) for the specimen(s) and (ii) rendered or confirmed the diagnosis(es). . ? Non-Book Salesman Final DIAGNOSIS Positive for Malignancy Electronically signed by: ?Clayton Hatch MD Verified: ??09/14/2023 18:44 ??Cytopathologist Performed at: ??-[facility] Dept. of Pathology, [place] [address] Strip Presser: Isidro Diaz MD, FCAP, ??CLIA Certificate: [id number] DISCUSSION Lung: right lower lobe (FNA) - Non-small cell carcinoma; favor adenocarcinoma. See also the concurrent surgical lung biopsy, [id number]. --- Immunohistochemistry Studies --- Interpretation: ? Immunohistochemical assays were performed (on paraffin-embedded cell block sections fixed in 10% neutral buffered formalin for 6-72 hours) using the polymer technique with appropriate controls. The sections are studied for TTF-1 and p40. The lesional cells are immunoreactive for TTF-1 and negative for p40. These immunohistochemical studies provide ancillary information and are used only in conjunction with standard diagnostic procedures. THIS RESULT REQUIRES PHYSICIAN/A.P.P. FOLLOW UP CLINICAL INFORMATION Specimen Source : Lung: right lower lobe (FNA) Pertinent Clinical Data and Significant Therapy: Right lower lobe nodule Clinical Impression : ? non-small cell lung cancer Pertinent Radiologic Findings ??: (not provided) Gross Description: Received ??in Formalin approximately 48 mL total volume of ?? cloudy, bloody fluid, with clots. Total Preparation: Cell Block 1.(A) 09/14/2023 6:44 PM EDT [facility] RIGHT LUNG STRUCTURE / Unknown 09/11/2023 1:48 PM EDT 09/11/2023 1:48 PM EDT Mikel Noel MD PATHOLOGY/CYTOL OGY ORDERABLES Performing Organization Address [facility]/ZIP Co de Phone Number [facility] [place] [address] * Cytopathology Non-Gynecological (09/11/2023 1:48 PM EDT) AP Specimen 09/11/2023 1:48 PM EDT 09/11/2023 1:48 PM EDT Narrative [facility] - 09/11/2023 1:48 PM EDT Specimen requisition ordered. ??Separate Pathology report to follow Mikel Noel MD PATHOLOGY/CYTOL OGY ORDERABLES Performing Organization Address City/[facility] Co de Phone Number [facility] [place] [address] * (ABNORMAL) Surgical Pathology Report (09/11/2023 1:45 PM EDT) Pathologist [facility] [place] Final Diagnosis [id number] ? Location: [facility]; [facility]; A The signing pathologist has (i) examined the relevant preparation(s) for the specimen(s) and (ii) rendered or confirmed the diagnosis(es). . ? Addendum ADDENDUM DISCUSSION PD-L1 Immunohistochemistry Study Tissue: Right lower lobe forceps biopsy. Diagnosis: Adenocarcinoma. Tumor Proportion Score (TPS): ?? 20% Interpretation Table: PD-L1 assay (22C3 pharmDX) for Keytruda (pembrolizumab): Tumor Proportion Score (TPS): ? <1% ?PD-L1 Negative ? >=1% ? PD-L1 Expression ? >=50% ?PD-L1 High Expression Immunohistochemical assay was performed on paraffin-embedded tissue sections fixed in 10% neutral buffered formalin for 6-72 hours using the polymer system technique with appropriate controls. The assay was performed according to the submarine advisory team watch officer's instructions using Anti-PD-L1 (22C3, pharmDX) antibody. Electronically signed by: ?Toby Gregory MD Verified: ??09/18/2023 23:50 ??Pathologist Performed at: ??-[facility] Dept. of Pathology, [place] [address] Strip Presser: Isidro Diaz MD, AP, ??CLIA Certificate: [id number] ?Surgical Pathology DIAGNOSIS A - Endobronchial biopsy left main stem, biopsy: - Respiratory mucosa, negative for carcinoma. B - Right lower lobe forceps biopsy: - Adenocarcinoma, see discussion. Electronically signed by: ?Hosea Adamson MD Verified: ??09/14/2023 18:57 ??Pathologist Performed at: ??-[facility] Dept. of Pathology, [place] [address] Strip Presser: Isidro Diaz MD, FCAP, ??CLIA Certificate: [id number] DISCUSSION The left main stem endobronchial biopsy (part A) contains fragments of bronchial wall tissue, with a microscopic focus of crushed cells. The crushed cells are negative for TTF1. There is scattered immunoreactivity with synaptophysin, favored to represent nonspecific background staining. LCA highlights rare leukocytes. Adenocarcinoma is present in the right lower lobe biopsy (part B). The growth pattern is technically difficult to assess due to processing artifacts. This case and the concurrent FNA ([id number]) were reviewed and discussed with cytopathologist Dr. Hatch. ?? Tumor somatic mutation testing and PD-L1 IHC testing have been ordered and will be reported separately. THIS RESULT REQUIRES PHYSICIAN/A.P.P. FOLLOW UP . ADDITIONAL STUDIES Immunohistochemistry Studies: Formalin-fixed, paraffin-embedded tissue sections are studied using the polymer technique with appropriate positive and negative controls. ?These IHC studies provide the pathologist with adjunctive diagnostic information. Antibody specificity has been verified by testing antibodies on a series of in-house tissues with known immunohistochemical performance characteristics. The clinical interpretation of any antibody positive staining or its absence is evaluated within the context of clinical presentation, morphology, histopathological criteria and other diagnostic tests. Block ? Antibody ?Result (Positive/Negative) A2 ? TTF1 ? Negative in crushed cells A2 ? Synaptophysin ?Negative in crushed cells A2 ? LCA ?Scattered positive in crushed cells B2 ? TTF1 ? Positive B2 ? p40 ?Negative B2 ? Synaptophysin ?Negative B2 ? Chromogranin ? Negative SPECIMEN(S) SUBMITTED A - endobronchial biopsy left main stem, biopsy (1) B - right lower lobe forceps biopsy, biopsy (1) CLINICAL INFORMATION Right lower lobe nodule SPECIMEN PROCESSING A - Labeled/Fixative: Endobronchial biopsy left mainstem, formalin. Quantity/Size: Fragments, ranging from 0.1 to 0.3 cm. Tissue Description: Soft, pink tissues. Sections/Processing: Submitted in toto ??in 2 cassettes labeled A1-A2. B - Labeled/Fixative: Right lower lobe forceps biopsy, formalin. Quantity/Size: Multiple, ranging from 0.2 to 0.6 cm. Tissue Description: Soft, red tissues. Sections/Processing: Submitted in toto ??in 3 cassettes labeled B1-B3. ??nilamy(A) 09/18/2023 11:50 PM EDT [facility] LUNG STRUCTURE / Unknown 09/11/2023 1:45 PM EDT 09/11/2023 1:45 PM EDT LUNG STRUCTURE / Unknown 09/11/2023 1:45 PM EDT 09/11/2023 1:45 PM EDT Mikel Noel MD PATHOLOGY/CYTOL OGY ORDERABLES Performing Organization Address City/[facility] Co de Phone Number [facility] [place] [address] * Solid Tumor NGS Panel (09/11/2023 1:45 PM EDT) Tissue 09/11/2023 1:45 PM EDT 09/17/2023 7:06 AM EDT Narrative Resulting Agency Comment Spec In Lab Mikel Noel MD PATHOLOGY/CYTOL OGY ORDERABLES Performing Organization Address City/[facility] Co de Phone Number [facility] [place] [address] * Specimen to Pathology (09/11/2023 1:45 PM EDT) AP Specimen 09/11/2023 1:45 PM EDT 09/11/2023 1:45 PM EDT Narrative [facility] - 09/11/2023 1:45 PM EDT Specimen requisition ordered. ??Separate Pathology report to follow Mikel Noel MD PATHOLOGY/CYTOL OGY ORDERABLES Performing Organization Address [facility] Co de Phone Number [facility] [place] [address] documented in this encounter Visit Diagnoses Diagnosis Pulmonary nodules Other nonspecific abnormal finding of lung field documented in this encounter Administered Medications Inactive Administered Medications - up to 3 most recent administrations Medication Order MAR Action Action Date Dose Rate Site lactated ringers infusion 1,000 mL, at 100 mL/hr, Intravenous, CONTINUOUS, Starting on Sun09/11/23 at 1330, Until Sun09/11/23 at 1548, Day of Surgery (Day of Procedure) New Bag 09/11/2023 1:21 PM EDT New Bag 09/11/2023 1:18 PM EDT 1,000 mLs 100 mL/hr documented in this encounter Active and Recently Administered Medications Times are shown in EDT. Continuous Medication Order 09/09/2023 09/10/2023 09/11/2023 lactated ringers infusion (CANCELED) 1,000 mL, at 100 mL/hr, Intravenous, CONTINUOUS, Starting on Sun09/11/23 at 1330, Until Sun09/11/23 at 1548, Day of Surgery (Day of Procedure) 1318 (New Bag - Prov ider: Jessie Aragon RN)1320 (Paused - Provider: Aline Salinas - Comment: Switch to gravity)1321 (New Bag - Provider: Aline Salinas)1404 (Anesthesia Volume Adjustment - Provider: Aline Salinas) documented in this encounter Care Teams Fiber Optic Assembler Relationship Specialty Start Date End Date Maria Guadalupe Mendes MD [address] [place] [address] PCP - General General Internal Medicine 09/06/23 documented as of this encounter
--- OUTSIDE RECORDS SUMMARY | 2024-07-28 01:31 | XMS_ITS | Encounter Summary ---
Author Organization [facility] Address [facility] [place] [address] Care Team Providers Care Net Software Engineer Name Role Phone Maria Guadalupe Mendes MD Primary Care Provider Reason for Referral * Diagnostic Test (Routine) - Closed Specialty Diagnoses / Procedures Referred By Alea morales Referred To Contact Radiology Diagnoses Multiple lung nodules Hilar lymphadenopathy Procedures CT Chest wo Contrast (Generic) Noemi Lorenzo APRN [facility] [address] [facility] [place] [address] Referral ID Status Reason Start Date Expiration Date V isits Requested Visits Authorized [id number] Closed Specialty Service Requested 08/28/2023 02/27/2025 1 1 Reason for Visit * Auth/Cert (Routine) Specialty Diagnoses / Procedures Referred By Alea morales Referred To Contact Diagnoses Pulmonary nodules Pulmonary nodule(s)/Robotic Bronch with EBUS/ga/Bert Procedures PRO BRONCHOSCOPY RIGID FLEX W COMPUTER ASSIST IMG NAVIGATION PRO [facility] EBUS GUIDED SAMPL 3/> NODE STATION/STRUX BRONCHOSCOPY,RIGID OR FLEX,WITH IMAGE GUIDANCE ( ROBOT / ION ) (WRVU 2) BRONCH, W ENDOBRONCHIAL ULTRASOUND (EBUS) GUIDED SAMPLING, 3+ NODES (WRVU 4.96) Mikel Noel MD [facility] [address] [facility] Referral ID Status Reason Start Date Expiration Date Visits Re quested Visits Authorized [id number] 1 1 Encounter Details Date Type Department Care Team (Latest Contact Info) Description 09/11/2023 11:38 AM EDT - 09/11/2023 12:34 PM EDT Hospital [place] [id number] Noemi Lorenzo, ROTARY DRILL OPERATOR HELPER [facility] [address] Multiple lung nodules; Hilar lymphadenopathy Discharge Disposition: Home Social History Tobacco Use Types Packs/Day Years Used Date Smoking Tobacco: Former Cigarettes 1 50 0 06/25/1967 - 06/25/2017 e-Cigarettes Smokeless Tobacco: Never Alcohol Use Standard Drinks/Week Comments Not Currently 0 (1 standard drink = 0.6 oz pur e alcohol) [facility] Inpatient Questions Answer Date Recorded Does [...] mouth daily. OXYGEN-AIR DELIVERY SYSTEMS MISC by [facility].(Non-Drug; Combo Route) route. lactobacillus rhamnosus, [...] PM EST Office Visit Hematology/Oncology at [address] [phone] Nick Mullen MD [facility] [place] [address] Chana Myrick APRN [address] [place] [address] DR HEMATOLOGY AND ONCOLOGY [place], [place] [id number] 07/28/2024 1:00 PM EST Scheduled View Only Hematology/Oncology at [address] [phone] Aleah Curran RN 07/28/2024 1:00 PM EST Infusion Hematology Oncology at [address] [phone] documented as of this encounter Procedures Procedure Name Priority Date/Time Associated Diagnosis Comments CT CHEST WO CONTRAST (GENERIC) Routine 09/11/2023 12:01 PM EDT Multiple lung nodules Hilar lymphadenopathy documented in this encounter Results * CT [...] who have questions please contact the health behavioral health care manager that requested your imaging first. ? Electronically signed by: Nereyda Palmer MD, [facility] ([phone]), at 09/11/2023 2:16 PM Narrative 09/11/2023 2:16 PM EDT EXAMINATION: CT [...] patients who have questions please contactthe health behavioral health care manager that requested your imaging first. Electronically signed by: Nereyda Palmer MD, [facility]([phone]), at 09/11/2023 2:16 PM Noemi C Maura ROTARY DRILL OPERATOR HELPER IMG CT ORDERABLES documented in this encounter Visit Diagnoses Diagnosis Multiple lung nodules Other nonspecific abnormal finding of lung field Hilar lymphadenopathy Enlargement of lymph nodes documented in this encounter Care Teams Net Software Engineer Relationship Specialty Start Date End Date Maria Guadalupe Mendes MD [address] [place] [address] PCP - General General Internal Medicine 09/06/23 documented as of this encounter
--- OUTSIDE RECORDS SUMMARY | 2024-07-28 01:31 | XMS_ITS | Encounter Summary ---
Author Organization [facility] [place] [address] Care Team Providers Care Peeler Operator Name Role Phone Maria Guadalupe Mendes MD Primary Care Provider [phone] Encounter Details Date Type Department Care Team (Late st Contact Info) Description 09/18/2023 Telephone Radiation Oncology at [address] [phone] Linnea Merino Social History Tobacco Use Types Packs/Day Years Used Date Smoking Tobacco: Former Cigarettes 1 50 0 06/25/1967 - 06/25/2017 e-Cigarettes Smokeless Tobacco: Never Alcohol Use Standard Drinks/Week Comments Not Currently 0 (1 standard drink = 0.6 oz pur e alcohol) IPV Inpatient Questions Answer Date Recorded Does [...] * Telephone Encounter - Linnea Merino - 09/18/2023 8:39 AM EDT Radiation Oncology New Patient Scheduling Note I called Kiersten to inform her that Dr. Cameron has referred her to see Dr. Bolanos for a radiation new patient consultation. I have confirmed her appointments on 09/27/23 will include a 30 minute visit at 1:30pm to see our clinic nurse, followed by a [address] Bolanos. I have requested that she arrive 15 minutes early in order to complete paperwork. I confirmed our address and answered all of her questions, and our contact information should any further questions or concerns arise. documented in this encounter Plan of Treatment Upcoming Encounters Date Type Department Care Team (Late st Contact Info) Description 07/28/2024 12:30 PM EST Office Visit Hematology/Oncology at [address] [phone] Nick Mullen MD [facility] DR HEMATOLOGY [place] [address] Chana Myrick APRN [address] [place] [address] DR HEMATOLOGY AND ONCOLOGY [place], [place] [id number] 07/28/2024 1:00 PM EST Scheduled View Only Hematology/Oncology at [address] [phone] Aleah Curran RN 07/28/2024 1:00 PM EST Infusion Hematology Oncology at [address] [phone] documented as of this encounter Visit Diagnoses Not on filedocumented in this encounter Care Teams Peeler Operator Relationship Specialty Start Date End Date Maria Guadalupe Mendes MD [address] [place] [phone] PCP - General General Internal Medicine 09/06/23 documented as of this encounter
--- OUTSIDE RECORDS SUMMARY | 2024-07-28 01:31 | XMS_ITS | Encounter Summary ---
Author Organization [facility] Address [facility] [place] [address] Care Team Providers Care Jailer Name Role Phone MatildeTatum Jozef KHANNA Primary Care Provider Encounter Details Date Type Department Care Team (Late st Contact Info) Description 03/27/2022 1:45 PM EDT Office Visit Dermatology at [facility] [address] [place] [address] Mars Segura MD [facility] [address] [place] [address] Visit for suture removal Social History Tobacco Use Types Packs/Day Years [...] Progress Notes * Mars Segura MD - 03/27/2022 1:45 PM EDT Images from the original note were not included. Patient: Kiersten Barraza Date of . 1940 Today's Date: 03/27/2022 Kiersten Barraza is a 82 y.o. female here for suture removal. Exam: healing graft, one area with superficial loss of the graft, dermal component viable, no evidence of infection Photograph: Plan: 1. Linear closure sutures removed today. Sutures left in place around graft. Vaseline and bandage applied. 3. Follow up with Dr. Segura: One week for suture removal Note initiated by CALLI Gaona CMA has performed the documentation for this encounter in the presence of and acting as a scribe for Dr. Segura I performed the above scribed service and agree with the accuracy of the documentation in this encounter. Reviewed and signed by: Mars Segura Dermatology [facility] documented in this encounter Plan of Treatment Upcoming Encounters Date Type Department Care Team (Late st Contact Info) Description 07/28/2024 12:30 PM EST Office Visit Hematology/Oncology at [address] [phone] Nick Mullen MD [facility] [place] [address] Chana Myrick APRN [address] [place] [address] DR HEMATOLOGY AND ONCOLOGY [place], [place] [id number] 07/28/2024 1:00 PM EST Scheduled View Only Hematology/Oncology at [address] [phone] Aleah Curran RN 07/28/2024 1:00 PM EST Infusion Hematology Oncology at [address] [phone] documented as of this encounter Visit Diagnoses Diagnosis Visit for suture removal Encounter for removal of sutures documented in this encounter Care Teams Jailer Relationship Specialty Start Date End Date Tatum Clayton APRN [address] [place] [address] PCP - General Internal Medicine 09/20/18 09/05/23 documented as of this encounter
--- OUTSIDE RECORDS SUMMARY | 2024-07-28 01:31 | XMS_ITS | Encounter Summary ---
Author Organization [facility] [place] [address] Care Team Providers Care Sewer System Supervisor Name Role Phone Maria Guadalupe Mendes MD Primary Care Provider Encounter Details Date Type Department Care Team (Late st Contact Info) Description 09/05/2023 Telephone [place] [phone] Rossy Cabello Social History Tobacco Use Types Packs/Day Years [...] Telephone Encounter - Carmen Fam RN - 09/06/2023 9:42 AM EDT Chart review complete. Pt is not on blood thinners at this time. Pt using 3-4 L/min of supplemental oxygen for the last ~6 months at rest. Pt uses an [employer] POC totravel, it can plug into the car, She does not have any concerns getting to or home with her [employer]. Carmen Fam RN Department of Pulmonary 5C, [facility] Pager: [phone] documented in this encounter Plan of Treatment Upcoming Encounters Date Type Department Care Team (Late st Contact Info) Description 07/28/2024 12:30 PM EST Office Visit Hematology/Oncology at [address] [phone] Nick Mullen MD [facility] DR [place] [address] Chana Myrick [address] HEMATOLOGY AND ONCOLOGY [place], [place] [id number] 07/28/2024 1:00 PM EST Scheduled View Only Hematology/Oncology at [address] [phone] Aleah Curran RN 07/28/2024 1:00 PM EST Infusion Hematology Oncology at [address] [phone] documented as of this encounter Visit Diagnoses Not on filedocumented in this encounter Care Teams Sewer System Supervisor Relationship Specialty Start Date End Date Maria Guadalupe Mendes MD [address] [place] [address] PCP - General General Internal Medicine 09/06/23 documented as of this encounter
--- OUTSIDE RECORDS SUMMARY | 2024-07-28 01:31 | XMS_ITS | Encounter Summary ---
Author Organization [facility] Address [facility] [place] [address] Care Team Providers Care Industrial Pharmacist Name Role Phone MatildeTatum JEY Primary Care Provider Encounter Details Date Type Department Care Team (Late st Contact Info) Description 08/17/2023 [place]phone [place] [phone] Kevan Cameron MD [facility] [place] [address] Social History Tobacco Use Types Packs/Day Years [...] Telephone Encounter - Kevan Cameron MD - 08/17/2023 8:32 AM EST Spoke with Kiersten. She is feeling a bit better since Sunday, able to move around a bit more, but still much below her typical baseline. She has only been on prednisone and doxycycline for about 2 days at this point. Discussed that I reviewed her imaging with Dr. Noel of and we agreed that the best nextstep for diagnosis regarding R sided lung nodules and hilar adenopathy, would be to proceed with bronchoscopy with EBUS-TBNA of mediastinal/hilar lymph nodes and possible robotic assistance to biopsythe dominant peripheral R sided lesion. We discussed that this would be done under general anesthesia and while bronchoscopy is generally quite safe, there are elevated risks for her undergoing general anesthesia in light of her recent influenza infection and COPD exacerbation leading to worsened dyspnea. The risks could include difficulty extubating post-procedure in addition to more standard risks of bleeding, infection, pneumothorax, all of which are not high and are generally very manageable. I advised that we don't want to delay diagnosis too long, but that a week or even a few weeks to see if her respiratory status improves such that risks of GA would be reduced is favored, though we would preferably not wait months to get more diagnostics. I will plan to reach out to Ms. Barraza late next week to see how she is feeling and advised that she notify me sooner if she feels either markedly better or worse in the meantime. Kevan Cameron MD [facility] Staff Physician, Pulmonary and Critical Care Medicine documented in this encounter Plan of Treatment Upcoming Encounters Date Type Department Care Team (Late st Contact Info) Description 07/28/2024 12:30 PM EST Office Visit Hematology/Oncology at [address] [phone] Nick Mullen MD [facility] DR [place] [address] Chana Myrick APRN [address] [place] [address] DR HEMATOLOGY AND ONCOLOGY [place], [place] [id number] 07/28/2024 1:00 PM EST Scheduled View Only Hematology/Oncology at [address] [phone] Aleah Curran RN 07/28/2024 1:00 PM EST Infusion Hematology Oncology at [address] [phone] documented as of this encounter Visit Diagnoses Not on filedocumented in this encounter Care Teams Industrial Pharmacist Relationship Specialty Start Date End Date Tatum Clayton APRN [address] [place] [address] PCP - General Internal Medicine 09/20/18 09/05/23 documented as of this encounter
--- OUTSIDE RECORDS SUMMARY | 2024-07-28 01:31 | XMS_ITS | Encounter Summary ---
Author Organization [facility] [place] [address] Care Team Providers Care Manufacturing Inspector Name Role Phone MatildeTatum JEY Primary Care Provider [phone] Encounter Details Date Type Department Care Team (Late Contact Info) Description 04/20/2022 Telephone [place] [phone] Palua Peter RMA Social History Tobacco Use Types Packs/Day Years [...] encounter Miscellaneous Notes * Telephone Encounter - Paula Peter RMA - 04/20/2022 11:46 AM EDT Spoke with pt.. allergies, meds, & tobacco reviewed. documented in this encounter Plan of Treatment Upcoming Encounters Date Type Department Care Team (Late Contact Info) Description 07/28/2024 12:30 PM EST Office Visit Hematology/Oncology at [address] [phone] Nick Mullen MD [facility] DR [place] [address] Chana Myrick APRN [address] [place] [address] DR [place] [address] 07/28/2024 1:00 PM EST Scheduled View Only Hematology/Oncology at [address] [phone] Aleah Curran RN 07/28/2024 1:00 PM EST Infusion Hematology Oncology at [address] [phone] documented as of this encounter Visit Diagnoses Not on filedocumented in this encounter Care Teams Manufacturing Inspector Relationship Specialty Start Date End Date Tatum Clayton APRN [address] [place] [address] PCP - General Internal Medicine 09/20/18 09/05/23 documented as of this encounter
--- OUTSIDE RECORDS SUMMARY | 2024-07-28 01:31 | XMS_ITS | Encounter Summary ---
Author Organization [facility] Address [facility] [place] [address] Care Team Providers Care Rn Or Lvn Name Role Phone MatildeTatum Jozef KHANNA Primary Care Provider [phone] Encounter Details Date Type Department Care Team (Latest Contact Info) Description 04/18/2022 Travel Social History Tobacco Use Types Packs/Day [...] PM EST Office Visit Hematology/Oncology at [address] [phone] Nick Mullen MD [facility] DR [place] [address] Chana Myrick APRN [address] [place] [address] DR HEMATOLOGY AND ONCOLOGY [place], [place] [id number] 07/28/2024 1:00 PM EST Scheduled View Only Hematology/Oncology at [address] [phone] Aleah Curran, RN 07/28/2024 1:00 PM EST Infusion Hematology Oncology at [address] [phone] documented as of this encounter Visit Diagnoses Not on filedocumented in this encounter Care Teams Rn Or Lvn Relationship Specialty Start Date End Date Tatum Clayton APRN [address] [place] [address] PCP - General Internal Medicine 09/20/18 09/05/23 documented as of this encounter
--- OUTSIDE RECORDS SUMMARY | 2024-07-28 01:31 | XMS_ITS | Encounter Summary ---
Author Organization [facility] [place] [address] [address] Care Team Providers Care Benefit Specialist Name Role Phone Matilde Tatum Jozef KHANNA Primary Care Provider Encounter Details Date Type Department Care Team (Late Contact Info) Description 08/06/2023 Interpretation Only [address] [phone] Haydee Ball MD [address] [place] [id number] Social History Tobacco Use Types Packs/Day Years [...] 12:30 PM EST Office Visit Hematology/Oncology at [address] [phone] Nick Mullen MD [facility] DR [place]AT[place]Y [place] [address] Chana Myrick APRN [address] [place] [address] DR HEMATOLOGY AND ONCOLOGY [place], [place] [id number] 07/28/2024 1:00 PM EST Scheduled View Only Hematology/Oncology at [address] [phone] Aleah Curran RN 07/28/2024 1:00 PM EST Infusion Hematology Oncology at [address] [phone] documented as of this encounter Procedures Procedure Name Priority Date/Time Associated Diagnosis Comments XR CHEST ONE VIEW STAT 08/06/2023 2:4 6 PM EST documented in this encounter Results * XR Chest One View (08/06/2023 2:46 PM EST) PT CLASS E RAD ADMITDTTM [id number] RAD PT RAD INFO [id number]^Caraghe r^Haydee RAD EXAM DESC XCXR1^XR Chest 1 View^RIS RAD Anatomical Region Laterality Modality Chest N/A Radiographic Trini ging 08/06/2023 2:46 PM EST Impressions 08/06/2023 2:50 PM EST Interval increase in size of an ill-defined groundglass opacity in the right midlung region, cannot exclude an underlying mass. Recommend further characterization with CT. Thank you for letting us participate in the care of this patient. ??If you are a health care provider and have any questions regarding this report, please contact the number below. ??For patients who have questions please contact the health career development consultant that requested your imaging first. ? Electronically signed by: [facility]ro [facility] ([phone]), at 08/06/2023 2:50 PM Narrative 08/06/2023 2:50 PM EST EXAMINATION: XR Chest 1 View CLINICAL HISTORY: shortness of breath, hx COPD TECHNIQUE: Frontal radiograph of the chest COMPARISON: May 14, 2021 FINDINGS: Interval increase in prominence of an ill-defined groundglass opacity in the right midlung region. The remainder of the lungs is clear. No pneumothorax or pleural effusions detected. Procedure Note Mihai Guerrero MD - 08/06/2023 EXAMINATION: XR Chest 1 View CLINICAL HISTORY: shortness of breath, hx COPD TECHNIQUE: Frontal radiograph of the chest COMPARISON: May 14, 2021 FINDINGS: Interval increase in prominence of an ill-defined groundglass opacity inthe right midlung region. The remainder of the lungs is clear. No pneumothoraxor pleural effusions detected. IMPRESSION Interval increase in size of an ill-defined groundglass opacity in theright midlung region, cannot exclude an underlying mass. Recommend further characterization with CT. Thank you for letting us participate in the care of this patient. If youare a health care provider and have any questions regarding this report,please contact the number below. For patients who have questions please contactthe health career development consultant that requested your imaging first. Electronically signed by: [facility]ro [facility]([phone]), at 08/06/2023 2:50 PM Haydee Ball MD IMG DX ORDERABLES documented in this encounter Visit Diagnoses Not on filedocumented in this encounter Care Teams Benefit Specialist Relationship Specialty Start Date End Date Tatum Clayton APRN [address] [place] [address] PCP - General Internal Medicine 09/20/18 09/05/23 documented as of this encounter
--- OUTSIDE RECORDS SUMMARY | 2024-07-28 01:31 | XMS_ITS | Encounter Summary ---
Author Organization [facility] Address [facility] [place] [address] Care Team Providers Care Lead Medical Technologist Name Role Phone MatildeTatum Jozef KHANNA Primary Care Provider Encounter Details Date Type Department Care Team (Late st Contact Info) Description 04/21/2022 11:30 AM EDT Office [place] [phone] Jonatan Medina MD [facility] [place] [address] Stage 4 very severe COPD by GOLD classification; ARZATE (dyspnea on exertion); Chronic respiratory failure with hypoxia Social History Tobacco Use Types Packs/Day Years [...] Sign Reading Time Taken Comments Blood Pressure 143/65 04/21/2022 11:36 AM EDT Pulse 94 04/21/2022 11:36 AM EDT Temperature 36.9 ??C (98.4 ??F) 04/21/2022 1 1:36 AM EDT Respiratory Rate 22 04/21/2022 11:3 6 AM EDT Oxygen Saturation 95% 04/21/2022 11: 36 AM EDT 3L of o2 w. NC Inhaled Oxygen Concentration - - Weight 72.6 kg (160 lb) 04/21/2022 11:3 6 AM EDT self reported Height 157.5 cm (5' 2) 04/21/2022 11:3 6 AM EDT Body Mass Index 29.26 04/21/2022 11:36 AM EDT documented in this encounter Progress Notes * Jonatan Medina MD - 04/21/2022 11:30 AM EDT Images from the original note were not included. [facility] Section of Pulmonary Medicine COPD Clinic follow-up visit Date of Encounter: 04/25/2022 PCP: Tatum [place] APRN [address] [place] [address] Reason for visit: Follow-up GOLD stage IV COPD Background: I first met Kiersten on 10/02/2019 via telephone appointment. My initial impression at that visit: ?? 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 Exertional dyspnea is her main complaint. She has exertional hypoxemia and I would be shocked if she has some mild hypercapnia. Functionally she is doing fairly well, livingalone with some regular assistance, but it sounds like she is short of breath with her activities of daily living. ?? I think her current medication regimen with Trelegy once daily and additional nebulized bronchodilator is excellent. I have advised her to try using albuterol some days and DuoNeb other days and then to stick with whichever of these she finds most effective. There is no problem using extra DuoNeb in addition to Trelegy if she finds that to be the most effective combination. ?? She may be a candidate for advanced COPD therapies such as LVRS or noninvasive ventilation if her symptoms were to deteriorate Interval History: Kiersten returns the pulmonary clinic today. Overall she is done very well with her COPD. She does have some dyspnea on exertion but has little in the way of cough or sputum production and has not required any prednisone or antibiotics for exacerbations. She is up-to-date with immunization. She uses Trelegy daily, DuoNeb TID, albuterol BID prn all with symptomatic benefit. Using oxygen most of the day as needed and at night. Off oxygen her room air saturation today was 88%. Review of Systems: As above Past Medical History: Past Medical History: Diagnosis Date ??? Allergic state ??? Anxiety ??? Arthritis ??? Cataract ??? COPD (chronic obstructive pulmonary disease) COPD & Emphysema ??? High blood pressure controlled with meds ??? HTN (hypertension) 06/05/2018 ??? Hypertension ??? Mental health problem anxiety ??? Oxygen dependent has been on O2 for about 3 1/2 years. Uses it most of the time ??? Syncope if turns fast may get light headed very occassionally-fainted 56 years ago @ childbirth Past Surgical History: Past Surgical History: Procedure Laterality Date ??? CATARACT EXTRACTION, EXTRACAPSULAR, W/ LENS INSERTION Left 08/15/2018 ??? CATARACT EXTRACTION, EXTRACAPSULAR, W/ LENS INSERTION Right 09/04/2018 SK CE/IOL Medications: Current Outpatient Medications Medication Sig Dispense Refill ??? CoQ-10 100 mg Capsule PRN ??? ketoconazole (Nizoral) 2 % Cream APPLY TO AFFECTED AREA ONCE DAILY NEEDED ??? furosemide (Lasix) 20 mg Tablet PRN ??? potassium chloride ER (K-Dur/Klor-Con) 10 mEq Tablet Sustained Release PRN ??? albuteroL (PROVENTIL) 2.5 mg /3 mL (0.083 %) Solution for Nebulization 3 mLs every 5 hours. ??? ipratropium-albuteroL (DUONEB) 0.5 mg-3 mg(2.5 mg base)/3 mL Solution for Nebulization ipratropium 0.5 mg-albuterol 3 mg (2.5 mg base)/3 mL nebulization soln Administer breathing tx x 1 ??? Trelegy Ellipta 100-62.5-25 mcg Disk with Device inhale 1 puff by mouth and INTO THE LUNGS oncedaily EVERY MORNING ??? loperamide (IMODIUM) 2 mg Capsule Take 2 mg by mouth daily as needed for Diarrhea. Indications:diarrhea ??? amLODIPine (NORVASC) 5 mg Tablet Take 5 mg by mouth daily. ??? busPIRone (BUSPAR) 5 mg Tablet Take 5 mg by mouth 3 times daily. ??? lisinopril (PRINIVIL;ZESTRIL) 10 mg Tablet Take 10 mg by mouth daily. ??? multivitamin Capsule Take 1 capsule by mouth daily. ??? OXYGEN-AIR DELIVERY SYSTEMS MISC by [facility].(Non-Drug; Combo Route) route. ??? acetaminophen (TYLENOL) 325 mg Tablet Take 650 mg by mouth every 4 hours as needed for Pain. ??? cholecalciferol, Vitamin D3, 2,000 unit Capsule Take by mouth. ??? mupirocin (Bactroban) 2 % Ointment Apply topically daily. (Patient not taking: Reported on 04/20/2022) 22 g 0 ??? atorvastatin (Lipitor) 20 mg Tablet Take 20 mg by mouth nightly. ??? cyanocobalamin, Vitamin B-12, (Vitamin B-12) 100 mcg Tablet Take 100 mcg by mouth daily. ??? azithromycin (Zithromax) 250 mg Tablet as needed. ??? predniSONE (Deltasone) 10 mg Tablet as needed. ??? hydrOXYzine (Atarax) 10 mg/5 mL Solution hydroxyzine HCl 10 mg/5 mL oral solution Take 2.5 ml by mouth daily as needed for anxiety ??? albuteroL 90 mcg/actuation HFA Aerosol Inhaler Inhale 2 puffs into the lungs every 4 hours as needed for Wheezing. Use with spacer ??? fluticasone propion-salmeteroL (ADVAIR) 500-50 mcg/dose Disk with Device Inhale 1 puff into thelungs every 12 hours. ??? lactobacillus rhamnosus, GG, (CULTURELLE) 10 billion cell Capsule Take 1 capsule by mouth daily. No current facility-administered medications for this visit. Allergies: Gabapentin and Percocet [oxycodone-acetaminophen] Social History: Social History Socioeconomic History ??? Marital status: Spouse name: Not on file ??? Number of children: Not on file ??? Years of education: Not on file ??? Highest education level: Not on file Occupational History ??? Not on file Tobacco Use ??? Smoking status: Former Smoker Packs/day: 1.00 Years: 50.00 Pack years: 50.00 Types: Cigarettes, e-Cigarettes Quit date: 06/25/2017 Years since quittin.8 ??? Smokeless tobacco: Never Used Vaping Use ??? Vaping Use: Former Substance and Sexual Activity ??? Alcohol use: Yes Comment: Rare use ??? Drug use: No ??? Sexual activity: Not on file Other Topics Concern ??? Not on file Social History Narrative ??? Not on file Social Determinants of Health Financial Resource Strain: Not on file Food Insecurity: Not on file Transportation Needs: Not on file Physical Activity: Not on file Housing Stability: Not on file Social Hx Ex smoker - quit a few years ago, 50 pack year smoking history Senior housing Motorized shopping carts Previously lived in [place] [facility] twice per week 2 sons nearby ?? Family History: Family History Problem Relation Age of Onset ??? Glaucoma Mother ??? Glaucoma Brother ??? Macular Degeneration Neg Hx ??? Amblyopia Neg Hx ??? Strabismus Neg Hx Immunizations: Immunization History Administered Date(s) Administered ??? Influenza Vaccine, High Dose Quadrivalent PF 04/07/2021 Examination: BP 143/65 Pulse 94 Temp 36.9 ??C (98.4 ??F) (Temporal) Resp 22 Ht 157.5 cm (5' 2) Wt 72.6 kg (160 lb) Comment: self reported SpO2 95% Comment: 3L of o2 w. NC BMI 29.26 kg/m?? General: Comfortable at rest HEENT: No cervical lymphadenopathy, no oral thrush Mallampati 3 Resp: Hyperinflated, chest expansion equal Resonant to percussion with vesicular breath sounds throughout No crackles or wheeze CV: S1 + S2 + O Skin: No rash Extremities: No clubbing, no cyanosis, no edema, calves soft and non tender Neurologic: No obvious cranial nerve palsy or limb weakness, normal gait Psych: Normal mood and affect Data: ?? CXR late 2018 reported as showing hyperinflation ?? Echo 2018 EF 60% - diastolic dysfunction, mild pulmonary hypertension ?? Labs December 2018 showed venous CO2 of 33 (a finding often seen in patients with mild chronic hypercapnic respiratory failure) December 2019 Elevated end-tidal CO2 55 Oxygen saturation 90% on RA at rest and required 2 L/min of continuous supplemental oxygen (or 4 L/min pulsed dose oxygen) to keep sats > 88% during a 600 feet walk. March 2021 ET CO2 40-50 Assessment: 1. COPD: GOLD stage 4 category D. This is very severe disease. 2. Former smoker, quit c.2018, [id number] history 3. Chronic hypoxemic and hypercapnic respiratory failure Kiersten Barraza is doing okay with her severe COPD. Although she has very severe disease with significant resting oxygen requirement -SPO2 88% on room air today -exacerbations are infrequent and her functional capacity is relatively well-preserved. We requalified her for oxygen therapy today but made no other changes to her COPD plan which is as below: Orders Placed This Encounter Procedures ??? Home Oxygen Please provide lightest portable oxygen concentrator that is able to provide up to 4 pulse dose . Order Specific Question: Vendor Name/Contact information: Answer: Jude Order Specific Question: Rate (LPM) Answer: 3 Order Specific Question: Route Answer: Nasal Order Specific Question: Hours per day of useage Answer: 24 Order Specific Question: # months service is needed (99= lifetime) Answer: 99 Order Specific Question: Portable needed: Answer: Yes Order Specific Question: SPO2 performed on Room Air? Answer: Yes Order Specific Question: Resting Date (Room Air) Answer: 04/21/2022 Order Specific Question: Resting SPO2% (Room Air) Answer: 88 Order Specific Question: SPO2 performed with Supplemental Oxygen? Answer: Yes Order Specific Question: Resting Date (Supplemental Oxygen) Answer: 04/21/2022 Order Specific Question: Resting SPO2% (Supplemental Oxygen) Answer: 95 Order Specific Question: Resting Rate - LPM (Supplemental Oxygen) Answer: 2 Order Specific Question: Exercise Date (Supplemental Oxygen) Answer: 04/21/2022 Order Specific Question: Exercise SPO2% (Supplemental Oxygen) Answer: 92 Order Specific Question: Exercise Rate - LPM (Supplemental Oxygen) Answer: 3 Order Specific Question: Nocturnal testing performed? Answer: No Order Specific Question: Oxygen Conserving Device (OCD) needed? Answer: Yes Order Specific Question: OC Device setting Answer: 4 Plan: 1. Medications Daily: Trelegy 1 puff As needed: Duo nebs up to 4 times daily 2. Exacerbation prevention Avoid sick contacts, wash hands, wear mask as needed 3. Sick plan Your sick plan may include the following: Prescription medicines: Prednisone 40mg for 5 days Azithromycin for 5 days Over the counter medicines: Tylenol, Mucinex, Benadryl Please call our office as needed 4. Sleep evaluation 5. Non-invasive ventilation potentially a candidate in the future 6. Advanced directives 7. Smoking cessation done, quit 2018 8. Pulmonary rehabilitation home exercise with oxygen 9. Oxygen 2 L/min with ambulation and at night 10. Immunizations up-to-date with COVID-19 vaccinations 11. Lung cancer screening not a candidate, age 13. LVRS / Transplant decided against LVRS/endobronchial lung volume reduction 13. Palliative care 14. A1AT Testing 15. Other Follow up: 2022 -sooner if symptoms change Jonatan [place] MD documented in this encounter Plan of Treatment Upcoming Encounters Date Type Department Care Team (Late st Contact Info) Description 07/28/2024 12:30 PM EST Office Visit Hematology/Oncology at [address] [phone] Nick Mullen MD [facility] DR HEMATOLOGY [place] [address] Chana Myrick APRN [address] [place] [address] DR HEMATOLOGY AND ONCOLOGY [place], [place] [id number] 07/28/2024 1:00 PM EST Scheduled View Only Hematology/Oncology at [address] [phone] Aleah Curran RN 07/28/2024 1:00 PM EST Infusion Hematology Oncology at [address] [phone] documented as of this encounter Visit Diagnoses Diagnosis Stage 4 very severe COPD by GOLD classification ARZATE (dyspnea on exertion) Other dyspnea and respiratory abnormality Chronic respiratory failure with hypoxia Chronic respiratory failure documented in this encounter Care Teams Lead Medical Technologist Relationship Specialty Start Date End Date T[place] APRN [address] [place] [address] PCP - General Internal Medicine 09/20/18 09/05/23 documented as of this encounter
--- OUTSIDE RECORDS SUMMARY | 2024-07-28 01:31 | XMS_ITS | Encounter Summary ---
Author Organization [facility] [place] [address] Care Team Providers Care Bus Greaser Name Role Phone Matilde Tatum Jozef KHANNA Primary Care Provider Encounter Details Date Type Department Care Team (Late Contact Info) Description 03/09/2023 Interpretation Only [address] [address] Yeny Santos APRN [address] [place] [address] Social History Tobacco Use Types Packs/Day Years [...] PM EST Office Visit Hematology/Oncology at [address] [phone] Nick Mullen MD [facility] DR [place] [address] Chana Myrick APRN [address] [place] [address] DR HEMATOLOGY AND ONCOLOGY [place], [place] [id number] 07/28/2024 1:00 PM EST Scheduled View Only Hematology/Oncology at [address] [phone] Aleah Curran RN 07/28/2024 1:00 PM EST Infusion Hematology Oncology at [address] [phone] documented as of this encounter Procedures Procedure Name Priority Date/Time Associated Diagnosis Comments XR ANKLE MIN 3 VIEWS LEFT Routine 03/09/2023 1:38 PM EDT documented in this encounter Results * XR Ankle Min 3 views Left (Generic) (03/09/2023 1:38 PM EDT) PT CLASS O RAD ADMITDTTM RAD PT RAD INFO [id number]^W AGNER^YENY^ LUKE RAD EXAM DESC XRANKMVL^XR LEFT ANKLE COMPLETE^RIS RAD Anatomical Region Laterality Modality Ankle Left Radiographic Trini ging Impressions 03/09/2023 2:24 PM EDT Protrusion at the lateral malleolus corresponds to slightly proud fixation screw, similar in appearance compared to 09/10/2013. Thank you for letting us participate in the care of this patient. ??If you are a health care provider and have any questions regarding this report, please contact the number below. ??For patients who have questions please contact the health janitor caretaker that requested your imaging first. ? Narrative 03/09/2023 2:24 PM EDT EXAMINATION: XR LEFT ANKLE COMPLETE CLINICAL HISTORY: ??Left ankle pain with bony protrusion to lateral malleolus TECHNIQUE: 3 views of the left ankle COMPARISON: Left foot radiographs 09/10/2013 FINDINGS: Redemonstrated ORIF of healed bimalleolar fractures in anatomic alignment. Hardware is intact without evidence of loosening. Protrusion at the lateral malleolus corresponds to slightly proud screw. Intact talar dome. The talocrural joint is congruent. Diffuse bone demineralization. 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 Procedure Note Martha Jay MD - 03/09/2023 EXAMINATION: XR LEFT ANKLE COMPLETE CLINICAL HISTORY: Left ankle pain with bony protrusion to lateralmalleolus TECHNIQUE: 3 views of the left ankle COMPARISON: Left foot radiographs 09/10/2013 FINDINGS: Redemonstrated ORIF of healed bimalleolar fractures in anatomicalignment. Hardware is intact without evidence of loosening. Protrusion at thelateral malleolus corresponds to slightly proud screw. Intact talar dome. Thetalocrural joint is congruent. Diffuse bone demineralization. Mild to moderatetibiotalar joint osteoarthrosis. IMPRESSION Protrusion at the lateral malleolus corresponds to slightly proudfixation screw, similar in appearance compared to 09/10/2013. Thank you for letting us participate in the care of this patient. If youare a health care provider and have any questions regarding this report,please contact the number below. For patients who have questions please contactthe health janitor caretaker that requested your imaging first. Yeny Santos APRN IMG DX ORDERABLES documented in this encounter Visit Diagnoses Not on filedocumented in this encounter Care Teams Bus Greaser Relationship Specialty Start Date End Date T[place] APRN [address] [place] [address] PCP - General Internal Medicine 09/20/18 09/05/23 documented as of this encounter
--- OUTSIDE RECORDS SUMMARY | 2024-07-28 01:31 | XMS_ITS | Encounter Summary ---
Author Organization [facility] Address [facility] [place] [address] Care Team Providers Care Engineering Psychologist Name Role Phone MatildeTatum Jozef KHANNA Primary Care Provider Encounter Details Date Type Department Care Team (Latest Contact Info) Description 08/14/2023 Travel Social History Tobacco Use Types Packs/Day [...] 12:30 PM EST Office Visit Hematology/Oncology at [address] [phone] Nick Mullen MD [facility] DR [place] [address] Chana Myrick APRN [address] [place] [address] DR HEMATOLOGY AND ONCOLOGY [place], [place] [id number] 07/28/2024 1:00 PM EST Scheduled View Only Hematology/Oncology at [address] [phone] Aleah Curran, RN 07/28/2024 1:00 PM EST Infusion Hematology Oncology at [address] [phone] documented as of this encounter Visit Diagnoses Not on filedocumented in this encounter Care Teams Engineering Psychologist Relationship Specialty Start Date End Date T[place] APRN [address] [place] [address] PCP - General Internal Medicine 09/20/18 09/05/23 documented as of this encounter
--- OUTSIDE RECORDS SUMMARY | 2024-07-28 01:31 | XMS_ITS | Encounter Summary ---
Author Organization [facility] Address [facility] [address] Care Team Providers Care Computer Support Technician Name Role Phone Maria Guadalupe Mendes MD Primary Care Provider [phone] Encounter Details Date Type Department Care Team (Latest Contact Info) Description 09/11/2023 Travel Social History Tobacco Use Types Packs/Day [...] PM EST Office Visit Hematology/Oncology at [address] [phone] Nick Mullen MD [facility] DR [place] [address] Chana Myrick APRN [address] [place] [address] DR HEMATOLOGY AND ONCOLOGY [place], [place] [id number] 07/28/2024 1:00 PM EST Scheduled View Only Hematology/Oncology at [address] [phone] Aleah Curran RN 07/28/2024 1:00 PM EST Infusion Hematology Oncology at [address] [phone] documented as of this encounter Visit Diagnoses Not on filedocumented in this encounter Care Teams Computer Support Technician Relationship Specialty Start Date End Date Maria Guadalupe Mendes MD [address] [place] [phone] PCP - General General Internal Medicine 09/06/23 documented as of this encounter
--- OUTSIDE RECORDS SUMMARY | 2024-07-28 01:31 | XMS_ITS | Encounter Summary ---
Author Organization [facility] Address [facility] [place] [address] Care Team Providers Care Clinical Research Coordinator Name Role Phone MatildeTatum JEY Primary Care Provider [phone] Encounter Details Date Type Department Care Team (Latest Contact Info) Description 08/14/2023 3:00 PM EST Office [place] [phone] Kevan Cameron MD [facility] [place] [address] Stage 4 very severe COPD by GOLD classification; Chronic respiratory failure with hypoxia; Former smoker; Multiple lung nodules; Hilar lymphadenopathy Social History [...] Sign Reading Time Taken Comments Blood Pressure 141/62 08/14/2023 3:00 PM EST Pulse 105 08/14/2023 3:00 PM EST Temperature 36.2 ??C (97.2 ??F) 08/14/2023 3 :00 PM EST Respiratory Rate 20 08/14/2023 3:00 PM EST Oxygen Saturation 97% 08/14/2023 3:0 0 PM EST Inhaled Oxygen Concentration - - Weight 72.6 kg (160 lb) 08/14/2023 3:00 PM EST Patient doesn't wish to weigh. Height 157.5 cm (5' 2) 08/14/2023 3:00 PM EST Body Mass Index 29.26 08/14/2023 3:00 PM EST documented in this encounter Progress Notes * Kevan [place] MD - 08/14/2023 3:00 PM EST Images from the original note were not included. [facility] Section of Pulmonary and Critical Care Medicine Outpatient Consultation Follow-up Date of Encounter: 08/14/2023 This was a [id number] office visit. PCP: T[place] APRN Pulmonary [...] poorly for about a weekbefore presenting to [facility] on 08/06. She was diagnosed with [...] CT scan that she had while at [facility] which does show a new concerning [...] , Rfl: OXYGEN-AIR DELIVERY SYSTEMS MISC, by Misc.(Non-Drug; Combo Route) route., Disp: , Rfl: acetaminophen [...] RSV Chest Imaging: CT Chest w 08/06/23 ([facility]) - Apical predominant centrilobular emphysema, 9mm [...] and appearance. I reviewed her imaging with with IP and we agreed the best [...] weeks. Recommendations: -Start Prednisone 40mgx 5d, 30mgx5, 77tiy2h, 10mg x 5d -Start Doxycycline -Will plan to touch base in 2 weeks re: symptoms and assess appropriate timing for scheduling bronchoscopy and biopsy with IP if amenable -Follow up in clinic pending above. Call sooner should new questions or concerning symptoms arise. Kevan [place] MD [facility] Locomotive Crane Operatorretail inventory control clerk Pulmonary and [place] [address] [email or web address] documented in this encounter Plan of Treatment Upcoming Encounters Date Type Department Care Team (Late st Contact Info) Description 07/28/2024 12:30 PM EST Office Visit Hematology/Oncology at [address] [phone] Nick Mullen MD [facility] [place] [address] Chana Myrick APRN [address] [place] [address] DR HEMATOLOGY AND ONCOLOGY [place], [place] [id number] 07/28/2024 1:00 PM EST Scheduled View Only Hematology/Oncology at [address] [phone] Aleah Curran RN 07/28/2024 1:00 PM EST Infusion Hematology Oncology at [address] [phone] documented as of this encounter Visit Diagnoses Diagnosis Stage 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
--- OUTSIDE RECORDS SUMMARY | 2024-07-28 01:31 | XMS_ITS | Encounter Summary ---
Author Organization Formerly [facility] [place] [address] Care Team Providers Care Logistics Solution Manager Name Role Phone Maria Guadalupe Mendes MD Primary Care Provider Reason for Visit * Auth/Cert (Routine) Specialty Diagnoses / Procedures Referred By Contac t Referred To Contact Diagnoses Pulmonary nodules Pulmonary nodule(s)/Robotic Bronch with EBUS/ga/Bert Procedures PRO BRONCHOSCOPY RIGID FLEX W COMPUTER ASSIST IMG NAVIGATION PRO [facility] EBUS GUIDED SAMPL 3/> NODE STATION/STRUX BRONCHOSCOPY,RIGID OR FLEX,WITH IMAGE GUIDANCE ( ROBOT / ION ) (WRVU 2) BRONCH, W ENDOBRONCHIAL ULTRASOUND (EBUS) GUIDED SAMPLING, 3+ NODES (WRVU 4.96) Mikel Noel MD [facility] [place] [address] [facility] Referral ID Status Reason Start Date Expiration Date Visits Re quested Visits Authorized [id number] 1 1 Encounter Details Date Type Department Care Team (Late st Contact Info) Description 09/11/2023 1:21 PM EDT Anesthesia [place] [phone] Vikram Garg MD [facility] [place] [address] Nely Benítez CRNA [facility] [place] [address] Anesthesia Record Procedure Summary Procedure Name Responsible Anesthesiologist Anesthesia Start Time Anesthesia Stop Time BRONCHOSCOPY,RIGID OR FLEX,WITH IMAGE GUIDANCE ( ROBOT / ION ) (WRVU 2) Vikram Garg MD 09/11/23 1321 09/11/23 1454 Events Date Time Event Comment 09/11/2023 1301 1321 AN Verify 1321 Start 1321 An Start Data 1331 An Induction 1335 An Intubation 1337 Anesthesia Ready 1440 Extubation/LMA Out 1445 an stop data 1454 Recovery or ICU Handoff Aimee ent care was transferred to the destination unit staff after review of the patient's medical history, current anesthetic/surgical status and plan, according to the Provider Handoff Checklist. 1454 Stop Meds Name Total IV Lidocaine 50 mg Lidocaine 4% LTA 4 mL PropofoL 100 mg PropofoL INF 327.65 mg fentaNYL 25 mcg Rocuronium 50 mg PHENYLephrine 400 mcg ePHEDrine 5 mg Ondansetron 4 mg Dexamethasone 8 mg lactated ringers infusion 500 mL * Agents Name O2 * Blood No blood administrations on file. Lines, Drains, and Airways Type Details Placement Removal PIV 09/11/23; 1311; [id number] catheter system; 20 gauge; Anatomical Landmarks; Armida JOHNSON; intradermal injection, tolerated well, distraction; no longer indicated; 09/11/23; 1540 09/11/23 1311 by Jessie Aragon, RN 09/11/23 1540 by Sabas Pink, RN ETT Mask Ventilation: Neville valera (1); ETT Type: Cuffed, Oral; ETT Size: 8.5 mm; Mac Blade: 3; Notes: Asleep, Pre-O2, Stylette; Attempts: 1; Laryngoscopy Grade: 1; ETT Placement Verified By: Auscultation, Capnometry, Visual; Secured at Teeth: 23 cm; Inserted by: Brad HAQ; Removal Date: 09/11/23; Removal Time: 1440 09/11/23 1335 by Aline Salinas 09/11/23 1440 by Aline Salinas documented in this encounter Social History Tobacco Use Types Packs/Day Years [...] on file documented as of this encounter OR Notes * Anesthesia Postprocedure Evaluation - Vikram Garg MD - 09/11/2023 5:17 PM EDT Department of Anesthesiology Post-procedure Note Patient: Kiersten Barraza Procedure Summary Date: 09/11/23 Room / Location: [facility] OR [address] [place] [address] MAIN OR Anesthesia Start: 1321 Anesthesia Stop: 1454 Procedures: BRONCHOSCOPY,RIGID OR FLEX,WITH IMAGE GUIDANCE ( ROBOT / ION ) (WRVU 2) BRONCH, W ENDOBRONCHIAL ULTRASOUND (EBUS) GUIDED SAMPLING, 3+ NODES (WRVU 4.96) BRONCH, W EBUS DURING INTERVENTION FOR PERIPH LESION (WRVU 1.4) BRONCHOSCOPY W/TRANSBRONCHIAL NEEDLE ASPIRATION BX,FLEXIBLE (WRVU 3.75) BRONCHOSCOPY (FLEXIBLE OR RIGID) W\TRANSBRONC BX (WRVU 3.55) BRONCHOSCOPY, RIGID OR FLEXIBLE, WITH BRONCHIAL ALVEOLAR LAVAGE (WRVU 2.63) (Chest) BRONCH,RIGID OR FLEX. DX. WBRUSHING OR PROTECTED BRUSHINGS (WRVU 2.63) BRONCHOSCOPY, WITH BIOPSY (WRVU 3.11) Diagnosis: Pulmonary nodules (Pulmonary nodule(s)/Robotic Bronch with EBUS/ga/Bert) Surgeons: Mikel Noel MD Responsible Provider: Vikram Garg MD Anesthesia Type: general ASA Status: 3 All Anesthesia Providers: Anesthesiologist: Vikram Garg MD; Reggie Marcelo MD WOOD PILER: Nely Benítez CRNA Student Nurse Development Vice President: Aline Salinas Vitals Value Taken Time BP 162/110 09/11/23 1530 Temp 36.1 ??C (97 ??F) 09/11/23 1449 Pulse 93 09/11/23 1509 Resp 20 09/11/23 1509 SpO2 99 % 09/11/23 1531 Pain Level 0 09/11/23 1530 Vitals shown include unfiled device data. Patient Location: PACU/[facility] Level of Consciousness: Pain Management: PONV: Cardiovascular Status: Hemodynamically Stable Respiratory Status: Stable Respiratory Status Postoperative Fluid Status: Possible Anesthetic Complications: NONE apparent at time of evaluation Final Primary Anesthesia Type: General (The anesthetic type performed was the same as planned.) Comments: * Anesthesia Preprocedure Evaluation - Reggie Marcelo MD - 09/11/2023 12:59 PM EDT Pre-Anesthesia Evaluation for: Kiersten Barraza a 83 y.o. female. Procedure(s): BRONCHOSCOPY,RIGID OR FLEX,WITH IMAGE GUIDANCE ( ROBOT / ION ) (WRVU 2) BRONCH, W ENDOBRONCHIAL ULTRASOUND (EBUS) GUIDED SAMPLING, 3+ NODES (WRVU 4.96) Patient Active Problem List Diagnosis Date Noted ??? Chronic respiratory failure with hypoxia 04/25/2022 ??? Stage 4 very severe COPD by GOLD classification 06/05/2018 ??? On supplemental oxygen by nasal cannula 06/05/2018 ??? HTN (hypertension) 06/05/2018 ??? Former smoker 06/05/2018 ??? Overweight (BMI 25.0-29.9) 06/05/2018 ??? Anxiety 06/05/2018 Past Medical History: Diagnosis Date ??? Allergic [...] childbirth Past Surgical History: Procedure Laterality Date ??? CATARACT EXTRACTION, EXTRACAPSULAR, W/ LENS INSERTION Left 08/15/2018 [facility] ??? CATARACT EXTRACTION, EXTRACAPSULAR, W/ LENS INSERTION Right 09/04/2018 [facility] CE/IOL Social History Tobacco Use ??? Smoking status: Former Packs/day: 1.00 Years: 50.00 Additional pack years: 0.00 Total pack years: 50.00 Types: Cigarettes, e-Cigarettes Quit date: 06/25/2017 Years since quittin.2 ??? Smokeless tobacco: Never Substance Use Topics ??? Alcohol use: Not Currently Social History Substance and Sexual Activity Drug Use No Allergies Allergen Reactions ??? Gabapentin Other (See Comments) depression ??? Percocet [Oxycodone-Acetaminophen] Medications: MAR and/or home medications have been reviewed. Physical Exam: Preprocedure Vitals Current as of 09/11/23 1259 No BP, pulse, respiration, SpO2, or temperature recorded. Height: Weight: BMI: IBW: Airway Assessment: Mallampati: II TM distance: >3 FB Neck ROM: full Cardiovascular Assessment: Rate: normal Pulmonary Assessment: unlabored breathing Dental Assessment: (+) upper dentures Misc Assessment: Last Filed Perioperative Cognitive Screening None Anesthesia Plan: ASA 3 general, with a(n) intravenous induction 83 y/o woman with a PMH of HTN, severe COPD on home oxygen, pulm nodules for bronch/EBUS. NPO. Denied issues with anesthesia in the past. Plan for GA, ETT. Region - Intrathoracic Non-Cardiac Informed Consent: Anesthetic plan and risks discussed with patient and daughter/son. Plan discussed with WOOD PILER and attending. Anesthesia Screening documented in this encounter Plan of Treatment Upcoming Encounters Date Type Department Care Team (Late st Contact Info) Description 07/28/2024 12:30 PM EST Office Visit Hematology/Oncology at [address] [phone] Nick Mullen MD [facility] [place] [address] LaRozChana oneill APRN [address] [place] [address] DR HEMATOLOGY [place] [address] 07/28/2024 1:00 PM EST Scheduled View Only Hematology/Oncology at [address] [phone] Aleah Curran RN 07/28/2024 1:00 PM EST Infusion Hematology Oncology at [address] [phone] documented as of this encounter Visit Diagnoses Not on filedocumented in this encounter Administered Medications Inactive Administered Medications - up to 3 most recent administrations Medication Order MAR Action Action Date Dose Rate Site dexAMETHasone (Decadron) injection Intravenous, PRN, Starting on Sun09/11/23 at 1343, Until Sun09/11/23 at 1456, Anesthesia Intra-op, Routine Given 09/11/2023 1:43 PM EDT 8 mg ePHEDrine sulfate (5 mg/mL) multi-dose injection Intravenous, PRN, Starting on Sun09/11/23 at 1352, Until Sun09/11/23 at 1456, Anesthesia Intra-op, Routine Given 09/11/2023 1:52 PM EDT 5 mg fentaNYL (pf) (50 mcg/mL) multi-dose injection Intravenous, PRN, Starting on Sun09/11/23 at 1341, Until Sun09/11/23 at 1456, Anesthesia Intra-op, Routine Given 09/11/2023 1:41 PM EDT 25 mcg lactated ringers infusion 1,000 mL, at 100 mL/hr, Intravenous, CONTINUOUS, Starting on Sun09/11/23 at 1330, Until Sun09/11/23 at 1548, Day of Surgery (Day of Procedure) New Bag 09/11/2023 1:21 PM EDT New Bag 09/11/2023 1:18 PM EDT 1,000 mLs 100 mL/hr lidocaine (pf) (Xylocaine) (20 mg/mL) 2% injection syringe Intravenous, PRN, Starting on Sun09/11/23 at 1331, Until Sun09/11/23 at 1456, Anesthesia Intra-op, Routine Given 09/11/2023 1:31 PM EDT 50 mg lidocaine (XYLOCAINE) 4 % external solution Intratracheal, PRN, Starting on 09/11/23 at 1331, Until 09/11/23 at 1456, Anesthesia Intra-op Given 09/11/2023 1:31 PM EDT 4 mLs ondansetron (pf) (Zofran) (2 mg/mL) injection Intravenous, PRN, Starting on 09/11/23 at 1422, Until 09/11/23 at 1456, Anesthesia Intra-op, Routine Given 09/11/2023 2:22 PM EDT 4 mg PHENYLephrine (Rony-Synephrine) (10 mg/mL) injection Intravenous, PRN, Starting on e 09/11/23 at 1338, Until 09/11/23 at 1456, Anesthesia Intra-op, Routine Given 09/11/2023 2:05 PM EDT 80 mcg Given 09/11/2023 1:52 PM EDT 80 mcg Given 09/11/2023 1:50 PM EDT 40 mcg propofoL (Diprivan) (10 mg/mL) infusion Intravenous, CONTINUOUS PRN, Starting on 09/11/23 at 1331, Until 09/11/23 at 1456, Anesthesia Intra-op, Routine Rate/Dose Change 09/11/2023 2:22 PM EDT 40 mcg/kg/min 13.992 mL/hr Rate/Dose Change 09/11/2023 1:44 PM EDT 80 mcg/kg/min 27.9 84 mL/hr New Bag 09/11/2023 1:31 PM EDT 100 mcg/kg/min 34.98 mL/ hr propofoL (Diprivan) 10 mg/mL bolus injection (Anesthesia) Intravenous, PRN, Starting on 09/11/23 at 1331, Until 09/11/23 at 1456, Anesthesia Intra-op Given 09/11/2023 2:26 PM EDT 20 mg Given 09/11/2023 1:31 PM EDT 80 mg rocuronium (Zemuron) (10 mg/mL) multi-dose injection Intravenous, PRN, Starting on 09/11/23 at 1331, Until Tu09/11/23 at 1456, Anesthesia Intra-op, Routine Given 09/11/2023 1:33 PM EDT 50 mg documented in this encounter Care Teams Logistics Solution Manager Relationship Specialty Start Date End Date Maria Guadalupe Mendes MD [address] [place] [phone] PCP - General General Internal Medicine 09/06/23 documented as of this encounter
--- OUTSIDE RECORDS SUMMARY | 2024-07-28 01:31 | XMS_ITS | Encounter Summary ---
Author Organization [facility] Address [facility] [place] [address] Care Team Providers Care Durability Technician Name Role Phone ClaytonTatum JEY Primary Care Provider Reason for Visit * Consultation (Routine) - Closed Specialty Diagnoses / Procedures Referred By Contac t Referred To Contact Dermatology Diagnoses Basal cell carcinoma (BCC) of left side of nose Carmen Kothari MD [facility] [address] [facility]TNA [place] [address] Mars Segura MD [facility] DR CHETNA [place] [address] Referral ID Status Reason Start Date Expiration Date V isits Requested Visits Authorized [id number] Closed Consult, Test & Treat 12/08/2021 12/08/2022 1 1 Encounter Details Date Type Department Care Team (Latest Contact Info) Description 03/16/2022 10:00 AM EDT Procedure visit Dermatology at [facility] [address] [place] [address] Mars Segura MD [facility] DR CHETNA [place] [address] Basal cell carcinoma of nose Social History Tobacco Use Types Packs/Day Years [...] Sign Reading Time Taken Comments Blood Pressure 152/79 03/16/2022 9:49 AM EDT Pulse 107 03/16/2022 9:49 AM EDT Temperature - - Respiratory Rate - - Oxygen Saturation - - Inhaled Oxygen Concentration - - Weight - - Height - - Body Mass Index - - documented in this encounter Patient Instructions * Patient Instructions* SalazarTiffanie castro, INFANT CAREGIVER - 03/16/2022 10:00 AM EDT Your staff Mohs surgeon today was Mars Segura MD, PhD. GRAFT CLOSURE Part of all of your wound(s) was repaired by a graft. This means that skin was removed from anotherlocation (donor site) and used to stitch the wound created by your skin cancer surgery. A graft is performed when alternative procedures such as aawz-ae-yfbm stitching is not optimal. Your graft may be closed using all absorbable suture, sutures that need to be removed or a combination of both. Youwill be instructed upon discharge if a suture removal appointment is necessary. Caring for a graft properly is very important because the graft relies on blood supply from its newlocation to survive and heal properly. The most important thing in helping a graft heal fully is toavoid picking off any scabs, and to keep the area covered with copious amounts of topical petrolatum (such as Vaseline or Aquaphor). See specific instructions for wound care below. Things to purchase for wound care: -Nonstick gauze -A tube or tub of petrolatum jelly (fragrance-free, no dye, not lotion) -paper tape (especially if you are sensitive to adhesives) or bandages -cotton swabs -gloves (optional) -Dial or other antibacterial liquid soap Wound Care Gently remove your initial bandage after 2 days ON YOUR GRAFT. The graft will appear discolored forseveral weeks, either dark purple or pale in color. This requires once a day wound care until your follow up appointment. If your initial bandage(s) only stayed on for 24 hours (for example, falls off sooner), this is okay. Begin would care sooner, as below. Change your bandage once a day, or whenever it becomes wet or soaks through). You want to continue bandaging daily until your graft fully heals. This is a minimum of one week, but ideally continued until the graft has completely healed. The timeline for a graft to heal can range from 1 week to 8 weeks; you will continue wound care until healing is complete. For bandage changes: Wash hands with soap and water, or use gloves. Clean the surgical area with cotton-tipped swabs or soft gauze dipped in soapy water (recommend liquid soap in clean room temperature water). Roll the cotton swab over the incision with soapy water, then with plain water, and then gently pat dry. Do not scrub the area with a washcloth. Do not pick off scabs. Do not put direct shower water pressure onto your wound. Avoid direct water pressure fromthe shower on your graft site. It is okay to allow soapy water to run over your wound in the shower, however. If you cannot remove any bloody or crusted areas, you may soak the area with wet gauze first for 15to 20 minutes to help soften it Pat the area dry with clean gauze or cotton swabs. Do not rub. Use a cotton swab to apply a generous layer of petrolatum over the graft site. Make sure your tube or jar of petrolatum is new or unused to prevent prior contamination from entering your wound. Avoid double dipping. After applying petrolatum, use a clean nonstick gauze or other nonstick dressing, such as Telfa. This may be purchased over the counter at a drug store. Do not use regular gauze as it will stick to your wound and can peel off healing skin with bandage changes. Secure the bandage with paper tape or a bandage. Band-aids are okay, but typically have more adhesive that can irritate the skin compared to paper tape. This can be purchased at a drug store. Continue this wound care daily until the graft has healed, unless otherwise specified by your surgeon or Mohs nurse. After Surgery Avoid tobacco, smoking/vapors, cigars, and cannabis (marijuana) for at least 3 weeks after your surgery. These prevent proper healing and lead to worse scarring. Cutting back on tobacco is helpful ifyou cannot abstain completely. Limit alcohol intake to one drink per day over the next 3 days. Do not participate in athletic activities for 1 week, unless you were told a different timeline during your visit. Athletic activity is a relative term, but this is considered to be anything that could potentially raise your heartrate or blood pressure. Elevating your heart rate and blood pressure increases the risk of swelling, bleeding, wound opening, and it could lead to worse scarring. Walking at a leisurely pace is fine for most people, but not if you are walking for the purpose of exercise. When in doubt, take it easy or call us. Do not lift anything heavier than 10 pounds for the first week unless told differently. Some newscast producer may need to be delayed or delegated such as vacuuming, mowing the lawn, snow shoveling, or caring for young children that need to be carried/lifted. Working any major muscle groups increases your heart rate and can increasing bleeding. Avoid swimming, hot tubs, and direct water pressure for 3 weeks after surgery. You may shower, however, once your initial bandage comes off in 48 hours. Avoid antibiotic ointments such as triple antibiotic creams. Whenever possible, it is helpful to take photographs with your camera or cell phone of any problemsor concerns you see with your wound. We often ask for photos when you call with questions. Starting 2 months following surgery, you can begin firm massage to any areas of firm scar along your incision to soften the scar and reduce bumpiness. Do this 3 times per day, 3 minutes each time. Donot start massage before 2 months. Your wound will appear almost completely healed soon after sutures are removed (about 1 week), but incisions can remain bright red for several weeks. Then the scarring and healing process continues under the skin for 6 months until to 2 years. The scar may become less red, less firm, and more subtle during this time; please note that the rate of improvement varies depending on the person. Most redness, discoloration, bumpiness resolves by 6 months, and most patients will look presentable withina few weeks after surgery. Keep your follow-up appointments and make sure to continue to have your skin checked, as often as is recommended by your cage fighter, for new skin cancers. This is once per year for most patients. You can expect your scar to be red for several weeks with gradual fading of the redness. Your scar will also be raised and lumpy until the dissolvable sutures under the skin get absorbed by your bodywhich can take 3-4 months. The scar will flatten eventually. If you have a skin condition called rosacea, the redness can last long-term, or you can get an increased appearance of red vessels to the skin. The appearance of vessels slightly improves, but tends to respond well to laser treatments. Occasionally, about 10-20% of the time on the face, the stitches under the skin can spit out of the incision to the surface. It can start out looking like a pimple or blemish directly on your incision. Sometimes you can feel something poking through the incision. It can mimic a small area of infection, so please let us know before you go to another provider for antibiotics. This means that the suture may need to be trimmed or removed when you return for your wound check. This typically occurs a few weeks after surgery if it does occur. To optimize your scar, and best cosmetic result, please avoid direct sunlight to your incision for the first 6 months following surgery. UV ray exposure to your incision may cause the redness to lastlonger, or to cause permanent darkening of your scar. You can avoid sun by covering your incision with a bandage when outdoors, wearing broad-brimmed hats, and wearing SPF 30 to 50 sunscreen (broad spectrum). Your incision may still be healing up to 2 weeks after surgery. Because of this, avoid make-up and sunscreen until approximately 2 weeks after surgery. You can begin sooner if your skin edges look completely sealed. Avoid applying over graft site until it is fully healed, this may be several weeks. Any time you have skin surgery or any type of surgery, you can experience mild sensation loss (numbness) in the area of surgery. Massage starting at 8 weeks after surgery can help. Swelling and bruising is common, and expected, especially if your surgery site was on the forehead,cheeks, temples, nose, or eyelids. . Sometimes it can be quite profound, where the eyelids swell shut, or getting black eyes. This is especially true if you are on blood thinners such as aspirin. Swelling and bruising will peak at about 48 hours after surgery. Bruising and swelling will graduallyresolve. You can use ice packs or a bag of frozen peas for 15-20 minutes, 20 minutes off, up to 3-4times daily to areas of swelling on the face. Use caution not to put the icy item directly onto your incision, or directly in contact with your skin as this can damage skin. Avoid prolonged use more than 20 minutes. The best way to use ice packs is over the bandage, or using a light cloth/paper towel barrier between the ice pack and your skin. You can ice for as many days as needed until swellinghas resolved. Eyelid and lip swelling is typically the last type of swelling to resolve. Antibiotics: If you were given antibiotic prescription, it is important to start them the evening of your surgery date. However, most patients do not need antibiotics after surgery. For pain: Most patients of different ages do not require pain medications. If you do feel soreness, throbbingor sharp pains, start by taking over the counter extra strength acetaminophen (up to 3000 mg in a 24 hour period). Generally, we like you to avoid NSAIDS (non-steroid anti-inflammatory drugs such as ibuprofen) for the first 48 hours after surgery as this can increase risk of bleeding. However, if acetaminophen is not helping with pain, you can alternate acetaminophen with ibuprofen or other NSAID. Ice packs over your bandage without getting your bandage wet can also help with pain and swelling.Frozen peas work well as ice packs. THIS IS AN EXAMPLE OF A PAIN TREATMENT SCHEDULE: 1) You can take 500 mg acetaminophen one tablet by mouth at 6:00pm. This is over the counter. 2) You can take 400 mg of ibuprofen two hours later, at 8:00 pm, or other NSAID such as naproxen, as long as it does not interact with your other medications and your other doctors have not told you to avoid this. This is over the counter. Check to see how many milligrams (mg) each of your ibuprofen tablets are. Most of the time, ibuprofen comes in 200 mg tablets, so 400 mg would mean taking two of these tablets or capsules. 3) You can take 500 mg of acetaminophen at 10:00 pm. Keep track of your total acetaminophen in a 24hour period as your maximum should be 3000 mg total in a 24 hour period of this medication. 4) At midnight, you can take another 400 mg of ibuprofen. 5) you can continue on this schedule over the next 2 days, making sure to keep tabs of your total acetaminophen. If you are still in pain after trying the above, please call us. When to call your surgeon: Fever of 100.4 degrees Fahrenheit or higher Bleeding not controlled with direct firm pressure to your wound. Bleeding is most common in the first 48 hours. Pain that is worsening and not relieved by over the counter medications such as acetaminophen (up to 3000 mg in a 24 hour period) Wound reopening after stitching Pus or bad odor from your wound Worsening redness and warmth around your wound If you think your surgery site is infected, please call us before seeking care or antibiotics from other providers Please call us before seeking care in an emergency room or primary care. If you do call, please leave your full name, phone number, date of , date of surgery, and medical record number if you have it. If after hours, please call the pulp screen operator or [phone] and ask for the cage fighter on-call. If you have any non-urgent questions or concerns, please feel free to call my office or contact me through our patient portal, [employer], at [email or web address] How to contact us during business hours Dermatology at [facility] [address]: Mohs scheduling or Mohs follow-up appointments: [phone] documented in this encounter Progress Notes * Mars Segura MD - 03/16/2022 10:00 AM EDT Images from the original note were not included. Summary of Procedure(s): Site: Left nasal tip Tumor Type: Basal Cell Carcinoma, nodular, micronodular Stages to clear tumor: 2 Repair: Full thickness austin's graft Images: The patient was asked to call with any issues and is aware that I am available 15/01 should questions arise. Mars Segura MD PhD Mohs Micrographic Surgery and Dermatologic Oncology Department of Dermatology Please note that I have reviewed the preoperative checklist from today's nursing visit including relevant social history and medications. I have reviewed the preoperative photos if available and the biopsy report. VITAL SIGNS: BP 152/79 (BP Location (NBP): Left arm, Patient Position: Sitting, BP Cuff Sizes: Adult (25-34 cm)) Pulse (!) 107 PHYSICAL EXAMINATION: General: patient is awake, alert, oriented and in no acute distress. Skin: Focused examination of surgical site(s) performed which shows a well healed biopsy site with surrounding poorly defined pearly plaque. PHYSICIAN REVIEW OF REPORTS, RECORDS, IMAGES: 1) The accompanying pathology report(s) associated with aforementioned biopsy slide(s) were/was also reviewed. Assessment: Kiersten Barraza is a 82 y.o. female presenting for: 1. 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 Plan: 1. Findings from the biopsy report, today's clinical exam, and other pertinent details were reviewed with patient today. All questions were answered. 2. Discussed treatment options based on the above findings. We recommended Mohs micrographic surgery for treatment of this tumor. Mohs micrographic surgery was indicated due to patient, site and/or tumor characteristics (see operative report for specific indication). 3. We discussed risks, benefits, and alternative treatment options to the Mohs micrographic surgeryprocedure and pertinent information including but not limited to the following: ?? Risks include bleeding, infection, scar, recurrence, incomplete tumor removal or inability to cure with surgery alone if the tumor features are more aggressive than the initial pathology indicates. Occasionally, additional adjuvant treatments may be recommended. Additional risks include large wound, prolonged wound and healing, pain, swelling, bruising, increased appearance of vessels or worsening erythema of baseline skin; more rarely risks include damage to underlying structures such as nerves, cartilage, or muscle which could lead to temporary or permanent loss of sensation or motor function. ?? Benefit is precise tumor removal ?? If reconstruction is performed, it is specific to the patient and defect. ?? Discussed that the shape, size, depth of the wound is often not known until the tumor is clearedand thus the reconstruction options are sometimes not known until after tumor clearance. Occasionally, referrals to other providers may be recommended for reconstruction based on patient preference and need. ?? Reviewed the pros and cons of common reconstructions used for this tumor type, size, and location, and that reconstruction may lead to change in appearance. ?? Natural history of scar was discussed, including that the scar will continue to mature for 1-2 years. Recommended avoidance of special ointments or scar creams, and avoidance of direct sun exposure to the scar for optimal recovery. ?? Reviewed that there are some aspects of cosmesis that are dependent on patient's characteristicssuch as age, skin laxity/texture factors, inflammatory skin diseases such as rosacea, prior surgery/radiation, degree of actinic damage, smoking status, strength of the patient's immune system, diligent wound care, medications, and genetics. ?? Having Mohs surgery may lead to physical limitations for optimal healing, such as restricted physical activity and heavy lifting. 4. Signs and symptoms of skin cancer reviewed. Patient to report any new, changing, or symptomatic lesions and follow up with his or her cage fighter or other skin provider. 5. Discussed avoiding direct sun exposure to scars for best cosmetic result. Note initiated by CALLI Gaona CMA has performed the documentation for this encounter in the presence of and acting as a scribe for Dr. Segura I performed the above scribed service and agree with the accuracy of the documentation in this encounter. Reviewed and signed by: Mars Segura Dermatology [facility] * Mars Segura MD - 03/16/2022 10:00 AM EDT Mohs micrographic Surgery Operative Report Patient name: Kiersten Barraza : 1940 Date: 03/16/2022 Staff Surgeon and Pathologist: Mars Segura MD PhD Nursing/Foam Rubber Mixer(s): Zenia Lopez RN, Analisa Bradley RN, Tiffanie Lincoln CMA, Jen Mascorro [facility], Manolo Kay CMA, Emely Yuan CMA, Miriam Pal YARDAGE CONTROL OPERATOR FORMING, Debbie ASHLEY Coordinate Measuring Machine Programmer (s): Manolo Longoria CMA Pre-operative diagnosis: Basal Cell Carcinoma, nodular, micronodular Post-operative diagnosis: Basal Cell Carcinoma, nodular, micronodular Location/Site: left nasal tip Procedure: Mohs micrographic surgery Indication(s) for Mohs micrographic surgery: Anatomic location for tissue conservation,histopathology Stages: 2 Preoperative size of tumor: 1.5 x 0.8 cm Stage I The nature and purpose of the procedure, associated risks, possible consequences and complications,and alternative forms of treatment were explained in detail. We reviewed the possible repairs basedon the clinical appearance of tumor but discussed that often the repair options may not be known until the tumor has delmi extirpated. Informed consent and permission to take photographs were obtained. The site was confirmed with the patient/authorized retail wireless sales representative/referring physician and/or a photograph form time of biopsy. A pre-operative time-out (procedural pause) was conducted with no unresolved discrepancies noted. Local anesthesia was obtained with 0.5 % lidocaine with 1:200,000 epinephrine. The surgical site was prepped and draped in the usual sterile manner. A 1-2 mm margin was excised around clinically evident tumor as a complete layer. Hemostasis was achieved by electrocoagulation. The excised tissue was oriented and divided into 2 sections, chromacoded, and submitted for frozen sections. The patient tolerated the procedure well and without complications. On my personal microscopic evaluation of the frozen sections, residual tumor was identified as NODULAR BASAL CELL CARCINOMA - Arising from the epidermis and extending into the dermis are irregularly shaped islands of basaloid keratinocytes. The cells have scant cytoplasm and round dark nuclei. The cells at the periphery of the islands display a palisaded arrangement. The islands are associated with a fibromyxoid stroma and there is cleft formation between some of the islands and stroma. on section A1 (see section number on map). Stage II The surgical site was re-anesthetized with 0.5 % lidocaine with 1:200,000 epinephrine, re-prepped and redraped in a sterile manner. The residual tumor was re-excised as a complete layer 2-3mm in thickness using the Mohs map to delineate area of residual tumor. Hemostasis was achieved with electrocoa gulation. The tissue was oriented and divided into 1 sections, chromacoded, and submitted for frozen sections. The patient tolerated the procedure well and without complications. On my personal microscopic evaluation of the frozen sections, no residual tumor was identified on the deep or outer border of the sections. Depth of excision perichondrium Final defect size: 1.6 x 1.2 cm Mars Segura MD PhD Mohs Micrographic Surgery and Dermatologic Oncology Department of Dermatology [address] [place] [id number] Repair Report (Burow's Full-thickness skin graft) Patient name: Kiersten Barraza Staff Surgeon: Mars Segura MD PhD Sergeant Of Officers(s): same as above Clinical Diagnosis: 1.6 x 1.2 cm skin and soft tissue defect status post Mohs micrographic surgery Location/Site: Left nasal tip Indication: repair of wound with orthodox of anatomy/function Defect size to be repaired: 1.6 x 1.2 cm Procedure: Austin's full-thickness skin graft Final graft size: 0.9 x 0.5 cm Graft donor site: superior standing cone Procedure Details: Due to the size and location of the defect resulting from the complete removal of the tumor, the postoperative risk of hemorrhage, infection, and the possibility of serious deformity from scarring, and in order to restore proper function and prevent loss of function, the defect was closed with the following graft repair. The nature and purpose of the procedure, associated risks, possible consequences, complications andalternative methods of treatment were explained to the patient in detail. An informed consent was obtained. Local anesthesia was obtained with 0.5% lidocaine with 1:200,000 epinephrine. The surgical site was prepped and draped in the usual sterile manner. Procedural pause (timeout performed). First, any beveled edges of the defect were undermined with scissors. A Austin's graft was designedadjacent to the defect using tissue redundancy, and strategically to minimize tension vectors affecting free margin(s). The Burow's graft borders were incised down to the dermal subcutaneous junctionand graft excised. Hemostasis was achieved with electrocoagulation. The graft donor site (redundancy) was located on the superior standing of the left nasal tip and repaired primarily with 4.0 Monocryl subcutaneous/dermal sutures and 6.0 Prolene epidermal sutures. The full-thickness skin graft was defatted and trimmed to fit the defect and sutured into place with 6.0 Prolene sutures. After the resulting closure, there was no active bleeding from the incision site. There was minimalto no distortion to surrounding anatomic structures. The surgical site was cleaned and covered withwhite petrolatum and a Xeroform and gauze pressure dressing. The patient tolerated the procedure well and without complications and was given both verbal and written instructions on postoperative wound care. Follow up for suture removal in 11 days. The patient was discharged in good condition. Total local anesthesia with 0.5% lidocaine with 1:100,000 epinephrine used: 5 cc Total local anesthesia with 1% lidocaine with 1:100,000 epinephrine used: 0.5 cc Post-operative medications: Keflex 500 mg by mouth twice daily x 5 days Note initiated by CALLI Gaona CMA has performed the documentation for this encounter in the presence of and acting as a scribe for Dr. Seugra I performed the above scribed service and agree with the accuracy of the documentation in this encounter. Reviewed and signed by: Mars Segura Dermatology [facility] Mars Segura MD PhD Mohs Micrographic Surgery and Dermatologic Oncology Department of Dermatology [address] [place] [address] documented in this encounter Plan of Treatment Upcoming Encounters Date Type Department Care Team (Late st Contact Info) Description 07/28/2024 12:30 PM EST Office Visit Hematology/Oncology at [address] [phone] Nick Mullen MD [facility] DR HEMATOLOGY [place] [address] Chana Myrick APRN [address] [place] [address] [place] [address] 07/28/2024 1:00 PM EST Scheduled View Only Hematology/Oncology at [address] [phone] Aleah Curran RN 07/28/2024 1:00 PM EST Infusion Hematology Oncology at [address] [phone] documented as of this encounter Visit Diagnoses Diagnosis Basal cell carcinoma of nose Basal cell carcinoma of skin of other and unspecified parts of face documented in this encounter Care Teams Durability Technician Relationship Specialty Start Date End Date Tatum Clayton APRN [address] [place] [address] PCP - General Internal Medicine 09/20/18 09/05/23 documented as of this encounter
--- OUTSIDE RECORDS SUMMARY | 2024-07-28 01:31 | XMS_ITS | Encounter Summary ---
Author Organization [facility] [place] [address] Care Team Providers Care Environment Friendly Landscape Designer Name Role Phone Tatum Clayton APRN Primary Care Provider Encounter Details Date Type Department Care Team (Latest Contact Info) Description 04/21/2022 12:00 PM EDT Office [place] [phone] Irma Bishop, RT Stage 4 very severe COPD by GOLD [...] as of this encounter Progress Notes * Irma Bishop RT - 04/21/2022 12:00 PM EDT Home Oxygen Evaluation for Kiersten Barraza Resting SpO2 on room air: 88 % HR: 92 bpm Placed on O2 at 2 lpm: Resting SpO2 on 2 lpm O2: 97 % HR: 91 bpm Walked 150 feet on 2 lpm O2, SpO2: 88 % HR: 112 bpm Increased to 3 lpm O2: Resting SpO2 on 3 lpm O2: 98 % HR: 91 bpm Walked 150 feet on 3 lpm O2, SpO2: 92 % HR: 113 bpm Pulse Dose Oxygen Evaluation for Kiersten Barraza Placed on 3 pulse dose O2: Resting SpO2 on 3 pulse dose O2: 94* % HR: 95 bpm Kiersten Barraza tolerated pulse dose O2. Oxygen DME: [employer] Home system: low flow concentrator Portable system: -currently purchased a portable oxygen concentrator approximately 2 years ago, sheutilizes this at 3 pulse dose at rest and 4 pulse with activity. In the home, utilizing O2 at 3 lpm continuously. Respiratory regimen: Duoneb 3 times per day * 9;30 am, 3:30 pm, 9:30 pm) Trelegy inhaler once a day Albuterol HFA 2 puffs every 4 hours as needed-currently utilizing 2-3 times per day Reviewed Cleaning instructions for nebulizer kit to be done a minimum of daily: She had been cleaning with mix of vinegar and water after each use. She verbalized understanding of below. - soak nebulizer parts in hot soapy ( dish detergent) water for 10 minutes - Rinse all parts well with hot water -Air dry overnight Disinfecting instruction for nebulizer kit to be done weekly: - soak nebulizer parts in a solution of 1 part distilled white vinegar and 3 parts hot water for 1 hour -Rinse all parts well with hot water - Air dry or dry with a clean, lint free cloth ??? Disposable nebulizer replace weekly ??? Non-disposable nebulizer replace every 6 months documented in this encounter Plan of Treatment Upcoming Encounters Date Type Department Care Team (Late st Contact Info) Description 07/28/2024 12:30 PM EST Office Visit Hematology/Oncology at [address] [phone] Nick Mullen MD [facility] DR H[place]AT[place]Y [place] [address] Chana Myrick APRN [address] [place] [address] DR [place] [address] 07/28/2024 1:00 PM EST Scheduled View Only Hematology/Oncology at [address] [phone] Aleah Curran RN 07/28/2024 1:00 PM EST Infusion Hematology Oncology at [address] [phone] documented as of this encounter Visit Diagnoses Diagnosis Stage 4 very severe COPD by GOLD classification documented in this encounter Care Teams Environment Friendly Landscape Designer Relationship Specialty Start Date End Date Tatum Clayton APRN [address] [place] [phone] PCP - General Internal Medicine 09/20/18 09/05/23 documented as of this encounter
--- OUTSIDE RECORDS SUMMARY | 2024-07-28 01:31 | XMS_ITS | Encounter Summary ---
Author Organization [facility] Address [facility] [place] [address] Care Team Providers Care Take Away Man Name Role Phone MatildeTatum Jozef KHANNA Primary Care Provider Encounter Details Date Type Department Care Team (Late st Contact Info) Description 03/27/2022 11:20 AM EDT Office Visit Dermatology at [facility] [address] [place] [address] Tereza Powell MD [facility] [address] [place] [address] Neoplasm of uncertain behavior of skin; History of basal cell cancer; Multiple benign nevi; Lentigines; Jacobo angioma; Seborrheic keratoses Social History Tobacco Use Types Packs/Day Years [...] Sign Reading Time Taken Comments Blood Pressure - - Pulse 122 03/27/2022 11:35 AM EDT Temperature - - Respiratory Rate - - Oxygen Saturation 93% 03/27/2022 11:35 AM EDT Inhaled Oxygen Concentration - - Weight - - Height - - Body Mass Index - - documented in this encounter Progress Notes * Tereza Powell - 03/27/2022 11:20 AM EDT Images from the original note were not included. DEPARTMENT OF DERMATOLOGY Medical Dermatology Clinic Provider: Tereza Powell MD Patient's preferred name Kiersten Preferred contact method for results [x]Phone []myD-H []Letter Detailed phone message OK? yes Are there any other people with whom we may discuss your care? Bony Barraza Past Medical History Date, location, treatment Melanoma no Dysplastic nevi no SCC no BCC Basal Cell Carcinoma, nodular, micronodular Location/Site: left nasal tip, s/p Mohs AKs UV Exposure & Protection Other relevant [...] of Present Illness: Kiersten Barraza is a 82 y.o. Patient returns to clinic today for a full skin exam. - she reports a painful lesion on the right forearm Last visit at Dermatology: 12/02/2021 Last visit with this provider: Visit date not found Medications: Reviewed in eD-H Allergies: Reviewed in eD-H Skin Examination: Full skin examination: Patient asked to undress to their comfort level. Verbalized that the provider's preference is that patient remove all clothing and that the provider will not examine areas patient elects to keep covered. Examination of the scalp, hair, head, face, ears, neck, chest, axillae, abdomen, back, buttocks, and upper and lower extremities was normal with the exception of the findings below. Genitalia not examined. Assessment/Plan #. History of BCC - Unable to visualize, bandage covering recent Mohs site - sun protection reviewed (sunscreen, avoidance, clothing) and skin cancer warnings - need for regular skin exams reviewed #. Benign Appearing Nevi - Scattered medium-brown macules and papules on the trunk and extremities. - Reassured of benign appearance on exam today. #. Seborrheic Keratoses - Scattered brown and flesh colored waxy stuck on plaques located on the trunk and extremities - Reassured of benign nature #. Solar Lentigines - Light-brown evenly pigmented, well-demarcated macules on sun exposed areas ofthe skin. - Patient reassured of benign nature. #. Jacobo Angiomas - Multiple bright red, well-demarcated papules on the abdomen, chest, and back - Reassured of benign nature #. Dermal nevus vs neurofibroma vs other - Right dorsal forearm 4 mm tender pink papule - After review of risks and benefits, joint decision made to pursue shave biopsy today. Procedure: Skin biopsy by shave technique Location: right dorsal forearm Discussed indications for procedure and expectations including risks and benefits. Verbal consent obtained. Skin prep with alcohol. Local anesthesia with 1% lidocaine, 1/100,000 epinephrine. A sampleof the lesion was removed by shave technique to the level of the dermis and submitted to Pathology.Hemostasis obtained. There were no complications; the patient tolerated the procedure well. The wound was dressed. Post-procedure expectations, wound care and activity restrictions were reviewed. Follow-up based on pathology results. Figure 1 Photo(s) taken and charted with patient's verbal consent. Other: ??? N/A RTC: 1 yr for FSE []Note routed to alumni secretary []Recall placed in scheduling system []Appointment scheduled at checkout Scribe attestation: Eboni Duarte [facility] has performed the documentation for this encounter in thepresence of and acting as a scribe for Tereza Powell MD. I performed the above scribed service and agree with the accuracy of the documentation in this encounter. Reviewed and signed by: Tereza Powell MD Dermatology [facility] Patient seen and evaluated with staff heavy duty truck mechanic: Sarahi Gray MD Dermatology [facility] * Sarahi Gray MD - 03/27/2022 11:20 AM EDT I directly supervised Dr. Powell during this office visit. Dr. Powell presented the history and physical exam to me. I, then, saw and examined this patient with Dr. Powell. We reviewed the history and pertinent details and I confirmed the physical findings. I agree with the details of the history and physical exam as documented in Dr. Powell's note. SARAHI GRAY MD Staff Physician * Tereza Powell - 03/27/2022 11:20 AM EDT Spoke with patient in Mohs about biopsy findings which showed neuroma. Discussed benign with NTD. documented in this encounter Plan of Treatment Upcoming Encounters Date Type Department Care Team (Late st Contact Info) Description 07/28/2024 12:30 PM EST Office Visit Hematology/Oncology at [address] [phone] Nick Mullen MD [facility] DR [place] [address] Chana Myrick [address] HEMATOLOGY AND ONCOLOGY [place], [place] [phone] 07/28/2024 1:00 PM EST Scheduled View Only Hematology/Oncology at [address] [phone] Aleah Curran RN 07/28/2024 1:00 PM EST Infusion Hematology Oncology at [address] [phone] documented as of this encounter Procedures Procedure Name Priority Date/Time Associated Diagnosis Comments SPECIMEN TO PATHOLOGY Routine 03/27/2022 12:01 PM EDT Neoplasm of uncertain behavior of skin SURGICAL PATHOLOGY REPORT Routine 03/27/2022 12:00 PM EDT documented in this encounter Results * Specimen to Pathology (03/27/2022 12:01 PM EDT) AP Specimen 03/27/2022 12:0 1 PM EDT 03/27/2022 12:01 PM EDT Narrative [facility] - 03/27/2022 12:01 PM EDT Specimen requisition ordered. ??Separate Pathology report to follow Sarahi Gray MD PATHOLOGY/CYTOLOGY O RDERABLES [facility] [place] [address] * Surgical Pathology Report (03/27/2022 12:00 PM EDT) Final Diagnosis [id number] ? Location: HDM The signing pathologist has (i) examined the relevant preparation(s) for the specimen(s) and (ii) rendered or confirmed the diagnosis(es). . 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 (see discussion) Electronically signed by: ?Jamar García MD Verified: ??04/04/2022 12:24 ??Dermatopatholog ist Performed at: ??-[facility] Dept. of Pathology, [place], [place] DISCUSSION This bland neural proliferation has some overlapping features of solitary circumscribed neuroma and neurofibroma. SPECIMEN(S) SUBMITTED A - right dorsal forearm, skin shave biopsy (1) CLINICAL INFORMATION Right dorsal forearm 4 mm moses to pink papule, DDX: Dermal nevus vs neurofibroma vs other SPECIMEN PROCESSING A - Labeled/Fixative: Patient demographics, formalin. Quantity/Size: ??Single, 0.7 x 0.5 x 0.2 cm. Tissue Description: Granular, moses-white papule. Sections/Processi ng: Inked, trisected and entirely submitted in 1 cassette labeled A1. ??pps 04/04/2022 12:24 PM EDT [facility] SPECIMEN FROM SKIN / Unknown 03/27/2022 12:00 PM EDT 03/27/2022 12:00 PM EDT Tereza Powell MD PATHOLOGY/CYTOLOGY ORDERABLES [facility] [place] [address] documented in this encounter Visit Diagnoses Diagnosis Neoplasm of uncertain behavior of skin History of basal cell cancer Personal history of other malignant neoplasm of skin Multiple benign nevi Benign neoplasm of skin, site unspecified Lentigines Other dyschromia Jacobo angioma Nevus, non-neoplastic Seborrheic keratoses documented in this encounter Care Teams Take Away Man Relationship Specialty Start Date End Date Tatum Clayton APRN [address] [place] [address] PCP - General Internal Medicine 09/20/18 09/05/23 documented as of this encounter
--- OUTSIDE RECORDS SUMMARY | 2024-07-28 01:31 | XMS_ITS | Encounter Summary ---
Author Organization [facility] Address [facility] [place] [address] Care Team Providers Care Reactor Fueling Supervisor Name Role Phone Maria Guadalupe Mendes MD Primary Care Provider Reason for Visit * Diagnostic Test (Routine) - Closed Specialty Diagnoses / Procedures Referred By Contac t Referred To Contact Radiology Diagnoses Primary malignant neoplasm of right lower lobe of lung Procedures NM PET CT Skull Base to Mid-thigh Nick Mullen MD [facility] [place] [address] [place] [address] Referral ID Status Reason Start Date Expiration Date V isits Requested Visits Authorized [id number] Closed Specialty Service Requested 09/17/2023 03/19/2025 1 1 Encounter Details Date Type Department Care Team (Late st Contact Info) Description 09/20/2023 12:39 PM EDT - 09/20/2023 11:59 PM EDT Hospital Encounter [place] [phone] Nick Mullen MD [facility] [address] [place] [address] Discharge Disposition: Home Social History Tobacco Use [...] mouth daily. OXYGEN-AIR DELIVERY SYSTEMS MISC by [facility].(Non-Drug; Combo Route) route. lactobacillus rhamnosus, GG, (CULTURELLE) [...] PM EST Office Visit Hematology/Oncology at [address] [phone] Nick Mullen MD [facility] [address] [place] [address] Chana Myrick APRN [address] [place] [address] DR HEMATOLOGY AND ONCOLOGY [place], [place] [phone] 07/28/2024 1:00 PM EST Scheduled View Only Hematology/Oncology at [address] [phone] Aleah Curran RN 07/28/2024 1:00 PM EST Infusion Hematology Oncology at [address] [phone] documented as of this encounter Procedures Procedure Name Priority Date/Time Associated Diagnosis Comments NM PET CT SKULL BASE TO MID-THIGH ([facility]) Routine 09/20/2023 2:33 PM EDT Primary malignant neoplasm of right lower lobe of lung POCT GLUCOSE Routine 09/20/2023 12:52 PM EDT documented in this encounter Results * POCT Glucose (09/20/2023 12:52 PM EDT) Glucose, POC 101 65 - 199 mg/dL [facility] Comment: Supplemental ranges: <140 mg/dL before meals <180 mg/dL all other times of the day Blood 09/20/2023 12:5 2 PM EDT 09/20/2023 12:52 PM EDT Nick Mullen MD POINT OF CARE TEST O RDERABLES [facility] [place] [address] documented in this encounter Visit Diagnoses Not on filedocumented in this encounter Care Teams Reactor Fueling Supervisor Relationship Specialty Start Date End Date Maria Guadalupe Mendes MD [address] [place] [phone] PCP - General General Internal Medicine 09/06/23 documented as of this encounter
--- OUTSIDE RECORDS SUMMARY | 2024-07-28 01:31 | XMS_ITS | Encounter Summary ---
Author Organization [facility] [place] [address] Care Team Providers Care Carbon Brush Maker Name Role Phone Maria Guadalupe Mendes MD Primary Care Provider Reason for Visit * Auth/Cert (Routine) Specialty Diagnoses / Procedures Referred By Contac t Referred To Contact Diagnoses Pulmonary nodules Pulmonary nodule(s)/Robotic Bronch with EBUS/ga/Bert Procedures PRO BRONCHOSCOPY RIGID FLEX W COMPUTER ASSIST IMG NAVIGATION PRO [facility] EBUS GUIDED SAMPL 3/> NODE STATION/STRUX BRONCHOSCOPY,RIGID OR FLEX,WITH IMAGE GUIDANCE ( ROBOT / ION ) (WRVU 2) BRONCH, W ENDOBRONCHIAL ULTRASOUND (EBUS) GUIDED SAMPLING, 3+ NODES (WRVU 4.96) Mikel Noel MD [facility] [place] [address] [facility] Referral ID Status Reason Start Date Expiration Date Visits Re quested Visits Authorized [id number] 1 1 Encounter Details Date Type Department Care Team (Latest Contact Info) Description 09/11/2023 12:35 PM EDT - 09/11/2023 3:45 PM EDT Hospital En[place] [phone] Mikel Noel MD [facility] PULMONARY MEDICINE [place], [place] [phone] Discharge Disposition: Home Social History Tobacco Use [...] our office at . There is someone ironing machine operator to speak with 15/01. Mikel Noel MD, [...] mouth daily. OXYGEN-AIR DELIVERY SYSTEMS [place] [facility] [place]Non[place]rug; Combo Route) route. lactobacillus [...] Section of Pulmonary & Critical Care Pager: [phone] Source Note - Kevan Cameron MD - 08/14/2023 3:00 PM EST Images from the original note were not included. [facility] Section of Pulmonary and Critical Care Medicine Outpatient Consultation Follow-up Date of Encounter: 08/14/2023 This was a [id number] office visit. PCP: Tatum Clayton APRN Pulmonary [...] poorly for about a weekbefore presenting to [facility] on 08/06. She was diagnosed with [...] CT scan that she had while at [facility] which does show a new concerning [...] RSV Chest Imaging: CT Chest w 08/06/23 ([facility]) - Apical predominant centrilobular emphysema, 9mm peripheral [...] weeks. Recommendations: -Start Prednisone 40mgx 5d, 30mgx5, 82xav7n, 10mg x 5d -Start Doxycycline -Will plan to touch base in 2 weeks re: symptoms and assess appropriate timing for scheduling bronchoscopy and biopsy with IP if amenable -Follow up in clinic pending above. Call sooner should new questions or concerning symptoms arise. Kevan Cameron MD [facility] [place]amboat Captainmagician helper Pulmonary and Critical Care Medicine [place] [phone] [email or web address] documented in this encounter Miscellaneous Notes [...] distal LMSt. The bronchoscope was removed. The Satiety robotic system was used for pre-procedure planning, including 3D rendering with image post-processing on an independent workstation. The Satiety robotic system was then used for intra-procedure [...] of Pulmonary and Critical Care Medicine Formerly [facility] Dept [facility]C [facility] Phone Pulm Generic: [phone] [email or web address] Pager #[phone] documented in this encounter Plan of Treatment Upcoming Encounters Date Type Department Care Team (Late st Contact Info) Description 07/28/2024 12:30 PM EST Office Visit Hematology/Oncology at [address] [phone] Nick Mullen MD [facility] DR HEMATOLOGY AND ONCOLOGY [place] [phone] Chana Myrick APRN [address] [place] [address] DR HEMATOLOGY AND ONCOLOGY [place], [place] [phone] 07/28/2024 1:00 PM EST Scheduled View Only Hematology/Oncology at [address] [phone] Aleah Curran RN 07/28/2024 1:00 PM EST Infusion Hematology Oncology at [address] [phone] documented as of this encounter Procedures Procedure Name Priority Date/Time Associated Diagnosis Comments XR CHEST ONE VIEW STAT 09/11/2023 3:0 2 PM EDT XR FLUORO NO RAD <1HR - OR USE Routine 09/11/2023 2:30 PM EDT NON-VISION MIXER FINAL REPORT Routine 09/11/2023 2:14 PM EDT NON-VISION MIXER FINAL REPORT Routine 09/11/2023 2:14 PM EDT NON-VISION MIXER FINAL REPORT Routine 09/11/2023 2:14 PM EDT NON-VISION MIXER FINAL REPORT Routine 09/11/2023 2:14 PM EDT CYTOPATHOLOGY NON-GYNECOLOGICAL Routine 09/11/2023 2:14 PM EDT CYTOPATHOLOGY NON-GYNECOLOGICAL Routine 09/11/2023 2:14 PM EDT CYTOPATHOLOGY NON-GYNECOLOGICAL Routine 09/11/2023 2:14 PM EDT CYTOPATHOLOGY NON-GYNECOLOGICAL Routine 09/11/2023 2:14 PM EDT NON-VISION MIXER FINAL REPORT Routine 09/11/2023 2:09 PM EDT CYTOPATHOLOGY NON-GYNECOLOGICAL Routine 09/11/2023 2:09 PM EDT NON-VISION MIXER FINAL REPORT Routine 09/11/2023 1:58 PM EDT CYTOPATHOLOGY NON-GYNECOLOGICAL Routine 09/11/2023 1:58 PM EDT SPECIMEN TO PATHOLOGY Routine 09/11/2023 1:54 PM EDT NON-VISION MIXER FINAL REPORT Routine 09/11/2023 1:48 PM EDT CYTOPATHOLOGY NON-GYNECOLOGICAL Routine 09/11/2023 1:48 PM EDT SOLID TUMOR NGS PANEL Routine 09/11/2023 1:45 PM EDT SURGICAL PATHOLOGY REPORT Routine 09/11/2023 1:45 PM EDT SPECIMEN TO PATHOLOGY Routine 09/11/2023 1:45 PM EDT Bronchoscopy, Biopsy ([id number]) Yes 09/11/2023 1:22 PM EDT Pulmonary nodules Bronchoscopy, Diagnostic [place] ([id number]) Yes 09/11/2023 1:22 PM EDT Pulmonary nodules Bronchoscopy, Diagnostic [place] ([id number]) Yes 09/11/2023 1:22 PM EDT Pulmonary nodules Bronchoscopy, Transbronch Biopsy ([id number]) Yes 09/11/2023 1:22 PM EDT Pulmonary nodules Bronchoscopy, Transbron Aspir Bx ([id number]) Yes 09/11/2023 1:22 PM EDT Pulmonary nodules [facility] Ebus Dx/Tx Intervention Perph Les ([id number]) Yes 09/11/2023 1:22 PM EDT Pulmonary nodules [facility] [place] Guided Sampl 3/> Node Station/Strux ([id number]) Yes 09/11/2023 1:22 PM EDT Pulmonary nodules Bronchoscopy Rigid Flex W Computer Assist Img Navigation ([id number]) Yes 09/11/2023 1:22 PM EDT Pulmonary nodules documented in this encounter Results * XR Chest One View (09/11/2023 3:02 PM EDT) Anatomical Region Laterality Modality Chest N/A Digital Radiogra phy Impressions 09/11/2023 3:09 PM EDT No pneumothorax. I have personally reviewed the image(s) and the resident's interpretation and agree with the findings, Nereyda aPlmer MD at 09/11/2023 3:09 PM Thank you for letting us participate in the care of this patient. ??If you are a health care provider and have any questions regarding this report, please contact the number below. ??For patients who have questions please contact the health career technical supervisor that requested your imaging first. ? Electronically signed by: Nereyda Palmer MD, [facility] ([phone]), at 09/11/2023 3:09 PM Narrative 09/11/2023 3:09 [...] who have questions please contactthe health career technical supervisor that requested your imaging first. Electronically signed by: Nereyda Palmer MD, [facility]([phone]), at 09/11/2023 3:09 PM Mikel Noel MD IMG DX ORDERABL ES * XR Fluoro No Rad <1Hr - OR Use (09/11/2023 2:30 PM EDT) Narrative Dicom, Auditing User - 09/11/2023 2:30 PM EDT This exam is auto-finalizing. No interpretation was done. Mikel Noel MD IMG FLUORO ORDE RABLES * Non-Leaf Conditioner Helper Final Report (09/11/2023 2:14 PM EDT) Diagnosis Discussion [id number] ? Location: [facility]P; SD[facility]; A The signing pathologist has (i) examined the relevant preparation(s) for the specimen(s) and (ii) rendered or confirmed the diagnosis(es). . ? Non-Leaf Conditioner Helper Final DIAGNOSIS Negative for Malignancy Electronically signed by: ?Holden SEYMOUR, Clayton Haskins Verified: ??09/12/2023 13:19 ??Cytopathologis t Performed at: ??-[facility] Dept. of Pathology, [place] [address] Career Law Clerk: Isidro Diaz MD, AP, ??CLIA Certificate: [id number] DISCUSSION Lymph node: station 4R (EBUS-guided FNA) [...] Cell Block 1. 09/12/2023 1:19 PM EDT [facility] LYMPH NODE SPECIMEN / Unknown 09/11/2023 2:14 PM EDT 09/11/2023 2:14 PM EDT Mikel Noel MD PATHOLOGY/CYTOL OGY ORDERABLES [facility] [place] [address] [facility] [place] [address] * Non-Leaf Conditioner Helper Final Report (09/11/2023 2:14 PM EDT) Diagnosis Discussion [id number] ? Location: [facility]; [facility]; A The signing pathologist has (i) examined the relevant preparation(s) for the specimen(s) and (ii) rendered or confirmed the diagnosis(es). . ? Non-Leaf Conditioner Helper Final DIAGNOSIS Negative for Malignancy Electronically signed by: ?Holden SEYMOUR, Clayton Haskins Verified: ??09/12/2023 13:14 ??Cytopathologis t Performed at: ??-[facility] Dept. of Pathology, [place] [address] Career Law Clerk: Isidro Diaz MD, AP, ??CLIA Certificate: [id number] DISCUSSION Lymph node: station 11L (EBUS-guided FNA) [...] Cell Block 1. 09/12/2023 1:14 PM EDT [facility] LYMPH NODE SPECIMEN / Unknown 09/11/2023 2:14 PM EDT 09/11/2023 2:14 PM EDT Mikel Noel MD PATHOLOGY/CYTOL OGY ORDERABLES [facility] [place] [address] [facility] [place] [address] * Non-Leaf Conditioner Helper Final Report (09/11/2023 2:14 PM EDT) Diagnosis Discussion [id number] ? Location: [facility]; [facility]; A The signing pathologist has (i) examined the relevant preparation(s) for the specimen(s) and (ii) rendered or confirmed the diagnosis(es). . ? Non-Leaf Conditioner Helper Final DIAGNOSIS Negative for Malignancy Electronically signed by: ?Holden SEYMOUR, Clayton Haskins Verified: ??09/12/2023 10:55 ??Cytopathologis t Performed at: ??-[facility] Dept. of Pathology, [place] [address] Career Law Clerk: Isidro Diaz MD, AP, ??CLIA Certificate: [id number] DISCUSSION Lymph node: station 7 (EBUS-guided FNA) [...] Cell Block 1. 09/12/2023 10:55 AM EDT [facility] LYMPH NODE SPECIMEN / Unknown 09/11/2023 2:14 PM EDT 09/11/2023 2:14 PM EDT Mikel Noel MD PATHOLOGY/CYTOL OGY ORDERABLES [facility] [place] [address] [facility] [place] [address] * Non-Leaf Conditioner Helper Final Report (09/11/2023 2:14 PM EDT) Diagnosis Discussion [id number] ? Location: [facility]; [facility]; A The signing pathologist has (i) examined the relevant preparation(s) for the specimen(s) and (ii) rendered or confirmed the diagnosis(es). . ? Non-Leaf Conditioner Helper Final DIAGNOSIS Negative for Malignancy Electronically signed by: ?Holden SEYMOUR, Clayton Haskins Verified: ??09/12/2023 10:54 ??Cytopathologis t Performed at: ??-[facility] Dept. of Pathology, [place] [address] Career Law Clerk: Isidro Diaz MD, FCAP, ??CLIA Certificate: [id number] DISCUSSION Lymph node: station 4L (EBUS-guided FNA) [...] Cell Block 1. 09/12/2023 10:54 AM EDT [facility] LYMPH NODE SPECIMEN / Unknown 09/11/2023 2:14 PM EDT 09/11/2023 2:14 PM EDT Mikel Noel MD PATHOLOGY/CYTOL OGY ORDERABLES [facility] [place] [phone] [facility] [place] [address] * Cytopathology Non-Gynecological (09/11/2023 2:14 PM EDT) AP Specimen 09/11/2023 2:14 PM EDT 09/11/2023 2:14 PM EDT Narrative [facility] - 09/11/2023 2:14 PM EDT Specimen requisition ordered. ??Separate Pathology report to follow Mikel Noel MD PATHOLOGY/CYTOL OGY ORDERABLES Performing Organization Address [facility]/ZIP Co de Phone Number [facility] [place] [address] * Cytopathology Non-Gynecological (09/11/2023 2:14 PM EDT) AP Specimen 09/11/2023 2:14 PM EDT 09/11/2023 2:14 PM EDT Narrative [facility] - 09/11/2023 2:14 PM EDT Specimen requisition ordered. ??Separate Pathology report to follow Mikel Noel MD PATHOLOGY/CYTOL OGY ORDERABLES Performing Organization Address [facility] Co de Phone Number [facility] [place] [address] * Cytopathology Non-Gynecological (09/11/2023 2:14 PM EDT) AP Specimen 09/11/2023 2:14 PM EDT 09/11/2023 2:14 PM EDT Narrative [facility] - 09/11/2023 2:14 PM EDT Specimen requisition ordered. ??Separate Pathology report to follow Mikel Noel MD PATHOLOGY/CYTOL OGY ORDERABLES Performing Organization Address [facility] Co de Phone Number [facility] [place] [address] * Cytopathology Non-Gynecological (09/11/2023 2:14 PM EDT) AP Specimen 09/11/2023 2:14 PM EDT 09/11/2023 2:14 PM EDT Narrative [facility] - 09/11/2023 2:14 PM EDT Specimen requisition ordered. ??Separate Pathology report to follow Mikel Noel MD PATHOLOGY/CYTOL OGY ORDERABLES Performing Organization Address [facility] Co de Phone Number [facility] [place] [address] * Non-Leaf Conditioner Helper Final Report (09/11/2023 2:09 PM EDT) Diagnosis Discussion [id number] ? Location: [facility]; [facility]; A The signing pathologist has (i) examined the relevant preparation(s) for the specimen(s) and (ii) rendered or confirmed the diagnosis(es). . ? Non-Leaf Conditioner Helper Final DIAGNOSIS Negative for Malignancy Electronically signed by: ?Ra SEYMOUR PhD, Tru Haskins Verified: ??09/12/2023 14:03 ??Pathologist Performed at: ??-[facility] Dept. of Pathology, [place] [address] Career Law Clerk: Isidro Diaz MD, FCAP, ??IA Certificate: [id number] DISCUSSION Lung, left main stem (bronchial brush): [...] Cell Block 1. 09/12/2023 2:03 PM EDT [facility] BRONCHIAL BRUSHINGS SPECIMEN / Unknown 09/11/2023 2:09 PM EDT 09/11/2023 2:09 PM EDT Mikel Noel MD PATHOLOGY/CYTOL TERRI ORDERABLES [facility] [place] [address] [facility] [place] [address] * Cytopathology Non-Gynecological (09/11/2023 2:09 PM EDT) AP Specimen 09/11/2023 2:09 PM EDT 09/11/2023 2:09 PM EDT Narrative [facility] - 09/11/2023 2:09 PM EDT Specimen requisition ordered. ??Separate Pathology report to follow Mikel Noel MD PATHOLOGY/CYTOL OGY ORDERABLES Performing Organization Address City/[facility] Co de Phone Number [facility] [place] [address] * Non-Leaf Conditioner Helper Final Report (09/11/2023 1:58 PM EDT) Diagnosis Discussion [id number] ? Location: [facility]; [facility]; A The signing pathologist has (i) examined the relevant preparation(s) for the specimen(s) and (ii) rendered or confirmed the diagnosis(es). . ? Non-Leaf Conditioner Helper Final DIAGNOSIS Atypical Electronically signed by: ?Ra SEYMOUR PhD, Tru Haskins Verified: ??09/12/2023 13:38 ??Pathologist Performed at: ??-[facility] Dept. of Pathology, [place] [address] Career Law Clerk: Isidro Diaz MD, FCAP, ??CLIA Certificate: [id number] DISCUSSION Lung, right lower lobe (bronchial alveolar [...] Cell Block 1. 09/12/2023 1:38 PM EDT [facility] BRONCHIAL STRUCTURE / Unknown 09/11/2023 1:58 PM EDT 09/11/2023 1:58 PM EDT Mikel Noel MD PATHOLOGY/CYTOL OGY ORDERABLES [facility] [place] [place] [phone] [place] [address] [place] [address] * Cytopathology Non-Gynecological (09/11/2023 1:58 PM EDT) AP Specimen 09/11/2023 1:58 PM EDT 09/11/2023 1:58 PM EDT Narrative [facility] - 09/11/2023 1:58 PM EDT Specimen requisition ordered. ??Separate Pathology report to follow Mikel Noel MD PATHOLOGY/CYTOL OGY ORDERABLES [facility] [place] [address] * Specimen to Pathology (09/11/2023 1:54 PM EDT) AP Specimen 09/11/2023 1:54 PM EDT 09/11/2023 1:54 PM EDT Narrative [facility] - 09/11/2023 1:54 PM EDT Specimen requisition ordered. ??Separate Pathology report to follow Mikel Noel MD PATHOLOGY/CYTOL OGY ORDERABLES [facility] [place] [address] * (ABNORMAL) Non-Leaf Conditioner Helper Final Report (09/11/2023 1:48 PM EDT) Diagnosis Discussion [id number] ? Location: [facility]; [facility]; A The signing pathologist has (i) examined the relevant preparation(s) for the specimen(s) and (ii) rendered or confirmed the diagnosis(es). . ? Non-Leaf Conditioner Helper Final DIAGNOSIS Positive for Malignancy Electronically signed by: ?Holden SEYMOUR, Clayton Haskins Verified: ??09/14/2023 18:44 ??Cytopathologist Performed at: ??-[facility] Dept. of Pathology, [place] [address] Career Law Clerk: Isidro Diaz MD, FCAP, ??CLIA Certificate: [id number] DISCUSSION Lung: right lower lobe (FNA) - Non-small cell carcinoma; favor adenocarcinoma. See also the concurrent surgical lung biopsy, [id number]. --- Immunohistochemistry Studies --- Interpretation: ? Immunohistochemical [...] Cell Block 1.(A) 09/14/2023 6:44 PM EDT [facility] RIGHT LUNG STRUCTURE / Unknown 09/11/2023 1:48 PM EDT 09/11/2023 1:48 PM EDT Mikel Noel MD PATHOLOGY/CYTOL OGY ORDERABLES [facility] [place] [address] * Cytopathology Non-Gynecological (09/11/2023 1:48 PM EDT) AP Specimen 09/11/2023 1:48 PM EDT 09/11/2023 1:48 PM EDT Narrative [facility] - 09/11/2023 1:48 PM EDT Specimen requisition ordered. ??Separate Pathology report to follow Mikel Noel MD PATHOLOGY/CYTOL OGY ORDERABLES Performing Organization Address City/[facility] Co de Phone Number [facility] [place] [address] * (ABNORMAL) Surgical Pathology Report (09/11/2023 1:45 PM EDT) Final Diagnosis [id number] ? Location: [facility]; [facility]; A The signing pathologist has (i) examined [...] The assay was performed according to the aeronautical engineering teacher's instructions using Anti-PD-L1 (22C3, pharmDX) antibody. Electronically signed by: ?Toby Gregory MD Verified: ??09/18/2023 23:50 ??Pathologist Performed at: ??-[facility] Dept. of Pathology, [place] [address] Career Law Clerk: Isidro Diaz MD, FCAP, ??CLIA Certificate: [id number] ?Surgical Pathology DIAGNOSIS A - Endobronchial biopsy left main stem, biopsy: - Respiratory mucosa, negative for carcinoma. B - Right lower lobe forceps biopsy: - Adenocarcinoma, see discussion. Electronically signed by: ?Hosea Adamson MD Verified: ??09/14/2023 18:57 ??Pathologist Performed at: ??-[facility] Dept. of Pathology, [place] [address] Career Law Clerk: Isidro Diaz MD, FCAP, ??CLIA Certificate: [id number] DISCUSSION The left main stem endobronchial biopsy [...] artifacts. This case and the concurrent FNA ([id number]) were reviewed and discussed with cytopathologist Dr. [...] labeled B1-B3. ??nilamy(A) 09/18/2023 11:50 PM EDT [facility] LUNG STRUCTURE / Unknown 09/11/2023 1:45 PM EDT 09/11/2023 1:45 PM EDT LUNG STRUCTURE / Unknown 09/11/2023 1:45 PM EDT 09/11/2023 1:45 PM EDT Mikel Noel MD PATHOLOGY/CYTOL OGY ORDERABLES [facility] [place] [address] * Solid Tumor NGS Panel (09/11/2023 1:45 PM EDT) Tissue 09/11/2023 1:45 PM EDT 09/17/2023 7:06 AM EDT Narrative Resulting Agency Comment Spec In Lab Mikel Noel MD PATHOLOGY/CYTOL OGY ORDERABLES Performing Organization Address City/[facility] Co de Phone Number [facility] [place] [address] * Specimen to Pathology (09/11/2023 1:45 PM EDT) AP Specimen 09/11/2023 1:45 PM EDT 09/11/2023 1:45 PM EDT Narrative [facility] - 09/11/2023 1:45 PM EDT Specimen requisition ordered. ??Separate Pathology report to follow Mikel Noel MD PATHOLOGY/CYTOL OGY ORDERABLES Performing Organization Address City/[facility] Co de Phone Number [facility] [place] [address] documented in this encounter Visit Diagnoses Not [...] [place]) documented in this encounter Care Teams Carbon Brush Maker Relationship Specialty Start Date End Date Maria Guadalupe Mendes MD [address] [place] [address] PCP - General General Internal Medicine 09/06/23 documented as of this encounter
--- OUTSIDE RECORDS SUMMARY | 2024-07-28 01:31 | XMS_ITS | Encounter Summary ---
Author Organization [facility] Address [facility] [place] [address] Care Team Providers Care Motorcycle Subassembler Name Role Phone MatildeTatum Jozef KHANNA Primary Care Provider Encounter Details Date Type Department Care Team (Latest Contact Info) Description 03/16/2022 9:45 AM EDT Clinical Support Dermatology at [facility] [address] [place] [address] Mars Segura MD [facility] DR CHETNA [place] [address] Basal cell carcinoma of nose Social History [...] as of this encounter Progress Notes * Tiffanie Lincoln CMA - 03/16/2022 9:45 AM EDT Mohs consultation and preoperative note (H&P) Patient Name: Kiersten Barraza Age: 82 y.o. Date of : 1940 Today's Date: 03/16/2022 REFERRING PROVIDER: Carmen Kothari MD CC: Mohs micrographic surgery for treatment of a cutaneous tumor HPI: Kiersten Barraza is a 82 y.o. 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 The dermatologic preoperative information sheet wasreviewed with pertinent positive and negative as below. DERMATOLOGIC PRE-OPERATIVE EVALUATION AND REVIEW OF SYSTEMS History of Mohs surgery? no If yes, have you ever had Mohs surgery with Dr. Segura? no Pacemaker/Defibrillator? no Joint replacement or other implantable devices (e.g. Cochlear implant)? If yes then when? no Do you take a blood thinner? No History of organ transplant? no History of artificial valve or stroke? no History of liver disease or bleeding disorder? no Do you have any medical problems that may affect your upcoming surgery? yes, 24/ oxygen via nasal cannula 3L, okay to turn off for short periods of time Do you have any concerns regarding your upcoming surgery? no SOCIAL HISTORY: Makes Own Decisions: Yes, son will be transportation on day of surgery Hearing aid or other devices: Yes oxygen Relevant travel history or future plans: none Tobacco use (amount per day, type of tobacco): no Do you have any physical limitations that may affect your surgery?: no ALLERGIES: Allergies reviewed MEDICATIONS: Medications reviewed documented in this encounter Plan of Treatment Upcoming Encounters Date Type Department Care Team (Late st Contact Info) Description 07/28/2024 12:30 PM EST Office Visit Hematology/Oncology at [address] [phone] Nick Mullen MD [facility] DR HEMATOLOGY [place] [address] Chana Myrick APRN [address] [place] [address] DR HEMATOLOGY AND ONCOLOGY [place], [place] [phone] 07/28/2024 1:00 PM EST Scheduled View Only Hematology/Oncology at [address] [phone] Aleah Curran RN 07/28/2024 1:00 PM EST Infusion Hematology Oncology at [address] [phone] documented as of this encounter Visit Diagnoses Diagnosis Basal cell carcinoma of nose Basal cell carcinoma of skin of other and unspecified parts of face documented in this encounter Care Teams Motorcycle Subassembler Relationship Specialty Start Date End Date Tatum Clayton APRN [address] [place] [address] PCP - General Internal Medicine 09/20/18 09/05/23 documented as of this encounter
--- OUTSIDE RECORDS SUMMARY | 2024-07-28 01:31 | XMS_ITS | Encounter Summary ---
Author Organization [facility] [place] [address] Care Team Providers Care Stoner Hand Name Role Phone MatildeTatum Jozef KHANNA Primary Care Provider Encounter Details Date Type Department Care Team (Late st Contact Info) Description 08/20/2023 [place] [phone] Zenia Dueñas, RN Social History Tobacco Use Types Packs/Day [...] encounter Miscellaneous Notes * Telephone Encounter - Zenia Dueñas RN - 08/20/2023 2:19 PM EST Returned call to patient. Per Dr. Cameron, she should continue without antibiotics at this pointand let her GI system calm down. If things don't return to normal from a GI standpoint, she should let us know. Dr. Kuhn does not have high suspicion for C.Diff given such a short duration of antibiotics at this point. Patient verbalized understanding and will call back if her symptoms do not improve. * Telephone Encounter - Zenia Dueñas RN - 08/20/2023 11:18 AM EST Copied from [facility] #[id number]. Topic: Specialty Dept CRMs - Triage >> Aug 17, 2023 1:19 PM Joanne Fry wrote: Triage Message Specialist: Kevan Cameron Relationship (if other than patient-full name): self Symptom: diarrhea Has patient experienced symptom before If patient has experienced symptom before, when was the last time this occurred Is patient currently having symptom yes When did symptom begin 2 days ago Additional Comments: Patient states she would like to speak to Dr Cameron as she is not tolerating the new antibiotic well. She states she is having severe diarrhea, she is not able to make it to the bathroom sometimes and is having trouble even holding toast in her stomach. She states she spokewith him this morning and thought she was doing okay but is now realizing as the day goes on that she does not feel well at all. Please call to advise. Returned call to patient. She had not heard back from anyone last week so on Sunday she decided to stop taking the doxycycline because the diarrhea was so bad. She reports that yesterday she had 5 episodes of diarrhea. So far today she has had 2 episodes of diarrhea. She is feeling a little better and was able to eat a piece of toast today without having immediate diarrhea after. She is drinking water and doing her best to stay hydrated. She states she is urinating well. She denies abdominal cramping. She is wondering what to do from here. Message has been sent to Dr. Cameron for review. documented in this encounter Plan of Treatment Upcoming Encounters Date Type Department Care Team (Late st Contact Info) Description 07/28/2024 12:30 PM EST Office Visit Hematology/Oncology at [address] [phone] Nick Mullen MD [facility] DR [place] [address] LaRozChana oneill APRN [address] [place] [address] DR HEMATOLOGY AND ONCOLOGY [place], [place] [id number] 07/28/2024 1:00 PM EST Scheduled View Only Hematology/Oncology at [address] [phone] Aleah Curran RN 07/28/2024 1:00 PM EST Infusion Hematology Oncology at [address] [phone] documented as of this encounter Visit Diagnoses Not on filedocumented in this encounter Care Teams Stoner Hand Relationship Specialty Start Date End Date Tatum Clayton APRN [address] [place] [address] PCP - General Internal Medicine 09/20/18 09/05/23 documented as of this encounter
--- OUTSIDE RECORDS SUMMARY | 2024-07-28 01:31 | XMS_ITS | Encounter Summary ---
[place] [address] Care Team Providers Care Workforce Development Vice President Name Role Phone Neelam Claytonara Jozef KHANNA Primary Care Provider Encounter Details Date Type Department Care Team (Late st Contact Info) Description 03/15/[address] [place] [address] Zenia Lopez, RN Social History Tobacco Use Types Packs/Day [...] Miscellaneous Notes * Telephone Encounter - Zenia Lopez RN - 03/15/2022 9:03 AM EDT Mohs consultation and preoperative note (H&P) Patient Name: Kiersten Barraza Age: 82 y.o. Date of : 1940 Today's Date: 03/15/2022 REFERRING PROVIDER: Carmen Kothari MD CC: Mohs [...] you ever had Mohs surgery with Dr. Hilliard? no Pacemaker/Defibrillator? no Joint replacement or other implantable devices (e.g. Cochlear implant)? If yes then when? no Do you take a blood thinner? No History of organ transplant? no History of artificial valve or stroke? no History of liver disease or bleeding disorder? no Do you have any medical problems that may affect your upcoming surgery? yes, 15/01 oxygen via nasal cannula 3L, okay to [...] 12:30 PM EST Office Visit Hematology/Oncology at [address] [phone] Nick Mullen MD [facility] [address] [place] [address] Chana Myrick APRN [address] [place] [address] DR HEMATOLOGY AND ONCOLOGY [place], [place] [id number] 07/28/2024 1:00 PM EST Scheduled View Only Hematology/Oncology at [address] [phone] Aleah Curran RN 07/28/2024 1:00 PM EST Infusion Hematology Oncology at [address] [phone] documented as of this encounter Visit Diagnoses Not on filedocumented in this encounter Care Teams Workforce Development Vice President Relationship Specialty Start Date End Date Tatum Clayton APRN [address] [place] [address] PCP - General Internal Medicine 09/20/18 09/05/23 documented as of this encounter
--- OUTSIDE RECORDS SUMMARY | 2024-07-28 01:32 | XMS_ITS | Encounter Summary ---
Author Organization [facility] Address [facility] [place] [address] Care Team Providers Care Screwmaker Automatic Name Role Phone Tatum Clayton APRN Primary Care Provider Reason for Visit * Reason Comments Skin Lesion * Consultation (Routine) - Closed Specialty Diagnoses / Procedures Referred By Alea morales Referred To Contact Dermatology Diagnoses Disorder of the skin and subcutaneous tissue, unspecified Skin Lesion on Nose/Full Body CK; New Patient-Notes Receivedf Procedures Consult Robin Santos APRN [address] [place] [address] [facility] Dermatology [address] [place] [address] Referral ID Status Reason Start Date Expiration Date Visits Re quested Visits Authorized [id number] Closed 11/07/2021 11/07/2022 1 1 Encounter Details Date Type Department Care Team (Late st Contact Info) Description 12/02/2021 3:00 PM EDT Office Visit Dermatology at [facility] [address] [place] [address] Carmen Kothari MD [facility] [address] [facility] [place] [address] Verruca vulgaris; Neoplasm of uncertain behavior of skin; Milia Social History Tobacco Use Types Packs/Day Years [...] as of this encounter Progress Notes * Carmen Kothari MD - 12/02/2021 3:00 PM EDT Images from the original note were not included. DEPARTMENT OF DERMATOLOGY Medical Dermatology Clinic Note Provider: Carmen Kothari MD Patient's preferred name Kiersten Preferred contact method for results [x]Phone []myD-H []Letter Detailed phone message OK? yes Are there any other people with whom we may discuss your care? Bony Barraza Past Medical History Date, location, treatment Melanoma N Dysplastic nevi N SCC N BCC N AKs N UV Exposure & Protection N Other relevant past medical history Eczema Hypertension Emphysema Family History Details Melanoma N NMSC N Other relevant family history Kidney cancer, father Social History Retired 3 children Pre-Procedure Questions Details Allergy to lidocaine, epinephrine, Dermabond, chlorhexidine, or adhesives N Bleeding disorder or blood thinners N Implanted devices (Pacemaker, defibrillator, deep brain stimulator, cochlear implant) N History of Present Illness: Kiersten Barraza is a 81 y.o. Patient is referred to the clinic at the request of Robin Santos for evaluation of a concerning lesion on the nose. That has been present for a month and is asymptomatic Review of Systems: General: Feeling well. Skin: No other skin concerns. Medications: Reviewed in eD-H Allergies: Reviewed in eD-H Skin Examination: Focused skin examination of the NOSE was normal with the exception of the findings below. Assessment/Plan #. Neoplasm of the Skin: left nasal tip pearly papule with telangiectasias DDx: BCC Procedure: Skin biopsy by shave technique Time of procedure: 330 Location: Left nasal tip Discussed indications for procedure and expectations including risks and benefits. Verbal consent obtained. Skin prep with alcohol. Local anesthesia with 1% xylocaine, 1/100,000 epinephrine. A sampleof the lesion was removed by shave technique to the level of the dermis and submitted to Pathology.Hemostasis obtained (AlCl and/or electrocautery). There were no complications; the pt. tolerated the procedure well. The wound was dressed. Post-procedure expectations, wound care and activity restrictions were reviewed. Follow-up based on pathology results. #. Milia -0.1cm firm, round, white subcutaneous papule - Benign. No treatment necessary. - Reassured about benign nature and natural history. #. Wart -Verrucous papule on the nose Counseled: warts, treatment options (including their risks and benefits), including awaiting immunity development, salicylic acid, cryotherapy, triple acid, and laser treatment. Procedure Note: Procedure: Destruction of lesion(s) with cryotherapy. Number: 1 Location: as above Discussed procedure and expectations including risks (including risk of hypopigmentation) and benefits. Verbal consent obtained. Frozen with LN2, 15-30 second thaw time, TWICE. There were no complications; the patient tolerated the procedure well. Post-procedure expectations and wound care were reviewed. Figure 1 Photo(s) taken and charted with patient's verbal consent. Other: ??? Sun protection discussed (protective clothing and SPF30+ broad-spectrum sunscreen) RTC: Pending pathology []Note routed to personal secretary []Recall placed in scheduling system []Appointment scheduled at checkout Scribe attestation: Lorie Mccarthy LPN has performed the documentation for this encounter in thepresence of and acting as a scribe for Carmen Kothari MD. I performed the above scribed service and agree with the accuracy of the documentation in this encounter. Reviewed and signed by: Carmen Kothari MD Dermatology [facility] Patient seen and evaluated with staff credit card associate: Amber Calles MD Department of Dermatology [facility] * Sarahi Gray MD - 12/02/2021 3:00 PM EDT I directly supervised Dr. Kothari during this office visit. Dr. Kothari presented the history and physical exam to me. I then saw and examined this patient with Dr. Kothari . We reviewed the history andpertinent details and I confirmed the physical findings. I agree with the details of the history and physical exam as documented in Dr. Kotharis note. SARAHI GRAY MD Staff Physician * Carmen Kothari MD - 12/02/2021 3:00 PM EDT DERMATOLOGY TELEPHONE NOTE Kiersten Barraza 12/08/2021 [id number] Reason for call: Discuss biopsy results I called the patient this afternoon to discuss the results of her recent biopsy: Left nasal tip, skin shave biopsy: - ??Basal cell carcinoma, nodular and micronodular patterns, transected at the base We discussed the recommendation for mohs surgery, referral placed. Recommend FSE, routed to scheduling. Carmen Kothari MD Dermatology Resident documented in this encounter Plan of Treatment Upcoming Encounters Date Type Department Care Team (Late st Contact Info) Description 07/28/2024 12:30 PM EST Office Visit Hematology/Oncology at [address] [phone] Nick Mullen MD [facility] DR HEMATOLOGY [place] [address] Chana Myrick [address] HEMATOLOGY AND [place]OGY [place], [place] [id number] 07/28/2024 1:00 PM EST Scheduled View Only Hematology/Oncology at [address] [phone] Aleah Curran RN 07/28/2024 1:00 PM EST Infusion Hematology Oncology at [address] [phone] documented as of this encounter Procedures Procedure Name Priority Date/Time Associated Diagnosis Comments SURGICAL PATHOLOGY REPORT Routine 12/02/2021 3:35 PM EDT SPECIMEN TO PATHOLOGY Routine 12/02/2021 3:35 PM EDT Neoplasm of uncertain behavior of skin documented in this encounter Results * Surgical Pathology Report (12/02/2021 3:35 PM EDT) Final Diagnosis [id number] ? Location: [facility] The signing pathologist has (i) examined the relevant preparation(s) for the specimen(s) and (ii) rendered or confirmed the diagnosis(es). . ?Surgical Pathology DIAGNOSIS Left nasal tip, skin shave biopsy: - ??Basal cell carcinoma, nodular and micronodular patterns, transected at the base Electronically signed by: ?Bhavin SEYMOUR, PhD, Cari Verified: ??12/07/2021 13:04 ??Dermatopatholo gist Performed at: ??[facility] Dept. of Pathology, [place], [place] SPECIMEN(S) SUBMITTED A - Left nasal tip, skin shave biopsy (1) CLINICAL INFORMATION Left nasal tip pearly papule with telangiectasias; BCC SPECIMEN PROCESSING A - Labeled/Fixative : Patient demographics, formalin. Quantity/Size: ??Single, 0.4 x 0.4 x 0.1 cm. Tissue Description: Shave of white skin. Sections/Process ing: Inked, bisected and entirely submitted in 1 cassette labeled A1. ??sns 12/07/2021 1:04 PM EDT [facility] SPECIMEN FROM SKIN / Unknown 12/02/2021 3:35 PM EDT 12/02/2021 3:35 PM EDT Carmen Kothari MD PATHOLOGY/[place] [address] * Specimen to Pathology (12/02/2021 3:35 PM EDT) AP Specimen 12/02/2021 3:35 PM EDT 12/02/2021 3:35 PM EDT Narrative [facility] - 12/02/2021 3:35 PM EDT Specimen requisition ordered. ??Separate Pathology report to follow Amber Calles MD PATHOLOGY/[place] [address] documented in this encounter Visit Diagnoses Diagnosis Verruca vulgaris Viral warts, unspecified Neoplasm of uncertain behavior of skin Milia Sebaceous cyst documented in this encounter Care Teams Screwmaker Automatic Relationship Specialty Start Date End Date Tatum Clayton APRN [address] [place] [address] PCP - General Internal Medicine 09/20/18 09/05/23 documented as of this encounter
--- OUTSIDE RECORDS SUMMARY | 2024-07-28 01:32 | XMS_ITS | Encounter Summary ---
Author Organization [facility] Address [facility] [place] [address] Care Team Providers Care Valve Repairer Reclamation Name Role Phone MatildeTatum Jozef KHANNA Primary Care Provider Reason for Visit * Reason Onset Date Comments Eye Problem 09/18/2018 Calling about ne w floaters LE Encounter Details Date Type Department Care Team (Late st Contact Info) Description 09/18/2018 Telephone [place] [address] Evie Joyce MD [facility] [place] [address] Eye Problem (Calling about new floaters LE) Social History Tobacco Use Types Packs/Day Years [...] encounter Miscellaneous Notes * Telephone Encounter - Dodie Ch - 09/20/2018 10:12 AM EDT Pt is here and would like to be seen - she has been having floaters in OS - last night she started having flashes and her vision is blurred * Telephone Encounter - Rosa Robbins COT - 09/18/2018 8:59 AM EDT Patient saw Dr. Heath yesterday for s/p CE OD 09/04/18. She also had CE OS 08/15/18, and yesterday about 2-3 pm noticed several new tiny floaters OS, as well as 1 or 2 larger transparent floaters OS as well. Denies any vision change, VF cut or flashes. Offered appointment with [facility] for DFE OS today, tomorrow or Sunday. Patient declines due to transportation problems. She will call Dr. Silver for DFE as he is local and/or call if any acute changes/worsening symptoms. Evie Zamora MD at 09/16/2018 10:15 AM Author Type: Physician Status: Signed Dope Sprayer: Evie Zamora MD (Physician) ?? Assessment: ?? Encounter Diagnoses Name Primary? Status post cataract extraction and insertion of intraocular lens, right ? Pseudophakia ? Kiersten Barraza is s/p cataract surgery ~1 week in her right eye. Doing well with a normal 1 week post-operative appearance. ? Plan: ?? - Prednisolone acetate 1% tid OD for 7 days, then bid OD for 7 days, then qd OD for 7 days. - d/c Moxifloxicin - Ketorolac qid in OD until the bottle runs out. - Post op precaution sheet and new medication directions reviewed and given to patient. ?? Follow Up: ?? 1 Month or as needed. ? Upon return: IOP OU MR operative eye Dilate documented in this encounter Plan of Treatment Upcoming Encounters Date Type Department Care Team (Late st Contact Info) Description 07/28/2024 12:30 PM EST Office Visit Hematology/Oncology at [address] [phone] Nick Mullen MD [facility] DR HEMATOLOGY [place] [address] Chana Myrick APRN [address] [place] [address] DR HEMATOLOGY AND ONCOLOGY [place], [place] [id number] 07/28/2024 1:00 PM EST Scheduled View Only Hematology/Oncology at [address] [phone] Aleah Curran RN 07/28/2024 1:00 PM EST Infusion Hematology Oncology at [address] [phone] documented as of this encounter Visit Diagnoses Not on filedocumented in this encounter Care Teams Valve Repairer Reclamation Relationship Specialty Start Date End Date Tatum Clayton APRN [address] [place] [address] PCP - General Internal Medicine 09/20/18 09/05/23 documented as of this encounter
--- OUTSIDE RECORDS SUMMARY | 2024-07-28 01:32 | XMS_ITS | Encounter Summary ---
[place] [address] Care Team Providers Care Software Implementation Specialist Name Role Phone Tatum Clayton APRN Primary Care Provider Reason for Visit * Reason Onset Date Comments Other 04/11/2021 DME - Nebulizer kits Encounter Details Date Type Department Care Team (Late st Contact Info) Description 04/11/2021 [place] [phone] Rylee Patel RN Other (DME - Nebulizer kits) Social History Tobacco Use Types Packs/Day Years [...] Telephone Encounter - Rylee Patel RN - 04/11/2021 5:24 PM EDT Faxed completed DME - Nebulizer supplies order, signed by Dr. Medina, to Jude. Attached to this was the following items: Patient Demographics, Office Visit notes dated: 04/07/2021 This covered the following items: 4 disposable nebulizer kits per month. Fax submission confirmation time stamped for 04/11/2021 @ 0837. 29 pages with cover sheet. documented in this encounter Plan of Treatment Upcoming Encounters Date Type Department Care Team (Late st Contact Info) Description 07/28/2024 12:30 PM EST Office Visit Hematology/Oncology at [address] [phone] Nick Mullen MD [facility] DR HEMATOLOGY [place] [address] Chana Myrick APRN [address] [place] [address] DR HEMATOLOGY AND ONCOLOGY [place], [place] [id number] 07/28/2024 1:00 PM EST Scheduled View Only Hematology/Oncology at [address] [phone] Aleah Curran RN 07/28/2024 1:00 PM EST Infusion Hematology Oncology at [address] [phone] documented as of this encounter Visit Diagnoses Not on filedocumented in this encounter Care Teams Software Implementation Specialist Relationship Specialty Start Date End Date Tatum Clayton APRN [address] [place] [address] PCP - General Internal Medicine 09/20/18 09/05/23 documented as of this encounter
--- OUTSIDE RECORDS SUMMARY | 2024-07-28 01:32 | XMS_ITS | Encounter Summary ---
Author Organization [facility] Address [facility] [place] [address] Care Team Providers Care Petroleum Sampler Name Role Phone Tatum Clayton JEY Primary Care Provider Reason for Visit * Reason Comments Post Op Encounter Details Date Type Department Care Team (Late st Contact Info) Description 10/31/2018 10:45 AM EDT Office Visit [place] [address] Evie Joyce MD [facility] [place] [address] Pseudophakia Social History Tobacco Use Types Packs/Day Years [...] as of this encounter Progress Notes * Evie Zamora MD - 10/31/2018 10:45 AM EDT 1) Pseudophakia bilaterally - doing well - final Rx given - follow up with local eye doctor documented in this encounter Plan of Treatment Upcoming Encounters Date Type Department Care Team (Late st Contact Info) Description 07/28/2024 12:30 PM EST Office Visit Hematology/Oncology at [address] [phone] Nick Mullen MD [facility] DR [place] [address] Chana Myrick APRN [address] [place] [address] [place] [address] 07/28/2024 1:00 PM EST Scheduled View Only Hematology/Oncology at [address] [phone] Aleah Curran RN 07/28/2024 1:00 PM EST Infusion Hematology Oncology at [address] [phone] documented as of this encounter Visit Diagnoses Diagnosis Pseudophakia Lens replaced by other means documented in this encounter Care Teams Petroleum Sampler Relationship Specialty Start Date End Date Tatum Clayton APRN [address] [place] [address] PCP - General Internal Medicine 09/20/18 09/05/23 documented as of this encounter
--- OUTSIDE RECORDS SUMMARY | 2024-07-28 01:32 | XMS_ITS | Encounter Summary ---
Author Organization [facility] Address [facility] [address] Care Team Providers Care Non Garment Sewing Machine Operator Name Role Phone MatildeTatum Jozef KHANNA Primary Care Provider Reason for Referral * Consultation (Routine) - Closed Specialty Diagnoses / Procedures Referred By Contac t Referred To Contact Dermatology Diagnoses Basal cell carcinoma (BCC) of left side of nose Carmen Kothari MD [facility] [address] [place] [address] Mars Segura MD [facility] [address] [place] [address] Referral ID Status Reason Start Date Expiration Date V isits Requested Visits Authorized [id number] Closed Consult, Test & Treat 12/08/2021 12/08/2022 1 1 Encounter Details Date Type Department Care Team (Late st Contact Info) Description 12/08/2021 Orders Only Dermatology at [facility] [address] [place] [address] Carmen Kothari MD [facility] [address] [facility] [place] [address] Basal cell carcinoma (BCC) of left side of nose Social History Tobacco Use Types [...] 12:30 PM EST Office Visit Hematology/Oncology at [address] [phone] Nick Mullen MD [facility] DR HEMATOLOGY [place] [address] Chana Myrick APRN [address] [place] [address] DR HEMATOLOGY AND ONCOLOGY [place], [place] [address] 07/28/2024 1:00 PM EST Scheduled View Only Hematology/Oncology at [address] [phone] Aleah Curran RN 07/28/2024 1:00 PM EST Infusion Hematology Oncology at [address] [phone] Scheduled Referrals Name Type Priority Associated Diagnoses Order Schedule Referral to Dermatology Outpatient Referral Routine Basal cell carcinoma (BCC) of left side of nose Ordered: 12/08/2021 documented as of this encounter Visit Diagnoses Diagnosis Basal cell carcinoma (BCC) of left side of nose documented in this encounter Care Teams Non Garment Sewing Machine Operator Relationship Specialty Start Date End Date Tatum Clayton APRN [address] [place] [address] PCP - General Internal Medicine 09/20/18 09/05/23 documented as of this encounter
--- OUTSIDE RECORDS SUMMARY | 2024-07-28 01:32 | XMS_ITS | Encounter Summary ---
Author Organization [facility] [place] [address] Care Team Providers Care Counseling Services Manager Name Role Phone Matilde Tatum Haskins APRN Primary Care Provider Encounter Details Date Type Department Care Team (Latest Contact Info) Description 01/05/2020 1:30 PM EDT [place] [phone] Irma Bishop, RT Stage 4 very severe [...] this encounter Patient Instructions * Patient Instructions* Irma Bishop RT - 01/05/2020 1:30 PM EDT Oxygen: In the home: 1-2 lpm at rest. 3 lpm with any activity and for sleep Outside the home: 3 pulse dose on your Inogen. 4 pulse dose on the portable tank when going for your walk. Inhaler/nebulizer: - in the morning, take your Duoneb nebulizer before taking your Trelegy inhaler. When taking the Trelegy inhaler- medium fast deep breath in with breath hold for up to 10 seconds. - albuterol inhaler with your spacer: ( be able to see the whistle- on the bottom when putting the inhaler into the spacer) - shake inhaler, Breath out comfortably, Press the inhaler dose into the spacer. Then breathe in slow and deep, holding your breath after for up to 10 seconds. ( barely hear the whistle on the spacer as you breathe in). Cleaning instructions for Valved holding chamber to be done a minimum of weekly: - remove inhaler holding end and mouth piece - soak in hot soapy ( dish detergent) water for 10 minutes - Rinse all parts well with hot water -Air dry overnight Cleaning instructions for nebulizer kit to be done a minimum of daily: - soak nebulizer parts in hot soapy [...] every 6 months documented in this encounter Progress Notes * Irma Bishop RT - 01/05/2020 1:30 PM EDT ETCO2: 44-50 mm Hg, With pursed lip breathing: ETCO2 increased to 55-57 mm Hg BREATHING EXERCISES: Reviewed concept of Pursed lip breathing to Kiersten Barraza ??? Inhale through nose if possible ??? Exhale through pursed lips, comfortably She was able to demonstrate pursed lip breathing at rest. She noted decreased dyspnea utilizing pursed lip breathing at rest. Plan to practice this at rest and then with ambulation. MDI/DPI instruction for Kiersten Barraza: Inspiratory Flows Resistance via Incheck dial Peak Inspiratory Flow Rate in LPM Low resistance ( MDI/Respimat): 1) 120+ 2) 90 3) 65 Medium Low resistance( most DPIs) 1)55 2) 50 -Instructed in MDI with valved holding chamber technique: Initial inspiratory flows>120 lpm, after instruction Kiersten Barraza Able to demonstrate technique correctly, Inspiratory flow= 65 lpm, slow deep breath in with 8-10 second breath hold. (barely hear the whistle) - DPI: Reviewed ellipta technique: Kiersten Barraza Able to demonstrate technique, Inspiratory flow: 50-55* lpm, medium fast deep breath in with 8-10 second breath hold. - Valved holding chamber provided to Kiersten Barraza to utilize with albuterol HFA Reviewed importance of priming initially and re-priming MDI HFA if not used within 2 weeks. Reviewed importance of rinsing the mouth after the Trelegy. Reviewed cleaning instructions for Valved holding chamber to be done a minimum of weekly: - remove inhaler holding end and mouth piece - soak in hot soapy ( dish detergent) water for 10 minutes - Rinse all parts well with hot water -Air dry overnight Reviewed cleaning instructions for nebulizer kit to be done a minimum of daily: - soak nebulizer parts in hot soapy ( dish detergent) water for 10 minutes - Rinse all parts well with hot water -Air dry overnight Reviewed Disinfecting instruction for nebulizer kit to be done weekly: - soak nebulizer parts in a solution of 1 part distilled white vinegar and 3 parts hot water for 1 hour -Rinse all parts well with hot water - Air dry or dry with a clean, lint free cloth Reviewed order of inhalers: Duoneb before her Trelegy in the morning, and every 4 hours if needed -Trelegy once a day -albuterol HFA 90 mcg 2 puffs every 4 hours as needed, and 10-15 minutes prior to her walk, exercise Home Oxygen Evaluation for Kiersten Barraza : ( Kiersten Barraza initially on O2 at 3 lpm at rest with SpO2= 97%) Resting SpO2 on room air: 89-91% HR: 95 Placed on 1 lpm O2, resting SpO2= 94% HR= 92 Placed on O2 at 2 lpm: Resting SpO2 on 2 lpm O2: 96% HR: 95 Changed to her pulse dose oxygen ( Inogen G3) Resting SpO2 on 3 pulse dose O2: 94% HR: 91 Walked 150 feet on 3 pulse dose O2, SpO2: 87 HR: 120, Kiersten Barraza stopped secondary to dyspnea and leg fatigue Changed to portable tank with 4 pulse dose O2. Resting SpO2 on 4 pulse dose O2: 94% HR: 105 Walked 200 feet on 4 pulse dose O2:, SpO2: 93 HR: 114 Kiersten Barraza Noted minimal dyspnea during walk with 4 pulse dose oxygen. Current O2 DME provider: [facility] Current O2 systems: Home concentrator ( low flow) Portable system: Inogen G3- she purchased in the past month- she is going to follow up with Inogen regarding 30 day trial period to see if able to change to Inogen G5 ( up to 5 pulse dose) - [employer] has provided her portable tanks (2) that has pulse dose regulator able to go up to 5 pulse dose. documented in this encounter Plan of Treatment Upcoming Encounters Date Type Department Care Team (Late st Contact Info) Description 07/28/2024 12:30 PM EST Office Visit Hematology/Oncology at [address] [phone] Nick Mullen MD [facility] DR [place] [address] Chana Myrick APRN [address] [place] [address] DR HEMATOLOGY AND ONCOLOGY [place], [place] [address] 07/28/2024 1:00 PM EST Scheduled View Only Hematology/Oncology at [address] [phone] Aleah Curran RN 07/28/2024 1:00 PM EST Infusion Hematology Oncology at [address] [phone] documented as of this encounter Visit Diagnoses Diagnosis Stage 4 very severe COPD by GOLD classification documented in this encounter Care Teams Counseling Services Manager Relationship Specialty Start Date End Date Tatum Clayton APRN [address] [place] [address] PCP - General Internal Medicine 09/20/18 09/05/23 documented as of this encounter
--- OUTSIDE RECORDS SUMMARY | 2024-07-28 01:32 | XMS_ITS | Encounter Summary ---
Author Organization [facility] Address [facility] [place] [address] Care Team Providers Care Nursing Officer Name Role Phone Tatum Clayton APRN Primary Care Provider Reason for Visit * Consultation (Routine) - Specialty Diagnoses / Procedures Referred By Alea morales Referred To Contact Pulmonology Diagnoses Chronic obstructive pulmonary disease, unspecified Tatum Clayton APRN [address] [place] [address] [facility] Pulmonology [address] [place] [phone] Referral ID Status Reason Start Date Expiration Date V isits Requested Visits Authorized [id number] Consult, Test & Treat Connection [facility] PCP Updated and/or Approved 04/09/2019 04/08/2020 99 [id number] Encounter Details Date Type Department Care Team (Latest Contact Info) Description 10/02/2019 3:00 PM EDT TH Visit (TeleHealth) [place] [phone] Jonatan Medina MD [facility] [place] [address] Stage 4 very severe COPD by GOLD classification; Ex-smoker; ARZATE (dyspnea on exertion) Social History Tobacco Use Types Packs/Day Years [...] as of this encounter Progress Notes * Jonatan Medina MD - 10/02/2019 3:00 PM EDT Images from the original note were not included. Pulmonary Telephone Follow-Up Visit This visit replaces an in person visit due to the COVID-19 pandemic. Telephone call start time 3:08pm, stop time 3:30pm. Date of Encounter: 10/02/19 PCP: Tatum Clayton APRN [address] [place] [phone] Subjective: Kiersten is a 79-year-old woman who was previously followed with the pulmonology team in [place]. No current tar heat exchanger cleaner available and so she was referred to us for an opinion on optimal COPD management. Main symptom is exertional dyspnea, she can walk around her apartment okay but more strenuous activities such as making the bed or going up and down a few stairs leave her very short of breath. She has almost no cough or sputum on a daily basis and describes exacerbations about twice per year treated with azithromycin and prednisone. Very rarely do these require emergency room visits or hospitalizations. She has never required mechanical ventilation for her COPD. Meds: Trelegy Albuterol Duoneb Social Hx Ex smoker - quit a year ago Senior housing Motorized shopping carts Previously lived in [place] [facility] twice per week 2 sons nearby Data Review: PFTs November 2018 CXR late 2018 reported as showing hyperinflation Echo 2018 EF 60% - diastolic dysfunction, mild pulmonary hypertension Labs December 2018 showed venous CO2 of 33 (a finding often seen in patients with mild chronic hypercapnic respiratory failure) Decision Making/Plan: ??? 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 Exertional dyspnea is her main complaint. She has exertional hypoxemia and I would be shocked if she has some mild hypercapnia. Functionally she is doing fairly well, living alone with some regular assistance, but it sounds like she is short of breath with her activities of daily living. ??? I think her current medication regimen with Trelegy once daily and additional nebulized bronchodilator is excellent. I have advised her to try using albuterol some days and DuoNeb other days and then to stick with whichever of these she finds most effective. There is no problem using extra DuoNeb in addition to Trelegy if she finds that to be the most effective combination. ??? She may be a candidate for advanced COPD therapies. While she is clearly not a lung transplant candidate it is possible that she would benefit from lung volume reduction, either surgically or bronchoscopically. If she has evidence of hypercapnia she might benefit from the regular use of noninvasive ventilation. ??? We agreed to continue her current regimen for now and talk more about the possibilities of advanced therapies when I see her in person. When she does come to our clinic I will make sure she meetswith our respiratory therapist, Irma Bishop, to work on pursed lip breathing technique and explore possible noninvasive ventilation options. Patient verbally consents to this telephone visit and understands that this visit may be billed, similar to a clinic office visit. I provided care to the patient today via telephone call, 22 minutes telephone visit was spent in discussion with patient on above. Jonatan Medina MD documented in this encounter Plan of Treatment Upcoming Encounters Date Type Department Care Team (Late st Contact Info) Description 07/28/2024 12:30 PM EST Office Visit Hematology/Oncology at [address] [phone] Nick Mullen MD [facility] DR HEMATOLOGY [place] [address] Chana Myrick APRN [address] [place] [address] DR HEMATOLOGY AND ONCOLOGY [place], [place] [id number] 07/28/2024 1:00 PM EST Scheduled View Only Hematology/Oncology at [address] [phone] Aleah Curran RN 07/28/2024 1:00 PM EST Infusion Hematology Oncology at [address] [phone] documented as of this encounter Visit Diagnoses Diagnosis Stage 4 very severe COPD by GOLD classification Ex-smoker Personal history of tobacco use, presenting hazards to health ARZATE (dyspnea on exertion) Other dyspnea and respiratory abnormality documented in this encounter Care Teams Nursing Officer Relationship Specialty Start Date End Date Tatum Clayton APRN [address] [place] [address] PCP - General Internal Medicine 09/20/18 09/05/23 documented as of this encounter
--- OUTSIDE RECORDS SUMMARY | 2024-07-28 01:32 | XMS_ITS | Encounter Summary ---
Author Organization [facility] Address [facility] [place] [address] Care Team Providers Care Java Oracle Developer Name Role Phone MatildeTatum Jozef KHANNA Primary Care Provider Reason for Visit * Reason Onset Date Comments Questions 09/23/2018 Patient calling with questions. Encounter Details Date Type Department Care Team (Late st Contact Info) Description 09/23/2018 Telephone [place] [phone] Evie Joyce MD [facility] [place] [address] Questions (Patient calling with questions.) Social History Tobacco Use Types Packs/Day Years [...] encounter Miscellaneous Notes * Telephone Encounter - Rosa Robbins COT - 09/23/2018 3:53 PM EDT Patient is out of Ketorolac and it has only be 19 days/is it still okay to stop per instructions? YES PCP switched some of her inhalers and insert advises to discuss with eye care provider if has glaucoma or cataracts/medication is Flovent? OKAY, to take. * Telephone Encounter - Rosa Robbins COT - 09/23/2018 3:46 PM EDT Patient states via VM; she has several questions for SK. Questions about eye drops as well as a newmedication PCP prescribed? Evie Zamora MD at 09/16/2018 10:15 AM Author Type: Physician Status: Signed Shellfish Bed Worker: Evie Zamora MD (Physician) ?? Assessment: ?? [...] 12:30 PM EST Office Visit Hematology/Oncology at [address] [phone] Nick Mullen MD [facility] [place] [address] Chana Myrick APRN [address] [place] [address] DR [place]Y [place] [address] 07/28/2024 1:00 PM EST Scheduled View Only Hematology/Oncology at [address] [phone] Aleah Curran RN 07/28/2024 1:00 PM EST Infusion Hematology Oncology at [address] [phone] documented as of this encounter Visit Diagnoses Not on filedocumented in this encounter Care Teams Java Oracle Developer Relationship Specialty Start Date End Date Tatum Clayton APRN [address] [place] [phone] PCP - General Internal Medicine 09/20/18 09/05/23 documented as of this encounter
--- OUTSIDE RECORDS SUMMARY | 2024-07-28 01:32 | XMS_ITS | Encounter Summary ---
Author Organization [facility] Address [facility] [place] [address] Care Team Providers Care Pharmacy Customer Care Specialist Name Role Phone MatildeTatum Jozef KHANNA Primary Care Provider Encounter Details Date Type Department Care Team (Late st Contact Info) Description 04/07/2021 11:30 AM EDT Office [place] [phone] Jonatan Medina MD [facility] P[place]ARY [place] [address] Stage 4 very severe COPD by GOLD classification; Healthcare maintenance; Chronic respiratory failure with hypoxia and hypercapnia Social History Tobacco Use Types Packs/Day Years [...] Sign Reading Time Taken Comments Blood Pressure 131/67 04/07/2021 11:27 AM EDT Pulse 95 04/07/2021 11:27 AM EDT Temperature 36.7 ??C (98.1 ??F) 04/07/2021 11:27 AM E DT Respiratory Rate - - Oxygen Saturation 99% 04/07/2021 11:27 AM EDT Inhaled Oxygen Concentration - - Weight - - Height 157.5 cm (5' 2.01) 04/07/2021 11:27 AM E DT Body Mass Index - - documented in this encounter Progress Notes * Jonatan Medina MD - 04/07/2021 11:30 AM EDT [facility] Section of Pulmonary Medicine COPD Clinic follow-up visit Date of Encounter: 04/08/2021 PCP: Tatum Clayton, SCHOOL LUNCH MONITOR [address] [place] [address] Reason for visit: Follow-up GOLD stage IV COPD Background: I met Kiersten on 10/02/2019 via telephone appointment. [...] Interval History: Kiersten returns the pulmonary clinic today with her son. Overall her pulmonary symptoms are stable. She still has significant dyspnea with minimal activity around the home but is able to do all her ADLs including washing, dressing and cooking without too much difficulty. She is wearing oxygen at 2 L/min and increasing as high as 4 L a minute with more vigorous activities. Not much in the way of cough or sputum. Continues Trelegy and DuoNeb with symptomatic benefit. Up-to-date with COVID-19 vaccination. We discussed the pros and cons of potential advanced intervention for her COPD Review of Systems: As above Past Medical [...] EXTRACAPSULAR, W/ LENS INSERTION Right 09/04/2018 CE/IOL Medications: Current Outpatient Medications Medication Sig Dispense Refill ??? cyanocobalamin, Vitamin B-12, (Vitamin B-12) 100 mcg Tablet Take 100 mcg by mouth daily. ??? azithromycin (Zithromax) 250 mg Tablet as needed. ??? furosemide (Lasix) 20 mg Tablet furosemide 20 mg tablet take 1 tablet by mouth once daily ??? potassium chloride ER (K-Dur/Klor-Con) 10 mEq Tablet Sustained Release potassium chloride ER 10mEq tablet,extended release take 1 tablet by mouth once daily ??? predniSONE (Deltasone) 10 mg Tablet as needed. ??? ipratropium-albuteroL (DUONEB) 0.5 mg-3 mg(2.5 mg base)/3 mL Solution for Nebulization ipratropium 0.5 mg-albuterol 3 mg (2.5 mg base)/3 mL nebulization soln Administer breathing tx x 1 ??? hydrOXYzine (Atarax) 10 mg/5 mL Solution hydroxyzine HCl 10 mg/5 mL oral solution Take 2.5 ml by mouth daily as needed for anxiety ??? Trelegy Ellipta 100-62.5-25 mcg Disk with Device inhale 1 puff by mouth and INTO THE LUNGS oncedaily EVERY MORNING ??? albuteroL 90 mcg/actuation HFA Aerosol Inhaler Inhale 2 puffs into the lungs every 4 hours as needed for Wheezing. Use with spacer ??? loperamide (IMODIUM) 2 mg Capsule Take 2 mg by mouth daily as needed for Diarrhea. Indications:diarrhea ??? amLODIPine (NORVASC) 5 mg Tablet Take 5 mg by mouth daily. ??? busPIRone (BUSPAR) 5 mg Tablet Take 5 mg by mouth 3 times daily. ??? lisinopril (PRINIVIL;ZESTRIL) 10 mg Tablet Take 10 mg by mouth daily. ??? OXYGEN-AIR DELIVERY SYSTEMS MISC by [facility].(Non-Drug; Combo Route) route. ??? acetaminophen (TYLENOL) 325 mg Tablet Take 650 mg by mouth every 4 hours as needed for Pain. ??? cholecalciferol, Vitamin D3, 2,000 unit Capsule Take by mouth. ??? albuteroL (PROVENTIL) 2.5 mg /3 mL (0.083 %) Solution for Nebulization 3 mLs every 5 hours. ??? fluticasone-salmeterol (ADVAIR DISKUS) 500-50 mcg/dose Disk with Device Inhale 1 puff into the lungs every 12 hours. ??? multivitamin Capsule Take 1 capsule by mouth daily. ??? lactobacillus rhamnosus, GG, (CULTURELLE) 10 billion [...] Cigarettes, e-Cigarettes Quit date: 06/25/2017 Years since quittin.7 ??? Smokeless tobacco: Never Used Vaping Use ??? Vaping Use: Former Substance and Sexual Activity ??? Alcohol use: Yes Comment: Rare use ??? Drug use: No ??? Sexual activity: Not on file Other Topics Concern ??? Not on file Social History Narrative ??? Not on file Social Determinants of Health Financial Resource Strain: ??? Difficulty of Paying Living Expenses: Not on file Food Insecurity: ??? Worried About Running Out of Food in the Last Year: Not on file ??? Ran Out of Food in the Last Year: Not on file Transportation Needs: ??? Lack of Transportation (Medical): Not on file ??? Lack of Transportation (Non-Medical): Not on file Physical Activity: ??? Days of Exercise per Week: Not on file ??? Minutes of Exercise per Session: Not on file Housing Stability: ??? Unable to Pay for Housing in the Last Year: Not on file ??? Number of Places Lived in the Last Year: Not on file ??? Unstable Housing in the Last Year: Not on file Social Hx Ex smoker - quit a year ago, 50 pack year smoking history Senior housing Motorized shopping carts Previously lived in [place] [employer] [facility] twice per week 2 sons nearby ?? Family History: Family History Problem Relation Age of Onset ??? Glaucoma Mother ??? Glaucoma Brother ??? Macular Degeneration Neg Hx ??? Amblyopia Neg Hx ??? Strabismus Neg Hx Immunizations: Immunization History Administered Date(s) Administered ??? Influenza Vaccine, High Dose Quadrivalent PF 04/07/2021 Examination: BP 131/67 Pulse 95 Temp 36.7 ??C (98.1 ??F) (Temporal) Ht 157.5 cm (5' 2.01) SpO2 99% BMI 29.26 kg/m?? General: Comfortable at rest [...] 2018 reported as showing hyperinflation ?? Echo 2019 EF 60% - diastolic dysfunction, mild pulmonary [...] severe disease. 2. Former smoker, quit c.2018, [id number] history 3. Chronic hypoxemic and hypercapnic respiratory failure Kiersten Barraza is doing okay with her severe COPD. Somewhat reassuring that her end-tidal CO2 is no higher than last year and if anything might be a little lower. Think she might benefit clinically from noninvasive ventilation but she currently lives alone and has no problems with attention ofdaytime sleepiness. At this point I think the extra equipment and associated hassle might outweigh t he benefits. We did discuss lung volume reduction but she is not particularly keen for any invasiveprocedures and I completely understand this. It is not clear she would meet criteria for lung volume reduction at the moment anyway. She will continue her Trelegy and nebulized bronchodilators. The importance of clean nebulizer kitsdiscussed. She received a high-dose influenza immunization today Orders Placed This Encounter Procedures ??? Fluzone High Dose vaccine, Preservative Free, IM ??? Durable Medical Equipment Order Please provide 4 disposable nebulizer kits per month. Order Specific Question: Name/Description of requested item: Answer: 4 disposable nebulizer kits per month Order Specific Question: Vendor Name/Contact information: Answer: [employer] Plan: 1. Medications Daily: Trelegy 1 puff [...] at night 10. Immunizations up-to-date with COVID-19 vaccination, given high-dose flu shot today 11. Lung cancer screening not a candidate, age 13. LVRS / Transplant decided against LVRS/endobronchial lung volume reduction 13. Palliative care 14. A1AT Testing 15. Other Follow up: 2021 -sooner if symptoms change Jonatan Medina MD * Irma Bishop RT - 04/07/2021 11:30 AM EDT Reviewed Cleaning instructions for nebulizer kit to be done a minimum of daily: She is doing this. - soak nebulizer parts in hot soapy ( dish detergent) water for 10 minutes - Rinse all parts well with hot water -Air dry overnight Reviewed changing Disposable nebulizer replace weekly- she noted that she has been utilizing the same nebulizer kit for many months. Provided 2 new disposable nebulizer kits. Plan for order to [facility] for 4 disposable nebulizer kits per month. ETCO2: 44 - 54 mm Hg with RR= 20-24 breaths/minute utilizing pulse dose at 3 pulse. documented in this encounter Plan of Treatment Upcoming Encounters Date Type Department Care Team (Late st Contact Info) Description 07/28/2024 12:30 PM EST Office Visit Hematology/Oncology at [address] [phone] Nick Mullen MD [facility] DR HEMATOLOGY [place] [address] Chana Myrick APRN [address] [place] [address] DR HEMATOLOGY AND ONCOLOGY [place], [place] [id number] 07/28/2024 1:00 PM EST Scheduled View Only Hematology/Oncology at [address] [phone] Aleah Curran RN 07/28/2024 1:00 PM EST Infusion Hematology Oncology at [address] [phone] documented as of this encounter Visit Diagnoses Diagnosis Stage 4 very severe COPD by GOLD classification Healthcare maintenance Routine general medical examination at a health care facility Chronic respiratory failure with hypoxia and hypercapnia documented in this encounter Care Teams Pharmacy Customer Care Specialist Relationship Specialty Start Date End Date Tatum Clayton APRN [address] [place] [address] PCP - General Internal Medicine 09/20/18 09/05/23 documented as of this encounter
--- OUTSIDE RECORDS SUMMARY | 2024-07-28 01:32 | XMS_ITS | Encounter Summary ---
Author Organization Formerly [facility] [place] [address] Care Team Providers Care Paste Up Artist Name Role Phone MatildeTatum Jozef KHANNA Primary Care Provider [phone] Encounter Details Date Type Department Care Team (Late Contact Info) Description 09/19/2019 Telephone [place] [phone] Carmen Vallecillo Social History Tobacco Use Types Packs/Day Years [...] PM EST Office Visit Hematology/Oncology at [address] [phone] Nick Mullen MD [facility] DR HEMATOLOGY [place] [address] Chana Myrick APRN [address] [place] [place] [address] DR [place] [address] 07/28/2024 1:00 PM EST Scheduled View Only Hematology/Oncology at [address] [phone] Aleah Curran RN 07/28/2024 1:00 PM EST Infusion Hematology Oncology at [address] [phone] documented as of this encounter Visit Diagnoses Not on filedocumented in this encounter Care Teams Paste Up Artist Relationship Specialty Start Date End Date Tatum Clayton APRN [address] [place] [phone] PCP - General Internal Medicine 09/20/18 09/05/23 documented as of this encounter
--- OUTSIDE RECORDS SUMMARY | 2024-07-28 01:32 | XMS_ITS | Encounter Summary ---
Author Organization [facility] [place] [address] Care Team Providers Care Customer Management Specialist Name Role Phone Matilde Tatum Jozef KHANNA Primary Care Provider Encounter Details Date Type Department Care Team (Late st Contact Info) Description 07/12/2021 Interpretation Only [address] [phone] Yeny Santos APRN [address] [place] [phone] Social History Tobacco Use Types Packs/Day Years [...] 12:30 PM EST Office Visit Hematology/Oncology at [address] [phone] Nick Mullen MD [facility] DR HEMATOLOGY [place] [address] Chana Myrick APRN [address] [place] [address] DR HEMATOLOGY AND ONCOLOGY [place], [place] [id number] 07/28/2024 1:00 PM EST Scheduled View Only Hematology/Oncology at [address] [phone] Aleah Curran RN 07/28/2024 1:00 PM EST Infusion Hematology Oncology at [address] [phone] documented as of this encounter Procedures Procedure Name Priority Date/Time Associated Diagnosis Comments DXA CENTRAL SPINE, HIP, AND/OR WHOLE BODY (GENERIC) Routine 07/12/2021 2:46 PM EST documented in this encounter Results * DXA Central Spine, Hip, and/or Whole Body (Generic) (07/12/2021 2:46 PM EST) PT CLASS O RAD ADMITDTTM RAD PT RAD INFO [id number]^W AGNER^YENY^ LUKE RAD EXAM DESC XDXAC^DEXA SCAN AXIAL^RIS [...] have questions please contact the health career guidance technician that requested your imaging first. ? Narrative 07/12/2021 3:14 PM EST EXAMINATION: DEXA [...] who have questions please contactthe health career guidance technician that requested your imaging first. Yeny Santos APRN IMGabrielle DEXA ORDERABLES documented in this encounter Visit Diagnoses Not on filedocumented in this encounter Care Teams Customer Management Specialist Relationship Specialty Start Date End Date Tatum Clayton APRN [address] [place] [address] PCP - General Internal Medicine 09/20/18 09/05/23 documented as of this encounter
--- OUTSIDE RECORDS SUMMARY | 2024-07-28 01:32 | XMS_ITS | Encounter Summary ---
Author Organization [facility] [place] [address] Care Team Providers Care Asbestos Siding Installer Name Role Phone Tatum Clayton APRN Primary Care Provider Encounter Details Date Type Department Care Team (Latest Contact Info) Description 04/30/2020 10:28 PM EST - 04/30/2020 11:59 PM EST Hospital [place] [phone] Discharge Disposition: Home Social History Tobacco Use [...] Sig Dispensed Refills Start Date End Date albuteroL (PROVENTIL) 2.5 mg /3 mL (0.083 [...] D3, 2,000 unit Capsule Take by mouth. hydrOXYzine (Atarax) 10 mg/5 mL Solution hydroxyzine HCl 10 mg/5 mL oral solution Take 2.5 ml by mouth daily as needed for anxiety 10/29/2023 fluticasone propion-salmeteroL (ADVAIR) 500-50 mcg/dose Disk with Device Inhale 1 puff into the lungs every 12 hours. 09/10/2023 amLODIPine (NORVASC) 5 mg Tablet Take 5 mg by mouth daily. 11/12/2023 multivitamin Capsule Take 1 capsule by mouth daily. 09/10/2023 documented as of this encounter Plan of Treatment Upcoming Encounters Date Type Department Care Team (Late st Contact Info) Description 07/28/2024 12:30 PM EST Office Visit Hematology/Oncology at [address] [phone] Nick Mullen MD [facility] DR [place] [address] Chana Myrick APRN [address] [place] [address] DR HEMATOLOGY AND ONCOLOGY [place], [place] [address] 07/28/2024 1:00 PM EST Scheduled View Only Hematology/Oncology at [address] [phone] Aleah Curran RN 07/28/2024 1:00 PM EST Infusion Hematology Oncology at [address] [phone] documented as of this encounter Procedures Procedure Name Priority Date/Time Associated Diagnosis Comments COVID-19 PCR Routine 04/30/2020 10:30 AM EST documented in this encounter Results * COVID-19 PCR (04/30/2020 10:30 AM EST) SARS-CoV-2 RNA Not Detected Not Detected [facility] Comment: This result should be interpreted in combination with the clinical observations, patient history and epidemiological information in making a final diagnosis. For testing of asymptomatic individuals, assay performance characteristics and clinical utility have not been evaluated. Testing for SARS-CoV-2 (Severe acute respiratory syndrome coronavirus 2, formerly known as 2019 novel coronavirus or 2019-nCoV) to aid in the diagnosis of COVID-19 is performed using the [employer] RealTime SARS-CoV-2 Assay as authorized by the FDA Emergency Use Authorization (EUA). This EUA assay is intended for In-vitro Diagnostic (IVD) use with respiratory specimens such as nasopharyngeal swabs collected from individuals during the acute phase of infection. This assay is performed based on the instructions for use provided by [employer] and additional guidance provided by CDC and FDA. Testing is performed in the [facility] within the Department of Pathology and Laboratory Medicine at [facility], certified under the Clinical Laboratory Improvement Amendments of 1988 (CLIA), 42 U.S.C. 263a, to perform high complexity tests. Assay performance has been verified according to clinical laboratory regulatory requirements for use with specimens collected from individuals suspected of COVID-19. Test results are provided above. A result of ? Not Detected? indicates that the viral RNA target is not present above the limit of detection, but does not preclude SARS-CoV-2 infection. False negative results may occur if a specimen is improperly collected, transported or handled; if amplification inhibitors are present; or if inadequate numbers of viral particles are present in the specimen. When a diagnostic test is negative, the possibility of a false negative result should be considered in the context of a patient? s recent exposures and the presence of clinical signs and symptoms consistent with COVID-19. A result of ? Detected? indicates that RNA from SARS-CoV-2 was detected and the patient is infected. As required or requested by public health authorities, positive specimens may be sent for additional testing. Positive and negative predictive values for this test are highly dependent on disease prevalence. A result of ? Invalid? indicates that neither the viral RNA targets nor the internal control target was detected. An invalid result suggests the presence of inhibitors. Recollection and re-testing is recommended in the case of an invalid result. CDC COVID-19 criteria for testing on human specimens and clinical management guidance information are available at the CDC Coronavirus Disease 2019 (COVID-19) webpage under ? Information for Healthcare Professionals? (https://www.cdc.gov/coronavirus/2019-ncov/hcp/index.html) Additional information about this and other EUA tests can be found in provider and patient fact sheets at the following FDA website: https://www.fda.gov/medical-devices/dgegrxgattv-wwrtozw-4845-jltdz-99-etrelndqn- use-a kdbxptobtkvsi-fsruycw-vrocgnc/bqbzs-usuzcdslntt-jmwg SARS-CoV-2 RNA Source CRUISE COUNSELOR Swab [facility] Nasopharyngeal swab (specimen) Other / Unknown 04/30/2020 10:30 AM EST 05/01/2020 1:47 AM EST Narrative Resulting Agency Comment Spec In Lab Carlos Yoon DO MOLECULAR ORDERABLES Performing Organization Address City/State/[facility] Co de Phone Number [facility] [place] [place] [address] documented in this encounter Visit Diagnoses Not on filedocumented in this encounter Care Teams Asbestos Siding Installer Relationship Specialty Start Date End Date Tatum Clayton APRN [address] [place] [address] PCP - General Internal Medicine 09/20/18 09/05/23 documented as of this encounter
--- OUTSIDE RECORDS SUMMARY | 2024-07-28 01:32 | XMS_ITS | Encounter Summary ---
Author Organization [facility] [place] [address] Care Team Providers Care Tube And Rod Straightener Name Role Phone Matilde Tatum Jozef KHANNA Primary Care Provider Encounter Details Date Type Department Care Team (Late st Contact Info) Description 02/05/2022 Interpretation Only [address] [phone] Hossein Rodriguez MD [address] [place] [phone] Social History Tobacco Use Types Packs/Day Years [...] PM EST Office Visit Hematology/Oncology at [address] [phone] Nick Mullen MD [facility] DR HEMATOLOGY [place] [address] Chana Myrick APRN [address] [place] [address] DR HEMATOLOGY AND ONCOLOGY [place], [place] [address] 07/28/2024 1:00 PM EST Scheduled View Only Hematology/Oncology at [address] [phone] Aleah Curran RN 07/28/2024 1:00 PM EST Infusion Hematology Oncology at [address] [phone] documented as of this encounter Procedures Procedure Name Priority Date/Time Associated Diagnosis Comments XR FOOT MIN 3 VIEWS RIGHT STAT 02/05/2022 1:18 PM EDT documented in this encounter Results * XR Foot Min 3 views Right (Generic) (02/05/2022 1:18 PM EDT) PT CLASS E RAD ADMITDTTM RAD PT RAD INFO [id number]^C HANDER^SUNEE R RAD EXAM DESC XRFTMTVR^XR RIGHT FOOT ROUTINE^RIS RAD Anatomical Region Laterality Modality Foot Right Radiographic Trini ging Impressions 02/05/2022 1:25 PM EDT No acute findings. Generalized osteopenia. Thank you for letting us participate in the care of this patient. ??If you are a health care provider and have any questions regarding this report, please contact the number below. ??For patients who have questions please contact the health child care nurse that requested your imaging first. ? Electronically signed by: Hector Verdugo MD, [facility] ([phone]), at 02/05/2022 1:25 PM Narrative 02/05/2022 1:25 PM EDT EXAMINATION: XR RIGHT FOOT ROUTINE CLINICAL HISTORY: Pain, trauma TECHNIQUE: 3 views right foot COMPARISON: None FINDINGS: No acute osseous abnormality is seen. There is generalized osteopenia with no significant degenerative disease. No significant soft tissue finding. Procedure Note Hector Verdugo MD - 02/05/2022 EXAMINATION: XR RIGHT FOOT ROUTINE CLINICAL HISTORY: Pain, trauma TECHNIQUE: 3 views right foot COMPARISON: None FINDINGS: No acute osseous abnormality is seen. There is generalized osteopenia withno significant degenerative disease. No significant soft tissue finding. IMPRESSION No acute findings. Generalized osteopenia. Thank you for letting us participate in the care of this patient. If youare a health care provider and have any questions regarding this report,please contact the number below. For patients who have questions please contactthe health child care nurse that requested your imaging first. Electronically signed by: Hector Verdugo MD, [facility]([phone]), at 02/05/2022 1:25 PM Hossein Rodriguez MD IMG DX ORDERABLES documented in this encounter Visit Diagnoses Not on filedocumented in this encounter Care Teams Tube And Rod Straightener Relationship Specialty Start Date End Date Tatum Clayton APRN [address] [place] [address] PCP - General Internal Medicine 09/20/18 09/05/23 documented as of this encounter
--- OUTSIDE RECORDS SUMMARY | 2024-07-28 01:32 | XMS_ITS | Encounter Summary ---
Author Organization [facility] [place] [address] Care Team Providers Care Maintenance Service Technician Name Role Phone Tatum Clayton APRN Primary Care Provider Encounter Details Date Type Department Care Team (Latest Contact Info) Description 05/06/2020 9:51 PM EST - 05/06/2020 11:59 PM EST [place] [phone] Discharge Disposition: Home Social History Tobacco Use [...] PM EST Office Visit Hematology/Oncology at [address] [phone] Nick Mullen MD [facility] DR HEMATOLOGY [place] [address] Chana Myrick APRN [address] [place] [address] DR HEMATOLOGY AND ONCOLOGY [place], [place] [address] 07/28/2024 1:00 PM EST Scheduled View Only Hematology/Oncology at [address] [phone] Aleah Curran RN 07/28/2024 1:00 PM EST Infusion Hematology Oncology at [address] [phone] documented as of this encounter Procedures Procedure Name Priority Date/Time Associated Diagnosis Comments SURGICAL PATHOLOGY REPORT Routine 05/06/2020 1:44 PM EST documented in this encounter Results * Surgical Pathology Report (05/06/2020 1:44 PM EST) Final Diagnosis [id number] ? Location: [facility] The signing pathologist has (i) examined the relevant preparation(s) for the specimen(s) and (ii) rendered or confirmed the diagnosis(es). . ?Surgical Pathology DIAGNOSIS A. Left flank, skin excision: - ??Seborrheic keratosis, ??irritated and inflamed B. Right cheek, skin excision: - ??Seborrheic keratosis, pigmented Electronically signed by: ??Florida Gunter MD Verified: ??05/14/2020 ?Dermatopathol ogist Performed at: ??-[facility] Dept. of Pathology, [place], [place] SPECIMEN(S) SUBMITTED A - Neoplasm of uncertain behavior left flank, biopsy (1) B - Neoplasm of uncertain behavior right flank, biopsy (1) Report to: ??Tatum Clayton Referring Identifier: ??n/a CLINICAL INFORMATION Neoplasm of uncertain behavior, single stitch lateral double stitch superior SPECIMEN PROCESSING A - Labeled/Fixativ e: Neoplasm of uncertain behavior left flank, formalin. Quantity/Size: ??Single, 4.1 x 2.4 x 1.6 cm. Tissue Description: Oriented ellipse of moses-pink skin with two sutures a single long suture is present one apex identified as lateral placed at 9 o'clock, a double short stitch is located at one edge identified is superior, placed at 12 o'clock. Skin surface is present with a central 2.4 x 2.0 cm elevated (0.8 cm) granular moses-negron papule. Inkin-6-9 o 'clock is marked black. ??6-9-12 o'clock is marked blue. Sections/Proces sing: Serially sectioned and entirely submitted in 18 cassettes as follows: ?A1: ??[place]ster medial, 3 o'clock ?A2-A17: ??Body from 3 o'clock to 9 o'clock, note some full-thickness slices are ? divided into halves (A12 includes superficial/les ion only) ?A18: ??Lateral apex, 9 o'clock B - Labeled/Fixativ e: Neoplasm of uncertain behavior right cheek, formalin. Quantity/Size: ??Single, 0.7 x 0.6 x 0.3 cm. Tissue Description: Granular, moses-negron papule. Sections/Proces sing: Inked, trisected and entirely submitted in 1 cassette labeled B1. ??PPS 05/14/2020 3:52 PM EST [facility] SPECIMEN FROM SKIN / Unknown 05/06/2020 1:44 PM EST 05/06/2020 1:44 PM EST SPECIMEN FROM SKIN / Unknown 05/06/2020 1:44 PM EST 05/06/2020 1:44 PM EST Carlos Yoon DO PATHOLOGY/CYTOLOGY O RDERABLES [facility] [place] [address] documented in this encounter Visit Diagnoses Not on filedocumented in this encounter Care Teams Maintenance Service Technician Relationship Specialty Start Date End Date Tatum Clayton APRN [address] [place] [phone] PCP - General Internal Medicine 09/20/18 09/05/23 documented as of this encounter
--- OUTSIDE RECORDS SUMMARY | 2024-07-28 01:32 | XMS_ITS | Encounter Summary ---
Author Organization [facility] [place] [address] Care Team Providers Care Provisioning Analyst Name Role Phone MatildeTatum Jozef KHANNA Primary Care Provider Encounter Details Date Type Department Care Team (Late Contact Info) Description 07/11/2019 [place] [phone] Carmen Vallecillo Social History Tobacco Use Types [...] PM EST Office Visit Hematology/Oncology at [address] [phone] Nick Mullen MD [facility] DR [place] [address] Chana Myrick APRN [address] [place] [address] [place] [address] 07/28/2024 1:00 PM EST Scheduled View Only Hematology/Oncology at [address] [phone] Aleah Curran RN 07/28/2024 1:00 PM EST Infusion Hematology Oncology at [address] [phone] documented as of this encounter Visit Diagnoses Not on filedocumented in this encounter Care Teams Provisioning Analyst Relationship Specialty Start Date End Date Tatum Clayton APRN [address] [place] [phone] PCP - General Internal Medicine 09/20/18 09/05/23 documented as of this encounter
--- OUTSIDE RECORDS SUMMARY | 2024-07-28 01:32 | XMS_ITS | Encounter Summary ---
Author Organization [facility] Address [facility] [place] [address] Care Team Providers Care Sap Bw Developer Name Role Phone MatildeTatum Jozef KHANNA Primary Care Provider Reason for Visit * Reason Comments Follow-up Encounter Details Date Type Department Care Team (Late st Contact Info) Description 01/05/2020 1:00 PM EDT Office [place] [address] Jonatan Medina MD [facility] [place] [address] Stage 4 very severe COPD by GOLD classification; Ex-smoker; Chronic respiratory failure with hypoxia and hypercapnia [...] Sign Reading Time Taken Comments Blood Pressure 137/70 01/05/2020 1:01 PM EDT Pulse 97 01/05/2020 1:01 PM EDT Temperature 36.6 ??C (97.9 ??F) 01/05/2020 1:01 PM ED T Respiratory Rate 20 01/05/2020 1:01 PM EDT Oxygen Saturation 100% 01/05/2020 1:01 PM EDT Inhaled Oxygen Concentration - - Weight 72.6 kg (160 lb) 01/05/2020 1:01 PM EDT Height 157.5 cm (5' 2) 01/05/2020 1:01 PM EDT Body Mass Index 29.26 01/05/2020 1:01 PM EDT documented in this encounter Progress Notes * Jonatan Medina MD - 01/05/2020 1:00 PM EDT Images from the original note were not included. [facility] COPD Clinic follow-up visit Date of Encounter: 01/05/2020 PCP: Tatum Clayton, JEY [address] [place], [place] [id number] Reason for visit: Follow-up GOLD stage IV COPD Background: I met Kiersten on 10/01 via telephone appointment. My impression at that visit: ?? Kiersten has [...] symptoms were to deteriorate Interval History: Kiersten has been doing really quite well over the last few months. Her exercise tolerance is fairly limited but she is able to do most activities of daily living independently using a portable oxygen concentrator, 3 L/min pulsed oxygen. She uses 2 L/min of continuous oxygen at night. She continues on Trelegy and does not need additional nebulized bronchodilator often. No cough sputum or wheeze at present. No fevers or chills, no ankle swelling, no chest pain, no hemoptysis, weight stable. Review of Systems: As above Past Medical [...] Outpatient Medications Medication Sig Dispense Refill ??? albuteroL (PROVENTIL) 2.5 mg /3 mL [...] daily. ??? OXYGEN-AIR DELIVERY SYSTEMS MISC by Mis.(Non-Drug; Combo Route) route. ??? acetaminophen (TYLENOL) 325 mg Tablet Take 650 mg by mouth every 4 hours as needed for Pain. ??? cholecalciferol, Vitamin D3, 2,000 unit Capsule Take by mouth. ??? fluticasone-salmeterol (ADVAIR DISKUS) 500-50 mcg/dose Disk with Device Inhale 1 puff into the lungs every 12 hours. ??? lactobacillus rhamnosus, GG, [...] file Occupational History ??? Not on file Social Needs ??? Financial resource strain: Not on file ??? Food insecurity Worry: Not on file Inability: Not on file ??? Transportation needs Medical: Not on file Non-medical: Not on file Tobacco Use ??? Smoking status: Former Smoker Packs/day: 1.00 Years: 50.00 Pack years: 50.00 Types: Cigarettes, e-Cigarettes Last attempt to quit: 06/25/2017 Years since quittin.5 ??? Smokeless tobacco: Never Used Substance and Sexual Activity ??? Alcohol use: Yes Frequency: Never Comment: Rare use ??? Drug use: No ??? Sexual activity: Not on file Lifestyle ??? Physical activity Days per week: Not on file Minutes per session: Not on file ??? Stress: Not on file Relationships ??? Social connections Talks on phone: Not on file Gets together: Not on file Attends orthodox service: Not on file Active member of club or organization: Not on file Attends meetings of clubs or organizations: Not on file Relationship status: Not on file ??? Intimate partner violence Fear of current or ex partner: Not on file Emotionally abused: Not on file Physically abused: Not on file Forced sexual activity: Not on file Other Topics Concern ??? Not on file Social History Narrative ??? Not on file Social Hx Ex smoker - quit a year ago, 50 pack year smoking history Senior housing Motorized shopping carts Previously lived in [place] Home health aid twice per week 2 sons nearby ?? Family History: Family History Problem Relation Age of Onset ??? Glaucoma Mother ??? Glaucoma Brother ??? Macular Degeneration Neg Hx ??? Amblyopia Neg Hx ??? Strabismus Neg Hx Immunizations: There is no immunization history on file for this patient. Examination: BP 137/70 Pulse 97 Temp 36.6 ??C (97.9 ??F) Resp 20 Ht 157.5 cm (5' 2) Wt 72.6 kg (160 lb) SpO2 100% PF (!) 2 L/min BMI 29.26 kg/m?? General: Comfortable at rest [...] > 88% during a 600 feet walk. Assessment: 1. COPD: GOLD stage 4 category D. This is very severe disease. 2. Former smoker, quit 2 years ago, [id number] history 3. Chronic hypoxemic and hypercapnic respiratory failure GOLD Staging - Airflow FEV1 >80% 1 FEV1 <80% 2 FEV1 <50% 3 FEV1 <30% 4 GOLD Staging - Symptoms Annual Exacerbations CAT <10 CAT >10 0 or 1 A B 2 or more C D Kiersten Barraza is actually managing fairly well with very severe COPD. Her medications are good but she needed some help today would be appropriate inhaler technique, correct inspiratory flow rate. She was seen by our respiratory therapist, Irma Bishop, who taught her pursed lip breathing technique, correct inhaler technique, and performed home oxygen assessment. She currently has a 3 L/min pulsed dose oxygen concentrator but I think would probably benefit from a 4 to 5 L/min pulsed dosemachine. She will see if she can exchange her current machine for one that goes a little higher. Her elevated end-tidal CO2 and serum bicarbonate suggest to me that she does have an element of chronic hypercapnic respiratory failure. Noninvasive ventilation is an option but given her relative stability on current therapy we opted not to explore that at present Today we addressed the following points of the plan below. Over time we aim to address all items onthe checklist that are relevant to the patient Plan: 1. Medications Daily: Trelegy 1 puff [...] Advanced directives 7. Smoking cessation done, quit 2019 8. Pulmonary rehabilitation home exercise with oxygen 9. Oxygen 2 L/min with ambulation and at night 10. Immunizations 11. Lung cancer screening not a candidate, age 13. LVRS / Transplant transplant no, probably no LV RS although might consider a work-up if major symptomatic worsening 13. Palliative care 14. A1AT Testing 15. Other Follow up: 4 months Thank you for referring this patient to the COPD clinic. Greater than 50% of this 45 minute visit were spent in counseling Jonatan Medina MD documented in this encounter Plan of Treatment Upcoming Encounters Date Type Department Care Team (Late st Contact Info) Description 07/28/2024 12:30 PM EST Office Visit Hematology/Oncology at [address] [phone] Nick Mullen MD [facility] DR HEMATOLOGY [place] [address] Chana Myrick APRN [address] [place] [address] DR HEMATOLOGY AND ONCOLOGY [place], [place] [id number] 07/28/2024 1:00 PM EST Scheduled View Only Hematology/Oncology at [address] [phone] Aleah Curran RN 07/28/2024 1:00 PM EST Infusion Hematology Oncology at [address] [phone] documented as of this encounter Visit Diagnoses Diagnosis Stage 4 very severe COPD by GOLD classification Ex-smoker Personal history of tobacco use, presenting hazards to health Chronic respiratory failure with hypoxia and hypercapnia documented in this encounter Care Teams Sap Bw Developer Relationship Specialty Start Date End Date Tatum Clayton APRN [address] [place] [address] PCP - General Internal Medicine 09/20/18 09/05/23 documented as of this encounter
--- OUTSIDE RECORDS SUMMARY | 2024-07-28 01:32 | XMS_ITS | Encounter Summary ---
Author Organization [facility] [place] [address] Care Team Providers Care Minibus Driver Name Role Phone Tatum Clayton JEY Primary Care Provider Encounter Details Date Type Department Care Team (Late Contact Info) Description 02/24/2020 [place] [address] Graciela Waterman Social History Tobacco Use Types Packs/Day Years [...] encounter Miscellaneous Notes * Telephone Encounter - Graciela Waterman LNA - 02/24/2020 2:06 PM EDT Call from pt to schedule 4mth f/u with Dr. Medina on 06/03. Aware date, time, location. documented in this encounter Plan of Treatment Upcoming Encounters Date Type Department Care Team (Late Contact Info) Description 07/28/2024 12:30 PM EST Office Visit Hematology/Oncology at [address] [phone] Nick Mullen MD [facility] DR [place] [address] Chana Myrick APRN [address] [place] [address] DR HEMATOLOGY AND ONCOLOGY [place], [place] [id number] 07/28/2024 1:00 PM EST Scheduled View Only Hematology/Oncology at [address] [phone] Aleah Curran RN 07/28/2024 1:00 PM EST Infusion Hematology Oncology at [address] [phone] documented as of this encounter Visit Diagnoses Not on filedocumented in this encounter Care Teams Minibus Driver Relationship Specialty Start Date End Date Tatum Clayton APRN [address] [place] [address] PCP - General Internal Medicine 09/20/18 09/05/23 documented as of this encounter
--- OUTSIDE RECORDS SUMMARY | 2024-07-28 01:32 | XMS_ITS | Encounter Summary ---
Author Organization [facility] Address [facility] [place] [address] Care Team Providers Care Digital Service Engineer Name Role Phone Dewey Arroyo JEY Primary Care Provider [phone] Encounter Details Date Type Department Care Team (Late st Contact Info) Description 09/17/2018 [place] [phone] Sergo Angel MD [facility] [place] [address] Social History Tobacco Use Types Packs/Day Years [...] encounter Miscellaneous Notes * Telephone Encounter - Reyna Madera - 09/18/2018 10:38 AM EDT I have called and left a message for patient to call and schedule an appointment. Domingo Orellana, Can you please call patient and schedule on DOC schedule this week (or with Dr. Heath if she has an opening). DFE in eye with new floaters. Thanks Sergo Angel MD * Telephone Encounter - Sergo Angel MD - 09/17/2018 6:30 PM EDT Patient is post cataract surgery by Dr. Zamora last week She notices new floater and black spots today. No visual field loss. Central vision preserved. Suggest follow up in the next few days for dilated exam. She can not come Sunday due to another appointment. Will ask office to call her on Sunday to schedule DFE with Dr. Heath or myself as DOC for new floaters post cataract surgery. Thanks Sergo Angel MD documented in this encounter Plan of Treatment Upcoming Encounters Date Type Department Care Team (Late st Contact Info) Description 07/28/2024 12:30 PM EST Office Visit Hematology/Oncology at [address] [phone] Nick Mullen MD [facility] DR [place]AT[place] [address] Chana Myrick APRN [address] [place] [address] DR HEMATOLOGY AND ONCOLOGY [place], [place] [id number] 07/28/2024 1:00 PM EST Scheduled View Only Hematology/Oncology at [address] [phone] Aleah Curran RN 07/28/2024 1:00 PM EST Infusion Hematology Oncology at [address] [phone] documented as of this encounter Visit Diagnoses Not on filedocumented in this encounter Care Teams Digital Service Engineer Relationship Specialty Start Date End Date Dewey Arroyo APRN [address] [place] [phone] PCP - General Internal Medicine 06/22/18 09/19/18 documented as of this encounter
--- OUTSIDE RECORDS SUMMARY | 2024-07-28 01:32 | XMS_ITS | Encounter Summary ---
Author Organization [facility] [place] [address] Care Team Providers Care Boat Hoist Operator Helper Name Role Phone Matilde Tatum Jozef KHANNA Primary Care Provider Encounter Details Date Type Department Care Team (Late Contact Info) Description 03/18/2021 Telephone [place] [phone] Doreen Cummings Social History Tobacco Use Types Packs/Day Years [...] PM EST Office Visit Hematology/Oncology at [address] [phone] Nick Mullen MD [facility] DR HEMATOLOGY [place] [address] Chana Myrick APRN [address] [place] [address] DR HEMATOLOGY [place] [address] 07/28/2024 1:00 PM EST Scheduled View Only Hematology/Oncology at [address] [phone] Aleah Curran RN 07/28/2024 1:00 PM EST Infusion Hematology Oncology at [address] [phone] documented as of this encounter Visit Diagnoses Not on filedocumented in this encounter Care Teams Boat Hoist Operator Helper Relationship Specialty Start Date End Date Tatum Clayton APRN [address] [place] [phone] PCP - General Internal Medicine 09/20/18 09/05/23 documented as of this encounter
--- OUTSIDE RECORDS SUMMARY | 2024-07-28 01:32 | XMS_ITS | Encounter Summary ---
Author Organization [facility] Address [facility] [place] [address] Care Team Providers Care Keying Machine Operator Name Role Phone MatildeTatum JEY Primary Care Provider [phone] Reason for Visit * Reason Comments Post Op Encounter Details Date Type Department Care Team (Late st Contact Info) Description 09/20/2018 11:00 AM EDT Office [place] [phone] Evie Joyce MD [facility] [place] [address] PVD (posterior vitreous detachment), left; Vitreous hemorrhage, left Social History Tobacco Use Types Packs/Day Years [...] as of this encounter Progress Notes * Sergo Angel MD - 09/20/2018 11:00 AM EDT ASSESSMENT: 1. PVD (posterior vitreous detachment), left 2. Vitreous hemorrhage, left Same day ALECIA eval for new floaters OS. She is about 1 month after CE/IOL OS. Exam re-assuring with no breaks noted. There is a PVD with some heme. No breaks. PLAN: Watch closely with RD precautions. Follow up in about 2 weeks with NNB with repeat DFE OS. I, Jamar Reyes, have performed the documentation for this encounter in the presence of and acting as a scribe for Sergo Angel MD. I performed the services which were documented by the scribe, and I agree with the accuracy of the documentation in this encounter. Sergo Angel MD documented in this encounter Plan of Treatment Upcoming Encounters Date Type Department Care Team (Late st Contact Info) Description 07/28/2024 12:30 PM EST Office Visit Hematology/Oncology at [address] [phone] Nick Mullen MD [facility] [place] [address] Chana Myrick APRN [address] [place] [address] DR HEMATOLOGY AND ONCOLOGY [place], [place] [id number] 07/28/2024 1:00 PM EST Scheduled View Only Hematology/Oncology at [address] [phone] Aleah Curran RN 07/28/2024 1:00 PM EST Infusion Hematology Oncology at [address] [phone] documented as of this encounter Visit Diagnoses Diagnosis PVD (posterior vitreous detachment), left Vitreous hemorrhage, left documented in this encounter Care Teams Keying Machine Operator Relationship Specialty Start Date End Date Tatum Clayton APRN [address] [place] [address] PCP - General Internal Medicine 09/20/18 09/05/23 documented as of this encounter
--- OUTSIDE RECORDS SUMMARY | 2024-07-28 01:32 | XMS_ITS | Encounter Summary ---
Author Organization [facility] Address [facility] [place] [address] Care Team Providers Care Jack Of All Trades Name Role Phone Tatum Clayton PANELBOARD OPERATOR Primary Care Provider Reason for Visit * Reason Comments Vitreous Hemorrhage Vitreous Detachment Encounter Details Date Type Department Care Team (Late st Contact Info) Description 10/01/2018 9:45 AM EDT Office Visit [place] [address] Sergo Angel MD [facility] [place] [address] PVD (posterior vitreous detachment), left; Vitreous hemorrhage, [...] Progress Notes * Sergo Angel MD - 10/01/2018 9:45 AM EDT ASSESSMENT: 1. PVD (posterior vitreous detachment), left 2. Vitreous hemorrhage, left 2 week FV for presumed hemorrhagic PVD Improving vision and exam PLAN: Stable retina exam without tears, breaks or holes. Follow up with Dr. Heath in October for DFE OU. Sergo Angel MD documented in this encounter Plan of Treatment Upcoming Encounters Date Type Department Care Team (Late st Contact Info) Description 07/28/2024 12:30 PM EST Office Visit Hematology/Oncology at [address] [phone] Nick Mullen MD [facility] DR HEMATOLOGY [place] [address] Chana Myrick PANELBOARD OPERATOR [address] [place] [address] DR HEMATOLOGY AND ONCOLOGY [place], [place] [id number] 07/28/2024 1:00 PM EST Scheduled View Only Hematology/Oncology at [address] [phone] Aleah Curran RN 07/28/2024 1:00 PM EST Infusion Hematology Oncology at [address] [phone] documented as of this encounter Visit Diagnoses Diagnosis PVD (posterior vitreous detachment), left Vitreous hemorrhage, left documented in this encounter Care Teams Jack [employer] All Trades Relationship Specialty Start Date End Date Tatum Clayton APRN [address] [place] [address] PCP - General Internal Medicine 09/20/18 09/05/23 documented as of this encounter
--- OUTSIDE RECORDS SUMMARY | 2024-07-28 01:32 | XMS_ITS | Encounter Summary ---
Author Organization [facility] [place] [address] Care Team Providers Care Make Ready Mechanic Name Role Phone Tatum Clayton APRN Primary Care Provider Encounter Details Date Type Department Care Team (Late st Contact Info) Description 05/14/2021 Interpretation Only [address] [phone] Jerman Woodard Jr., MD [address] [address] Social History Tobacco Use Types Packs/Day Years [...] PM EST Office Visit Hematology/Oncology at [address] [phone] Nick Mullen MD [facility] DR [place] [address] Chana Myrick APRN [address] [place] [address] DR HEMATOLOGY AND ONCOLOGY [place], [place] [address] 07/28/2024 1:00 PM EST Scheduled View Only Hematology/Oncology at [address] [phone] Aleah Curran RN 07/28/2024 1:00 PM EST Infusion Hematology Oncology at [address] [phone] documented as of this encounter Procedures Procedure Name Priority Date/Time Associated Diagnosis Comments XR CHEST ONE VIEW STAT 05/14/2021 10: 55 PM EST documented in this encounter Results * XR Chest One View (05/14/2021 10:55 PM EST) PT CLASS E RAD ADMITDTTM RAD PT RAD INFO [id number]^L YONS^JERMAN RAD EXAM DESC XCXR1^XR CHEST 1 VIEW^RIS RAD Anatomical Region Laterality Modality Chest N/A Radiographic Trini ging Impressions 05/14/2021 11:12 PM EST New subtle patchy opacities in the right mid lung and left lingular segment concerning for early pneumonia. Thank you for letting us participate in the care of this patient. ??If you are a health care provider and have any questions regarding this report, please contact the number below. ??For patients who have questions please contact the health senior care assistant that requested your imaging first. ? Narrative 05/14/2021 11:12 PM EST EXAMINATION: XR CHEST 1 VIEW CLINICAL HISTORY: shortness of breath, exposure to Covid. TECHNIQUE: AP chest radiograph COMPARISON: Chest radiograph 11/03/2020 and 08/18/2020 FINDINGS: There is new subtle patchy opacity projecting over the peripheral right midlung and a new patchy opacity projecting over the left lingula segment. No pulmonary vascular congestion. No pneumothorax. No pleural effusions. Unchanged mild cardiomegaly. Bilateral hilar are within normal limits for size. No acute osseous findings. Procedure Note Jonathan Vargas MD - 05/14/2021 EXAMINATION: XR CHEST 1 VIEW CLINICAL HISTORY: shortness of breath, exposure to Covid. TECHNIQUE: AP chest radiograph COMPARISON: Chest radiograph 11/03/2020 and 08/18/2020 FINDINGS: There is new subtle patchy opacity projecting over the peripheral rightmidlung and a new patchy opacity projecting over the left lingula segment. Nopulmonary vascular congestion. No pneumothorax. No pleural effusions. Unchangedmild cardiomegaly. Bilateral hilar are within normal limits for size. Noacute osseous findings. IMPRESSION New subtle patchy opacities in the right mid lung and left lingularsegment concerning for early pneumonia. Thank you for letting us participate in the care of this patient. If youare a health care provider and have any questions regarding this report,please contact the number below. For patients who have questions please contactthe health senior care assistant that requested your imaging first. Jerman Woodard Jr., MD IMG DX ORDERABLES documented in this encounter Visit Diagnoses Not on filedocumented in this encounter Care Teams Make Ready Mechanic Relationship Specialty Start Date End Date Tatum Clayton APRN [address] [place] [address] PCP - General Internal Medicine 09/20/18 09/05/23 documented as of this encounter
--- OUTSIDE RECORDS SUMMARY | 2024-07-28 01:32 | XMS_ITS | Encounter Summary ---
Author Organization [facility] [place] [address] Care Team Providers Care Clothespin Machine Operator Name Role Phone Matilde Tatum Jozef KHANNA Primary Care Provider [phone] Encounter Details Date Type Department Care Team (Late Contact Info) Description 11/15/2021 Tele[place] [phone] Madeleine Pacheco Social History Tobacco Use Types Packs/Day Years [...] 12:30 PM EST Office Visit Hematology/Oncology at [address] [phone] Nick Mullen MD [facility] [place] [address] Chana Myrick APRN [address] [place] [address] DR HEMATOLOGY [place] [address] 07/28/2024 1:00 PM EST Scheduled View Only Hematology/Oncology at [address] [phone] Aleah Curran RN 07/28/2024 1:00 PM EST Infusion Hematology Oncology at [address] [phone] documented as of this encounter Visit Diagnoses Not on filedocumented in this encounter Care Teams Clothespin Machine Operator Relationship Specialty Start Date End Date Tatum Clayton APRN [address] [place] [phone] PCP - General Internal Medicine 09/20/18 09/05/23 documented as of this encounter
--- OUTSIDE RECORDS SUMMARY | 2024-07-28 01:33 | XMS_ITS | Encounter Summary ---
Author Organization [facility] Address [facility] [place] [address] Care Team Providers Care Wrapper And Preserver Name Role Phone Dewey Arroyo APRN Primary Care Provider Encounter Details Date Type Department Care Team (Late st Contact Info) Description 09/04/2018 10:54 AM EDT - 09/04/2018 12:59 PM EDT Hospital Encounter [place] [address] Evie Joyce MD [facility] [place] [address] Discharge Disposition: Home Social History Tobacco Use [...] Sign Reading Time Taken Comments Blood Pressure 112/58 09/04/2018 12:41 PM EDT Pulse 76 09/04/2018 12:41 PM EDT Temperature 36.1 ??C (97 ??F) 09/04/2018 12:41 PM EDT Respiratory Rate 18 09/04/2018 11:12 AM EDT Oxygen Saturation 97% 09/04/2018 12:41 PM EDT Inhaled Oxygen Concentration - - Weight 68.9 kg (152 lb) 09/04/2018 11:12 AM EDT Height 157.5 cm (5' 2) 09/04/2018 11:12 AM EDT Body Mass Index 27.8 09/04/2018 11:12 AM EDT documented in this encounter Discharge Instructions * Discharge Instructions* Kailee Hassan, RN - 09/04/2018 11:18 AM EDT Instructions following CATARACT surgery Dr. aZmora Section of ophthalmology [facility] [phone] - Wear either the eye shield or glasses of any kind 24 hours per day for the first week following surgery. - Your [facility] tomorrow [facility] Bring your Eye Kit to all postoperative visits. - Call you Primary Care Doctor or the Emergency Room for any non eye related medical issues. - It is normal to have a scratchy sensation or mild pain in your eye, but if you have any severe eye pain, vomiting or bleeding call [phone] and ask to speak to the ophthalmology doctor ground crew lines person. - Your eye will be red tomorrow - this is normal. -Do not bend so that your head goes below your heart for 2 weeks after surgery. -No heavy lifting - nothing greater than 5 pounds for 2 weeks after your surgery. - If you are on glaucoma drops, it is very important that you keep taking these as usual. - Start your post-op drops in 2 hours. Your post-op drops to take while awake are prednisolone acetate 1% (pink), Vigamox (moses) and Ketorolac (alanis) each four times daily. - Be sure to wait 5 minutes between each drop so that they don't dilute each other. - The prednisolone acetate drops (pink) need to be shaken 30 times. - Some of the drops, especially the Ketorolac (alanis), may sting. It can be helpful to refrigerate them to make them more comfortable. - After the first week drop instructions: Vigamox - stop using. Prednisolone - begin tapering your drops to 3x/day for 1 week, then 2x/day for 1 week, then 1x/day for 1 week, then STOP using. Ketoralac - 4x/day until they are gone. Moderate Sedation You may have received medication before and/or during your procedure, which affects your judgement and reaction time. Do not drive, operate machinery, drink alcoholic beverages, or make any legal decisions for 24 hours. Be careful on stairs, as you may be unsteady on your feet. You may eat a regular diet as tolerated. Do not smoke if you are alone. IV site -- slight redness, or tenderness is normal, you can use a warm compress. If tenderness and redness increases or foul drainage occurs, please contact your M. D. Questions or problems: M-F 8 am - 5pm call ophthalmology : [phone] After 5pm or on a weekend or holiday: call the [facility] high reach operator and ask for the ophthalmology physician ground crew lines person. documented in this encounter Medications at Time of Discharge Medication Sig Dispensed Refills Start Date End Date loperamide (IMODIUM) 2 mg CapsuleIndications:diar jacquelin Take 2 mg by mouth daily as needed for Diarrhea. 1 mg/7.5 ml liquid Indications: diarrhea busPIRone (BUSPAR) 5 mg Tablet Take 7.5 mg by mouth 3 times daily. lisinopril (PRINIVIL;ZESTRIL) 10 mg Tablet Take 10 mg by mouth daily. OXYGEN-AIR DELIVERY SYSTEMS MISC by [facility].(Non-Drug; Combo Route) route. lactobacillus rhamnosus, GG, (CULTURELLE) 10 billion cell Capsule Take 1 capsule by mouth daily. acetaminophen (TYLENOL) 325 mg Tablet Take 650 mg by mouth every 4 hours as needed for Pain. cholecalciferol, Vitamin D3, 2,000 unit Capsule Take by mouth. fluticasone propion-salmeteroL (ADVAIR) 500-50 mcg/dose Disk with Device Inhale 1 puff into the lungs every 12 hours. 09/10/2023 ALBUTEROL SULFATE ORAL Take by mouth. 02/2019 albuterol (PROVENTIL) 2.5 mg /3 mL (0.083 %) Solution for Nebulization Take 2.5 mg by nebulization every 4 hours as needed for Wheezing. 10/31/2018 amLODIPine (NORVASC) 5 mg Tablet Take 5 mg by mouth daily. 11/12/2023 umeclidinium (INCRUSE ELLIPTA) 62.5 mcg/actuation Disk with Device Inhale into the lungs. 10/31 multivitamin Capsule Take 1 capsule by mouth daily. 09/10/2023 albuterol 90 mcg/actuation HFA Aerosol Inhaler Inhale 2 puffs into the lungs every 4 hours as needed for Wheezing. Use with spacer 10/31/2018 documented as of this encounter H&P Notes * Evie Zamora MD - 09/04/2018 12:06 PM EDT History and physical for PCP reviewed, no interval changes. Risks, benefits and alternatives of surgery revisited. Patient is keen to proceed with CEIOL OD. No significant changes to the patient's health recently. The patient is breathing comfortably, without cyanosis or use of accessory muscles. Vital signs are within acceptable parameters. The eyes arequiet without discharge or other signs of active infection. ?? documented in this encounter Miscellaneous Notes * Op Note - Evie Zamora MD - 09/04/2018 12:39 PM EDT [facility] Operative Note Patient Name: Kiersten Barraza : [id number] MR#: [id number] Case Date: 09/04/2018 Surgeon: Surgeon(s) and Role: * Evie Zamora MD - Primary Preoperative diagnosis: Cataract , right eye, dense nuclear sclerotic cataract, dense cortical cataract, myopia. Postoperative diagnosis: Cataract, as above Procedure(s) (LRB): CATARACT EXTRACTION, EXTRACAPSULAR, WITH LENS INSERTION, COMPLEX (WRVU 11.08) (Right[facility] Complications: None Blood loss: Minimal Anesthesia type: MAC Implant: [id number] lens, 21.0 D power, placed in the capsular bag Procedure in detail: After the risks, benefits, and alternatives of the planned procedure had been discussed with the patient and the informed consent signed, the patient was taken back to the operating room suite. There, the patient was prepped and draped in the standard sterile ophthalmic fashion. A lid speculum was introduced into the operative eye. A paracentesis wound was created 60 degrees to the left of the planned temporal incision. Lidocaine was injected intracamerally. Filtered air followed by tryphan blue was injected into the eye. Viscoat viscoelastic was injected intracamerally. The main temporal incision was then created using a 2.4 mm keratome. The anterior capsulotomy was then created using the combination of a cystotome and Utrata forceps. Hydrodissection was performed using a straight hydrodissection cannula. The nucleus was then divided in a groove and split technique. The nuclear fragments were then removed using the phacoemulsification handpiece. The remaining cortical and epinuclear material was then removed using the irrigation/aspiration handpiece. The capsula r bag was filled with Provisc viscoelastic. The [id number] lens was then injected into the capsular bagusing a lens injection system. The remaining viscoelastic was then removed from the eye using the irrigation/aspiration handpiece. The wounds were then hydrated. With the wounds found not to be leaking, all viscoelastic removed from the anterior segment, and the lens centered in the capsular bag, the surgery was deemed concluded. All instrumentation was removed from the operative eye. The patientwas then escorted to the post-anesthesia care unit having tolerated the procedure well without additional issues. I performed this surgery by myself without the assistance of a resident. Evie Zamora MD documented in this encounter Plan of Treatment Upcoming Encounters Date Type Department Care Team (Late st Contact Info) Description 07/28/2024 12:30 PM EST Office Visit Hematology/Oncology at [address] [phone] Nick Mullen MD [facility] [place] [address] Chana Myrick APRN [address] [place] [address] DR [place] [address] 07/28/2024 1:00 PM EST Scheduled View Only Hematology/Oncology at [address] [phone] Aleah Curran RN 07/28/2024 1:00 PM EST Infusion Hematology Oncology at [address] [phone] documented as of this encounter Procedures Procedure Name Priority Date/Time Associated Diagnosis Comments CATARACT EXTRACTION, EXTRACAPSULAR, WITH LENS INSERTION, COMPLEX (WRVU 10.25) 09/04/2018 12:07 PM EDT Cataract documented in this encounter Visit Diagnoses Not on filedocumented in this encounter Administered Medications Inactive Administered Medications - up to 3 most recent administrations Medication Order MAR Action Action Date Dose Rate Site cyclopentolate (CYCLODRYL) 1 % ophthalmic solution 1 drop 1 drop, Right Eye, EVERY 5 MIN, 3 doses, First dose on Sun09/04/18 at 1130, Last dose on Sun09/04/18 at 1140, 1 drop to the operative eye every 5 minutes times 3. Start day of surgery, Day of Surgery (Day of Procedure), Routine Given 09/04/2018 11:33 AM EDT 1 drop Given 09/04/2018 11:26 AM EDT 1 drop Given 09/04/2018 11:21 AM EDT 1 drop ketorolac tromethamine (ACULAR) 0.5 % ophthalmic solution 1 drop 1 drop, Right Eye, ONCE, 1 dose, On Sun09/04/18 at 1130, 1 drop to the operative eye once, start on day of surgery, Day of Surgery (Day of Procedure), Routine Given 09/04/2018 11:23 AM EDT 1 drop lactated ringers infusion 1,000 mL, at 100 mL/hr, Intravenous, CONTINUOUS, Starting on Sun09/04/18 at 1130, Until Sun09/04/18 at 1259, Day of Surgery (Day of Procedure) New Bag 09/04/2018 11:37 AM EDT 1,000 mLs 100 mL/hr moxifloxacin (VIGAMOX) 0.5 % ophthalmic solution 1 drop 1 drop, Right Eye, EVERY 5 MIN, 3 doses, First dose on Sun09/04/18 at 1130, Last dose on Sun09/04/18 at 1140, 1 drop to the operative eye every 5 minutes times 3. Start on the day of surgery. , Day of Surgery (Day of Procedure), Routine Given 09/04/2018 11:33 AM EDT 1 drop Given 09/04/2018 11:26 AM EDT 1 drop Given 09/04/2018 11:24 AM EDT 1 drop PHENYLephrine (MYDFRIN) 2.5 % ophthalmic solution 1 drop 1 drop, Right Eye, EVERY 5 MIN, 3 doses, First dose on Sun09/04/18 at 1130, Last dose on Sun09/04/18 at 1140, 1 drop to the operative eye every 5 minutes times 3. Start on the day of surgery. , Day of Surgery (Day of Procedure), Routine Given 09/04/2018 11:33 AM EDT 1 drop Given 09/04/2018 11:26 AM EDT 1 drop Given 09/04/2018 11:22 AM EDT 1 drop prednisoLONE acetate (PRED FORTE) 1 % ophthalmic suspension 1 drop 1 drop, Right Eye, ONCE, 1 dose, On Sun09/04/18 at 1130, 1 drop to the operative eye once, start on day of surgery, Day of Surgery (Day of Procedure), Routine Given 09/04/2018 11:24 AM EDT 1 drop documented in this encounter Active and Recently Administered Medications Times are shown in EDT. Scheduled Medication Order 09/02/2018 09/03/2018 09/04/2018 cyclopentolate (CYCLODRYL) 1 % ophthalmic solution 1 drop (COMPLETED) 1 drop, Right Eye, EVERY 5 MIN, 3 doses, First dose on Sun09/04/18 at 1130, Last dose on Sun09/04/18 at 1140, 1 drop to the operative eye every 5 minutes times 3. Start day of surgery, Day of Surgery (Day of Procedure), Routine 1121 (Given - Provid er: Kailee Hassan RN)1126 (Given - Provider: Kailee Hassan RN)1133 (Given - Provider: Kailee Hassan RN) ketorolac tromethamine (ACULAR) 0.5 % ophthalmic solution 1 drop (COMPLETED) 1 drop, Right Eye, ONCE, 1 dose, On Sun09/04/18 at 1130, 1 drop to the operative eye once, start on day of surgery, Day of Surgery (Day of Procedure), Routine 1123 (Given - Provid er: Kailee Hassan RN) moxifloxacin (VIGAMOX) 0.5 % ophthalmic solution 1 drop (COMPLETED) 1 drop, Right Eye, EVERY 5 MIN, 3 doses, First dose on Sun09/04/18 at 1130, Last dose on Sun09/04/18 at 1140, 1 drop to the operative eye every 5 minutes times 3. Start on the day of surgery. , Day of Surgery (Day of Procedure), Routine 1124 (Given - Provid er: Kailee Hassan RN)1126 (Given - Provider: Kailee Hassan RN)1133 (Given - Provider: Kailee Hassan RN) PHENYLephrine (MYDFRIN) 2.5 % ophthalmic solution 1 drop (COMPLETED) 1 drop, Right Eye, EVERY 5 MIN, 3 doses, First dose on Sun09/04/18 at 1130, Last dose on Sun09/04/18 at 1140, 1 drop to the operative eye every 5 minutes times 3. Start on the day of surgery. , Day of Surgery (Day of Procedure), Routine 1122 (Given - Provid er: Kailee Hassan RN)1126 (Given - Provider: Kailee Hassan RN)1133 (Given - Provider: Kailee Hassan RN) prednisoLONE acetate (PRED FORTE) 1 % ophthalmic suspension 1 drop (COMPLETED) 1 drop, Right Eye, ONCE, 1 dose, On Sun09/04/18 at 1130, 1 drop to the operative eye once, start on day of surgery, Day of Surgery (Day of Procedure), Routine 1124 (Given - Provid er: Kailee Hassan RN) Continuous Medication Order 09/02/2018 09/03/2018 09/04/2018 lactated ringers infusion (CANCELED) 1,000 mL, at 100 mL/hr, Intravenous, CONTINUOUS, Starting on Sun09/04/18 at 1130, Until Sun09/04/18 at 1259, Day of Surgery (Day of Procedure) 1159 (New Bag - Prov ider: rPecious Fowler CRNA)1231 (Anesthesia Volume Adjustment - Provider: Precious Fowler CRNA) lactated ringers infusion (CANCELED) 1,000 mL, at 100 mL/hr, Intravenous, CONTINUOUS, Starting on Sun09/04/18 at 1130, Until Sun09/04/18 at 1259, Day of Surgery (Day of Procedure) 1137 ([facility] ider: Kailee Hassan, ELIZABETH) documented in this encounter Care Teams Wrapper And Preserver Relationship Specialty Start Date End Date Dewey Arroyo APRN [address] [place] [address] PCP - General Internal Medicine 06/22/18 09/19/18 documented as of this encounter
--- OUTSIDE RECORDS SUMMARY | 2024-07-28 01:33 | XMS_ITS | Encounter Summary ---
Author Organization [facility] [place] [address] Care Team Providers Care Panama Hat Hydraulic Press Operator Name Role Phone Dewey Arroyo APRN Primary Care Provider Encounter Details Date Type Department Care Team (Late st Contact Info) Description 08/15/2018 12:13 PM EST Anesthesia Event [facility] [place] [address] [address] [facility] [facility] [address] [place] [address] Tram Dasilva, PLASTIC TOP ASSEMBLER [address] [facility], -1 [place] [address] Anesthesia Record Procedure Summary Procedure Name Responsible Anesthesiologist Anesthesia Start Time Anesthesia Stop Time CATARACT EXTRACTION, EXTRACAPSULAR, WITH LENS INSERTION, COMPLEX (WRVU 10.25) (Left: Eye) Breanna Junior DO 08/15/18 1213 08/15/18 1300 Events Date Time Event Comment 08/15/2018 1124 1213 Start 1218 AN Verify 1219 An Start Data 1221 Anesthesia Ready 1251 an stop data 1259 Recovery or ICU Handoff Aimee ent care was transferred to the destination unit staff after review of the patient's medical history, current anesthetic/surgical status and plan, according to the Provider Handoff Checklist. 1300 Stop Meds Name Total Midazolam 2 mg fentaNYL 100 mcg Dexmedetomidine 8 mcg lactated Ringers infusion 1,000 mL 0 mL * Agents Name O2 Auxiliary Flowmeter 1 * Blood No blood administrations on file. Lines, Drains, and Airways Type Details Placement Removal (RETIRED) Peripheral IV Line - Single Lumen 08/15/18; 1126; cephalic vein (lateral side of arm), left; 22 gauge; Precious MCGUIRE; distraction, intradermal injection, tolerated well, appears comfortable; 03/30/21 (LDA Cleanup utility RA#[id number]); 1650 (LDA Cleanup utility RA#[id number]) 08/15/18 1126 by Chana Oneil RN 03/30/21 1650 by Savage Rivas Incision 08/15/18; 1226; eye; 02/20/22 (LDA cleanup utility RA#[id number]); 1715 (LDA cleanup utility RA#[id number]) 08/15/18 1226 by Mirella Pryor RN 02/20/22 1715 by Jennifer Phillips documented in this encounter Social History Tobacco [...] OR Notes * Anesthesia Postprocedure Evaluation - Breanna Junior DO - 08/15/2018 2:24 PM EST [facility] Department of Anesthesiology Post-procedure Note Patient: Kiersten Barraza Procedure Summary Date: 08/15/18 Room / Location: [facility] [place] [address] [place] [address] OSC Anesthesia Start: 1213 Anesthesia Stop: 1300 Procedure: CATARACT EXTRACTION, EXTRACAPSULAR, WITH LENS INSERTION, COMPLEX (WRVU 11.08) (Left Eye)Diagnosis: (Cataract) Surgeon: Evie Zamora MD Responsible Provider: Breanna Junior DO Anesthesia Type: MAC ASA Status: 3 All Anesthesia Providers: Anesthesiologist: Breanna Juinor DO STONE FINISHER: Precious Fowler CRNA Vitals Value Taken Time BP 128/57 08/15/2018 12:54 PM Temp 36.3 ??C (97.3 ??F) 08/15/2018 12:54 PM Pulse 75 08/15/2018 12:54 PM Resp 16 08/15/2018 12:54 PM SpO2 95 % 08/15/2018 12:54 PM Pain Level 1 08/15/2018 1:10 PM Patient Location: PACU/[facility] Level of Consciousness: Awake and Alert Pain Management: Satisfactory Analgesia PONV: None Cardiovascular Status: Hemodynamically Stable Respiratory Status: Stable Respiratory Status Postoperative Fluid Status: Intravascular EUvolemia Possible Anesthetic Complications: NONE apparent at time of evaluation Final Primary Anesthesia Type: MAC (The anesthetic type performed was the same as planned.) Comments: * Anesthesia Preprocedure Evaluation - Breanna Junior DO - 06/05/2018 2:08 PM EST Pre-Anesthesia Evaluation for: Kiersten Barraza a 78 y.o. female. Procedure(s): CATARACT EXTRACTION, EXTRACAPSULAR, WITH LENS INSERTION, COMPLEX (WRVU 11.08) Patient Active Problem List Diagnosis ??? COPD (chronic obstructive pulmonary disease) ??? On supplemental oxygen by nasal cannula 2 lpm qhs and during the day when active. ??? HTN (hypertension) ??? Former smoker Quit 2017 after >50 pack-yr history. ??? Overweight (BMI 25.0-29.9) ??? Anxiety Past Medical History: Diagnosis Date ??? Allergic [...] very occassionally-fainted 55 years ago @ childbirth No past surgical history on file. Social History Tobacco Use ??? Smoking status: Former Smoker Packs/day: 1.00 Years: 50.00 Pack years: 50.00 Types: Cigarettes, e-Cigarettes Last attempt to quit: 06/25/2017 Years since quittin.9 ??? Smokeless tobacco: Former User Substance Use Topics ??? Alcohol use: No Frequency: Never Social History Substance and Sexual Activity Drug Use No Allergies Allergen Reactions ??? Percocet [Oxycodone-Acetaminophen] Medications: MAR and/or home medications have been reviewed. Physical Exam: There were no vitals filed for this visit. There is no height or weight on file to calculate BMI. Airway Assessment: Mallampati: II TM distance: >3 FB Neck ROM: limited Cervical extension to at least neutral position. Somewhat small mouth opening. Cardiovascular Assessment: Rhythm: regular Rate: normal (-) peripheral edema PE comment: HR 90 bpm. Blood pressure 138/64. Pulmonary Assessment: breath sounds clear to auscultation (+) decreased breath sounds PE comment: O2 sat 96% on 2 lpm. No cough or conversational dyspnea even with long sentences and laughter and not wearing O2 for most of the visit. Dental Assessment: Comment: Top permanent bridge. Lower removable partial. Misc Assessment: Other exam findings: Alert, pleasant, cognition intact, gait steady with portable O2 tank. Anesthesia Plan: ASA 3 MAC, with a(n) intravenous induction 78 yr old female for left cataract extraction with IOL. PMH: COPD- stable but require home oxygen, htn, anxiety and chr back pain. NPO No changes to her health since pre operative evaluation in the clinic. General as back up plan Region - Other Informed Consent: Anesthetic plan and risks discussed with patient. Plan discussed with STONE FINISHER. PAT Staff Documentation: Reason for PAT Contact: OSC Anesthesia Clearance Hx of Anesthesia Problem: Denies. Last experience with GA was ~ 20 yrs ago. No colonoscopy or otherprocedures. Was Patient Seen in PAT? Yes Additional/Outside Data Requested? Yes (EKG and discharge summary from [facility] (COPD exacerbation earlier in 2018).) Findings, Assessment and Action: Ms. Barraza is a 78 y.o. year old female seen in [facility] for clearance to proceed with cataract [facility]. Pre-op questionnaire was reviewed. Notable responses include: Orthopnea; unintended napping; daytime fatigue; lung problem; on home O2; ARZATE with 1 FOS; HTN. Pertinent PMH includes: COPD (nebs, O2); HTN (treated); overweight (BMI 29); intermediate risk for ANYA. ROS: Denies chest discomfort, palpitations, syncope, lower extremity edema. She starts the night supine with 3 pillows, usually ending up on her side with only 2. She has actually never tried to be fully supine. +ARZATE. Denies wheezing or productive cough. No recent COPD flare. Feels better with recent change toipratropium/albuterol neb (bid-tid) and regular pulmonary exercises. Rare use of rescue inhaler. Denies GERD sx. Substance History: Smoking: quit 2017 after >50 yrs at ~ 1 ppd. Alcohol: seldom Other drugs:no Caffeine: 1 cup of tea or coffee q am. Exercise tolerance is moderate. 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 Recommendation: As her exercise tolerance is decent and her COPD apparently well-managed, we mutually agreed that scheduling her cataract surgery at the [facility] with an anesthesiologist present was reasonable. She will ask her PCP to fax a copy of her pre-op H&P to us. I emphasized that we would want reassurance that her co-morbidities are optimized at the time of the surgery. Tram Dasilva APRN Pre-Admission Testing [phone] documented in this encounter Plan of Treatment Upcoming Encounters Date Type Department Care Team (Late st Contact Info) Description 07/28/2024 12:30 PM EST Office Visit Hematology/Oncology at [address] [phone] Nick Mullen MD [facility] DR HEMATOLOGY [place] [address] Chana Myrick APRN [address] [place] [address] DR HEMATOLOGY AND ONCOLOGY [place], [place] [id number] 07/28/2024 1:00 PM EST Scheduled View Only Hematology/Oncology at [address] [phone] Aleah Curran RN 07/28/2024 1:00 PM EST Infusion Hematology Oncology at [address] [phone] documented as of this encounter Visit Diagnoses Not on filedocumented in this encounter Administered Medications Inactive Administered Medications - up to 3 most recent administrations Medication Order MAR Action Action Date Dose Rate Site dexmedetomidine (PRECEDEX) injection PRN, Starting on Emilia 08/15/18 at 1217, Until Emilia 08/15/18 at 1306, Anesthesia Intra-op, Routine Given 08/15/2018 12:26 PM EST 4 mcg Given 08/15/2018 12:17 PM EST 4 mcg fentaNYL 50 mcg/mL multi-dose injection PRN, Starting on Emilia 08/15/18 at 1219, Until Emilia 08/15/18 at 1306, Anesthesia Intra-op, Routine Given 08/15/2018 12:47 PM EST 25 mcg Given 08/15/2018 12:40 PM EST 25 mcg Given 08/15/2018 12:25 PM EST 25 mcg lactated Ringers infusion 1,000 mL 1,000 mL, at 100 mL/hr, Intravenous, CONTINUOUS, Starting on Emilia 08/15/18 at 1145, Until Emilia 08/15/18 at 1310, Day of Surgery (Day of Procedure) New Bag 08/15/2018 12:00 PM EST midazolam (PF) (VERSED) multi-dose injection PRN, Starting on Emilia 08/15/18 at 1213, Until Emilia 08/15/18 at 1306, Anesthesia Intra-op, Routine Given 08/15/2018 12:47 PM EST 0.5 mg Given 08/15/2018 12:30 PM EST 0.5 mg Given 08/15/2018 12:23 PM EST 0.5 mg documented in this encounter Care Teams Panama Hat Hydraulic Press Operator Relationship Specialty Start Date End Date Dewey Arroyo APRN [address] [place] [phone] PCP - General Internal Medicine 06/22/18 09/19/18 documented as of this encounter
--- OUTSIDE RECORDS SUMMARY | 2024-07-28 01:33 | XMS_ITS | Encounter Summary ---
Author Organization [facility] Address [facility] [place] [address] Care Team Providers Care Doweling Machine Operator Name Role Phone AbhishekmarDewey APRN Primary Care Provider Encounter Details Date Type Department Care Team (Late st Contact Info) Description 08/15/2018 12:00 PM EST - 08/15/2018 12:52 PM EST Surgery [place] [address] Evie Joyce MD [facility] [place] [address] CATARACT EXTRACTION, EXTRACAPSULAR, WITH LENS INSERTION, COMPLEX (WRVU 10.25) Social History Tobacco Use Types Packs/Day Years [...] Sign Reading Time Taken Comments Blood Pressure 163/70 08/15/2018 11:16 AM EST Pulse 88 08/15/2018 11:16 AM EST Temperature 36.7 ??C (98.1 ??F) 08/15/2018 11:[address] Respiratory Rate 16 08/15/2018 11:16 AM EST Oxygen Saturation 96% 08/15/2018 11:16 AM EST Inhaled Oxygen Concentration - - Weight 69.4 kg (153 lb) 08/15/2018 11:16 AM EST Height 157.5 cm (5' 2) 08/15/2018 11:16 AM EST Body Mass Index 27.98 08/15/2018 11:16 AM EST documented in this encounter Discharge Instructions * Discharge Instructions* Cynthia Merino, RN - 08/15/2018 11:43 AM EST Instructions following CATARACT surgery Dr. Zamora Section of [place] [facility] [phone] - Wear either the eye shield or glasses of any kind 24 hours per day for the first week following surgery. - Your appointment tomorrow [facility] Bring your Eye Kit to all postoperative visits. - Call you Primary Care Doctor or the Emergency Room for any non eye related medical issues. - It is normal to have a scratchy sensation or mild pain in your eye, but if you have any severe eye pain, vomiting or bleeding call [phone] and ask to speak to the ophthalmology doctor health information technician. - Your eye will be red tomorrow [...] 8 am - 5pm call ophthalmology : [phone] After 5pm or on a weekend or holiday: call the [facility] non licensed nuclear plant operator and ask for the ophthalmology physician health information technician. At 11:45 am you received 650 mg of acetaminophen- Your next dose should not be taken before 8 hourshave passed. Next dose not before- 7:45 pm You should not take more than a total of 3000 mg of acetaminophen in a 24 hour period. documented in this encounter Medications at Time [...] H&P Notes * Evie Zamora MD - 08/15/2018 12:11 PM EST Images from the original note were not included. History and physical for PCP reviewed, no interval changes. Risks, benefits and alternatives of surgery revisited. Patient is keen to proceed with CEIOL OS. No significant changes to the patient's health recently. The patient is breathing comfortably, without cyanosis or use of accessory muscles. Vital signs are within acceptable parameters. The eyes arequiet without discharge or other signs of active infection. ?? Malampatti: 2 ASA: 2 ?? The sedation plan was reviewed the patient expressed understanding and agreement. ?? REFERENCES: ? ASA Score: I. Patient is a completely healthy fit patient. II. Patient has mild systemic disease. III. Patient has severe systemic disease that is not incapacitating. IV. Patient has incapacitating disease that is a constant threat to life. V. A moribund patient who is not expected to live 24 hour with or without surgery. documented in this encounter Nursing Notes * Cynthia Merino RN - 08/15/2018 12:22 PM EST Pt instructed to squeeze LIQUEFIED NATURAL GAS PLANT OPERATOR's hand if having pain, need to cough, etc. Pt instructed not to talk during procedure. Pain assessment unable to verbalize (non-verbal) but will indicate pain with hand squeeze, ask surgeon to pause and verbally assess pt. 13:10 Patient discharge instructions and medications reviewed with patient, all questions answered, patient verbalized understanding. Written instructions and eyedrops sent home with patient. documented in this encounter Miscellaneous Notes * Op Note - Evie Zamora MD - 08/15/2018 12:50 PM EST [facility] [place] Patient Name: Kiersten Barraza : [id number] MR#: [id number] Case Date: 08/15/2018 Surgeon: Surgeon(s) and Role: * Evie Zamora MD - Primary Procedure(s) (LRB): CATARACT EXTRACTION, EXTRACAPSULAR, WITH LENS INSERTION, COMPLEX (WRVU 11.08) (Left) tryphan blue staining Patient: Kiersten Barraza Surgeon: Evie Zamora MD Diagnosis: Cataract, Left eye Nuclear sclerotic cataract dense, dense cortical cataract Myopia Complications: None Blood loss: Minimal Anesthesia type: MAC Implant: SN60WF lens, 21.5 D power, placed in the capsular bag [...] incision. Lidocaine was injected intracamerally. Filtered air and tryphan blue was injected into the eye. Viscoat viscoelastic was injected intracamerally. The maintemporal incision was then created using a 2.4 [...] then removed using the irrigation/aspiration handpiece. The capsular bag was filled with Provisc viscoelastic. The SN60WF lens was then injected into the capsular bag using alens injection system. The remaining viscoelastic was then removed from the eye using the irrigation/aspiration handpiece. The wounds were then hydrated. With the wounds found not to be leaking, all viscoelastic removed from the anterior segment, and the lens centered in the capsular bag, the surger y was deemed concluded. All instrumentation was removed from the operative eye. The patient was then escorted to the post-anesthesia care unit having tolerated the procedure well without additional issues. I performed this surgery by myself without the assistance of a resident. documented in this encounter Plan of Treatment Upcoming Encounters Date Type Department Care Team (Late st Contact Info) Description 07/28/2024 12:30 PM EST Office Visit Hematology/Oncology at [address] [phone] Nick Mullen MD [facility] [place] [address] Chana Myrick APRN [address] [place] [address] DR HEMATOLOGY AND ONCOLOGY [place], [place] [id number] 07/28/2024 1:00 PM EST Scheduled View Only Hematology/Oncology at [address] [phone] Aleah Curran RN 07/28/2024 1:00 PM EST Infusion Hematology Oncology at [address] [phone] documented as of this encounter Procedures Procedure Name Priority Date/Time Associated Diagnosis Comments CATARACT EXTRACTION, EXTRACAPSULAR, WITH LENS INSERTION, COMPLEX (WRVU 10.25) 08/15/2018 12:16 PM EST Cataract documented in this encounter Visit Diagnoses Not on filedocumented in this encounter Administered Medications Inactive Administered Medications - up to 3 most recent administrations Medication Order MAR Action Action Date Dose Rate Site acetaminophen (TYLENOL) tablet 650 mg 650 mg, Oral, ONCE, 1 dose, On Emilia 08/15/18 at 1100, Maximum dose of acetaminophen is 4000 mg from all sources in 24 hours., Routine Given 08/15/2018 11:38 AM EST 650 mg cyclopentolate (CYCLODRYL) 1 % ophthalmic solution 1 drop 1 drop, Left Eye, EVERY 5 MIN, 3 doses, First dose on Emilia 08/15/18 at 1130, Last dose on Emilia 08/15/18 at 1140, 1 drop to the operative eye every 5 minutes times 3. Start day of surgery, Day of Surgery (Day of Procedure), Routine Given 08/15/2018 11:25 AM EST 1 drop Given 08/15/2018 11:20 AM EST 1 drop Given 08/15/2018 11:15 AM EST 1 drop ketorolac tromethamine (ACULAR) 0.5 % ophthalmic solution 1 drop 1 drop, Left Eye, ONCE, 1 dose, On Emilia 08/15/18 at 1130, 1 drop to the operative eye once, start on day of surgery, Day of Surgery (Day of Procedure), Routine Given 08/15/2018 11:36 AM EST 1 drop lactated Ringers infusion 1,000 mL 1,000 mL, at 100 mL/hr, Intravenous, CONTINUOUS, Starting on Emilia 08/15/18 at 1130, Until Emilia 08/15/18 at 1310, Day of Surgery (Day of Procedure) New Bag 08/15/2018 11:27 AM EST 1,000 mLs 100 mL/hr moxifloxacin (VIGAMOX) 0.5 % ophthalmic solution 1 drop 1 drop, Left Eye, EVERY 5 MIN, 3 doses, First dose on Emilia 08/15/18 at 1130, Last dose on Emilia 08/15/18 at 1140, 1 drop to the operative eye every 5 minutes times 3. Start on the day of surgery. , Day of Surgery (Day of Procedure), Routine Given 08/15/2018 11:48 AM EST 1 drop Given 08/15/2018 11:45 AM EST 1 drop Given 08/15/2018 11:34 AM EST 1 drop PHENYLephrine (MYDFRIN) 2.5 % ophthalmic solution 1 drop 1 drop, Left Eye, EVERY 5 MIN, 3 doses, First dose on Emilia 08/15/18 at 1130, Last dose on Emilia 08/15/18 at 1140, 1 drop to the operative eye every 5 minutes times 3. Start on the day of surgery. , Day of Surgery (Day of Procedure), Routine Given 08/15/2018 11:40 AM EST 1 drop Given 08/15/2018 11:20 AM EST 1 drop Given 08/15/2018 11:15 AM EST 1 drop prednisoLONE acetate (PRED FORTE) 1 % ophthalmic suspension 1 drop 1 drop, Left Eye, ONCE, 1 dose, On Emilia 08/15/18 at 1130, 1 drop to the operative eye once, start on day of surgery, Day of Surgery (Day of Procedure), Routine Given 08/15/2018 11:35 AM EST 1 drop documented in this encounter Active and Recently Administered Medications Times are shown in EST. Scheduled Medication Order 08/13/2018 08/14/2018 08/15/2018 acetaminophen (TYLENOL) tablet 650 mg (COMPLETED) 650 mg, Oral, ONCE, 1 dose, On Emilia 08/15/18 at 1100, Maximum dose of acetaminophen is 4000 mg from all sources in 24 hours., Routine 1138 (Given - Provid er: Cynthia Merino RN) cyclopentolate (CYCLODRYL) 1 % ophthalmic solution 1 drop (COMPLETED) 1 drop, Left Eye, EVERY 5 MIN, 3 doses, First dose on Emilia 08/15/18 at 1130, Last dose on Emilia 08/15/18 at 1140, 1 drop to the operative eye every 5 minutes times 3. Start day of surgery, Day of Surgery (Day of Procedure), Routine 1115 (Given - Provid er: Chana Oneil RN)1120 (Given - Provider: Chana Oneil RN)1125 (Given - Provider: Chana Oneil RN) ketorolac tromethamine (ACULAR) 0.5 % ophthalmic solution 1 drop (COMPLETED) 1 drop, Left Eye, ONCE, 1 dose, On Emilia 08/15/18 at 1130, 1 drop to the operative eye once, start on day of surgery, Day of Surgery (Day of Procedure), Routine 1136 (Given - Provid er: Cynthia Merino RN) moxifloxacin (VIGAMOX) 0.5 % ophthalmic solution 1 drop (COMPLETED) 1 drop, Left Eye, EVERY 5 MIN, 3 doses, First dose on Emilia 08/15/18 at 1130, Last dose on Emilia 08/15/18 at 1140, 1 drop to the operative eye every 5 minutes times 3. Start on the day of surgery. , Day of Surgery (Day of Procedure), Routine 1134 (Given - Provid er: Cynthia Merino RN)1145 (Given - Provider: Cynthia Merino RN)1148 (Given - Provider: Cynthia Merino RN) PHENYLephrine (MYDFRIN) 2.5 % ophthalmic solution 1 drop (COMPLETED) 1 drop, Left Eye, EVERY 5 MIN, 3 doses, First dose on Emilia 08/15/18 at 1130, Last dose on Emilia 08/15/18 at 1140, 1 drop to the operative eye every 5 minutes times 3. Start on the day of surgery. , Day of Surgery (Day of Procedure), Routine 1115 (Given - Provid er: Chana Oneil RN)1120 (Given - Provider: Chana Oneil RN)1140 (Given - Provider: Chana Oneil RN) prednisoLONE acetate (PRED FORTE) 1 % ophthalmic suspension 1 drop (COMPLETED) 1 drop, Left Eye, ONCE, 1 dose, On Emilia 08/15/18 at 1130, 1 drop to the operative eye once, start on day of surgery, Day of Surgery (Day of Procedure), Routine 1135 (Given - Provid er: Cynthia Merino RN) Continuous Medication Order 08/13/2018 08/14/2018 08/15/2018 lactated Ringers infusion 1,000 mL (CANCELED) 1,000 mL, at 100 mL/hr, Intravenous, CONTINUOUS, Starting on Emilia 08/15/18 at 1145, Until Emilia 08/15/18 at 1310, Day of Surgery (Day of Procedure) 1200 (New Bag - Prov ider: Precious Fowler CRNA) lactated Ringers infusion 1,000 mL (CANCELED) 1,000 mL, at 100 mL/hr, Intravenous, CONTINUOUS, Starting on Emilia 08/15/18 at 1130, Until Emilia 08/15/18 at 1310, Day of Surgery (Day of Procedure) 1127 (New Bag - Prov ider: Chana Oneil RN) PRN Medication Order 08/13/2018 08/14/2018 08/15/2018 acetaminophen (TYLENOL) tablet 650 mg 650 mg, Oral, ONCE PRN, 1 dose, Starting on Emilia 08/15/18 at 1309, Until Emilia 08/15/18 at 1516, Pain, Maximum dose of acetaminophen is 4000 mg from all sources in 24 hours., Recovery (Recovery-Hospital Unit), Routine documented in this encounter Care Teams Doweling Machine Operator Relationship Specialty Start Date End Date Dewey Arroyo APRN [address] [place] [phone] PCP - General Internal Medicine 06/22/18 09/19/18 documented as of this encounter
--- OUTSIDE RECORDS SUMMARY | 2024-07-28 01:33 | XMS_ITS | Encounter Summary ---
Author Organization [facility] Address [facility] [place] [address] Care Team Providers Care Municipal Bond Trader Name Role Phone AbhishekmarDewey APRN Primary Care Provider Encounter Details Date Type Department Care Team (Late st Contact Info) Description 09/04/2018 12:00 PM EDT - 09/04/2018 12:52 PM EDT Surgery [place] [phone] Evie Joyce MD [facility] [place] [address] CATARACT EXTRACTION, EXTRACAPSULAR, WITH LENS INSERTION, COMPLEX [...] encounter Discharge Instructions * Discharge Instructions* Kailee Hassan RN - 09/04/2018 11:18 AM EDT Instructions following CATARACT surgery Dr. Zamora Section of ophthalmology [facility] [place] [phone] - Wear either the eye shield or glasses of any kind 24 hours per day for the first week following surgery. - Your appointment tomorrow [facility] Bring your Eye Kit to all postoperative visits. - Call you Primary Care Doctor or the Emergency Room for any non eye related medical issues. - It is normal to have a scratchy sensation or mild pain in your eye, but if you have any severe eye pain, vomiting or bleeding call [phone] and ask to speak to the ophthalmology doctor ammonia solution preparer. - Your eye will be red tomorrow [...] 8 am - 5pm call ophthalmology : [phone] After 5pm or on a weekend or holiday: call the [facility] fur cutting machine operator and ask for the ophthalmology physician ammonia solution preparer. documented in this encounter Medications at Time [...] daily. OXYGEN-AIR DELIVERY SYSTEMS [place] [facility] [place]Non-Drug; Combo Route) route. lactobacillus rhamnosus, GG, (CULTURELLE) [...] Zamora MD - 09/04/2018 12:39 PM EDT [facility] [place] Patient Name: Kiersten Barraza : [id number] MR#: [id number] Case Date: 09/04/2018 Surgeon: Surgeon(s) and Role: * Evie Zamora MD - Primary Preoperative diagnosis: Cataract , right eye, dense nuclear sclerotic cataract, dense cortical cataract, myopia. Postoperative diagnosis: Cataract, as above Procedure(s) (LRB): CATARACT EXTRACTION, EXTRACAPSULAR, WITH LENS INSERTION, COMPLEX (WRVU 11.08) (Right)- [facility] Complications: None Blood loss: Minimal Anesthesia type: [...] PM EST Office Visit Hematology/Oncology at [address] [phone] Nick Mullen MD [facility] DR HEMATOLOGY [place] [address] Chana Myrick APRN [address] [place] [address] DR HEMATOLOGY AND ONCOLOGY [place], [place] [id number] 07/28/2024 1:00 PM EST Scheduled View Only Hematology/Oncology at [address] [phone] Aleah Curran RN 07/28/2024 1:00 PM EST Infusion Hematology Oncology at [address] [phone] documented as of this encounter [...] Kailee Hassan RN)1133 (Given - Provider: Kailee Hassan, ELIZABETH) ketorolac tromethamine (ACULAR) 0.5 % ophthalmic solution [...] Procedure) 1159 (New Bag - Prov ider: Precious Fowler CRNA)1231 (Anesthesia Volume Adjustment - Provider: Precious Fowler CRNA) lactated ringers infusion (CANCELED) 1,000 mL, at 100 mL/hr, Intravenous, CONTINUOUS, Starting on Sun09/04/18 at 1130, Until Sun09/04/18 at 1259, Day of Surgery (Day of Procedure) 1137 (New Bag - Prov ider: Kailee Hassan RN) documented in this encounter Care Teams Municipal Bond Trader Relationship Specialty Start Date End Date Dewey Arroyo APRN [address] [place] [phone] PCP - General Internal Medicine 06/22/18 09/19/18 documented as of this encounter
--- OUTSIDE RECORDS SUMMARY | 2024-07-28 01:33 | XMS_ITS | Encounter Summary ---
Author Organization [facility] Address [facility] [place] [address] Care Team Providers Care Power Screwdriver Operator Name Role Phone AbhishekmarDewey APRN Primary Care Provider [phone] Reason for Visit * Reason Onset Date Comments Post Op Post Op 09/05/2018 Encounter Details Date Type Department Care Team (Late st Contact Info) Description 09/05/2018 8:30 AM EDT Office [place] [address] Evie Joyce MD [facility] [place] [address] Status post cataract extraction and insertion of intraocular lens, right; Pseudophakia Social History Tobacco Use Types Packs/Day [...] this encounter Patient Instructions * Patient Instructions* Otilia Hodge - 09/05/2018 8:30 AM EDT Images from the original note were not included. Drop Name: Cap Color: Dose: 1 Drop Eye: [place] 4 x daily right eye Prednisolone Acetate 1% [place] or [place] 4 x daily right eye Vigamox (Moxifloxacin) [place] 4 x daily right eye Bring all drops with you to every eye appointment! Use medications prescribed until told otherwise by your doctor ?? Wash your hands prior to instilling eye drops. ?? It does not matter what order you put the drops in. ?? Shake all drops well before instillation. ?? Wait 5-10 minutes between each drop ?? Do not panic if you feel you put too much in or even if you miss a dose-- just do the best you can. Too many drops are better than too few. ?? Preservative-free artificial tears can be used in case of irritation, dryness, or burning. Thesecan be used in both eyes if desired Avoid eye injury and infection! Following eye surgery your eye is more prone to injuries and infection. Therefore, special attention must be given to avoid inadvertent complications. ?? Do not rub your eye. ?? Wear eye protection at all times. (Glasses) ?? Wear eye shield while sleeping for the first three nights. ?? Do not engage in activities that could result in a blow to your eye. ?? Do not engage in heavy physical activities that could cause you to strain. ?? Wash your hands frequently and especially before instilling eye drops. ?? Do not swim or bathe in contaminated water, for example pond or torres or hot tub, for at least 1 week. ?? Showering and washing your hair is fine, but be mindful to avoid getting soap and water in the operative eye for the next few days. (Keep eye closed) Call the eye clinic at [phone] if you experience any unusual redness, pain, flashes or floaters, or vision changes. You can call this number day or night. After office hours, the loading machine operator helper will connect you with the doctor installation service representative. documented in this encounter Progress Notes * Evie Zamora MD - 09/05/2018 8:30 AM EDT Assessment: Encounter Diagnoses Name Primary? Status post cataract extraction and insertion of intraocular lens, right ??? Pseudophakia Kiersten Barraza is POD#1 cataract surgery in her right eye Doing well with a normal post operative appearance. Plan: - Prednisolone acetate 1% qid in operative eye - Moxifloxicin qid in operative eye - Ketorolac qid in operative eye - Post op precaution sheet reviewed and given to patient Follow up: - 1 week or as needed. Upon return IOP OU MR operative eye documented in this encounter Plan of Treatment Upcoming Encounters Date Type Department Care Team (Late st Contact Info) Description 07/28/2024 12:30 PM EST Office Visit Hematology/Oncology at [address] [phone] Nick Mullen MD [facility] DR HEMATOLOGY [place] [address] Chana Myrick FLAT CLOTHIER [address] [place] [address] DR HEMATOLOGY AND ONCOLOGY [place], [place] [phone] 07/28/2024 1:00 PM EST Scheduled View Only Hematology/Oncology at [address] [phone] Aelah Curran RN 07/28/2024 1:00 PM EST Infusion Hematology Oncology at [address] [phone] documented as of this encounter Visit Diagnoses Diagnosis Status post cataract extraction and insertion of intraocular lens, right Pseudophakia Lens replaced by other means documented in this encounter Care Teams Power Screwdriver Operator Relationship Specialty Start Date End Date Dewey Arroyo APRN [address] [place] [address] PCP - General Internal Medicine 06/22/18 09/19/18 documented as of this encounter
--- OUTSIDE RECORDS SUMMARY | 2024-07-28 01:33 | XMS_ITS | Encounter Summary ---
Author Organization Formerly [facility], [facility] Address [facility] [place] [address] Care Team Providers Care Production Support Developer Name Role Phone Unavailable Primary Care Provider Unavailabl e Reason for Visit * Reason Comments Blurred Vision * Consultation (Routine) - Specialty Diagnoses / Procedures Referred By Alea t Referred To Contact Ophthalmology Diagnoses CAT Geovani Avila, OD [address] [place] [address] Evie Joyce MD [facility] [place] [address] Referral ID Status Reason Start Date Expiration Date V isits Requested Visits Authorized [id number] Consult, Test & Treat PCP Updated and/or Approved 04/16/2018 10/15/2018 6 6 Encounter Details Date Type Department Care Team (Late st Contact Info) Description 05/09/2018 12:30 PM EST Office [place] [address] Evie Joyce MD [facility] [place] [address] Age-related nuclear cataract of both eyes Social History Tobacco Use Types Packs/Day Years Used Date Smoking Tobacco: Former Cigarettes Q uit: 04/08/2018 Smokeless Tobacco: Former Alcohol Use Standard Drinks/Week Comments No 0 (1 standard drink = 0.6 oz pur e alcohol) Sex and Gender Information Value Date Recorded Sex Assigned at Not on file Gender Identity Not on file Sexual Orientation Not on file documented as of this encounter Progress Notes * Evie Zamora MD - 05/09/2018 12:30 PM EST Kiersten Barraza has visually significant cataract interfering with visual tasks. We discussed the risks, benefits and alternatives to cataract surgery. Kiersten expressed understanding and is keen to pursue cataract surgery in her Left eye with a monofocal IOL, Followed by RIGHT No TORIC she denies any history of amblyopia, patching or strabismus surgery in the past. No history of trauma or Flomax use. No PXE or phacodenesis noted on exam. Target Refraction: -0.50 Discussed that this is an estimate and that there would likely be a post operative need for glasses to achieve best vision. Type of Cataract: 3+ Nuclear sclerosis, 3+ Cortical cataract OU Dense cataract Special surgical issues: tryphan blue Anesthesia: IVCS. She is on oxygen Dilation: 6mm Allergies: Allergies Allergen Reactions ??? Percocet [Oxycodone-Acetaminophen] Surgical orders entered Surgical consent signed POM and surgical coordination initiated Call prn any problems or questions. documented in this encounter Plan of Treatment Upcoming Encounters Date Type Department Care Team (Late st Contact Info) Description 07/28/2024 12:30 PM EST Office Visit Hematology/Oncology at [address] [phone] Nick Mullen MD [facility] DR HEMATOLOGY [place] [address] Chana Myrick APRN [address] [place] [address] DR HEMATOLOGY AND ONCOLOGY [place], [place] [phone] 07/28/2024 1:00 PM EST Scheduled View Only Hematology/Oncology at [address] [phone] Aleah Curran RN 07/28/2024 1:00 PM EST Infusion Hematology Oncology at [address] [phone] documented as of this encounter Procedures Procedure Name Priority Date/Time Associated Diagnosis Comments CATARACT EXTRACTION, EXTRACAPSULAR, W/ LENS INSERTION, COMPLEX Routine 05/09/2018 2:27 PM EST CATARACT EXTRACTION, EXTRACAPSULAR, W/ LENS INSERTION, COMPLEX Routine 05/09/2018 2:27 PM EST documented in this encounter Visit Diagnoses Diagnosis Age-related nuclear cataract of both eyes Senile nuclear sclerosis documented in this encounter
--- OUTSIDE RECORDS SUMMARY | 2024-07-28 01:33 | XMS_ITS | Encounter Summary ---
Author Organization [facility] Address [facility] [place] [address] Care Team Providers Care Plant Reliability Engineer Name Role Phone DinaDewey APRN Primary Care Provider [phone] Encounter Details Date Type Department Care Team (Late st Contact Info) Description 09/04/2018 12:10 PM EDT Anesthesia Event [place] [address] Kvng Russo MD [facility] [place] [address] Precious Fowler CRNA [facility] [place] [address] Anesthesia Record Procedure Summary Procedure Name Responsible Anesthesiologist Anesthesia Start Time Anesthesia Stop Time CATARACT EXTRACTION, EXTRACAPSULAR, WITH LENS INSERTION, COMPLEX (WRVU 10.25) (Right: Eye) Kvng Russo MD 09/04/18 1210 09/04/18 1243 Events Date Time Event Comment 09/04/2018 1127 1208 AN Verify 1209 An Start Data 1210 Start 1210 Anesthesia Ready 1240 an stop data 1243 Recovery or ICU Handoff Aimee ent care was transferred to the destination unit staff after review of the patient's medical history, current anesthetic/surgical status and plan, according to the Provider Handoff Checklist. 1243 Stop Meds Name Total Midazolam 2 mg fentaNYL 100 mcg Dexmedetomidine 8 mcg Ondansetron 4 mg lactated ringers infusion 500 mL * Agents Name O2 Air N2O O2 Auxiliary Flowmeter 1 * Blood No blood administrations on file. Lines, Drains, and Airways Type Details Placement Removal (RETIRED) Peripheral IV Line - Single Lumen 08/15/18; 1126; cephalic vein (lateral side of arm), left; 22 gauge; Precious DICE PERSON; distraction, intradermal injection, tolerated well, appears comfortable; 03/30/21 (LDA Cleanup utility RA#[id number]); 1650 (LDA Cleanup utility RA#[id number]) 08/15/18 1126 by Chana Oneil RN 03/30/21 1650 by Savage Rivas Incision 08/15/18; 1226; eye; 02/20/22 (LDA cleanup utility RA#[id number]); 1715 (LDA cleanup utility RA#[id number]) 08/15/18 1226 by Mirella Pryro RN 02/20/22 1715 by Jennifer Phillips Incision 09/04/18; 1221; eye; 02/20/22 (LDA cleanup utility RA#[id number]); 1715 (LDA cleanup utility RA#[id number]) 09/04/18 1221 by Serena Morrison RN 02/20/22 1715 by Jennifer Phillips documented [...] OR Notes * Anesthesia Postprocedure Evaluation - Kvng Russo MD - 09/04/2018 2:36 PM EDT [facility] Department of Anesthesiology Post-procedure Note Patient: Kiersten Barraza Procedure Summary Date: 09/04/18 Room / Location: [facility] [place] [address] [place] [address] OSC Anesthesia Start: 1210 Anesthesia Stop: 1243 Procedure: CATARACT EXTRACTION, EXTRACAPSULAR, WITH LENS INSERTION, COMPLEX (WRVU 11.08) (Right Eye) Diagnosis: (Cataract) Surgeon: Evie Zamora MD Responsible Provider: Kvng Russo MD Anesthesia Type: MAC ASA Status: 3 All Anesthesia Providers: Anesthesiologist: Kvng Russo MD DICE PERSON: Precious Fowler CRNA Vitals Value Taken Time BP Temp Pulse Resp SpO2 Pain Level Patient Location: PACU/[facility] Level of Consciousness: Awake and Alert Pain Management: Satisfactory Analgesia PONV: None Cardiovascular Status: Hemodynamically Stable Respiratory Status: Stable Respiratory Status Postoperative Fluid Status: Intravascular EUvolemia Possible Anesthetic Complications: NONE apparent at time of evaluation Final Primary Anesthesia Type: MAC (The anesthetic type performed was the same as planned.) Comments: * Anesthesia Preprocedure Evaluation - Kvng Russo MD - 09/04/2018 8:08 AM EDT Pre-Anesthesia Evaluation for: Kiersten Barraza a 78 [...] Surgical History: Procedure Laterality Date ??? CATARACT REMOVAL Left 08/15/2018 SK ??? PRO REMV CATARACT EXTRACAP,INSERT LENS,COMP Left 08/15/2018 CATARACT EXTRACTION, EXTRACAPSULAR, WITH LENS INSERTION, COMPLEX (WRVU 11.08) performed by Evie Zamora MD at [facility] OSC Social History Tobacco Use ??? Smoking status: Former Smoker Packs/day: 1.00 Years: 50.00 Pack years: 50.00 Types: Cigarettes, e-Cigarettes Last attempt to quit: 06/25/2017 Years since quittin.1 ??? Smokeless tobacco: Never Used Substance Use Topics ??? Alcohol use: Yes Frequency: Never Comment: Rare use Social History Substance and Sexual Activity Drug Use No Allergies Allergen Reactions ??? Gabapentin Other (See Comments) depression ??? Percocet [Oxycodone-Acetaminophen] Medications: MAR and/or home medications have been reviewed. Physical Exam: There were no vitals filed for this visit. There is no height or weight on file to calculate BMI. Airway Assessment: Mallampati: II TM distance: >3 FB Neck ROM: full Cardiovascular Assessment: Rhythm: regular Rate: normal Pulmonary Assessment: breath sounds clear to auscultation Dental Assessment: Misc Assessment: Patient is wearing No contact(s). Anesthesia Plan: ASA 3 MAC, with a(n) intravenous induction Region - Other Informed Consent: Anesthetic plan and risks discussed with patient. PAT Staff Note Attending NOTE Brief HPI: 78 y.o. with RIGHT cataract to OR for extraction Diagnosis ??? COPD (chronic obstructive pulmonary disease) ??? On supplemental oxygen by nasal cannula ??? HTN (hypertension) ??? Former smoker ??? Overweight (BMI 25.0-29.9) ??? Anxiety Past [...] very occassionally-fainted 55 years ago @ childbirth LABS: Type and Screen: No results found for: ABORH Past anesthetic problems: denies Previous airway notes (on eDH): mac for LEFT cataract 08/13 NPO status: Reviewed and appropriate Anesthetic Plan: MAC Monitoring: Standard ASA monitors documented in this encounter Miscellaneous Notes * Addendum Note - Precious Fowler CRNA - 09/05/2018 10:13 AM EDT Addendum created 09/05/18 1013 by Precious Fowler CRNA Intraprocedure Meds edited documented in this encounter Plan of Treatment Upcoming Encounters Date Type Department Care Team (Late st Contact Info) Description 07/28/2024 12:30 PM EST Office Visit Hematology/Oncology at [address] [phone] Nick Mullen MD [facility] DR [place] [address] Chana Myrick, [address] HEMATOLOGY [place] [address] 07/28/2024 1:00 PM EST Scheduled View Only Hematology/Oncology at [address] [phone] Aleah Curran RN 07/28/2024 1:00 PM EST Infusion Hematology Oncology at [address] [phone] documented as of this encounter Visit Diagnoses Not on filedocumented in this encounter Administered Medications Inactive Administered Medications - up to 3 most recent administrations Medication Order MAR Action Action Date Dose Rate Site dexmedetomidine (PRECEDEX) injection PRN, Starting on Sun09/04/18 at 1211, Until Sun09/04/18 at 1243, Anesthesia Intra-op, Routine Given 09/04/2018 12:12 PM EDT 4 mcg Given 09/04/2018 12:11 PM EDT 4 mcg fentaNYL 50 mcg/mL multi-dose injection PRN, Starting on Sun09/04/18 at 1210, Until Sun09/04/18 at 1243, Anesthesia Intra-op, Routine Given 09/04/2018 12:34 PM EDT 25 mcg Given 09/04/2018 12:29 PM EDT 25 mcg Given 09/04/2018 12:10 PM EDT 50 mcg lactated ringers infusion 1,000 mL, at 100 mL/hr, Intravenous, CONTINUOUS, Starting on Sun09/04/18 at 1130, Until Sun09/04/18 at 1259, Day of Surgery (Day of Procedure) New Bag 09/04/2018 11:59 AM EDT midazolam (PF) (VERSED) multi-dose injection PRN, Starting on Sun09/04/18 at 1210, Until Sun09/04/18 at 1243, Anesthesia Intra-op, Routine Given 09/04/2018 12:29 PM EDT 0.5 mg Given 09/04/2018 12:12 PM EDT 0.5 mg Given 09/04/2018 12:10 PM EDT 0.5 mg ondansetron (ZOFRAN) injection PRN, Starting on Sun09/04/18 at 1231, Until Sun09/04/18 at 1243, Anesthesia Intra-op, Routine Given 09/04/2018 12:31 PM EDT 4 mg documented in this encounter Care Teams Plant Reliability Engineer Relationship Specialty Start Date End Date Dewey Arroyo APRN [address] [place] [phone] PCP - General Internal Medicine 06/22/18 09/19/18 documented as of this encounter
--- OUTSIDE RECORDS SUMMARY | 2024-07-28 01:33 | XMS_ITS | Encounter Summary ---
Author Organization [facility] Address [facility] [place] [address] Care Team Providers Care Jewel Inspector Name Role Phone AbhishekDewey rey APRN Primary Care Provider [phone] Encounter Details Date Type Department Care Team (Late st Contact Info) Description 08/15/2018 10:55 AM EST - 08/15/2018 1:10 PM EST Hospital Encounter [place] [address] Evie Joyce MD [facility] [place] [address] Discharge Disposition: Home Social History Tobacco Use [...] Sign Reading Time Taken Comments Blood Pressure 128/57 08/15/2018 12:54 PM EST Pulse 75 08/15/2018 12:54 PM EST Temperature 36.3 ??C (97.3 ??F) 08/15/2018 12:[address] Respiratory Rate 16 08/15/2018 12:54 PM EST Oxygen Saturation 95% 08/15/2018 12:54 PM EST Inhaled Oxygen Concentration - - Weight 69.4 kg (153 lb) 08/15/2018 11:16 AM EST Height 157.5 cm (5' 2) 08/15/2018 11:16 AM EST Body Mass Index 27.98 08/15/2018 11:16 AM EST documented in this encounter Discharge Instructions * Discharge Instructions* Cynthia Merino, RN - 08/15/2018 11:43 AM EST Instructions following CATARACT surgery Dr. Zamora Section of ophthalmology [facility] [phone] - Wear either the eye shield or glasses of any kind 24 hours per day for the first week following surgery. - Your appointment tomorrow with Dr. Zamora [facility] Bring your Eye Kit to all postoperative visits. - Call you Primary Care Doctor or the Emergency Room for any non eye related medical issues. - It is normal to have a scratchy sensation or mild pain in your eye, but if you have any severe eye pain, vomiting or bleeding call [phone] and ask to speak to the ophthalmology doctor completion manager. - Your eye will be red tomorrow [...] acetate 1% (pink), Vigamox (moses) and Ketorolac (laanis) each four times daily. - Be sure [...] 8 am - 5pm call ophthalmology : [phone] After 5pm or on a weekend or holiday: call the [facility] boring machine operator production and ask for the ophthalmology physician completion manager. At 11:45 am you received 650 mg [...] mouth daily. OXYGEN-AIR DELIVERY SYSTEMS MISC by [facility].(Non-Drug; Combo Route) route. lactobacillus rhamnosus, GG, (CULTURELLE) 10 billion cell Capsule Take 1 capsule by mouth daily. acetaminophen (TYLENOL) 325 mg Tablet Take 650 mg by mouth every 4 hours as needed for Pain. cholecalciferol, Vitamin D3, 2,000 unit Capsule Take by mouth. fluticasone propion-salmeteroL (ADVAIR) 500-50 mcg/dose Disk with Device Inhale 1 puff into the lungs every 12 hours. 09/10/2023 albuterol (PROVENTIL) 2.5 mg /3 mL (0.083 [...] needed for Wheezing. Use with spacer 10/31/2018 ALBUTEROL SULFATE ORAL Take by mouth. 02/2019 documented as of this encounter H&P Notes [...] 12:22 PM EST Pt instructed to squeeze CHILD CARE DIRECTOR's hand if having pain, need to cough, [...] Zamora MD - 08/15/2018 12:50 PM EST [facility] Operative Note Patient Name: Kiersten Barraza : [id number] MR#: [id number] Case Date: 08/15/2018 Surgeon: Surgeon(s) and Role: [...] PM EST Office Visit Hematology/Oncology at [address] [phone] Nick Mullen MD [facility] DR [place] [address] Chana Myrick [address] HEMATOLOGY AND ONCOLOGY [place], [place] [phone] 07/28/2024 1:00 PM EST Scheduled View Only Hematology/Oncology at [address] [phone] Aleah Curran RN 07/28/2024 1:00 PM EST Infusion Hematology Oncology at [address] [phone] documented as of this [...] MIN, 3 doses, First dose on Emilia 08/15/19 at 1130, Last dose on Emilia 19 at 1140, 1 drop to the operative [...] Routine documented in this encounter Care Teams Jewel Inspector Relationship Specialty Start Date End Date Dewey Arroyo APRN [address] [place] [address] PCP - General Internal Medicine 06/22/18 09/19/18 documented as of this encounter
--- OUTSIDE RECORDS SUMMARY | 2024-07-28 01:33 | XMS_ITS | Encounter Summary ---
Author Organization [facility] Address [facility] [place] [address] Care Team Providers Care Cuffer Name Role Phone Unavailable Primary Care Provider Unavailabl e Encounter Details Date Type Department Care Team (Late Contact Info) Description 06/05/2018 1:00 PM EST [place] [phone] Social History Tobacco Use Types Packs/Day Years Used Date Smoking Tobacco: Former Cigarettes 1 50 0 06/25/1967 - 06/25/2017 e-Cigarettes Smokeless Tobacco: Former Alcohol Use Standard Drinks/Week [...] PM EST Office Visit Hematology/Oncology at [address] [phone] Nick Mullen MD [facility] DR [place] [address] Chana Myrick APRN [address] [place] [address] DR HEMATOLOGY AND ONCOLOGY [place], [place] [phone] 07/28/2024 1:00 PM EST Scheduled View Only Hematology/Oncology at [address] [phone] Aleah Curran RN 07/28/2024 1:00 PM EST Infusion Hematology Oncology at [address] [place] [address] documented as of this encounter Visit Diagnoses Not on filedocumented in this encounter
--- OUTSIDE RECORDS SUMMARY | 2024-07-28 01:33 | XMS_ITS | Encounter Summary ---
Author Organization [facility] Address [facility] [place] [address] Care Team Providers Care Pole Cutter Name Role Phone Dina Dewey Fry APRN Primary Care Provider Reason for Visit * Reason Onset Date Comments Post Op Post Op 08/16/2018 Encounter Details Date Type Department Care Team (Late st Contact Info) Description 08/16/2018 10:45 AM EST Office [place] [address] Evie Joyce MD [facility] [place] [address] Status post cataract extraction and insertion of intraocular lens, left; Pseudophakia Social History Tobacco Use Types Packs/Day [...] Progress Notes * Evie Zamora MD - 08/16/2018 10:45 AM EST Assessment: Encounter Diagnoses Name Primary? Status post cataract extraction and insertion of intraocular lens, left ??? Pseudophakia Kiersten Barraza is POD#1 cataract surgery in her left eye Doing well with a normal post [...] PM EST Office Visit Hematology/Oncology at [address] [phone] Nick Mullen MD [facility] DR HEMATOLOGY [place] [address] Chana Myrick APRN [address] [place] [address] DR HEMATOLOGY AND ONCOLOGY [place], [place] [phone] 07/28/2024 1:00 PM EST Scheduled View Only Hematology/Oncology at [address] [phone] Aleah Curran RN 07/28/2024 1:00 PM EST Infusion Hematology Oncology at [address] [phone] documented as of this encounter Visit Diagnoses Diagnosis Status post cataract extraction and insertion of intraocular lens, left Pseudophakia Lens replaced by other means documented in this encounter Care Teams Pole Cutter Relationship Specialty Start Date End Date Dewey Arroyo APRN [address] [place] [address] PCP - General Internal Medicine 06/22/18 09/19/18 documented as of this encounter
--- OUTSIDE RECORDS SUMMARY | 2024-07-28 01:33 | XMS_ITS | Encounter Summary ---
Author Organization [facility] Address [facility] [place] [address] Care Team Providers Care Foreign Student Adviser Name Role Phone DinaDewey APRN Primary Care Provider Reason for Visit * Reason Onset Date Comments Post Op Post Op 09/16/2018 Encounter Details Date Type Department Care Team (Late st Contact Info) Description 09/16/2018 10:15 AM EDT [place] [address] Evie Joyce MD [facility] [place] [address] Status post cataract extraction and insertion of [...] this encounter Patient Instructions * Patient Instructions* Lolly Greco - 09/16/2018 10:15 AM EDT Images from the original note were not included. Drop Name: Cap Color: Dose: 1 Drop Eye: Ketorolac [place] 4 x daily until gone. right eye Prednisolone Acetate 1% [place] or White Taper as follows: 3 x daily for 7 days Then 2x daily for 7 days Then 1x daily for 7 days Then stop. right eye Vigamox (Moxifloxacin) [place] STOP Bring all drops with you to every eye appointment! There should be enough of these drops in the bottle provided to see you through this schedule. If you run out a few days before you are scheduled to end, it is okay to stop early. Use medications prescribed until told otherwise by [...] be used in both eyes if desired Call the eye clinic at [phone] if you experience any unusual redness, pain, flashes or floaters, or vision changes. You can call this number day or night. After office hours, the slope hoist operator will connect you with the doctor television analyzer. documented in this encounter Progress Notes * Evie Zamora MD - 09/16/2018 10:15 AM EDT Assessment: Encounter Diagnoses Name Primary? Status post cataract extraction and insertion of intraocular lens, right ??? Pseudophakia Kiersten Barraza is s/p cataract surgery ~1 week in her right eye. Doing well with a normal 1 week post-operative appearance. Plan: - Prednisolone acetate 1% tid OD for 7 days, then bid OD for 7 days, then qd OD for 7 days. - d/c Moxifloxicin - Ketorolac qid in OD until the bottle runs out. - Post op precaution sheet and new medication directions reviewed and given to patient. Follow Up: 1 Month or as needed. Upon return: IOP OU MR operative eye Dilate documented in this encounter Plan of Treatment Upcoming Encounters Date Type Department Care Team (Late st Contact Info) Description 07/28/2024 12:30 PM EST Office Visit Hematology/Oncology at [address] [phone] Nick Mullen MD [facility] DR [place]AT[place] [address] Chana Myrick APRN [address] [place] [address] DR HEMATOLOGY AND ONCOLOGY [place], [place] [phone] 07/28/2024 1:00 PM EST Scheduled View Only Hematology/Oncology at [address] [phone] Aleah Curran RN 07/28/2024 1:00 PM EST Infusion Hematology Oncology at [address] [phone] documented as of this encounter Visit Diagnoses Diagnosis Status post cataract extraction and insertion of intraocular lens, right Pseudophakia Lens replaced by other means documented in this encounter Care Teams Foreign Student Adviser Relationship Specialty Start Date End Date Dewey Arroyo APRN [address] [place] [phone] PCP - General Internal Medicine 06/22/18 09/19/18 documented as of this encounter
--- OUTSIDE RECORDS SUMMARY | 2024-07-28 01:33 | XMS_ITS | Encounter Summary ---
Author Organization Formerly [facility] Address [facility] [place] [address] Care Team Providers Care Latex Thread Machine Operator Name Role Phone Unavailable Primary Care Provider Unavailabl e Encounter Details Date Type Department Care Team (Late st Contact Info) Description 06/05/2018 12:40 PM EST Clinical [place] [phone] Social History Tobacco Use Types Packs/Day Years [...] Taken Comments Blood Pressure - - Pulse 103 06/05/2018 12:36 PM EST Temperature - - Respiratory Rate - - Oxygen Saturation 96% 06/05/2018 12:36 PM EST on 2L CONTOUR BAND SAW OPERATOR VERTICAL O2 Inhaled Oxygen Concentration - - Weight 69.4 kg (153 lb) 06/05/2018 12:36 PM EST Height 154.9 cm (5' 1) 06/05/2018 12:36 PM EST Body Mass Index 28.91 06/05/2018 12:36 PM EST documented in this encounter Progress Notes * Anabel Montaño, RN - 06/05/2018 12:40 PM EST Pt seen in Pre Admission Testing for review of Anesthesia Questionnaire. Pt being evaluated by anesthesia as to where surgery needs to take place -[facility] or [facility]. Testing: None Special medication instructions: None Procedure Date: Not yet scheduled Anesthesia seeing today Tram Carranzacamron KHANNA documented in this encounter Plan of Treatment Upcoming Encounters Date Type Department Care Team (Late st Contact Info) Description 07/28/2024 12:30 PM EST Office Visit Hematology/Oncology at [address] [phone] Nick Mullen MD [facility] DR HEMATOLOGY [place] [address] Chana Myrick APRN [address] [place] [address] DR HEMATOLOGY AND ONCOLOGY [place], [place] [id number] 07/28/2024 1:00 PM EST Scheduled View Only Hematology/Oncology at [address] [phone] Aleah Curran RN 07/28/2024 1:00 PM EST Infusion Hematology Oncology at [address] [phone] documented as of this encounter Visit Diagnoses Not on filedocumented in this encounter
--- OUTSIDE RECORDS SUMMARY | 2024-07-28 01:33 | XMS_ITS | Encounter Summary ---
Author Organization [facility] Address [facility] [place] [address] Care Team Providers Care Director Of Aviation Name Role Phone Unavailable Primary Care Provider Unavailabl e Reason for Visit * Reason Comments Cataract Procedure * Consultation (Routine) - Specialty Diagnoses / Procedures Referred By Alea t Referred To Contact Ophthalmology Diagnoses CAT Geovani Avila, OD [address] [place] [address] Evie Joyce MD [facility] [place] [address] Referral ID Status Reason Start Date Expiration Date V isits Requested Visits Authorized [id number] Consult, Test & Treat PCP Updated and/or Approved 04/16/2018 10/15/2018 6 6 Encounter Details Date Type Department Care Team (Late st Contact Info) Description 05/09/2018 1:00 PM EST Procedure [place] [phone] Evie Joyce MD [facility] [address] Combined forms of age-related cataract of both eyes Social History Tobacco [...] Notes * Evie Zamora MD - 05/09/2018 1:00 PM EST POM obtained today documented in this encounter Plan of Treatment Upcoming Encounters Date Type Department Care Team (Late st Contact Info) Description 07/28/2024 12:30 PM EST Office Visit Hematology/Oncology at [address] [phone] Nick Mullen MD [facility] DR HEMATOLOGY [place] [address] Chana Myrick APRN [address] [place] [address] DR [place]Y [place] [address] 07/28/2024 1:00 PM EST Scheduled View Only Hematology/Oncology at [address] [phone] Aleah Curran RN 07/28/2024 1:00 PM EST Infusion Hematology Oncology at [address] [phone] documented as of this encounter Procedures Procedure Name Priority Date/Time Associated Diagnosis Comments [id number] CALC BY LASER INTERFEROMETRY - OU - BOTH EYES Routine 05/09/2018 1:56 PM EST Combined forms of age-related cataract of both eyes documented in this encounter Results * [id number] CALC BY LASER [id number] EYES (05/09/2018 1:56 PM EST) Anatomical Region Laterality Modality Other Narrative 05/09/2018 2:30 PM EST Physician PreOp Lens Selection Right Eye Style: SN60WF. Power: 21.00. Left Eye Style: SN60WF. Power: 21.50. General Details Left Eye. Right Eye. Notes Patient Hx Past Medical Hx ??Pt. ??has a past medical history of Allergic state, Anxiety, Arthritis, Cataract, COPD (chronic obstructive pulmonary disease), and Hypertension. Past Ophth Surg Hx ??No relevant surgical history has been documented for this patient. Eye Meds ??acetaminophen, albuterol, albuterol sulfate, amLODIPine, busPIRone, cholecalciferol (Vitamin D3), fluticasone-salmeterol, lactobacillus rhamnosus (GG), lisinopril, multivitamin, oxygen-air delivery systems, and umeclidinium IOL Biometry - Initial (source: LENSTAR) OD OS Date Performed 05/09/2018 ??1:55 PM 05/09/2018 ??1:55 PM ?? Target Refraction No Value exists for the BEHAVIORAL HEALTH AIDE: DHOPH#016 No Value exists for the BEHAVIORAL HEALTH AIDE: DHOPH#017 ?? Axial Length 23 (mm) 22.71 (mm) ?? Anterior Chamber Depth 3.18 (mm) 3.18 (mm) ?? Horizontal White to White 11.3 (mm) 11.45 (mm) ?? Formula Used ? K's 44.68@ ??/ 46.58@006 44.74@ ??/ 46.35@006 ? Add'l Comments/Discrepancies/Concerns: POM Reliable. Clean Retina spikes OU. Low Standard deviations. Evie Joyce MD OPHTHALMOLOGY SE RVICES ORDERABLES documented in this encounter Visit Diagnoses Diagnosis Combined forms of age-related cataract of both eyes Other and combined forms of senile cataract documented in this encounter
--- OUTSIDE RECORDS SUMMARY | 2024-07-28 01:33 | XMS_ITS | Encounter Summary ---
Author Organization [facility] Address [facility] [place] [address] Care Team Providers Care Systems Designer Name Role Phone DinaDewey APRN Primary Care Provider Reason for Visit * Reason Onset Date Comments Post Op Post Op 08/22/2018 Encounter Details Date Type Department Care Team (Late st Contact Info) Description 08/22/2018 11:00 AM EST Office [place] [phone] Evie Joyce MD [facility] DR OPHTHALMOLOGY [place] [phone] Status post cataract extraction and insertion of [...] Instructions * Patient Instructions* Otilia Hodge - 08/22/2018 11:00 AM EST Images from the original note were not included. Drop Name: Cap Color: Dose: 1 Drop Eye: [place] 4 x daily until gone. left eye Prednisolone Acetate 1% [place]is or White Taper as follows: 3 x daily for 7 days Then 2x daily for 7 days Then 1x daily for 7 days Then stop. left eye Vigamox (Moxifloxacin) Estrada STOP Ointment Small tube 2-3x daily as needed left eye Bring all drops with you to [...] if desired Call the eye clinic at [phone] if you experience any unusual redness, pain, flashes or floaters, or vision changes. You can call this number day or night. After office hours, the cooling system operator will connect you with the doctor collision repair technician. documented in this encounter Progress Notes * Evie Zamora MD - 08/22/2018 11:00 AM EST Assessment: Encounter Diagnoses Name Primary? Status post cataract extraction and insertion of intraocular lens, left ??? Pseudophakia Kiersten Barraza is s/p cataract surgery ~1 week in her left eye. Doing well with a normal 1 week post-operative appearance. Plan: - Prednisolone acetate 1% tid OS for 7 days, then bid OS for 7 days, then qd OS for 7 days. - d/c Moxifloxicin - Ketorolac qid in OS until the bottle runs out. - Post op precaution sheet and new medication directions reviewed and given to patient. Follow Up: 1 Month or as needed. Upon return: IOP OU MR operative eye Dilate documented in this encounter Plan of Treatment Upcoming Encounters Date Type Department Care Team (Late st Contact Info) Description 07/28/2024 12:30 PM EST Office Visit Hematology/Oncology at [address] [phone] Nick Mullen MD [facility] DR HEMATOLOGY [place] [address] Chana Myrick APRN [address] [place] [address] DR HEMATOLOGY AND ONCOLOGY [place], [place] [id number] 07/28/2024 1:00 PM EST Scheduled View Only Hematology/Oncology at [address] [phone] Aleah Curran RN 07/28/2024 1:00 PM EST Infusion Hematology Oncology at [address] [phone] documented as of this encounter Visit Diagnoses Diagnosis Status post cataract extraction and insertion of intraocular lens, left Pseudophakia Lens replaced by other means documented in this encounter Care Teams Systems Designer Relationship Specialty Start Date End Date Dewey Arroyo APRN [address] [place] [phone] PCP - General Internal Medicine 06/22/18 09/19/18 documented as of this encounter
[2024-07-28 11:33] LABS: Abs Immature Grans 0.02 10^3/uL (0.0-0.06); Absolute Basophil Count 0.04 10^3/uL (0.0-0.2); Absolute Eosinophil Count 0.08 10^3/uL (0.0-0.7); Absolute Lymphocyte Count 0.73 10^3/uL (1.2-3.4); Absolute Monocyte Count 0.49 10^3/uL (0.1-0.8); Absolute Neutrophil Count 4.45 10^3/uL (1.2-6.7); Basophils % 0.7 %; Eosinophils % 1.4 %; HCT 32.5 % (36.0-46.0); HGB 9.9 g/dL (11.2-15.7); Immature Grans % 0.3 %; Lymphocytes % 12.6 %; MCH 26.6 pg (27.0-33.0); MCHC 30.5 % (32.0-36.0); MCV 87 fL (80-95); MPV 8.5 fL (8.0-11.0); Monocytes % 8.4 %; Neutrophils % 76.6 %; Platelet Count 444 10^3/uL (130-400); RBC 3.72 10^6/uL (3.93-5.22); RDW 13.2 % (11.7-14.6); WBC 5.81 10^3/uL (4.4-10.8)
[2024-07-28 12:02] LABS: ALT 17 U/L (14-59); AST 15 U/L (15-37); Albumin 2.7 g/dL (3.4-5.0); Alkaline Phosphatase 115 U/L (46-116); Anion Gap 0.6 mmol/L (3-11); BUN 10 mg/dL (7-18); Bilirubin, Total 0.23 mg/dL (0.2-1.0); CO2 39.4 mmol/L (21.0-32.0); CREATININE 0.7 mg/dL (0.55-1.02); Calcium 9.5 mg/dL (8.5-10.1); Chloride 101 mmol/L (98-107); Estimated GFR 85.76 (mL/min/1.73m2); FREE T4 0.97 ng/dL (0.76-1.46); Glucose 110 mg/dL (74-106); Magnesium 1.8 mg/dL (1.8-2.4); Potassium 4.3 mmol/L (3.5-5.1); Sodium 141 mmol/L (136-145); TSH 1.63 uIU/mL (0.36-3.74); Total Protein 7.3 g/dL (6.4-8.2)
== END 2024-07-28 01:21 | disposition home or self-care (01) ==
PROVIDERS: PCP Internal Medicine; Visit Provider Internal Medicine Medical Oncology
DX: Z79.899 Other long term (current) drug therapy (principal); C34.31 Malignant neoplasm of lower lobe, right bronchus or lung
CPT/HCPCS: 36415; 80053; 83735; 84439; 84443; 85025

== ENCOUNTER 2024-08-18 12:38 | Outpatient (CLI) | payer MEDICARE, SELFPAY ==
[2024-08-18 12:54] LABS: Abs Immature Grans 0.02 10^3/uL (0.0-0.06); Absolute Basophil Count 0.06 10^3/uL (0.0-0.2); Absolute Eosinophil Count 0.22 10^3/uL (0.0-0.7); Absolute Lymphocyte Count 0.71 10^3/uL (1.2-3.4); Absolute Monocyte Count 0.59 10^3/uL (0.1-0.8); Absolute Neutrophil Count 4.65 10^3/uL (1.2-6.7); Eosinophils % 3.5 %; HCT 31.8 % (36.0-46.0); HGB 9.5 g/dL (11.2-15.7); Immature Grans % 0.3 %; Lymphocytes % 11.4 %; MCH 26.8 pg (27.0-33.0); MCHC 29.9 % (32.0-36.0); MCV 90 fL (80-95); MPV 8.7 fL (8.0-11.0); Monocytes % 9.4 %; Neutrophils % 74.4 %; Platelet Count 386 10^3/uL (130-400); RBC 3.55 10^6/uL (3.93-5.22); RDW-SD 45.9 fL; WBC 6.25 10^3/uL (4.4-10.8)
[2024-08-18 13:17] LABS: ALT 29 U/L (14-59); AST 23 U/L (15-37); Albumin 2.8 g/dL (3.4-5.0); Alkaline Phosphatase 98 U/L (46-116); BUN 12 mg/dL (7-18); Bilirubin, Total 0.23 mg/dL (0.2-1.0); CREATININE 0.8 mg/dL (0.55-1.02); Calcium 9.5 mg/dL (8.5-10.1); Chloride 102 mmol/L (98-107); Estimated GFR 73.06 (mL/min/1.73m2); FREE T4 1.05 ng/dL (0.76-1.46); Glucose 111 mg/dL (74-106); Magnesium 1.7 mg/dL (1.8-2.4); Sodium 143 mmol/L (136-145); TSH 1.91 uIU/mL (0.36-3.74); Total Protein 7.1 g/dL (6.4-8.2)
== END 2024-08-18 12:39 | disposition home or self-care (01) ==
LOC: LBO 12:38
PROVIDERS: PCP Internal Medicine; Visit Provider Internal Medicine Medical Oncology
DX: Z79.899 Other long term (current) drug therapy (principal); C34.31 Malignant neoplasm of lower lobe, right bronchus or lung; C78.2 Secondary malignant neoplasm of pleura
CPT/HCPCS: 36415; 80053; 83735; 84439; 84443; 85025